=== PATIENT | female | born 1940 | race Caucasian/White ===

== ENCOUNTER 2021-06-14 11:00 | Emergency (ER) | payer MEDICARE, SELFPAY ==
[2021-06-14 11:21] VITALS: BP 153/57; PULSE 74; RESP 18; TEMP 36.8; O2SAT 98
[2021-06-14 11:30] LABS: Bilirubin Negative (Negative); Blood Small (Negative); Clarity Cloudy (Clear); Glucose Negative (Negative); Ketones Negative (Negative); Leukocyte Esterase Moderate (Negative); Nitrite Positive (Negative); Urobilinogen 0.2 EU/dL (Up TO 0.2); pH 5.5 (5-8)
[2021-06-14 11:41] LABS: Bacteria Many HPF (Negative); C & S Indicated? Yes; Casts Negative LPF (Negative); Crystals Negative HPF (Negative); Epithelial Cells Few HPF (Negative); Mucus Negative (Negative); WBC >50 HPF (0-5)
[2021-06-14 12:55] LABS: RBC Negative HPF (0-2)
[2021-06-14 14:33] LABS: Abs Immature Grans 0.02 10^3/uL (0.0-0.06); Absolute Basophil Count 0.03 10^3/uL (0.0-0.2); Absolute Eosinophil Count 0.02 10^3/uL (0.0-0.7); Absolute Lymphocyte Count 0.95 10^3/uL (1.2-3.4); Absolute Monocyte Count 0.54 10^3/uL (0.1-0.8); Absolute Neutrophil Count 6.97 10^3/uL (1.2-6.7); Basophils % 0.4; Eosinophils % 0.2; HCT 30.5 % (36.0-46.0); HGB 9.9 g/dL (11.2-15.7); Immature Grans % 0.2; Lymphocytes % 11.1; MCHC 32.5 % (32.0-36.0); MCV 92.4 fL (80-95); MPV 9.8 fL (8.0-11.0); Monocytes % 6.3; Neutrophils % 81.8; Nucleated RBC 0 %; Platelet Count 301 10^3/uL (130-400); RDW 12.2 % (11.7-14.6); RDW-SD 41.4 fL; WBC 8.53 10^3/uL (4.4-10.8)
[2021-06-14 14:57] LABS: ALT 21 U/L (14-59); AST 15 U/L (15-37); Albumin 3.8 g/dL (3.4-5.0); Alkaline Phosphatase 54 U/L (46-116); Anion Gap 14.1 mmol/L (3-11); BUN 21 mg/dL (7-18); Bilirubin, Total 0.6 mg/dL (0.2-1.0); CO2 21.9 mmol/L (21.0-32.0); CREATININE 1.9 mg/dL (0.55-1.02); Calcium 9.3 mg/dL (8.5-10.1); Chloride 106 mmol/L (98-107); Estimated GFR 25.57 (mL/min/1.73m2); Glucose 143 mg/dL (74-106); Potassium 3.5 mmol/L (3.5-5.1); Sodium 142 mmol/L (136-145)
[2021-06-14 15:45] VITALS: BP 148/61; PULSE 75; RESP 16; O2SAT 97
--- NOTE | 2021-06-14 16:16 | ED.GENADUL_ITS ---
Discharge Plan Disposition Patient Disposition: HOME Condition: Stable Discharge Details Clinical Impression: Acute pyelonephritis Primary Care Provider: Dang Tobias ED Provider: Harry Marshall Home Meds and New Rx's Prescriptions: New ciprofloxacin HCl 500 mg tablet 500 mg PO BID Qty: 13 RF: 0 Continued atorvastatin 40 mg tablet 40 mg PO DAILY RF: 0 carvedilol 12.5 mg tablet 12.5 mg PO BID RF: 0 cetirizine [Zyrtec] 10 mg Tablet 10 mg PO DAILY RF: 0 prednisone 20 mg tablet 20 mg PO DAILY RF: 0 glucosamine sulfate [Glucosamine] 500 mg Tablet 1,000 mg PO DAILY RF: 0 triamcinolone acetonide 0.1 % cream 1 applic TOPICAL BID RF: 0 amlodipine 10 mg Tablet 10 mg PO DAILY RF: 0 esomeprazole magnesium 40 mg Capsule,Delayed Release(Dr/Ec) 40 mg PO DAILY RF: 0 levothyroxine 125 mcg tablet 125 mcg PO DAILY RF: 0 multivitamin Capsule 1 cap PO DAILY RF: 0 Eliquis 5 mg tablet 5 mg PO BID RF: 0 Tresiba FlexTouch U-100 100 unit/mL (3 mL) insulin pen 2 unit SUBCUT DAILY RF: 0 Discharge Instructions Instructions: Ciprofloxacin (By mouth), Urinary Tract Infection in Women (ED) Additional Instructions: Please take full course of antibiotic as prescribed. Please follow-up with your primary care physician tomorrow. Return to the ER immediately for any worsening or new concerning symptoms. Referrals: Dang Tobias [Primary Care Provider] - Discharge Data Discharge Date/Time-TO BE ENTERED AT DEPARTURE: 06/14/21 18:12 Medical Decision Making 1723 -- 80yo f here with flank pain. Hemodynamically stable. Abdominal exam benign. Exam and history consistent with pyelonephritis. Labs reviewed: Urinalysis consistent with UTI. No leukocytosis. Patient does have anemia. Bedside POC ultrasound reveals no hydronephrosis. Plan to treat with ceftriaxone 1g IV. Will discharge on cipro 500mg BID. I advised close followup with PCP. Discharge instructions were reviewed with the patient. HPI General Mode of arrival: ambulatory . Date/Time Provider Initiated Documentation: 06/14/21 14:07 . Limitations to Documentation: no limitations . Information obtained by: patient . HPI Narrative: 80yo f presents with chief complaint of left flank pain. Patient notes for the past 3 days she has had persistent left flank pain with some associated nausea and vomiting. Pain is been moderate. Described as an ache. No modifiers. No associated dysuria or hematuria but has had increased urinary frequency. Related Data Home Medications Medication Instructions Recorded Confirmed Eliquis 5 mg PO BID 06/14/21 06/14/21 Tresiba FlexTouch U-100 2 unit SUBCUT DAILY 06/14/21 06/14/21 amlodipine 10 mg PO DAILY 06/14/21 06/14/21 atorvastatin 40 mg PO DAILY 06/14/21 06/14/21 carvedilol 12.5 mg PO BID 06/14/21 06/14/21 cetirizine [Zyrtec] 10 mg PO DAILY 06/14/21 06/14/21 ciprofloxacin HCl 500 mg PO BID #13 tab 06/14/21 esomeprazole magnesium 40 mg PO DAILY 06/14/21 06/14/21 glucosamine sulfate [Glucosamine] 1,000 mg PO DAILY 06/14/21 06/14/21 levothyroxine 125 mcg PO DAILY 06/14/21 06/14/21 multivitamin 1 cap PO DAILY 06/14/21 06/14/21 prednisone 20 mg PO DAILY 06/14/21 06/14/21 triamcinolone acetonide 1 applic TOPICAL BID 06/14/21 06/14/21 Previous Rx's Medication Instructions Recorded ciprofloxacin HCl 500 mg PO BID #13 tab 06/14/21 Allergies Allergy/AdvReac Type Severity Reaction Status Date / Time codeine Allergy Nausea Unverified 06/14/21 17:20 erythromycin base Allergy Hives Unverified 06/14/21 17:20 naproxen Allergy Unverified 06/14/21 17:11 omeprazole [From Prilosec] Allergy Unverified 06/14/21 17:11 Penicillins Allergy Unverified 06/14/21 17:11 Sulfa (Sulfonamide Allergy Unverified 06/14/21 17:11 Antibiotics) methotrexate AdvReac Unverified 06/14/21 17:20 naltrexone AdvReac Skin Rash Unverified 06/14/21 17:20 NSAIDS (Non-Steroidal AdvReac Unverified 06/14/21 17:20 Anti-Inflamma General Stated Complaint: FlankPain PAULINE: 3 Review of Systems All systems reviewed & are unremarkable except as noted in HPI and below Constitutional Constitutional: Denies fever(s) Gastrointestinal Gastrointestinal: Reports nausea Genitourinary Genitourinary: Reports as per HPI, Denies hematuria and Denies dysuria PFSH Social History Smoking/Tobacco Use Status: Never Smoking risk assessment performed?: Yes Alcohol Intake: never Drug use: Never Substance use type: does not use Do you feel safe at home: Yes Do you feel safe in your relationship?: Yes Exam Const General: cooperative and no acute distress HENMT Mouth: moist mucous membranes Eyes Conjunctivae: normal conjunctivae Sclera: normal sclerae Resp Auscultation: clear to auscultation bilaterally, no rales, no rhonchi and no wheezes Cardio Rate: regular rate and not tachycardic Rhythm: regular rhythm GI Palpation: soft, not firm, no guarding, no masses, not rigid and nontender Back/Spine/Pelvis Back: CVA tenderness (lt) Skin General skin exam: no rashes or lesions noted Neuro General: patient alert, patient awake, patient oriented x3 and tone normal Extrem General: no edema Psych Appearance: grossly normal Mental Status: mental status grossly normal Speech and Movement: speech and movement normal Course Vital Signs Vital signs: Vital Signs Temperature 36.8 C 06/14/21 11:21 Pulse 74 06/14/21 11:21 Respiratory Rate 18 06/14/21 11:21 Blood Pressure 153/57 H 06/14/21 11:21 Pulse Oximetry 98 06/14/21 11:21 Temperature 36.8 C 06/14/21 11:21 Temperature Source Skin 06/14/21 11:21 Pulse 75 06/14/21 15:45 Respiratory Rate 16 06/14/21 15:45 Respiratory Effort Non-Labored 06/14/21 11:24 Blood Pressure 148/61 H 06/14/21 15:45 Blood Pressure Position Sitting 06/14/21 11:21 Pulse Oximetry 97 06/14/21 15:45 Oxygen Delivery Method Room Air 06/14/21 15:45 Oxygen Flow Rate 0 06/14/21 15:45 Pain Level 6 06/14/21 11:26 Lab/Test Results Lab/Test Results: 06/14/21 11:12 Urine - Reflex from Ua Urine Culture - Pending Laboratory Tests Range/Units 06/14/21 06/14/21 06/14/21 11:12 14:20 14:20 WBC (4.4-10.8) 10^3/uL 8.53 RBC (3.93-5.22) 10^6/uL 3.30 L Hgb (11.2-15.7) g/dL 9.9 L Hct (36.0-46.0) % 30.5 L MCV (80-95) fL 92.4 MCH (27.0-33.0) pg 30.0 MCHC (32.0-36.0) % 32.5 RDW (11.7-14.6) % 12.2 Plt Count (130-400) 10^3/uL 301 MPV (8.0-11.0) fL 9.8 Immature Gran % 0.2 Neutrophils % 81.8 Lymphocytes % 11.1 Monocytes % 6.3 Eosinophils % 0.2 Basophils % 0.4 Nucleated RBC % % 0 Absolute Neutrophils (1.2-6.7) 10^3/uL 6.97 H Absolute Lymphocytes (1.2-3.4) 10^3/uL 0.95 L Absolute Monocytes (0.1-0.8) 10^3/uL 0.54 Absolute Eosinophils (0.0-0.7) 10^3/uL 0.02 Absolute Basophils (0.0-0.2) 10^3/uL 0.03 Sodium (136-145) mmol/L 142 Potassium (3.5-5.1) mmol/L 3.5 Chloride (98-107) mmol/L 106 Carbon Dioxide (21.0-32.0) mmol/L 21.9 Anion Gap (3-11) mmol/L 14.1 H BUN (7-18) mg/dL 21 H Creatinine (0.55-1.02) mg/dL 1.9 H Estimated GFR/1.73 m2 (mL/min/1.73m2) 25.57 Glucose (74-106) mg/dL 143 H Calcium (8.5-10.1) mg/dL 9.3 Total Bilirubin (0.2-1.0) mg/dL 0.6 AST (15-37) U/L 15 ALT (14-59) U/L 21 Alkaline Phosphatase (46-116) U/L 54 Total Protein (6.4-8.2) g/dL 8.0 Albumin (3.4-5.0) g/dL 3.8 Urine Color (Yellow) Yellow Urine Clarity (Clear) Cloudy Urine pH (5-8) 5.5 Ur Specific [place] (1.005-1.025) 1.020 Urine Protein (Negative) mg/dL 100 H Urine Ketones (Negative) mg/dL Negative Urine Blood (Negative) Small H Urine Nitrite (Negative) Positive H Urine Bilirubin (Negative) Negative Urine Urobilinogen (Up TO 0.2) EU/dL 0.2 Ur Leukocyte Esterase (Negative) Moderate H Urine RBC (0-2) HPF Negative Urine WBC (0-5) HPF >50 H Ur Epithelial Cells (Negative) HPF Few Urine Crystals (Negative) HPF Negative Urine Bacteria (Negative) HPF Many Urine Casts (Negative) LPF Negative Urine Mucus (Negative) Negative Ur Culture Indicated? Yes Urine Glucose (Negative) mg/dL Negative
[2021-06-14] MEDS: cefTRIAXone 1 GM/50 ML BAG IVPB (17:33)
[2021-06-14 18:01] VITALS: BP 158/70; PULSE 76; RESP 18; TEMP 36.5; O2SAT 99
[2021-06-14] MEDS: Ciprofloxacin 500 MG TAB PO (18:12)
== END 2021-06-14 18:12 | disposition home or self-care (01) ==
PROVIDERS: Emergency Provider Student in an Organized Health Care Education/Training Program; PCP Nurse Practitioner Family
DX: N10 Acute pyelonephritis (principal)
CPT/HCPCS: 80053; 87077; 96365; 99284; 81003; 81015; 85025; 87086; 87186; J0696

== ENCOUNTER 2022-02-26 16:15 | Emergency (ER) | payer MEDICARE, MEDICAID, SELFPAY ==
[2022-02-26] VITALS (10 sets, daily range): BP systolic 167–183; BP diastolic 56–64; PULSE 59–63; RESP 11–23; O2SAT 98–99
--- NOTE | 2022-02-26 16:45 | RT.EKG_ITS ---
APPROVED REPORT Exam: Resting ECG Reason for Exam: low potassium Patient Location: E HR:60 bpm ECG Measurements Heart Rate 60 AXIS HI 188 P 0 QRSd 148 QRS 15 QT 493 T 157 QTc 494 Conclusion Ventricular-paced rhythm
[2022-02-26 17:04] LABS: Abs Immature Grans 0.04 10^3/uL (0.0-0.06); Absolute Basophil Count 0.05 10^3/uL (0.0-0.2); Absolute Eosinophil Count 0.05 10^3/uL (0.0-0.7); Absolute Lymphocyte Count 1.56 10^3/uL (1.2-3.4); Absolute Monocyte Count 0.81 10^3/uL (0.1-0.8); Absolute Neutrophil Count 6.76 10^3/uL (1.2-6.7); Basophils % 0.5; Eosinophils % 0.5; HCT 28.1 % (36.0-46.0); HGB 8.8 g/dL (11.2-15.7); Immature Grans % 0.4; Lymphocytes % 16.8; MCH 25.2 pg (27.0-33.0); MCHC 31.3 % (32.0-36.0); MCV 81 fL (80-95); MPV 9.5 fL (8.0-11.0); Monocytes % 8.7; Neutrophils % 73.1; Platelet Count 289 10^3/uL (130-400); RBC 3.49 10^6/uL (3.93-5.22); RDW-SD 46.5 fL; WBC 9.27 10^3/uL (4.4-10.8)
[2022-02-26 17:16] LABS: ALT 22 U/L (14-59); AST 16 U/L (15-37); Albumin 3.5 g/dL (3.4-5.0); Alkaline Phosphatase 77 U/L (46-116); Anion Gap 14.3 mmol/L (3-11); BUN 30 mg/dL (7-18); Bilirubin, Total 0.5 mg/dL (0.2-1.0); CO2 19.7 mmol/L (21.0-32.0); CREATININE 1.9 mg/dL (0.55-1.02); Calcium 8.6 mg/dL (8.5-10.1); Chloride 108 mmol/L (98-107); Glucose 118 mg/dL (74-106); Magnesium 1.4 mg/dL (1.8-2.4); Sodium 142 mmol/L (136-145)
[2022-02-26 17:17] LABS: Potassium 2.8 mmol/L (3.5-5.1)
[2022-02-26] MEDS: Magnesium Oxide 400 MG TAB PO (17:37)
[2022-02-26] MEDS: POTASSIUM CHLORIDE 10 MEQ/100 ML BAG 100 MEQ IVPB (17:38)
[2022-02-26] MEDS: Potassium Chloride 20 MEQ TABCR 40 MEQ PO ×2 (17:38→19:19)
[2022-02-26 18:26] LABS: Diff Comment RBC Morph Reviewed; Hypochromasia 1+; Microcytosis 1+; Poikilocytes 1+
--- NOTE | 2022-02-26 19:02 | ED.GENADUL_ITS ---
Discharge Plan Disposition Patient Disposition: HOME Condition: Improving Discharge Details Clinical Impression: Hypokalemia, Hypomagnesemia Primary Care Provider: Dang Tobias ED Provider: Mike Ramos Home Meds and New Rx's Prescriptions: No Action atorvastatin 40 mg tablet 40 mg PO DAILY Label Comments: TAKE ONE TABLET BY MOUTH EVERY EVENING carvedilol 12.5 mg tablet 12.5 mg PO BID Label Comments: TAKE ONE TABLET BY MOUTH TWICE A DAY WITH FOOD FOR 90 DAYS cetirizine [Zyrtec] 10 mg Tablet 10 mg PO DAILY prednisone 20 mg tablet 20 mg PO DAILY Label Comments: TAKE ONE TABLET BY MOUTH EVERY DAY FOR 3 DAYS glucosamine sulfate [Glucosamine] 500 mg Tablet 1,000 mg PO DAILY triamcinolone acetonide 0.1 % cream 1 applic TOPICAL BID Label Comments: APPLY A THIN LAYER TO AFFECTED AREA TOPICALLY TWO TIMES A DAY amlodipine 10 mg Tablet 10 mg PO DAILY esomeprazole magnesium 40 mg Capsule,Delayed Release(Dr/Ec) 40 mg PO DAILY levothyroxine 125 mcg tablet 125 mcg PO DAILY Label Comments: TAKE ONE TABLET BY MOUTH EVERY DAY FOR 90 DAYS multivitamin Capsule 1 cap PO DAILY Eliquis 5 mg tablet 5 mg PO BID Label Comments: TAKE 1 TABLET BY MOUTH TWICE DAILY Tresiba FlexTouch U-100 100 unit/mL (3 mL) insulin pen 2 unit SUBCUT DAILY Label Comments: INJECT 2 UNITS SUBCUTANEOUSLY ONCE DAILY REPLACE PEN AFTER OPEN FOR 56 DAYS ciprofloxacin HCl 500 mg tablet 500 mg PO BID Qty: 13 0RF Discharge Instructions Instructions: Hypokalemia (ED), Hypomagnesemia (ED) Additional Instructions: Please continue to take your normally prescribed medications as directed by your primary care provider. If you develop any new or significant worsening of sym ptoms including chest pain, muscle spasms, or have any concerns return immediately to the emergency department. Please take the remainder of the potassium pills provided tomorrow. It is recommended that you follow-up with your primary care provider for arrangement of reassessment and recheck of your labs. If this cannot be arranged you should return to the emergency department by the end of the week for a recheck. Referrals: Dang Tobias [Primary Care Provider] - (Please follow-up by the end of the week for reassessment and recheck of your labs.) Discharge Data Discharge Date/Time-TO BE ENTERED AT DEPARTURE: 02/26/22 19:20 Medical Decision Making Patient was sent here by [facility] hypokalemia from labs that were checked yesterday. Patient is asymptomatic, denies any chest pain, irregular heartbeats, muscle spasms or other symptoms. She does state this is happened in the past and has had been on potassium supplementation but supplementation causes diarrhea and GI upset for her. Physical exam is unremarkable, so we will plan on checking labs. Review of labs show anemia but not much off patient's baseline, potassium is 2.8 and magnesium is 1.4. Patient does have significant decreased renal function which seems to be at or near baseline. Patient ordered 40 mEq p.o. potassium, 10 mEq of IV potassium and 400 of mag oxide. Patient reassessed continues to have no further symptoms and actually states some improvement of overall feeling. Will discharge patient with additional po tassium to take tomorrow morning with close monitoring for any symptoms and return precautions. Lab Data Lab results reviewed: Yes I reviewed the patient's lab results. HPI General Mode of arrival: ambulatory . Date/Time Provider Initiated Documentation: 02/26/22 16:16 . Limitations to Documentation: no limitations . Information obtained by: patient, family and old records reviewed . History of Present Illness 81 year old F presents to the emergency department with the chief complaint of Low potassium, Quality is described as other (Denies pain discomfort or other symptoms), Patient started experiencing this unknown No exacerbating factors reported . Patient notes no other symptoms.. Patient did receive the following treatments prior to arrival, none Related Data Home Medications Medication Instructions Recorded Confirmed amlodipine 10 mg tablet 10 mg PO DAILY 06/14/21 02/26/22 apixaban 5 mg tablet (Eliquis) 5 mg PO BID 06/14/21 02/26/22 atorvastatin 40 mg tablet 40 mg PO DAILY 06/14/21 02/26/22 carvedilol 12.5 mg tablet 12.5 mg PO BID 06/14/21 02/26/22 cetirizine 10 mg tablet (Zyrtec) 10 mg PO DAILY 06/14/21 02/26/22 ciprofloxacin HCl 500 mg tablet 500 mg PO BID #13 tabs 06/14/21 02/26/22 esomeprazole magnesium 40 mg 40 mg PO DAILY 06/14/21 02/26/22 capsule,delayed release glucosamine sulfate 500 mg tablet 1,000 mg PO DAILY 06/14/21 02/26/22 (Glucosamine) insulin degludec 100 unit/mL (3 2 unit subcut DAILY 06/14/21 02/26/22 mL) subcutaneous pen (Tresiba FlexTouch U-100 insulin) levothyroxine 125 mcg tablet 125 mcg PO DAILY 06/14/21 02/26/22 multivitamin 1 cap PO DAILY 06/14/21 02/26/22 prednisone 20 mg tablet 20 mg PO DAILY 06/14/21 02/26/22 triamcinolone acetonide 0.1 % 1 applic topical BID 06/14/21 02/26/22 topical cream Previous Rx's Medication Instructions Recorded ciprofloxacin HCl 500 mg tablet 500 mg PO BID #13 tabs 06/14/21 Allergies Allergy/AdvReac Type Severity Reaction Status Date / Time codeine Allergy Nausea Unverified 06/14/21 17:20 erythromycin base Allergy Hives Unverified 06/14/21 17:20 naproxen Allergy Unverified 06/14/21 17:11 omeprazole [From Prilosec] Allergy Unverified 06/14/21 17:11 Penicillins Allergy Unverified 06/14/21 17:11 Sulfa (Sulfonamide Allergy Unverified 06/14/21 17:11 Antibiotics) methotrexate AdvReac Unverified 06/14/21 17:20 naltrexone AdvReac Skin Rash Unverified 06/14/21 17:20 NSAIDS (Non-Steroidal AdvReac Unverified 06/14/21 17:20 Anti-Inflamma General Stated Complaint: GenMedical PAULINE: 3 Review of Systems Narrative: 8 systems reviewed and are unremarkable except for as noted in HPI and below Cardiovascular Cardiovascular: Denies chest pain and Denies claudication Musculoskeletal Musculoskeletal: Denies muscle cramps Neurologic Neurologic: Denies paresthesias PFSH All Active Problems Acute pyelonephritis (Acute) Hypokalemia (Acute) Hypomagnesemia (Acute) Social History Smoking/Tobacco Use Status: Never Smoking risk assessment performed?: Yes Alcohol Intake: never Drug use: Never Substance use type: does not use Do you feel safe at home: Yes Do you feel safe in your relationship?: Yes Exam Const General: cooperative, no acute distress and not ill appearing Orientation: alert, awake and oriented x3 Resp Effort & Inspection: normal respiratory effort, able to speak in complete sentences and no respiratory distress Cardio Rate: regular rate Rhythm: regular rhythm Heart Sounds: S1 normal and S2 normal Skin General skin exam: no rashes or lesions noted Neuro General: patient alert, patient awake, patient oriented x3, moves all extremities and no focal motor deficits Sensory Exam: no sensory deficits noted Course Vital Signs Vital signs: Vital Signs Pulse 63 02/26/22 16:39 Respiratory Rate 18 02/26/22 16:39 Blood Pressure 183/56 H 02/26/22 16:39 Pulse Oximetry 98 02/26/22 16:39 Temperature Source Temporal Artery Scan 02/26/22 16:39 Pulse 59 L 02/26/22 17:16 Pulse 60 02/26/22 17:20 Respiratory Rate 19 02/26/22 17:20 Respiratory Effort 02/26/22 16:58 Respiratory Depth Normal 02/26/22 16:58 Respiratory Pattern Normal 02/26/22 16:58 Blood Pressure 171/62 H 02/26/22 17:16 Blood Pressure Mean 91 02/26/22 17:16 Blood Pressure Position Sitting 02/26/22 16:39 Pulse Oximetry 98 02/26/22 16:50 Oxygen Delivery Method Room Air 02/26/22 16:39 Oxygen Flow Rate 0 02/26/22 16:39 Lab/Test Results Lab/Test Results: Laboratory Tests Range/Units 02/26/22 02/26/22 16:55 16:55 WBC (4.4-10.8) 10^3/uL 9.27 RBC (3.93-5.22) 10^6/uL 3.49 L Hgb (11.2-15.7) g/dL 8.8 L Hct (36.0-46.0) % 28.1 L MCV (80-95) fL 81 MCH (27.0-33.0) pg 25.2 L MCHC (32.0-36.0) % 31.3 L RDW (11.7-14.6) % 16.0 H Plt Count (130-400) 10^3/uL 289 MPV (8.0-11.0) fL 9.5 Immature Gran % 0.4 Neutrophils % 73.1 Lymphocytes % 16.8 Monocytes % 8.7 Eosinophils % 0.5 Basophils % 0.5 Nucleated RBC % (0.0-0.3) % 0.0 Absolute Neutrophils (1.2-6.7) 10^3/uL 6.76 H Absolute Lymphocytes (1.2-3.4) 10^3/uL 1.56 Absolute Monocytes (0.1-0.8) 10^3/uL 0.81 H Absolute Eosinophils (0.0-0.7) 10^3/uL 0.05 Absolute Basophils (0.0-0.2) 10^3/uL 0.05 RBC Morphology See Below Hypochromasia 1+ Poikilocytosis 1+ Microcytosis 1+ Sodium (136-145) mmol/L 142 Potassium (3.5-5.1) mmol/L 2.8 L* Chloride (98-107) mmol/L 108 H Carbon Dioxide (21.0-32.0) mmol/L 19.7 L Anion Gap (3-11) mmol/L 14.3 H BUN (7-18) mg/dL 30 H Creatinine (0.55-1.02) mg/dL 1.9 H Estimated GFR/1.73 m2 (mL/min/1.73m2) 25.50 Glucose (74-106) mg/dL 118 H Calcium (8.5-10.1) mg/dL 8.6 Magnesium (1.8-2.4) mg/dL 1.4 L Total Bilirubin (0.2-1.0) mg/dL 0.5 AST (15-37) U/L 16 ALT (14-59) U/L 22 Alkaline Phosphatase (46-116) U/L 77 Total Protein (6.4-8.2) g/dL 8.0 Albumin (3.4-5.0) g/dL 3.5
== END 2022-02-26 19:20 | disposition home or self-care (01) ==
PROVIDERS: Emergency Provider Nurse Practitioner Family; PCP Nurse Practitioner Family
DX: E87.6 Hypokalemia (principal); E83.42 Hypomagnesemia
CPT/HCPCS: 80053; 93005; 96365; 96366; 99284; 83735; 85025; 93010; J3480

== ENCOUNTER 2022-09-06 07:04 | Day surgery (SDC) | payer MEDICARE, MEDICAID, SELFPAY ==
[2022-09-06 07:29] VITALS: BP 140/54; PULSE 62; RESP 15; TEMP 36.6; O2SAT 98
[2022-09-06] MEDS: Tropicam./Phenyleph. (1/2.5%) 5 ML BTL OS ×3 (07:38→07:55)
--- NOTE | 2022-09-06 07:56 | ANES.PREOP_ITS ---
General Info Date of Service Date Performed: 09/06/22 Height: 5 ft 1 in Weight: 69.1 kg Body Mass Index (BMI): 28.8 Surgical Procedure: Operation Date: 09/06/22 08:40 Proposed Procedure Side Surgeon p Cataract Extraction with IOL Implant Left Henry Lanza MD Meds Allergies and Home Medications Allergies Allergy/AdvReac Type Severity Reaction Status Date / Time codeine Allergy Nausea Unverified 09/06/22 07:24 erythromycin base Allergy Hives Unverified 09/06/22 07:24 naproxen Allergy Unverified 09/06/22 07:24 omeprazole [From Prilosec] Allergy Unverified 09/06/22 07:24 Penicillins Allergy Unverified 09/06/22 07:24 Sulfa (Sulfonamide Allergy Other (See Unverified 09/06/22 07:24 Antibiotics) Comment) methotrexate AdvReac Unverified 09/06/22 07:24 naltrexone AdvReac Skin Rash Unverified 09/06/22 07:24 NSAIDS (Non-Steroidal AdvReac Unverified 09/06/22 07:24 Anti-Inflamma Home Medication Medication Instructions Recorded amlodipine 10 mg tablet 10 mg PO DAILY 06/14/21 apixaban 5 mg tablet (Eliquis) 5 mg PO BID 06/14/21 atorvastatin 40 mg tablet 40 mg PO DAILY 06/14/21 carvedilol 12.5 mg tablet 18.75 mg PO BID 06/14/21 cetirizine 10 mg tablet (Zyrtec) 10 mg PO DAILY 06/14/21 glucosamine sulfate 500 mg tablet 1,000 mg PO DAILY 06/14/21 (Glucosamine) insulin degludec 100 unit/mL (3 10 unit subcut DAILY 06/14/21 mL) subcutaneous pen (Tresiba FlexTouch U-100 insulin) levothyroxine 125 mcg tablet 125 mcg PO DAILY 06/14/21 triamcinolone acetonide 0.1 % 1 applic topical BID 06/14/21 topical cream acetaminophen 325 mg tablet 2 tab PO BID 09/04/22 esomeprazole magnesium 20 mg 1 cap PO DAILY 09/04/22 capsule,delayed release glucosamine sulfate dipotassium Cl 1 cap PO DAILY 09/04/22 500 mg-chondroitin 400 mg capsule (Glucosamine-Chondroitin DS) magnesium oxide 400 mg (241.3 mg 1 tab PO DAILY 09/04/22 magnesium) tablet [id number]-cjg-rmotl acid 0.4 1 tab PO DAILY 09/04/22 mg-lycopene 300 mcg-lutein 250 mcg tablet (Adults 50 Plus) paroxetine HCl 20 mg tablet 1 tab PO DAILY 09/04/22 potassium chloride 20 mEq 1 tab PO DAILY 09/04/22 tablet,extended release(part/cryst) tramadol 50 mg tablet 1 tab PO Q4H PRN 09/04/22 Current Visit Medications: Current Medications Generic Name Dose Route Start Last Admin Trade Name Freq PRN Reason Stop Dose Admin Acetaminophen 1,000 mg 09/06/22 06:00 Acetaminophen 500 Mg Tab PO Q4H PRN PRN Miscellaneous Medication 0 ml 09/06/22 06:00 Prednisolone 1%, Moxifloxacin 0.5%, Nepafenac 0.1% 5ml Btl OS DIRECTED OMEGA Miscellaneous Medication 0 ml 09/06/22 06:00 09/06/22 07:55 Tropicam./Phenyleph. (1/2.5%) 5 Ml Btl OS 1 drp DIRECTED OMEGA Administration Tetracaine HCl 0 ml 09/06/22 06:00 Tetracaine 0.5% 4 Ml Btl OS DIRECTED OMEGA PFSH Active Problems Active Problems: Problem Status Onset Code Acute pyelonephritis N10 Medical History Medical History Acquired trigger finger Atrial fibrillation Benign neoplasm of adrenal gland Cardiac pacemaker (11/22/21) Cataract Chronic cystitis Chronic pain Diabetes mellitus Diabetic retinopathy associated with controlled type 2 diabetes mellitus Heart failure History of anemia Hyperlipidemia, mixed Hypertensive disorder Inflammatory arthritis Lower urinary tract symptoms (LUTS) Lumbar radiculopathy Neck pain Obesity Postoperative hypothyroidism Renal failure syndrome Rheumatoid arthritis 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 Surgical History Surgical History H/O adenoidectomy H/O breast biopsy H/O right cataract extraction H/O tubal ligation History of cholecystectomy Hx of appendectomy Hx of tonsillectomy Tobacco Smoking/Tobacco Use Status: Never Alcohol Alcohol Intake: never Substance Use Substance use: Never Substance use type: does not use Vital Signs and Lab Results Vital Signs Most Recent Vital Signs in EMR: Most Recent Vital Signs Temp Pulse Resp BP Pulse Ox 36.6 C 62 15 140/54 L 98 09/06/22 07:29 09/06/22 07:29 09/06/22 07:29 09/06/22 07:29 09/06/22 07:29 Point of Care Results Point of Care Results: Finger Stick Blood Glucose 134 09/06/22 07:28 Lab Results Blood Type / Crossmatch: No Data to Display Complete Blood Count: No Data to Display Complete Metabolic Panel: No Data to Display Liver Function Panel: No Data to Display Coagulation Panel: No Data to Display Cardiac Panel: No Data to Display Arterial Blood Gas: No Data to Display Venous Blood Gas: No Data to Display Pancreas Panel: No Data to Display Thyroid Panel: 2 No Data to Display Infectious Disease: No Data to Display Blood Cultures: No Data to Display Toxicology Panel: No Data to Display Imaging and Studies Imaging and Studies Study information below may be from another EMR and interpreted by another provider. Please see original notes in EMR for more complete details. EKG Summary: DATE/TIME OF SERVICE: 02/26/22 1649 : 2PERFORMING LOCATION: ER APPROVED REPORT Exam: Resting ECG Reason for Exam: low potassium Patient Location: E HR:60 bpm ECG Measurements Heart Rate 60 AXIS SC 188 P 0 QRSd 148 QRS 15 QT 493 T157 QTc 494 Conclusion Ventricular-paced rhythm Anesthesia Assessment and Plan Anesthesia History Personal History: No History of Anesthesia Complications Family History: No Family History of Anesthesia Complications Exercise Tolerance Exercise Tolerance: Metabolic Equivalents>4 Pertinent Negatives Pertinent Negatives: No Symptoms of GERD Cardiac & Pulmonary Exam Cardiac Exam: Normal S1/S2 Heart Sounds Pulmonary Exam: Clear Bilateral Breath Sounds Implantable Cardiac Device Does patient have a Pacemaker or an ICD?: No Airway Exam Known Difficult Airway: No Mallampati Class: 1 Mouth Opening: Normal (> 3cm) Thyromental Distance: Greater than 3 cm Neck Range of Motion: Full ROM Neck Circumference: Normal Teeth Condition: Removable Dentures/Plates Upper ASA Classification ASA Score: ASA 3 Emergency Case?: No NPO Status NPO Status: NPO Clears >2 hours, Solids >8 hours Anesthesia Plan Resuscitation Status: Full Code Anesthesia Technique: MAC Anesthesia Airway Planned: Natural Airway Monitors Used: Standard Monitors
[2022-09-06 07:57] VITALS: BMI 28.8
[2022-09-06] MEDS: Tetracaine 0.5% 4 ML BTL OS (08:23)
[2022-09-06] MEDS: Balanced Salt Soln.-PLUS 500 ML BAG (08:23)
[2022-09-06] MEDS: Duovisc Viscoelastic System EACH 1 EACH (08:23)
[2022-09-06] MEDS: Lidocaine 2% Jelly 6 ML SYR (08:27)
[2022-09-06] MEDS: Povidone-Iodine Ophth 30 ML BTL (08:28)
--- NOTE | 2022-09-06 08:44 | W.PM.DSUDISC ---
Date of service: 09/06/22 Time of Service: 08:44 Discharge Plan Disposition Patient Disposition: Home Discharge Details Attending Provider: Henry Lanza Primary Care Provider: Dang Tobias Home Meds and New Rx's Prescriptions: No Action acetaminophen 325 mg tablet 2 tab PO BID tramadol 50 mg tablet 1 tab PO Q4H PRN potassium chloride 20 mEq tablet,ER particles/crystals 1 tab PO DAILY Label Comments: 09/04/22 on HOLD magnesium oxide 400 mg (241.3 mg magnesium) tablet 1 tab PO DAILY Label Comments: 09/04/22 on HOLD paroxetine HCl 20 mg tablet 1 tab PO DAILY esomeprazole magnesium 20 mg capsule,delayed release(DR/EC) 1 cap PO DAILY Adults 50 Plus 0.4 mg-300 mcg- 250 mcg tablet 1 tab PO DAILY Glucosamine-Chondroitin DS 500-400 mg capsule 1 cap PO DAILY atorvastatin 40 mg tablet 40 mg PO DAILY Label Comments: TAKE ONE TABLET BY MOUTH EVERY EVENING carvedilol 12.5 mg tablet 18.75 mg PO BID Label Comments: TAKE ONE TABLET BY MOUTH TWICE A DAY WITH FOOD FOR 90 DAYS cetirizine [Zyrtec] 10 mg Tablet 10 mg PO DAILY glucosamine sulfate [Glucosamine] 500 mg Tablet 1,000 mg PO DAILY triamcinolone acetonide 0.1 % cream 1 applic TOPICAL BID Label Comments: APPLY A THIN LAYER TO AFFECTED AREA TOPICALLY TWO TIMES A DAY amlodipine 10 mg Tablet 10 mg PO DAILY levothyroxine 125 mcg tablet 125 mcg PO DAILY Label Comments: TAKE ONE TABLET BY MOUTH EVERY DAY FOR 90 DAYS Eliquis 5 mg tablet 5 mg PO BID Label Comments: TAKE 1 TABLET BY MOUTH TWICE DAILY insulin degludec [Tresiba FlexTouch U-100] 100 unit/mL (3 mL) insulin pen 10 unit SUBCUT DAILY Label Comments: INJECT 2 UNITS SUBCUTANEOUSLY ONCE DAILY REPLACE PEN AFTER OPEN FOR 56 DAYS Discharge Instructions Stand Alone Forms: Post-op Topical Cataract, Teresa Ferguson (DSU) Discharge Orders Discharge Orders: Discharge Order (Routine); Ordered 09/06/22 Ordered By: Henry Lanza DS: Diagnosis Discharge Diagnosis (1) Cortical cataract of left eye: Status: Resolved (2) Nuclear sclerotic cataract of left eye: Status: Resolved (3) Posterior subcapsular age-related cataract of left eye: Status: Resolved
--- NOTE | 2022-09-06 08:45 | W.PM.OP ---
Date of service: 09/06/22 Time of Service: 08:46 Operative Note Operative Note DATE OF PROCEDURE: 09/06/22 PRE-OP DIAGNOSIS: Nuclear/cortical/posterior subcapsular cataract, left eye POST-OP DIAGNOSIS: same PROCEDURE: Cataract extraction using phacoemulsification with intraocular lens implant, left eye SURGEON: Henry Lanza ANESTHESIA TYPE: Local By Surgeon and MAC Refer to Anesthesia Record PATHOLOGY: none sent COMPLICATIONS: None Patient was transported to: same day Patient's condition: stable Implants: [employer] / [employer] Tecnis [id number] Indications: Progressive decreased vision due to cataract, left eye Procedure Description: CATARACT SURGERY OPERATIVE REPORT PREOPERATIVE DIAGNOSIS: 1. Nuclear/cortical/posterior subcapsular cataract, left eye POSTOPERATIVE DIAGNOSIS: Same OPERATION: 1. Cataract extraction using phacoemulsification with posterior chamber intraocular lens implant, left eye. IOL: IOL Operations And Maintenance Technican/Model: [employer] William / SONAL Tecnis [id number] IOL Power: + 24.5 diopters IOL Serial Number: [id number] Optic Diameter: 6.0 mm Haptic/Overall Diameter: 13.0 mm PHACO INFO: Casey Poshlyurion Vision System with OZil and Active Fluidics Cumulative Dispersed Energy (CDE): 11.42 seconds SURGEON: Henry Lanza MD, HERNESTO ANESTHESIA: Monitored A [facility] (MAC), with local sub-tenon's anesthetic infiltration COMPLICATIONS: None SPECIMENS: None INDICATIONS FOR PROCEDURE: The patient is an 82-year-old lady with history of diminished visual acuity in both eyes secondary to development of bilateral cataract. She has already undergone cataract surgery in the right eye and is doing well postoperatively. She now presents for surgery in the left eye. PROCEDURE: The correct surgical eye was identified and marked as the left eye and the pupil was dilated in the preoperative area using mydriatics and cycloplegics. The dilated pupil size was 6.0 mm. The patient elected to proceed without oral sedation. The patient was brought to the operating room where cardiopulmonary monitoring was instituted and surgical time-out was performed, confirming the correct operative eye and IOL power. Topical anesthesia was administered and ophthalmic povidone-iodine 5% was instilled into the conjunctival fornices. Lidocaine gel was applied to the cornea and the vesna-ocular area was prepped with Betadine 10% solution and draped in the usual sterile fashion for intraocular surgery, including an aperture drape. A Tegaderm transparent film dressing was cut in half and used to cover the lashes and lid margins. Care was taken to sequester the lashes and lid margins under the Tegaderm dressing. A lid speculum was placed between the lids of the operative eye and the Casey Lux[employer] Revalia operating microscope was maneuvered into position. Ander scissors were then used to make a conjunctival buttonhole approximately 6mm posterior to the limbus in the inferonasal quadrant. Blunt dissection was carried out to expose bare sclera, and a blunt-tipped sub-tenon?s anesthesia cannula was introduced and passed posteriorly along the globe where non-preserved plain lidocaine was injected into posterior sub-Tenon?s space. A sideport knife was used to make a paracentesis port superiorly/superiortemporally. Intraocular phenylephrine/lidocaine was injected int the anterior chamber.. The anterior chamber was filled with viscoelastic. A keratome knife was used to construct a 2-plane near-clear corneal tunnel extending 2.0mm into clear cornea temporally. A flap was raised on the anterior capsule and capsulorhexis forceps were used to complete a continuous curvilinear capsulorhexis of 5.0 mm. The capsule was noted to be quite thin. The anterior chamber was moderately shallow. Balanced salt solution was then used to perform cortical cleaving hydrodissection and nuclear hydrodelineation until the lens could be freely rotated within the capsular bag. The lens nucleus was then disassembled and removed within the capsular bag and iris plane using phacoemulsification. Residual cortical material was removed using the 45-degree angled silicone I/A tip with 0.3mm port. The posterior capsule was carefully polished to remove as much residual lens epithelial cells as safely possible. The capsular bag was then inflated and the anterior chamber deepened with viscoelastic. The lens implant described above was inserted into the capsular bag using the SONAL [place] Injector. A Kuglen hook was used to dial the IOL into position. Residual viscoelastic was then removed first from posterior to the IOL, then from the anterior chamber using the I/A handpiece. The lens implant was noted to center nicely within the capsular bag. The incisions were stromally hydrated, and the anterior chamber was reformed using BSS. Then 0.5cc of moxifloxacin 1.0mg/ml were injected into the capsular bag and anterior chamber. The incisions were checked with a Weck spear and found to be secure. Several drops of ophthalmic povidone-iodine 5% were then applied to the eye followed by two drops of Imprimis combination prednisolone/moxifloxacin/nepafenac solution. The drapes were removed and a clear plastic protective eye shield was placed over the eye. The patient was then returned to Same Day Surgery in stable condition.
[2022-09-06 08:49] VITALS: BP 137/59; PULSE 60; RESP 16; TEMP 36.3; O2SAT 99
--- NOTE | 2022-09-06 08:59 | W.ANESPOSTOP ---
Postoperative Evaluation Date, Time and Location Date Performed: 09/06/22 Time Performed: 08:56 Patient Location: Day Surgery Unit Vital Signs Most Recent Imported Vital Signs: Most Recent Vital Signs Temp Pulse Resp BP Pulse Ox 36.3 C L 60 16 137/59 L 99 09/06/22 08:49 09/06/22 08:49 09/06/22 08:49 09/06/22 08:49 09/06/22 08:49 Pain Score Most Recent Pain Score: Most Recent Pain Score Pain Level 0 09/06/22 08:49 Assessment Mental Status: Awake (Alert & Oriented to Patient Baseline) Airway and Respiratory Function: Patent airway with normal (patient baseline) respiratory exam Cardiovascular Function: Hemodynamically Stable Hydration Status: Adequately Hydrated Nausea & Vomiting: No Nausea or Vomiting Pain: Pt. Denies Any Pain Peripheral Nerve Block: Patient did not receive a nerve block
== END 2022-09-06 09:05 | disposition home or self-care (01) ==
LOC: SUR 07:05
PROVIDERS: PCP Nurse Practitioner Family; Visit Provider Ophthalmology
PROC: (CPT 66984; principal; 2022-09-06 08:30)
DX: H25.042 Posterior subcapsular polar age-related cataract, left eye (principal); I48.91 Unspecified atrial fibrillation; E11.319 Type 2 diabetes mellitus with unspecified diabetic retinopathy without macular edema; Z79.01 Long term (current) use of anticoagulants; Z79.4 Long term (current) use of insulin
CPT/HCPCS: 66984; V2632

== ENCOUNTER 2022-10-26 11:30 | Emergency (ER) | payer MEDICARE, MEDICAID, SELFPAY ==
[2022-10-26] VITALS (18 sets, daily range): BP systolic 145–156; BP diastolic 56–67; PULSE 59–60; RESP 13–24; TEMP 36.4–36.5; O2SAT 96–99
--- NOTE | 2022-10-26 11:45 | DI.CT_ITS ---
Exam(s) CT LUMBAR SPINE RECONS CT ABDOMEN PELVIS WO EXAM: CT ABDOMEN PELVIS WO and CT lumbar spine recons CLINICAL HISTORY: right sided abdominal pain and flank pain. TECHNIQUE: Imaging Protocol: Axial computed tomography images with coronal and sagittal reformatted images were created and reviewed. COMPARISON: MR MR LS SPINE WO CONTRAST from 12/01/2020 FINDINGS: ABDOMEN: Lung Bases: Coronary artery calcifications are present. There is mild cardiomegaly. There are multi ple tiny less than 3 mm noncalcified pulmonary nodules present. Calcified granuloma are also present . Liver: Normal density. No measurable mass. There is a coarse calcifications seen in the liver. Gallbladder and biliary tract: Status post cholecystectomy. No biliary ductal dilatation. Pancreas: Normal density, no abnormal calcifications or inflammatory process. Spleen: Normal. Kidneys: Normal size, contour and axis.No radiodense stones or obstructive uropathy. No masses seen. Adrenal glands: There is a 2.8 x 2.3 cm solid mass which appears to arise from the left adrenal gland . Alternatively, a renal mass cannot be excluded. Lymph nodes: Within normal limits. Abdominal Aorta: Abdominal portion non-dilated. Atherosclerosis is present. PELVIS: Bladder:There is diffuse thickening of the wall of the urinary bladder. There is a 1.3 cm nodule in the right aspect of the base of the urinary bladder. It projects into the lumen. Bowel: No obstruction or bowel wall thickening. No evidence of appendicitis. Peritoneal cavity: No ascites, collection or mesenteric inflammatory response. No free air. Reproductive organs: Unremarkable as visualized. Bones: Within normal limits. Soft Tissues: Within normal limits. Lumbar spine recons: Grade 1 anterolisthesis of L4 on L5 is noted. Mild degenerative changes are see n in the spine. No acute fractures or subluxations. IMPRESSION: 1. Innumerable pulmonary nodules in the lung bases. While this may be infectious or inflammatory met astatic disease must be excluded. 2. Left upper quadrant nodule which appears to arise from the adrenal gland. It is not definitely an adenoma by CT criteria. Further evaluation is warranted. An MRI may be obtained using the adrenal protocol. This may alternatively represent a renal mass. 3. Irregular bladder wall thickening with a 1.3 cm nodule in the right aspect of the base of the urin varun bladder. The findings are suspicious for neoplasm. RADIATION DOSE DELIVERED: 730.64 mGy.cm Total DLP DATA REPOSITORY: All CT scans at this facility are submitted to the National Radiology Data Registry (NRDR) Dose Index Registry (DIR) with the [employer] (A[employer]). RADIATION OPTIMIZATION: All CT scans at this facility use at least one of these dose optimization te chniques: automated exposure control; mA and/or kV adjustment per patient size (includes targeted exa ms where dose is matched to clinical indication); or iterative reconstruction.
--- NOTE | 2022-10-26 11:56 | ED.GENADUL_ITS ---
Discharge Plan Disposition Patient Disposition: Home Condition: Stable Discharge Details Clinical Impression: Hematuria, Flank pain Primary Care Provider: Brandy Daugherty ED Provider: James Abbasi Home Meds and New Rx's Prescriptions: New ciprofloxacin HCl 500 mg tablet 500 mg PO BID Qty: 14 0RF Continued acetaminophen 325 mg tablet 2 tab PO BID tramadol 50 mg tablet 1 tab PO Q4H PRN potassium chloride 20 mEq tablet,ER particles/crystals 1 tab PO DAILY Label Comments: 09/04/22 on HOLD paroxetine HCl 20 mg tablet 1 tab PO DAILY Adults 50 Plus 0.4 mg-300 mcg- 250 mcg tablet 1 tab PO DAILY Glucosamine-Chondroitin DS 500-400 mg capsule 1 cap PO DAILY paroxetine HCl 20 mg tablet PO atorvastatin 40 mg tablet 40 mg PO DAILY Label Comments: TAKE ONE TABLET BY MOUTH EVERY EVENING carvedilol 12.5 mg tablet 18.75 mg PO BID Label Comments: TAKE ONE TABLET BY MOUTH TWICE A DAY WITH FOOD FOR 90 DAYS glucosamine sulfate [Glucosamine] 500 mg Tablet 1,000 mg PO DAILY triamcinolone acetonide 0.1 % cream 1 applic TOPICAL BID Label Comments: APPLY A THIN LAYER TO AFFECTED AREA TOPICALLY TWO TIMES A DAY amlodipine 10 mg Tablet 10 mg PO DAILY levothyroxine 125 mcg tablet 125 mcg PO DAILY Label Comments: TAKE ONE TABLET BY MOUTH EVERY DAY FOR 90 DAYS Eliquis 5 mg tablet 5 mg PO BID Label Comments: TAKE 1 TABLET BY MOUTH TWICE DAILY insulin degludec [Tresiba FlexTouch U-100] 100 unit/mL (3 mL) insulin pen 10 unit SUBCUT DAILY Label Comments: INJECT 2 UNITS SUBCUTANEOUSLY ONCE DAILY REPLACE PEN AFTER OPEN FOR 56 DAYS Discharge Instructions Instructions: Hematuria (ED) Additional Instructions: you should be contacted with an appointment with urology if you feel more ill, have severe worsening pain or fevers return to the emergency department Medical Decision Making 82 yo female with hx of afibv on eliquis, who comes in with cc of bloody urine f or 2 days and intermittent lower back/right flank pain. Denies any fevers, chills, chest pain, dyspnea. She has had some burning with urination. She arrives stable speaking clearly in no distress. She has tenderness in the right lower back and right oblique, no abdominal tenderness or distention. Given her symptoms will proceed with cbc, cmp, ua and ct to evaluate for possible kidney stone and also evaluate for uti. ua with some lueks, has hematuria. CT shows pulmonary nodules and also irregular bladder concerning for neoplasm. She is stable, pain resolved with iv tylenol. no abdominal tenderness. Discussed results with pt, advised concern for neoplasm and will refer to urology for likely cystoscopy. Will also start her on cipro to cover for possible uti. Return precautions given Differential Diagnosis Differential Diagnosis: uti, kidney stone Medical Records Medical records reviewed: Yes I reviewed the patient's medical records. Imaging Data Radiologic Study: Attestation: I personally reviewed and interpreted this imaging study as follows: Imaging: CT Scan Radiologist's impression: IMPRESSION: 1. Innumerable subcentimeter pulmonary nodules at both lung bases bilaterally. May be infectious or inflammatory process, although metastatic disease must be excluded. 2. Left adrenal nodule measures 3 x 2.5 cm, not definitively adrenal adenoma by CT criteria. 3. Bladder wall thickening demonstrating irregularity, particularly along the right base. Intraluminal nodule at the right base measures 1.4 by 1.1 cm. Highly suspect for neoplasm, additional workup necessary. Lab Data Lab results reviewed: Yes I reviewed the patient's lab results. HPI General Mode of arrival: ambulatory . Date/Time Provider Initiated Documentation: 10/26/22 11:31 . Limitations to Documentation: no limitations . Information obtained by: patient . History of Present Illness 82 year old F presents to the emergency department with the chief complaint of bloody urine, described as moderate, Patient started experiencing this day(s) (2) and it has been constant. No relieving factors improve symptom(s), No exacerbating factors reported . Patient notes denies fever/chills. Patient did receive the following treatments prior to arrival, none Related Data Home Medications Medication Instructions Recorded Confirmed amlodipine 10 mg tablet 10 mg PO DAILY 06/14/21 10/26/22 apixaban 5 mg tablet (Eliquis) 5 mg PO BID 06/14/21 10/26/22 atorvastatin 40 mg tablet 40 mg PO DAILY 06/14/21 10/26/22 carvedilol 12.5 mg tablet 18.75 mg PO BID 06/14/21 10/26/22 glucosamine sulfate 500 mg tablet 1,000 mg PO DAILY 06/14/21 09/06/22 (Glucosamine) insulin degludec 100 unit/mL (3 10 unit subcut DAILY 06/14/21 10/26/22 mL) subcutaneous pen (Tresiba FlexTouch U-100 insulin) levothyroxine 125 mcg tablet 125 mcg PO DAILY 06/14/21 10/26/22 triamcinolone acetonide 0.1 % 1 applic topical BID 06/14/21 09/06/22 topical cream acetaminophen 325 mg tablet 2 tab PO BID 09/04/22 10/26/22 glucosamine sulfate dipotassium Cl 1 cap PO DAILY 09/04/22 10/26/22 500 mg-chondroitin 400 mg capsule (Glucosamine-Chondroitin DS) [id number] acid 0.4 1 tab PO DAILY 09/04/22 10/26/22 mg-lycopene 300 mcg-lutein 250 mcg tablet (Adults 50 Plus) paroxetine HCl 20 mg tablet 1 tab PO DAILY 09/04/22 09/06/22 potassium chloride 20 mEq 1 tab PO DAILY 09/04/22 09/06/22 tablet,extended release(part/cryst) tramadol 50 mg tablet 1 tab PO Q4H PRN 09/04/22 09/06/22 ciprofloxacin HCl 500 mg tablet 500 mg PO BID #14 tabs 10/26/22 paroxetine HCl 20 mg tablet mg PO 10/26/22 10/26/22 Previous Rx's Medication Instructions Recorded ciprofloxacin HCl 500 mg tablet 500 mg PO BID #14 tabs 10/26/22 Allergies Allergy/AdvReac Type Severity Reaction Status Date / Time codeine Allergy Nausea Unverified 09/06/22 07:24 erythromycin base Allergy Hives Unverified 09/06/22 07:24 naproxen Allergy Unverified 09/06/22 07:24 omeprazole [From Prilosec] Allergy Unverified 09/06/22 07:24 Penicillins Allergy Unverified 09/06/22 07:24 Sulfa (Sulfonamide Allergy Other (See Unverified 09/06/22 07:24 Antibiotics) Comment) methotrexate AdvReac Unverified 09/06/22 07:24 naltrexone AdvReac Skin Rash Unverified 09/06/22 07:24 NSAIDS (Non-Steroidal AdvReac Unverified 09/06/22 07:24 Anti-Inflamma General Stated Complaint: Urinary PAULINE: 3 Review of Systems All systems reviewed & are unremarkable except as noted in HPI and below Constitutional Constitutional: Denies chills, Denies fever(s) and Denies weakness Cardiovascular Cardiovascular: Denies chest pain and Denies dyspnea Respiratory Respiratory: Denies cough and Denies dyspnea Gastrointestinal Gastrointestinal: Denies nausea and Denies vomiting Musculoskeletal Musculoskeletal: Denies joint swelling Integumentary/Breasts Skin/Breast: Denies rash Neurologic Neurologic: Denies weakness PFSH All Active Problems (Updated 10/26/22 @ 14:15 by James Abbasi MD) Hematuria (Acute) Flank pain (Acute) Acute pyelonephritis (Acute) Medical History (Updated 10/26/22 @ 14:15 by James Abbasi MD) Acquired trigger finger Atrial fibrillation Benign neoplasm of adrenal gland Cardiac pacemaker (11/22/21) Cataract Chronic cystitis Chronic pain Diabetes mellitus Diabetic retinopathy associated with controlled type 2 diabetes mellitus Heart failure History of anemia Hyperlipidemia, mixed Hypertensive disorder Inflammatory arthritis Lower urinary tract symptoms (LUTS) Lumbar radiculopathy Neck pain Obesity Postoperative hypothyroidism Renal failure syndrome Rheumatoid arthritis 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 Surgical History (Updated 09/06/22 @ 08:45 by Henry Lanza MD) H/O adenoidectomy H/O breast biopsy H/O right cataract extraction H/O tubal ligation History of cholecystectomy Hx of appendectomy Hx of tonsillectomy Social History Smoking/Tobacco Use Status: Never Smoking risk assessment performed?: Yes Alcohol Intake: never Drug use: Never Substance use type: does not use Do you feel safe at home: Yes Additional Social history: lives alone Exam Const General: no acute distress Orientation: alert HENMT Head: normal to inspection Ears: external ears normal General nose exam: external nose normal Mouth: moist mucous membranes Eyes General: appearance normal, both eyes and all related structures Neck Neck: normal visual inspection Resp Effort & Inspection: normal respiratory effort and able to speak in complete sentences Cardio Rate: regular rate GI Palpation: soft and nontender Back/Spine/Pelvis Back: no CVA tenderness Skin General skin exam: no rashes or lesions noted Neuro General: patient alert and patient oriented x3 Extrem General: normal to inspection Psych Mental Status: mental status grossly normal Course Vital Signs Vital signs: Vital Signs Temperature 36.5 C 10/26/22 11:34 Pulse 60 10/26/22 11:34 Respiratory Rate 16 10/26/22 11:34 Blood Pressure 156/67 H 10/26/22 11:34 Temperature 36.5 C 10/26/22 11:34 Temperature Source Oral 10/26/22 11:34 Pulse 60 10/26/22 11:34 Respiratory Rate 16 10/26/22 11:34 Respiratory Effort 10/26/22 11:47 Blood Pressure 156/67 H 10/26/22 11:34 Blood Pressure Position Sitting 10/26/22 11:34 Oxygen Delivery Method Room Air 10/26/22 11:34 Oxygen Flow Rate 0 10/26/22 11:34 Pain Level 5 10/26/22 11:47 Comment 10/26/22 11:34
[2022-10-26 12:18] LABS: Abs Immature Grans 0.02 10^3/uL (0.0-0.06); Absolute Basophil Count 0.05 10^3/uL (0.0-0.2); Absolute Eosinophil Count 0.07 10^3/uL (0.0-0.7); Absolute Lymphocyte Count 1.28 10^3/uL (1.2-3.4); Absolute Monocyte Count 0.83 10^3/uL (0.1-0.8); Absolute Neutrophil Count 8.11 10^3/uL (1.2-6.7); Basophils % 0.5; Eosinophils % 0.7; HCT 36.6 % (36.0-46.0); HGB 11.9 g/dL (11.2-15.7); Immature Grans % 0.2; Lymphocytes % 12.4; MCHC 32.5 % (32.0-36.0); MCV 95 fL (80-95); MPV 9.4 fL (8.0-11.0); Neutrophils % 78.2; Platelet Count 262 10^3/uL (130-400); RBC 3.84 10^6/uL (3.93-5.22); RDW 12.8 % (11.7-14.6); RDW-SD 44.4 fL; WBC 10.36 10^3/uL (4.4-10.8)
[2022-10-26] MEDS: ACETAMINOPHEN 1,000 MG/100 ML BTL 400 MG IVPB (12:21)
[2022-10-26 12:23] LABS: Bilirubin Negative (Negative); Blood Large (Negative); Clarity Cloudy (Clear); Glucose Negative (Negative); Ketones Negative (Negative); Leukocyte Esterase Trace (Negative); Nitrite Negative (Negative); Specific Gravity 1.025 (1.005-1.025); Urobilinogen 0.2 EU/dL (Up TO 0.2); pH 6.5 (5-8)
[2022-10-26 12:32] LABS: PTT Activated 27.4 sec (21.0-27.5); Prothrombin Time 10.3 sec (9.3-11.0)
[2022-10-26 12:32] LABS: RBC >50 HPF (0-2)
[2022-10-26 12:33] LABS: C & S Indicated? Yes
[2022-10-26 12:33] LABS: ALT 32 U/L (14-59); AST 20 U/L (15-37); Albumin 3.9 g/dL (3.4-5.0); Alkaline Phosphatase 85 U/L (46-116); Anion Gap 13.2 mmol/L (3-11); BUN 38 mg/dL (7-18); Bilirubin, Total 0.7 mg/dL (0.2-1.0); CO2 20.8 mmol/L (21.0-32.0); CREATININE 2.6 mg/dL (0.55-1.02); Calcium 8.9 mg/dL (8.5-10.1); Chloride 109 mmol/L (98-107); Estimated GFR 18.09 (mL/min/1.73m2); Glucose 127 mg/dL (74-106); Lipase 47 U/L (16-77); Magnesium 1.5 mg/dL (1.8-2.4); Potassium 3.2 mmol/L (3.5-5.1); Sodium 143 mmol/L (136-145); Total Protein 8.1 g/dL (6.4-8.2)
--- NOTE | 2022-10-26 13:52 | DI.VRAD_ITS ---
PROCEDURE INFORMATION: Exam: CT Abdomen And Pelvis Without Contrast Exam date and time: 10/26/2022 1:07 PM Age: 82 years old Clinical indication: Other: Right sided abdominal pain and flank pain TECHNIQUE: Imaging protocol: Computed tomography of the abdomen and pelvis without contrast. 3D rendering (Not supervised by radiologist): MIP and/or 3D reconstructed images were created by the technologist. COMPARISON: MR LS SPINE WO CONTRAST 12/01/2020 9:22 AM FINDINGS: Lungs: Innumerable subcentimeter pulmonary nodules at both lung bases bilaterally. May be infectious or inflammatory process, although metastatic disease must be excluded. Liver: Coarse calcification in the right hepatic lobe measures 6 mm. Gallbladder and bile ducts: Previous cholecystectomy. Pancreas: Normal. No ductal dilation. Spleen: Normal. No splenomegaly. Adrenal glands: Left adrenal nodule measures 3 x 2.5 cm, not definitively adrenal adenoma by CT criteria. Kidneys and ureters: No obstructive uropathy or renal calculus. 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 Stomach and bowel: Unremarkable. No obstruction. No mucosal thickening. Appendix: No evidence of appendicitis. Intraperitoneal space: Unremarkable. No free air. No significant fluid collection. Vasculature: Unremarkable. No abdominal aortic aneurysm. Lymph nodes: Unremarkable. No enlarged lymph nodes. Urinary bladder: Bladder wall thickening demonstrating irregularity, particularly along the right base. Intraluminal nodule at the right base measures 1.4 by 1.1 cm. Highly suspect for neoplasm, additional workup necessary. Reproductive: Unremarkable as visualized. Bones/joints: Lumbar spine to be discussed on CT lumbar spine same day. Soft tissues: Unremarkable. IMPRESSION: 1. Innumerable subcentimeter pulmonary nodules at both lung bases bilaterally. May be infectious or inflammatory process, although metastatic disease must be excluded. 2. Left adrenal nodule measures 3 x 2.5 cm, not definitively adrenal adenoma by CT criteria. 3. Bladder wall thickening demonstrating irregularity, particularly along the right base. Intraluminal nodule at the right base measures 1.4 by 1.1 cm. Highly suspect for neoplasm, additional workup necessary. Dictated and Authenticated by: Mya Thomas MD. Ordering:EUGENE Ramirez MD
--- NOTE | 2022-10-26 14:12 | DI.VRAD_ITS ---
PROCEDURE INFORMATION: Exam: CT Lumbar Spine Without Contrast Exam date and time: 10/26/2022 1:07 PM Age: 82 years old Clinical indication: Low back pain TECHNIQUE: Imaging protocol: Computed tomography of the lumbar spine without contrast. COMPARISON: MR LS SPINE WO CONTRAST 12/01/2020 9:22 AM FINDINGS: Bones/joints: Grade 1 anterolisthesis at L4-L5, stable since previous MR examination. Stable severe canal stenosis at this level. No acute fracture. Soft tissues: Unremarkable. IMPRESSION: Grade 1 anterolisthesis at L4-L5, stable since previous MR examination. Stable severe canal stenosis at this level. Dictated and Authenticated by: Mya Thomas MD. Ordering:EUGENE Ramirez MD
--- NOTE | 2022-10-26 14:17 | NUR.NOTE ---
Nursing Note: Referral faxed to [facility] Urology for ? bladder neoplasm; ROBERTO
[2022-10-26] MEDS: Ciprofloxacin 500 MG TAB PO (14:24)
--- NOTE | 2022-10-28 09:49 | NUR.NOTE ---
Nursing Note: Accessed chart to look up whether or not on antibiotic.
== END 2022-10-26 14:31 | disposition home or self-care (01) ==
PROVIDERS: Emergency Provider Emergency Medicine; PCP Nurse Practitioner Family
DX: R31.9 Hematuria, unspecified (principal); R10.9 Unspecified abdominal pain; I48.91 Unspecified atrial fibrillation; R91.8 Other nonspecific abnormal finding of lung field; E11.319 Type 2 diabetes mellitus with unspecified diabetic retinopathy without macular edema; I11.0 Hypertensive heart disease with heart failure; I50.9 Heart failure, unspecified; Z79.01 Long term (current) use of anticoagulants; Z79.4 Long term (current) use of insulin
CPT/HCPCS: 80053; 83690; 87077; 96374; 99284; 74176; 81003; 81015; 83735; 85025; 85610; 85730; 87086; 87186; J0131

== ENCOUNTER → 2022-11-04 12:57 | Outpatient (BNVA) | payer MEDICARE, MEDICAID, SELFPAY | PROVIDERS: PCP Nurse Practitioner Family; Referring Provider Nurse Practitioner Family; Visit Provider Nurse Practitioner Gerontology | DX: R31.9 Hematuria, unspecified (principal); N32.89 Other specified disorders of bladder | CPT/HCPCS: 81003; 99215 ==

== ENCOUNTER 2022-11-19 06:04 | Day surgery (SDC) | payer MEDICARE, MEDICAID, SELFPAY ==
[2022-11-19 06:29] VITALS: BP 134/65; PULSE 60; RESP 18; TEMP 36.3; O2SAT 99
[2022-11-19] MEDS: Lactated Ringers 1,000 ML 80 ML IV (06:45)
[2022-11-19] MEDS: CIPROFLOXACIN 400 MG/200 ML BAG 200 MG IVPB (06:50)
--- NOTE | 2022-11-19 06:50 | W.PM.HP.N ---
Date of service: 11/19/22 Time of Service: 06:50 Assessment and Plan Assessment and plan (1) Bladder mass: Status: Acute Assessment and plan: For cystoscopy with possible TURBT. Her followup will depend on the pathology History of Present Illness History of Present Illness Chief Complaint: Bladder mass Narrative: Iliana is an 82-year-old female referred to urology by the emergency room for abnormal imaging.? Patient was seen in the emergency room for gross hematuria as well as dysuria.? She states that she was treated with antibiotic for urinary tract infection.? The gross hematuria has resolved and symptoms of UTI have greatly diminished. Her CT scan showed a mass within the bladder. She presents for cystoscopy and possible TURBT. Review of Systems Narrative: No fevers or chills No vision change or dysphasia Hx diabetes. Hx hypothyroidism No shortness of breath, cough or hemoptysis Atrial Fibrillation - has pacemaker. No chest pain GERD. No hepatitis, ulcers, jaundice No seizures, strokes or peripheral neuropathy No bleeding disorders or anemia Rheumatoid arthritis. Fibromyalgia. No gout PFSH All Active Problems (Updated 11/19/22 @ 06:57 by Bryn Ceron MD) Bladder mass (Acute) Acute pyelonephritis (Acute) Hematuria (Acute) Flank pain (Acute) Medical History (Updated 11/19/22 @ 06:57 by Bryn Ceron MD) Acquired trigger finger Atrial fibrillation Benign neoplasm of adrenal gland Cardiac pacemaker (11/22/21) Cataract Chronic cystitis Chronic pain Diabetes mellitus Diabetic retinopathy associated with controlled type 2 diabetes mellitus Heart failure History of anemia Hx of myocardial infarction pt. 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 Surgical History H/O adenoidectomy H/O breast biopsy H/O right cataract extraction H/O tubal ligation History of cholecystectomy Hx of appendectomy Hx of tonsillectomy Social History Smoking/Tobacco Use Status: Never Smoking risk assessment performed?: Yes Alcohol Intake: former Drug use: Never Substance use type: does not use Do you feel safe at home: Yes Additional Social history: lives alone Meds Allergies and Home Medications Allergies Allergy/AdvReac Type Severity Reaction Status Date / Time Penicillins Allergy Severe Skin Rash Unverified 11/19/22 06:24 naproxen Allergy Intermediate Skin Rash Unverified 11/19/22 06:24 omeprazole [From Prilosec] Allergy Intermediate Nausea Unverified 11/19/22 06:24 codeine Allergy Nausea Unverified 11/19/22 06:24 erythromycin base Allergy Hives Unverified 11/19/22 06:24 Sulfa (Sulfonamide Allergy Other (See Unverified 11/19/22 06:24 Antibiotics) Comment) NSAIDS (Non-Steroidal AdvReac Intermediate Other (See Unverified 11/19/22 06:24 Anti-Inflamma Comment) gabapentin AdvReac Other (See Verified 11/19/22 06:25 Comment) methotrexate AdvReac Unverified 11/19/22 06:24 naltrexone AdvReac Skin Rash Unverified 11/19/22 06:24 Home Medications Medication Instructions Recorded Confirmed Type amlodipine 10 mg tablet 10 mg PO DAILY 06/14/21 11/19/22 History apixaban 5 mg tablet (Eliquis) 5 mg PO BID 06/14/21 11/19/22 History atorvastatin 40 mg tablet 40 mg PO DAILY 06/14/21 11/19/22 History carvedilol 12.5 mg tablet 18.75 mg PO BID 06/14/21 11/19/22 History glucosamine sulfate 500 mg tablet 1,000 mg PO DAILY 06/14/21 11/19/22 History (Glucosamine) insulin degludec 100 unit/mL (3 10 unit subcut DAILY 06/14/21 11/19/22 History mL) subcutaneous pen (Tresiba FlexTouch U-100 insulin) levothyroxine 125 mcg tablet 125 mcg PO DAILY 06/14/21 11/19/22 History triamcinolone acetonide 0.1 % 1 applic topical BID 06/14/21 11/19/22 History topical cream acetaminophen 325 mg tablet 2 tab PO BID 09/04/22 11/19/22 History glucosamine sulfate dipotassium Cl 1 cap PO DAILY 09/04/22 11/19/22 History 500 mg-chondroitin 400 mg capsule (Glucosamine-Chondroitin DS) [id number]-abt-pisga acid 0.4 1 tab PO DAILY 09/04/22 11/19/22 History mg-lycopene 300 mcg-lutein 250 mcg tablet (Adults 50 Plus) paroxetine HCl 20 mg tablet 1 tab PO DAILY 09/04/22 11/19/22 History potassium chloride 20 mEq 1 tab PO DAILY 09/04/22 11/19/22 History tablet,extended release(part/cryst) tramadol 50 mg tablet 1 tab PO Q4H PRN 09/04/22 11/19/22 History paroxetine HCl 20 mg tablet 20 mg PO DAILY 10/26/22 11/19/22 History esomeprazole magnesium 20 mg 20 mg PO DAILY 11/04/22 11/19/22 History capsule,delayed release Exam Const General: cooperative Neck Neck: supple Resp Effort & Inspection: normal respiratory effort Auscultation: clear to auscultation bilaterally Cardio Rate: regular rate Rhythm: regular rhythm GI Palpation: soft and no masses Neuro General: patient alert, patient awake and patient oriented x3 Results Last Vital Signs Temp 36.3 C L 11/19/22 06:29 Pulse 60 11/19/22 06:29 Resp 18 11/19/22 06:29 BP 134/65 11/19/22 06:29 Pulse Ox 99 11/19/22 06:29 Time Spent Time spent with Patient: <40 minutes Time was spent: other
--- NOTE | 2022-11-19 06:54 | ANES.PREOP_ITS ---
General Info Date of Service Date Performed: 11/19/22 Height: 5 ft 1 in Weight: 68 kg Body Mass Index (BMI): 28.3 Surgical Procedure: Operation Date: 11/19/22 07:40 Proposed Procedure Side Surgeon p Cystoscopy/B/L Retrograde/Transurethral Resection Bladder Tumor Bryn Ceron MD Meds Allergies and Home Medications Allergies Allergy/AdvReac Type Severity Reaction Status Date / Time Penicillins Allergy Severe Skin Rash Unverified 11/19/22 06:24 naproxen Allergy Intermediate Skin Rash Unverified 11/19/22 06:24 omeprazole [From Prilosec] Allergy Intermediate Nausea Unverified 11/19/22 06:24 codeine Allergy Nausea Unverified 11/19/22 06:24 erythromycin base Allergy Hives Unverified 11/19/22 06:24 Sulfa (Sulfonamide Allergy Other (See Unverified 11/19/22 06:24 Antibiotics) Comment) NSAIDS (Non-Steroidal AdvReac Intermediate Other (See Unverified 11/19/22 06:24 Anti-Inflamma Comment) gabapentin AdvReac Other (See Verified 11/19/22 06:25 Comment) methotrexate AdvReac Unverified 11/19/22 06:24 naltrexone AdvReac Skin Rash Unverified 11/19/22 06:24 Home Medication Medication Instructions Recorded amlodipine 10 mg tablet 10 mg PO DAILY 06/14/21 apixaban 5 mg tablet (Eliquis) 5 mg PO BID 06/14/21 atorvastatin 40 mg tablet 40 mg PO DAILY 06/14/21 carvedilol 12.5 mg tablet 18.75 mg PO BID 06/14/21 glucosamine sulfate 500 mg tablet 1,000 mg PO DAILY 06/14/21 (Glucosamine) insulin degludec 100 unit/mL (3 10 unit subcut DAILY 06/14/21 mL) subcutaneous pen (Tresiba FlexTouch U-100 insulin) levothyroxine 125 mcg tablet 125 mcg PO DAILY 06/14/21 triamcinolone acetonide 0.1 % 1 applic topical BID 06/14/21 topical cream acetaminophen 325 mg tablet 2 tab PO BID 09/04/22 glucosamine sulfate dipotassium Cl 1 cap PO DAILY 09/04/22 500 mg-chondroitin 400 mg capsule (Glucosamine-Chondroitin DS) qfdjjrlw-wyo-xpfeq acid 0.4 1 tab PO DAILY 09/04/22 mg-lycopene 300 mcg-lutein 250 mcg tablet (Adults 50 Plus) paroxetine HCl 20 mg tablet 1 tab PO DAILY 09/04/22 potassium chloride 20 mEq 1 tab PO DAILY 09/04/22 tablet,extended release(part/cryst) tramadol 50 mg tablet 1 tab PO Q4H PRN 09/04/22 paroxetine HCl 20 mg tablet 20 mg PO DAILY 10/26/22 esomeprazole magnesium 20 mg 20 mg PO DAILY 11/04/22 capsule,delayed release Current Visit Medications: Current Medications Generic Name Dose Route Start Last Admin Trade Name Freq PRN Reason Stop Dose Admin Ringer's Solution 1,000 mls @ 80 mls/hr 11/19/22 06:00 IV 12/18/22 23:59 INFUSION OMEGA Ciprofloxacin 400 mg in 200 mls @ 200 mls/hr 11/19/22 06:00 Cipro I.V. IVPB 11/19/22 23:59 PREOP OMEGA IV Miscellaneous Supplies 1 each 11/19/22 06:00 Iv Access IV 12/18/22 23:59 DIRECTED OMEGA Sodium Chloride 0 ml 11/19/22 06:00 Normal Saline Flush 10 Ml Syr IV 12/18/22 23:59 PRN PRN Sodium Chloride 0 ml 11/19/22 06:00 Normal Saline 10 Ml Vial IJ 12/18/22 23:59 DIRECTED PRN Sterile Water 0 ml 11/19/22 06:00 Water,Injection,Sterile 10 Ml Vial IJ 12/18/22 23:59 DIRECTED PRN PFSH Active Problems Active Problems: Problem Status Onset Code Acute pyelonephritis N10 Cortical cataract of left eye H26.9 Nuclear sclerotic cataract of left eye H25.12 Posterior subcapsular age-related cataract of left eye H25.042 Hematuria R31.9 Flank pain R10.9 Medical History Medical History (Updated 11/19/22 @ 06:57 by Bryn Ceron MD) Acquired trigger finger Atrial fibrillation Benign neoplasm of adrenal gland Cardiac pacemaker (11/22/21) Cataract Chronic cystitis Chronic pain Diabetes mellitus Diabetic retinopathy associated with controlled type 2 diabetes mellitus Heart failure History of anemia Hx of myocardial infarction pt. 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 Surgical History Surgical History H/O adenoidectomy H/O breast biopsy H/O right cataract extraction H/O tubal ligation History of cholecystectomy Hx of appendectomy Hx of tonsillectomy Tobacco Smoking/Tobacco Use Status: Never Alcohol Alcohol Intake: former Substance Use Substance use: Never Substance use type: does not use Vital Signs and Lab Results Vital Signs Most Recent Vital Signs in EMR: Most Recent Vital Signs Temp Pulse Resp BP Pulse Ox 36.3 C L 60 18 134/65 99 11/19/22 06:29 11/19/22 06:29 11/19/22 06:29 11/19/22 06:29 11/19/22 06:29 Lab Results Blood Type / Crossmatch: No Data to Display Complete Blood Count: White Blood Count 10.36 10^3/uL (4.4-10.8) 10/26/22 12:10 Red Blood Count 3.84 10^6/uL (3.93-5.22) L 10/26/22 12:10 Hemoglobin 11.9 g/dL (11.2-15.7) 10/26/22 12:10 Hematocrit 36.6 % (36.0-46.0) 10/26/22 12:10 Platelet Count 262 10^3/uL (130-400) 10/26/22 12:10 Complete Metabolic Panel: Sodium 143 mmol/L (136-145) 10/26/22 12:10 Potassium 3.2 mmol/L (3.5-5.1) L 10/26/22 12:10 Chloride 109 mmol/L (98-107) H 10/26/22 12:10 Carbon Dioxide 20.8 mmol/L (21.0-32.0) L 10/26/22 12:10 BUN 38 mg/dL (7-18) H 10/26/22 12:10 Creatinine 2.6 mg/dL (0.55-1.02) H 10/26/22 12:10 Est GFR (CKD-EPI 2020) 18.09 (mL/min/1.73m2) 10/26/22 12:10 Magnesium 1.5 mg/dL (1.8-2.4) L 10/26/22 12:10 Calcium 8.9 mg/dL (8.5-10.1) 10/26/22 12:10 Albumin 3.9 g/dL (3.4-5.0) 10/26/22 12:10 Glucose 127 mg/dL (74-106) H 10/26/22 12:10 Liver Function Panel: Alanine Aminotransferase (ALT/SGPT) 32 U/L (14-59) 10/26/22 12: 10 Aspartate Amino Transf (AST/SGOT) 20 U/L (15-37) 10/26/22 12:10 Coagulation Panel: INR International Normalized Ratio 1.0 (0.9-1.1) 10/26/22 12:1 0 Prothrombin Time 10.3 sec (9.3-11.0) 10/26/22 12:10 Activated Partial Thromboplast Time 27.4 sec (21.0-27.5) 12:10 Cardiac Panel: No Data to Display Arterial Blood Gas: No Data to Display Venous Blood Gas: No Data to Display Pancreas Panel: Lipase 47 U/L (16-77) 10/26/22 12:10 Thyroid Panel: No Data to Display Infectious Disease: No Data to Display Blood Cultures: No Data to Display Toxicology Panel: No Data to Display Imaging and Studies Imaging and Studies Study information below may be from another EMR and interpreted by another provider. Please see original notes in EMR for more complete details. EKG Summary: DATE/TIME OF SERVICE: 02/26/22 1649 : 2PERFORMING LOCATION: ER APPROVED REPORT Exam: Resting ECG Reason for Exam: low potassium Patient Location: E HR:60 bpm ECG Measurements Heart Rate 60 AXIS ND 188 P 0 QRSd 148 QRS 15 QT 493 T157 QTc 494 Conclusion Ventricular-paced rhythm Anesthesia Assessment and Plan Anesthesia History Personal History: No History of Anesthesia Complications Family History: No Family History of Anesthesia Complications Exercise Tolerance Exercise Tolerance: Metabolic Equivalents>4 Pertinent Negatives Pertinent Negatives: No Symptoms of GERD, No Major Cardiovascular Symptoms or Complaints, No Major Pulmonary Symptoms or Complaints and No History of CVA/TIA Cardiac & Pulmonary Exam Cardiac Exam: Normal S1/S2 Heart Sounds Pulmonary Exam: Clear Bilateral Breath Sounds Implantable Cardiac Device Does patient have a Pacemaker or an ICD?: Yes 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[employer] 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 AV [id number] Reason for Placement:: Permanent a-fib Date of Last Device Interrogation:: 06/28/22 Airway Exam Known Difficult Airway: No Mallampati Class: 1 Mouth Opening: Normal (> 3cm) Thyromental Distance: Greater than 3 cm Neck Range of Motion: Full ROM Neck Circumference: Normal Teeth Condition: Removable Dentures/Plates Upper ASA Classification ASA Score: ASA 3 Emergency Case?: No NPO Status NPO Status: NPO Clears >2 hours, Solids >8 hours Anesthesia Plan Resuscitation Status: Full Code Anesthesia Technique: General Anesthesia Airway Planned: Natural Airway Monitors Used: Standard Monitors Preoperative Comments:: Denies significant change since last visit exempting recent UTI and subsequent ER and Urology visit.
[2022-11-19 06:55] VITALS: BMI 28.3
[2022-11-19] MEDS: Omnipaque 300 MG/ML 50 ML BTL (07:56)
[2022-11-19] MEDS: Lidocaine 2% Jelly 6 ML SYR (07:56)
--- NOTE | 2022-11-19 07:57 | DI.RAD_ITS ---
Exam(s) XR RETROGRADE IN OR EXAM: XR RETROGRADE IN OR CLINICAL HISTORY: retrograde in or. TECHNIQUE: 2D digital imaging was performed. COMPARISON: No exams were available for comparison FINDINGS: Fluoroscopy provided during retrograde urologic procedure. See procedure report for details. Total fluoroscopy time 20.8 seconds IMPRESSION: Radiation exposure index/cumulative radiation dose: derek Rivera= 4.35mGy DATA REPOSITORY: RADIATION DOSE DELIVERED:
--- NOTE | 2022-11-19 07:59 | BLADDER_PTH ---
PATIENT: Iliana Kidd LOC: [facility] U#:[id number] AGE/SX: 82/F ROOM: RE11/19/[address]: Bryn Ceron MD : [id number] BED: DIS: 11/19/2022 SPEC #: [id number] RECD: 11/19/22 13:04 STATUS: ELLYN RE #: [id number] MERRILL: 11/19/22 07:[address]: Bryn Ceron DEPT: Surgical Specimen RECD BY: Caitlin Gomes ENTERED: 11/19/22 13:05 SP TYPE: Bladder OTHR DR: Brandy Daugherty Tissues: 1 - BLADDER BIOPSY Procedures: GROSS AND MICRO LEVEL 5 Comments: [id number]
--- NOTE | 2022-11-19 08:06 | W.PM.DSUDISC ---
Date of service: 11/19/22 Time of Service: 08:06 Discharge Plan Disposition Condition: Stable Discharge Details Reason For Visit: bladder mass Attending Provider: Bryn Ceron Primary Care Provider: Brandy Daugherty Home Meds and New Rx's Prescriptions: No Action esomeprazole magnesium 20 mg capsule,delayed release(DR/EC) 20 mg PO DAILY acetaminophen 325 mg tablet 2 tab PO BID tramadol 50 mg tablet 1 tab PO Q4H PRN potassium chloride 20 mEq tablet,ER particles/crystals 1 tab PO DAILY Patient Comments: 09/04/22 on HOLD paroxetine HCl 20 mg tablet 1 tab PO DAILY Patient Comments: pt. reports she only takes 20 mg Adults 50 Plus 0.4 mg-300 mcg- 250 mcg tablet 1 tab PO DAILY Patient Comments: pt. reports she is taking a different supplement, all red,pt. unsure Glucosamine-Chondroitin DS 500-400 mg capsule 1 cap PO DAILY paroxetine HCl 20 mg tablet 20 mg PO DAILY atorvastatin 40 mg tablet 40 mg PO DAILY Patient Comments: TAKE ONE TABLET BY MOUTH EVERY EVENING carvedilol 12.5 mg tablet 18.75 mg PO BID Patient Comments: TAKE ONE TABLET BY MOUTH TWICE A DAY WITH FOOD FOR 90 DAYS glucosamine sulfate [Glucosamine] 500 mg Tablet 1,000 mg PO DAILY triamcinolone acetonide 0.1 % cream 1 applic TOPICAL BID Patient Comments: APPLY A THIN LAYER TO AFFECTED AREA TOPICALLY TWO TIMES A DAY amlodipine 10 mg Tablet 10 mg PO DAILY levothyroxine 125 mcg tablet 125 mcg PO DAILY Patient Comments: TAKE ONE TABLET BY MOUTH EVERY DAY FOR 90 DAYS Eliquis 5 mg tablet 5 mg PO BID Patient Comments: TAKE 1 TABLET BY MOUTH TWICE DAILY insulin degludec [Tresiba FlexTouch U-100] 100 unit/mL (3 mL) insulin pen 10 unit SUBCUT DAILY Patient Comments: INJECT 2 UNITS SUBCUTANEOUSLY ONCE DAILY REPLACE PEN AFTER OPEN FOR 56 DAYS Discharge Instructions Additional Instructions: restart Eliquis 11/21/2022 followup 1 to 2 weeks for pathology result - can be by phone if easier for patient Activity:: no lifting over 10 pounds for 1 week Shower/Bathe:: 24 hours Diet:: As Tolerated DS: Diagnosis Discharge Diagnosis (1) Bladder mass: Status: Acute
--- NOTE | 2022-11-19 08:10 | ROE_ITS ---
Date of service: 11/19/22 Time of Service: 08:10 Operative Note Operative Note DATE OF PROCEDURE: 11/19/22 PRE-OP DIAGNOSIS: Bladder mass PROCEDURE: cystoscopy, bilateral retrograde pyelogram, TUR Bladder tumor (@ 2 to 5 cm) SURGEON: Bryn Ceron ANESTHESIA TYPE: General:No Airway Refer to Anesthesia Record ESTIMATED BLOOD LOSS: 10 PATHOLOGY: other (bladder tumor) COMPLICATIONS: None Patient was transported to: same day Patient's condition: stable Implants: none Indications: This is an 82-year-old woman who had a recent emergency room visit during which she had gross hematuria and dysuria. She was treated with an antibiotic. A noncontrast CT scan was obtained. There appeared to be a mass within her bladder. When she completed the antibiotic, her gross hematuria resolved. She presents for cystoscopy, bilateral retrograde pyelogram and possible transurethral resection of any visible bladder tumor Findings: papillary lesion right lateral bladder wall Procedure Description: The patient was brought to the operating room on 11/19/2022. She was given preoperative antibiotics. After successful induction of general anesthesia without intubation, she was placed in the dorsal lithotomy position. Her genitalia was prepped and draped. 2% Xylocaine jelly was then instilled into the urethra. A 22 [place] rigid cystoscope was passed through the urethra into the bladder. The bladder was inspected with a 30 degree lens. Both ureteral orifices appeared normal. No blood was seen coming from either orifice. 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 No additional papillary lesions were seen throughout the bladder. Each ureteral orifice was cannulated with a 5 [place] access catheter. Retrograde pyelograms were obtained by injecting Omnipaque through the access catheter under fluoroscopic guidance. Both ureters and collecting systems appeared normal. There was a slight bifurcation of the right collecting system and proximal ureter before the 2 ureteral segments joined a common single ureter for the remainder of its course distally. Both sides drained promptly on 5- minute drainage films. We then removed the cystoscope and passed a 24 [place] resectoscope sheath. Using bipolar cautery and an Davey loop, transurethral resection of the visible tumor was performed. All resected tissue was evacuated and sent to pathology for permanent section. The base of the tumor and resection site was cauterized using the coagulation current. Hemostasis appeared to be excellent. The bladder was drained. The scope was removed. She tolerated this procedure well with no complications.
[2022-11-19 08:15] VITALS: BP 98/88; PULSE 60; RESP 15; TEMP 36.2; O2SAT 94
[2022-11-19] MEDS: Phenazopyridine 200 MG TAB PO (08:30)
[2022-11-19 08:45] VITALS: BP 138/56; PULSE 60; RESP 17; TEMP 36.1; O2SAT 96
--- NOTE | 2022-11-19 10:08 | W.ANESPOSTOP ---
Postoperative Evaluation Date, Time and Location Date Performed: 11/19/22 Time Performed: 10:09 Patient Location: Day Surgery Unit Vital Signs Most Recent Imported Vital Signs: Most Recent Vital Signs Temp Pulse Resp BP Pulse Ox 36.1 C L 60 17 138/56 L 96 11/19/22 08:45 11/19/22 08:45 11/19/22 08:45 11/19/22 08:45 11/19/22 08:45 Pain Score Most Recent Pain Score: Most Recent Pain Score Pain Level 0 11/19/22 06:29 Assessment Mental Status: Arousable with meaningful communication Airway and Respiratory Function: Patent airway with normal (patient baseline) respiratory exam Cardiovascular Function: Hemodynamically Stable Hydration Status: Adequately Hydrated Nausea & Vomiting: No Nausea or Vomiting Pain: Pt. Denies Any Pain Peripheral Nerve Block: Patient did not receive a nerve block Postoperative Comments:: Patient seen earlier today and doing very well. Denied questions and appropriate for discharge from anesthesia services.
== END 2022-11-19 09:16 | disposition home or self-care (01) ==
PROVIDERS: PCP Nurse Practitioner Family; Visit Provider Urology
PROC: 0TBB8ZZ Excision of Bladder, Via Natural or Artificial Opening Endoscopic (ICD-10-PCS; CPT 52235; principal; 2022-11-19 07:30)
DX: N32.89 Other specified disorders of bladder (principal)
CPT/HCPCS: 52235; 88305; 74420; 88307; J0744; J2405; Q9967

== ENCOUNTER 2022-11-30 13:03 | Emergency (ER) | payer MEDICARE, MEDICAID, SELFPAY ==
[2022-11-30] VITALS (29 sets, daily range): BP systolic 142–156; BP diastolic 57–99; PULSE 58–68; RESP 10–21; TEMP 37; O2SAT 96–100
--- NOTE | 2022-11-30 13:00 | RT.EKG_ITS ---
APPROVED REPORT Exam: Resting ECG Reason for Exam: weakness/passing out Patient Location: E HR:61 bpm ECG Measurements Heart Rate 61 AXIS MO [id number] P [id number] QRSd 140 QRS -14 QT 488 T 89 QTc 492 Conclusion Afib/flutter and ventricular-paced rhythm...V-paced rhythm, A-rate>240 paced rhythm, wide complex consistent with paced, appropriate t wave discordance
--- NOTE | 2022-11-30 13:15 | DI.RAD_ITS ---
Exam(s) XR CHEST 2V PA LATERAL EXAM: XR CHEST 2V PA LATERAL CLINICAL HISTORY: presyncope TECHNIQUE: 2D digital imaging was performed. COMPARISON: No exams were available for comparison FINDINGS: HEART: Enlarged. Monitoring device. Aorta: Not dilated. Calcification. PULMONARY VASCULATURE: Normal. LUNGS: Focal area of consolidation. Mildly increased interstitial changes. PLEURAL SPACE: No pleural effusion or pneumothorax. BONE:Unremarkable for age. IMPRESSION: No acute abnormality. DATA REPOSITORY: RADIATION DOSE DELIVERED:
--- NOTE | 2022-11-30 13:15 | DI.CT_ITS ---
Exam(s) CT HEAD WO EXAM: CT HEAD WO CLINICAL HISTORY: presyncope. TECHNIQUE: Imaging Protocol: Axial computed tomography images with coronal and sagittal reformatted images were created and reviewed COMPARISON: No exams were available for comparison FINDINGS: Ventricles and Extra axial spaces: Normal in size and morphology for the patient's age. Hemorrhage: None. Cerebral parenchyma: Atrophy. White matter changes consistent with small vessel disease. Midline shift: None. Brainstem/Cerebellum: Normal. Calvarium: Normal. Visualized Paranasal sinuses/Mastoids: Clear. Partially empty sella noted. IMPRESSION: No acute abnormality. RADIATION DOSE DELIVERED: 722.31mGy.cm Total DLP 722.31mGy.cm Total DLP DATA REPOSITORY: All CT scans at this facility are submitted to the National Radiology Data Registry (NRDR) Dose Index Registry (DIR) with the [employer] ([employer]). RADIATION OPTIMIZATION: All CT scans at this facility use at least one of these dose optimization te chniques: automated exposure control; mA and/or kV adjustment per patient size (includes targeted exa ms where dose is matched to clinical indication); or iterative reconstruction.
--- NOTE | 2022-11-30 13:27 | ED.GENADUL_ITS ---
Discharge Plan Disposition Patient Disposition: Home Condition: Improving Discharge Details Chief Complaint: Dizzy/Sync Clinical Impression: Hypomagnesemia, Hypokalemia, Adrenal mass Primary Care Provider: Brandy Daugherty ED Provider: Henry Cai Home Meds and New Rx's Prescriptions: No Action esomeprazole magnesium 20 mg capsule,delayed release(DR/EC) 20 mg PO DAILY acetaminophen 325 mg tablet 2 tab PO BID tramadol 50 mg tablet 1 tab PO Q4H PRN potassium chloride 20 mEq tablet,ER particles/crystals 1 tab PO DAILY Patient Comments: 09/04/22 on HOLD paroxetine HCl 20 mg tablet 1 tab PO DAILY Patient Comments: pt. reports she only takes 20 mg Adults 50 Plus 0.4 mg-300 mcg- 250 mcg tablet 1 tab PO DAILY Patient Comments: pt. reports she is taking a different supplement, all red,pt. unsure Glucosamine-Chondroitin DS 500-400 mg capsule 1 cap PO DAILY paroxetine HCl 20 mg tablet 20 mg PO DAILY atorvastatin 40 mg tablet 40 mg PO DAILY Patient Comments: TAKE ONE TABLET BY MOUTH EVERY EVENING carvedilol 12.5 mg tablet 18.75 mg PO BID Patient Comments: TAKE ONE TABLET BY MOUTH TWICE A DAY WITH FOOD FOR 90 DAYS glucosamine sulfate [Glucosamine] 500 mg Tablet 1,000 mg PO DAILY triamcinolone acetonide 0.1 % cream 1 applic TOPICAL BID Patient Comments: APPLY A THIN LAYER TO AFFECTED AREA TOPICALLY TWO TIMES A DAY amlodipine 10 mg Tablet 10 mg PO DAILY levothyroxine 125 mcg tablet 125 mcg PO DAILY Patient Comments: TAKE ONE TABLET BY MOUTH EVERY DAY FOR 90 DAYS Eliquis 5 mg tablet 5 mg PO BID Patient Comments: TAKE 1 TABLET BY MOUTH TWICE DAILY insulin degludec [Tresiba FlexTouch U-100] 100 unit/mL (3 mL) insulin pen 10 unit SUBCUT DAILY Patient Comments: INJECT 2 UNITS SUBCUTANEOUSLY ONCE DAILY REPLACE PEN AFTER OPEN FOR 56 DAYS Discharge Instructions Instructions: Hypokalemia (ED), Hypomagnesemia (ED) Additional Instructions: Please follow-up with primary care physician and urologist. Please return to the emergency department for any worsening symptoms. Medical Decision Making 82-year-old female history of diabetes hypertension hyperlipidemia coronary disease, pacemaker, A-fib on Eliquis, presents with presyncopal sensation when going from a seated to a standing position. Symptomatic over the past several days. No discrete falls or trauma. Of note recent bladder procedure, no abdominal pain no nausea no vomiting no headache. Patient is alert and oriented moving all extremities. Hemodynamically stable afebrile. Consider orthostasis in the setting of dehydration versus electrolyte abnormality however given recent procedure must consider intra-abdominal process such as hematoma was also consider infection such as UTI. Will obtain labs imaging including CT head CT abdomen pelvis, chest x-ray, EKG, light fluids close reassessment of symptoms. 16: 24 patient resting comfortably feeling much better after fluids electrolyte repletion. Patient had evidence of hyponatremia and hypomagnesemia. Given hemodynamic stability and improved symptoms safe for discharge home with follow- up. Patient be given referral to primary care. Home care instructions and return precautions given HPI General Date/Time Provider Initiated Documentation: 11/30/22 13:13 . HPI Narrative: 82-year-old female history of atrial fibrillation on Eliquis, pacemaker, diabetes, prior [place] hyperlipidemia hypertension, recent bladder procedure, presents with presyncopal episodes over the last several days precipitated by standing up. No chest pain or shortness of breath no headache. Denies abdominal pain or urinary symptoms. Related Data Home Medications Medication Instructions Recorded Confirmed amlodipine 10 mg tablet 10 mg PO DAILY 06/14/21 11/19/22 apixaban 5 mg tablet (Eliquis) 5 mg PO BID 06/14/21 11/19/22 atorvastatin 40 mg tablet 40 mg PO DAILY 06/14/21 11/19/22 carvedilol 12.5 mg tablet 18.75 mg PO BID 06/14/21 11/19/22 glucosamine sulfate 500 mg tablet 1,000 mg PO DAILY 06/14/21 11/19/22 (Glucosamine) insulin degludec 100 unit/mL (3 10 unit subcut DAILY 06/14/21 11/19/22 mL) subcutaneous pen (Tresiba FlexTouch U-100 insulin) levothyroxine 125 mcg tablet 125 mcg PO DAILY 06/14/21 11/19/22 triamcinolone acetonide 0.1 % 1 applic topical BID 06/14/21 11/19/22 topical cream acetaminophen 325 mg tablet 2 tab PO BID 09/04/22 11/19/22 glucosamine sulfate dipotassium Cl 1 cap PO DAILY 09/04/22 11/19/22 500 mg-chondroitin 400 mg capsule (Glucosamine-Chondroitin DS) sleylvgn-ntk-wpriu acid 0.4 1 tab PO DAILY 09/04/22 11/19/22 mg-lycopene 300 mcg-lutein 250 mcg tablet (Adults 50 Plus) paroxetine HCl 20 mg tablet 1 tab PO DAILY 09/04/22 11/19/22 potassium chloride 20 mEq 1 tab PO DAILY 09/04/22 11/19/22 tablet,extended release(part/cryst) tramadol 50 mg tablet 1 tab PO Q4H PRN 09/04/22 11/19/22 paroxetine HCl 20 mg tablet 20 mg PO DAILY 10/26/22 11/19/22 esomeprazole magnesium 20 mg 20 mg PO DAILY 11/04/22 11/19/22 capsule,delayed release Allergies Allergy/AdvReac Type Severity Reaction Status Date / Time Penicillins Allergy Severe Skin Rash Unverified 11/19/22 06:24 naproxen Allergy Intermediate Skin Rash Unverified 11/19/22 06:24 omeprazole [From Prilosec] Allergy Intermediate Nausea Unverified 11/19/22 06:24 codeine Allergy Nausea Unverified 11/19/22 06:24 erythromycin base Allergy Hives Unverified 11/19/22 06:24 Sulfa (Sulfonamide Allergy Other (See Unverified 11/19/22 06:24 Antibiotics) Comment) NSAIDS (Non-Steroidal AdvReac Intermediate Other (See Unverified 11/19/22 06:24 Anti-Inflamma Comment) gabapentin AdvReac Other (See Verified 11/19/22 06:25 Comment) methotrexate AdvReac Unverified 11/19/22 06:24 naltrexone AdvReac Skin Rash Unverified 11/19/22 06:24 General Stated Complaint: Dizzy/Sync PAULINE: 3 Review of Systems Narrative: Review of Systems Constitutional: negative Eyes: negative ENT: negative Cardiovascular: Near syncope Respiratory: negative Gastrointestinal: negative : negative Musculoskeletal: negative Skin: negative Neurologic: negative Psych: negative PFSH All Active Problems (Updated 11/30/22 @ 16:26 by Herny Cai MD) Hypomagnesemia (Acute) Hypokalemia (Acute) Adrenal mass (Acute) Acute pyelonephritis (Acute) Medical History (Updated 11/30/22 @ 16:26 by Henry Cai MD) Acquired trigger finger Atrial fibrillation Benign neoplasm of adrenal gland Bladder mass Cardiac pacemaker (11/22/21) Cataract Chronic cystitis Chronic pain Diabetes mellitus Diabetic retinopathy associated with controlled type 2 diabetes mellitus Heart failure History of anemia Hx of myocardial infarction pt. 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 Surgical History H/O adenoidectomy H/O breast biopsy H/O right cataract extraction H/O tubal ligation History of cholecystectomy Hx of appendectomy Hx of tonsillectomy Social History Smoking/Tobacco Use Status: Never Smoking risk assessment performed?: Yes Alcohol Intake: former Drug use: Never Substance use type: does not use Do you feel safe at home: Yes Additional Social history: lives alone Exam Narrative Exam Narrative: Physical Examination General: alert, awake, cooperative, resting comfortably, no acute distress HEENT: normocephalic, atraumatic; PERRL, EOM intact, conjunctiva normal; no nasal discharge; moist mucous membranes, oral and pharyngeal mucosa normal, tolerating secretions Neck: supple, trachea midline; full ROM Chest: normal to inspection Respiratory: normal respiratory effort, speaking in full sentences, clear to auscultation, no wheezing, rales or rhonchi Cardiac: regular rate, regular rhythm, S1S2 intact, no murmurs rubs or gallops GI: abdomen soft, non-tender, non-distended; no palpable mass or hepatosplenomegaly Skin: no lesions, rashes or trauma appreciated Neuro: AAOx3, normal speech, moving all extremities Extremities: No peripheral edema Psych: Appropriate mood and affect Course Vital Signs Vital signs: Vital Signs Temperature 37.0 C 11/30/22 13:10 Pulse 61 11/30/22 13:10 Respiratory Rate 20 11/30/22 13:10 Blood Pressure 146/83 H 11/30/22 13:10 Pulse Oximetry 99 11/30/22 13:10 Temperature 37.0 C 11/30/22 13:10 Temperature Source Oral 11/30/22 13:10 Pulse 61 11/30/22 13:10 Respiratory Rate 20 11/30/22 13:10 Blood Pressure 146/83 H 11/30/22 13:10 Blood Pressure Position Supine 11/30/22 13:10 Pulse Oximetry 99 11/30/22 13:10 Oxygen Delivery Method OxyMask 11/30/22 13:10 Oxygen Flow Rate 0 11/30/22 13:10
[2022-11-30 13:31] LABS: Abs Immature Grans 0.02 10^3/uL (0.0-0.06); Absolute Basophil Count 0.06 10^3/uL (0.0-0.2); Absolute Eosinophil Count 0.06 10^3/uL (0.0-0.7); Absolute Lymphocyte Count 0.95 10^3/uL (1.2-3.4); Absolute Monocyte Count 0.56 10^3/uL (0.1-0.8); Absolute Neutrophil Count 6.81 10^3/uL (1.2-6.7); Basophils % 0.7; Eosinophils % 0.7; HCT 35.6 % (36.0-46.0); HGB 11.8 g/dL (11.2-15.7); Immature Grans % 0.2; Lymphocytes % 11.2; MCH 30.6 pg (27.0-33.0); MCHC 33.1 % (32.0-36.0); MCV 92 fL (80-95); MPV 9.7 fL (8.0-11.0); Monocytes % 6.6; Neutrophils % 80.6; Platelet Count 262 10^3/uL (130-400); RBC 3.86 10^6/uL (3.93-5.22); RDW 12.9 % (11.7-14.6); RDW-SD 43.8 fL; WBC 8.46 10^3/uL (4.4-10.8)
[2022-11-30 13:43] LABS: Bilirubin Negative (Negative); Blood Large (Negative); Clarity Sl Cloudy (Clear); Glucose Negative (Negative); Ketones Negative (Negative); Leukocyte Esterase Small (Negative); Nitrite Negative (Negative); Urobilinogen 0.2 mg/dL (Up to 0.2); pH 6.5 (5-8)
[2022-11-30 13:53] LABS: INR 1.1 (0.9-1.1); PTT Activated 28.6 sec (21.5-31.9); Prothrombin Time 11.1 sec (9.3-11.0)
[2022-11-30 13:55] LABS: ALT 21 U/L (14-59); AST 13 U/L (15-37); Albumin 3.6 g/dL (3.4-5.0); Alkaline Phosphatase 72 U/L (46-116); Anion Gap 15.1 mmol/L (3-11); BUN 33 mg/dL (7-18); Bilirubin, Total 0.5 mg/dL (0.2-1.0); CO2 19.9 mmol/L (21.0-32.0); CREATININE 2.5 mg/dL (0.55-1.02); Calcium 8.4 mg/dL (8.5-10.1); Chloride 109 mmol/L (98-107); Estimated GFR 18.97 (mL/min/1.73m2); Glucose 181 mg/dL (74-106); Magnesium 1.4 mg/dL (1.8-2.4); Sodium 144 mmol/L (136-145); TSH (W/Ref FT4) 0.07 uIU/mL (0.36-3.74); Total Protein 7.8 g/dL (6.4-8.2); Troponin I < 50 ng/L (<or=60)
[2022-11-30 13:56] LABS: *AMPHETAMINES SCREEN URINE Negative (Negative); *BARBITURATES SCREEN URINE Negative (Negative); *BENZODIAZEPINES SCREEN URINE Negative (Negative); Cannabinoids THC Negative (Negative); Cocaine Screen,Urine Negative (Negative); METHADONE URINE SCREEN Negative (Negative); OPIATES URINE SCREEN Negative (Negative)
[2022-11-30 13:59] LABS: Tricyclic Antidepressants Negative (Negative)
[2022-11-30 14:00] LABS: Bacteria Few HPF (Negative); C & S Indicated? Yes; Casts Negative LPF (Negative); Crystals Negative HPF (Negative); Epithelial Cells Rare HPF (Negative); Mucus Trace (Negative); RBC 20-50 HPF (0-2)
[2022-11-30] MEDS: Normal Saline 500 ML 1000 ML IV (14:00)
--- NOTE | 2022-11-30 14:00 | DI.CT_ITS ---
Exam(s) CT ABDOMEN PELVIS WO EXAM: CT ABDOMEN PELVIS WO CLINICAL HISTORY: recent bladder procedure, presyncope. TECHNIQUE: Imaging Protocol: Axial computed tomography images with coronal and sagittal reformatted images were created and reviewed. Oral: no COMPARISON: CT CT ABDOMEN PELVIS WO from 10/26/[address] LUMBAR SPINE RECONS from 10/26/2022 FINDINGS: ABDOMEN: Lung Bases: Heart is markedly enlarged. Mitral valve calcifications. Multiple bilateral tiny pulmon varun nodules. Atelectasis and scarring. Liver: Normal density. No measurable mass. Gallbladder and biliary tract: Cholecystectomy no radiodense calculus or dilation. Pancreas: Normal density, no abnormal calcifications or inflammatory process. Spleen: Normal. Kidneys: Normal size, contour and axis. No radiodense stones or obstructive uropathy. 2.8 centimeter circumscribed homogeneous mass measuring 20 Hounsfield units. Not definitely an adenoma. Consider further workup. Adrenal glands: No masses seen. Lymph nodes: Within normal limits. Abdominal Aorta: Abdominal portion non-dilated. Severe atherosclerotic changes. PELVIS: Bladder: Not well distended. Wall thickening. Previously noted small area of nodularity posterior r ight-sided the bladder not visible on the current exam. Bowel: No obstruction or bowel wall thickening. Appendix not identified. No findings to suggest appe ndicitis. Peritoneal cavity: No ascites, collection or mesenteric inflammatory response. Reproductive organs: Within normal limits. Bones: Within normal limits. IMPRESSION: Thick-walled bladder. Previously noted right-sided bladder mass no longer seen, presumably resected. No evidence of perforation. Again noted is a 3 centimeter adrenal mass. Consider further workup with contrast enhanced CT versus MRI. RADIATION DOSE DELIVERED: 733.1mGy.cm Total DLP DATA REPOSITORY: All CT scans at this facility are submitted to the National Radiology Data Registry (NRDR) Dose Index Registry (DIR) with the [employer] ([employer]). RADIATION OPTIMIZATION: All CT scans at this facility use at least one of these dose optimization te chniques: automated exposure control; mA and/or kV adjustment per patient size (includes targeted exa ms where dose is matched to clinical indication); or iterative reconstruction.
[2022-11-30 14:01] LABS: Potassium 2.7 mmol/L (3.5-5.1)
[2022-11-30] MEDS: Potassium Chloride 20 MEQ TABCR PO (14:13)
[2022-11-30 14:18] LABS: FREE T4 1.09 ng/dL (0.76-1.46)
[2022-11-30 14:20] LABS: Iron 62 ug/dL (50-170); Total Iron Binding Capacity 244 ug/dL (250-450); Transferrin Sat 25 % (15-50)
[2022-11-30] MEDS: MAGNESIUM SULFATE 1 GM/100 ML BAG IVPB (14:39)
[2022-11-30] MEDS: POTASSIUM CHLORIDE 10 MEQ/100 ML BAG 100 MEQ IVPB (14:40)
[2022-11-30 14:52] LABS: COVID-19 PCR Negative (Negative); Influenza A PCR Negative (Negative); Influenza B PCR Negative (Negative); RSV PCR Negative (Negative)
--- NOTE | 2022-11-30 15:01 | DI.VRAD_ITS ---
PROCEDURE INFORMATION: Exam: CT Abdomen And Pelvis Without Contrast Exam date and time: 11/30/2022 2:22 PM Age: 82 years old Clinical indication: Other: Presyncope, cystoscopy on 11/19/22 w/ bladder tumor resection; Prior surgery; Surgery date: <1 month TECHNIQUE: Imaging protocol: Computed tomography of the abdomen and pelvis without contrast. Radiation optimization: All CT scans at this facility use at least one of these dose optimization techniques: automated exposure control; mA and/or kV adjustment per patient size (includes targeted exams where dose is matched to clinical indication); or iterative reconstruction. COMPARISON: CT ABDOMEN PELVIS WO 12/22/2022 13:07 FINDINGS: Limitations: Lack of IV contrast. Tubes, catheters and devices: Metallic device over the anterior heart. Lungs: Bibasilar reticular markings consistent with scar or atelectasis. Again noted innumerable bilateral small noncalcified pulmonary nodules. Heart: Cardiomegaly. Coronary arteries: Coronary artery disease. Diaphragm: Hiatal hernia. Liver: 0.8 cm calcification in the inferior right hepatic lobe. Gallbladder and bile ducts: Cholecystectomy. Pancreas: Normal. No ductal dilation. Spleen: Normal. No splenomegaly. Adrenal glands: Stable 3.0 cm left adrenal nodule compared with prior study. Kidneys and ureters: Right renal calcifications may represent vascular calcifications. No hydronephrosis or hydroureter. Stomach and bowel: Normal caliber small bowel. Air distended colon. Appendix: The appendix is not identified. Intraperitoneal space: Unremarkable. No free air. No significant fluid collection. Vasculature: Atherosclerotic disease. Lymph nodes: Unremarkable. No enlarged lymph nodes. Urinary bladder: Thickened irregular bladder wall similar to prior study. The previous right posterior bladder nodule is no longer present. Reproductive: Unremarkable as visualized. Bones/joints: Multilevel degenerative changes of the spine. Soft tissues: Unremarkable. IMPRESSION: 1. Thickened irregular bladder wall similar to prior study. Interval resection of right posterior bladder wall nodule. 2. 3 cm adrenal mass with Hounsfield units measuring 20. This lesion is incompletely evaluated on this CT. Additional dedicated imaging or biopsy is necessary to differentiate add adrenal metastasis or atypical adrenal mass. 3. Multiple additional findings as discussed above. Dictated and Authenticated by: Tia Quigley MD. Ordering:PKENJI Figueroa MD
--- NOTE | 2022-11-30 15:03 | DI.VRAD_ITS ---
PROCEDURE INFORMATION: Exam: XR Chest Exam date and time: 11/30/2022 2:27 PM Age: 82 years old Clinical indication: Other: Presyncope TECHNIQUE: Imaging protocol: Radiologic exam of the chest. Views: 2 views. COMPARISON: CT ABDOMEN PELVIS WO 07/25/2023 14:22 FINDINGS: Lungs: Unremarkable. No consolidation. Pleural spaces: Unremarkable. No pleural effusion. No pneumothorax. Heart/Mediastinum: Cardiomegaly. Vasculature: Atherosclerotic disease. The innumerable nodules noted on the chest CT are not appreciated on the x-ray. Bones/joints: Multilevel degenerative changes of the thoracic spine. Anterior wedging of midthoracic vertebra. IMPRESSION: No acute cardiopulmonary findings. Dictated and Authenticated by: Tia Quigley MD. Ordering:MAIK Figueroa MD
--- NOTE | 2022-11-30 15:03 | DI.VRAD_ITS ---
PROCEDURE INFORMATION: Exam: CT Head Without Contrast Exam date and time: 11/30/2022 2:14 PM Age: 82 years old Clinical indication: Other: Presyncope, cystoscopy on 11/19/22 w/ bladder tumor resection; Prior surgery; Surgery date: <1 month TECHNIQUE: Imaging protocol: Computed tomography of the head without contrast. 1028image(s) are provided. Radiation optimization: All CT scans at this facility use at least one of these dose optimization techniques: automated exposure control; mA and/or kV adjustment per patient size (includes targeted exams where dose is matched to clinical indication); or iterative reconstruction. Other technique: Axial images are available with sagittal and coronal reconstruction views. Automated dose exposure control is utilized. The DLP is 772. COMPARISON: No relevant prior studies available. FINDINGS: Brain: There are chronic bilateral extensive periventricular white matter changes present. Bilateral distribution is most suggestive of chronicity. There are moderate cerebral atrophic changes overall.There are central lacunar changes demonstrated.No mass effect or layering hemorrhage is appreciated. Auguste, white matter differentiation appears maintained. Scattered dural chronic calcifications are appreciated. Cerebral ventricles: There are some chronic calcifications including at the lateral ventricles as well as punctate third. Pituitary gland and sella: Partially empty sella variant is demonstrated. Paranasal sinuses: The paranasal sinuses appear well-aerated. Mastoid air cells: The mastoid air cells appear well-aerated. Orbital cavities: The orbital contents are symmetric and unremarkable. Bones/joints: Osseous alignment is maintained.No displaced fracture or dislocation is appreciated.There is spotty decreased bone mineralization overall. Soft tissues: Unremarkable. Vasculature: Atherosclerotic vascular changes are demonstrated. IMPRESSION: No mass effect, layering hemhorrage or hydocephalus is demostrated. No acute intracranial changes are appreciated. There are symmetric and extensive periventricular chronic appearing white matter changes present bilateral nature of which is suggestive of chronicity. If however there are localized neurologic findings then consider MRI. Dictated and Authenticated by: James Malone MD. Ordering:MAIK Figueroa MD
[2022-11-30 15:13] LABS: Source Nasopharynx
[2022-11-30 16:29] LABS: Troponin I < 50 ng/L (<or=60)
--- NOTE | 2022-11-30 17:25 | NUR.NOTE ---
Referral made per Dr. Mcgee with PCP next week for electrolyte abnormalities. Put the referral in care manger's box for follow up assistance.Nursing Note:
== END 2022-11-30 16:46 | disposition home or self-care (01) ==
PROVIDERS: Emergency Provider Emergency Medicine; PCP Nurse Practitioner Family
DX: E87.6 Hypokalemia (principal); E83.42 Hypomagnesemia; E27.8 Other specified disorders of adrenal gland; I11.0 Hypertensive heart disease with heart failure; E11.319 Type 2 diabetes mellitus with unspecified diabetic retinopathy without macular edema; I50.9 Heart failure, unspecified; Z20.822 Contact with and (suspected) exposure to COVID-19; R55 Syncope and collapse; C67.9 Malignant neoplasm of bladder, unspecified; R53.1 Weakness
CPT/HCPCS: 80053; 80307; 87637; 93005; 96361; 96365; 96368; 99284; 70450; 71046; 74176; 81003; 81015; 83540; 83550; 83735; 84439; 84443; 84484; 85025; 85610; 85730; 87086; 93010; J3475; J3480

== ENCOUNTER → 2022-12-02 15:05 | Outpatient (BNVA) | payer MEDICARE, MEDICAID, SELFPAY | PROVIDERS: PCP Nurse Practitioner Family; Referring Provider Nurse Practitioner Family; Visit Provider Urology | DX: C67.9 Malignant neoplasm of bladder, unspecified (principal) | CPT/HCPCS: 99213 ==

== ENCOUNTER → 2023-03-10 13:58 | Outpatient (BNVA) | payer MEDICARE, MEDICAID, SELFPAY | PROVIDERS: PCP Nurse Practitioner Family; Referring Provider Nurse Practitioner Family; Visit Provider Urology | DX: Z08 Encounter for follow-up examination after completed treatment for malignant neoplasm (principal); Z85.51 Personal history of malignant neoplasm of bladder | CPT/HCPCS: 52000; 81003 ==

== ENCOUNTER 2023-03-20 03:19 | Outpatient (CLI) | payer MEDICARE, MEDICAID, SELFPAY ==
--- NOTE | 2023-03-20 13:15 | DI.US_ITS ---
Exam(s) US RENAL EXAM: US RENAL CLINICAL HISTORY: CKD STAGE IV, N18.4, GFR 15-29 ML/MIN, HYPERKALEMIA. TECHNIQUE: Auguste scale, color and spectral Doppler were used. COMPARISON: CT CT ABDOMEN PELVIS WO from 11/30/2022 FINDINGS: Renal size in cm: Right: 9.8 left: 10.2 Echogenicity: Normal Hydronephrosis: No Cyst or mass: No Nephrolithiasis: No Bladder:Normal. No stone or mass seen. No visible trabeculation or wall thickening. Prevoid vol:99 Postvoid vol: 0 IMPRESSION: Renal ultrasound is within normal limits. DATA REPOSITORY:
== END 2023-03-20 03:39 ==
LOC: DI 03:19
PROVIDERS: PCP Nurse Practitioner Family; Visit Provider Nurse Practitioner
DX: N18.4 Chronic kidney disease, stage 4 (severe) (principal)
CPT/HCPCS: 76770

== ENCOUNTER 2023-04-22 01:42 | Outpatient (CLI) | payer MEDICARE, MEDICAID, SELFPAY ==
--- NOTE | 2023-04-22 | DI.RAD_ITS ---
Exam(s) XR KNEE RT 4V AP,LAT,CARMINE,PAT EXAM: XR KNEE RT 4V AP,LAT,CARMINE,PAT CLINICAL HISTORY: KNEE PAIN, M25.569. TECHNIQUE: 2D digital imaging was performed. Three views. COMPARISON: No exams were available for comparison FINDINGS: BONES: No acute fracture is present. No bony destructive lesion is seen. JOINTS: There is [id number]-wv-[id number] narrowing of the lateral femoral tibial joint space. Remaining quin nt spaces are maintained chondrocalcinosis is present. No joint effusion is seen. SOFT TISSUE: Vascular calcifications. IMPRESSION: Degenerative changes of the lateral femoral tibial joint. Chondrocalcinosis. DATA REPOSITORY: RADIATION DOSE DELIVERED:
== END 2023-04-22 02:02 ==
LOC: DI 01:45
PROVIDERS: PCP Nurse Practitioner Family; Visit Provider Nurse Practitioner Family
DX: M17.11 Unilateral primary osteoarthritis, right knee (principal); M11.261 Other chondrocalcinosis, right knee
CPT/HCPCS: 73564

== ENCOUNTER 2023-08-06 02:00 | Outpatient (RCR) | payer MEDICARE, MEDICAID, SELFPAY ==
[2023-07-23] MEDS: IRON SUCROSE COMPLEX 300 MG in Normal Saline 250 ML 176.667 MG IVPB (13:10)
[2023-07-23] MEDS: Normal Saline Flush 10 ML SYR IVP (13:13)
[2023-07-30] MEDS: Normal Saline Flush 10 ML SYR IVP (13:03)
[2023-07-30] MEDS: IRON SUCROSE COMPLEX 300 MG in Normal Saline 250 ML 176.667 MG IVPB (13:03)
[2023-08-06] MEDS: IRON SUCROSE COMPLEX 300 MG in Normal Saline 250 ML 176.667 MG IVPB (13:14)
[2023-08-06] MEDS: Normal Saline Flush 10 ML SYR IVP (13:14)
== END 2023-08-21 23:59 | disposition home or self-care (01) ==
LOC: INF 02:00
PROVIDERS: PCP Nurse Practitioner Family; Visit Provider Family Medicine
DX: N18.4 Chronic kidney disease, stage 4 (severe) (principal); D63.1 Anemia in chronic kidney disease; D50.9 Iron deficiency anemia, unspecified
CPT/HCPCS: 96365; 96366; J1756

== ENCOUNTER 2023-08-27 07:59 | Outpatient (CLI) | payer MEDICARE, MEDICAID, SELFPAY ==
[2023-08-27 08:24] VITALS: BP 185/67; PULSE 60; RESP 20; TEMP 36.4; O2SAT 98
--- NOTE | 2023-08-27 09:02 | DI.RAD_ITS ---
Exam(s) XR PAIN CLINIC SACRIOILIAC 2V EXAM: XR PAIN CLINIC SACRIOILIAC 2V CLINICAL HISTORY: Dx: Sacroiliac Joint Dysfunction. TECHNIQUE: Fluoroscopy was provided for the referring physician for guidance with performing pain cl inic injection procedure. COMPARISON: No exams were available for comparison FINDINGS: Please see procedure note for details. Fluoro time: 16.8 seconds RADIATION DOSE DELIVERED: Ka,r=2.52 mGy
[2023-08-27 09:04] VITALS: BP 178/58; PULSE 60; RESP 20; O2SAT 98
[2023-08-27] MEDS: methylPREDNISolone ACETATE 80 MG/ML VIAL IJ (09:06)
[2023-08-27] MEDS: Omnipaque 240 MG/ML 50 ML BTL IJ (09:06)
--- NOTE | 2023-08-27 09:47 | PDOC.PAIN_ITS ---
Date of service: 08/27/23 Time of Service: 09:15 Pain Managment Procedure Note Procedure Note Procedure Note: PROCEDURE NOTE RIGHT INTRA-ARTICULAR SACROILIAC JOINT INJECTION Date of Service: August 27, 2023 Patient: Iliana Kidd Provider: Cy Barker DO, MPH COMMENTS: I previously evaluated the patient in the office and their symptoms in relation to the sacroiliac joint pain have remained the same. Pre-operative diagnosis: Sacroiliac joint dysfunction Post-operative diagnosis: Same Pre-procedure pain: VAS= 7/10 Iliana Kidd has been referred to [facility] for a Right intra-articular Sacroiliac joint injection. Iliana was interviewed and the medical record reviewed. There were no medical, pharmacologic, radiographic or other structural contraindications to attempting a fluoroscopically-guided, contrast-enhanced, intra-articular Sacroiliac joint injection. The risks, benefits, and potential side effects of this procedure wer e reviewed with the patient. Questions and concerns were addressed. After it was clear that Iliana was fully informed about the procedure, the printed consent form was signed by the patient and myself. Iliana was placed in the prone position on the fluoroscopy table and an automated blood pressure cuff, 3 lead EKG, and pulse oximeter were applied. The skin entry point for approaching the Right sacroiliac joint was identified under the most advantageous fluoroscopic view and marked. Following thorough Chlorhexadine preparation of the skin and draping with sterile surgical drapes, 2 mls of 1% l idocaine was infiltrated into the skin at the entry point and the surrounding subcutaneous tissues. Next, a 3.5 22G spinal needle was placed under fluoroscopic guidance into the Right sacroiliac joint. Intra-articular placement was confirmed by a clear arthrogram resulting from the injection of 0.25ml of Omnipaque-240. Next, 1 ml of Depo- Medrol 80 mg/ml was injected intra- articularly with an initial reproduction of a significant component of the usual pain. This was followed with 1 ml of 1% Lidocaine. The needle was then removed without difficulty. (49 ml of Omnipaque-240 was wasted). Aguedas vital signs were stable throughout the procedure and were as recorded in nursing records. Follow up plans and appointments were discussed with Iliana. Post procedure instructions were given as documented in nursing records. Having met discharge criteria, Il[facility] was [facility] from the [facility]. COMMENTS: Post-procedure pain: VAS= 0/10. If the patient receives at least 50% improvement in pain and/or function for at least 3 months, this procedure can be repeated if needed. I personally performed this entire procedure. CY BARKER DO, MPH ABPMR-subspecialty board certification in Pain Medicine [facility]
== END 2023-08-27 08:00 | disposition home or self-care (01) ==
LOC: PC 07:59
PROVIDERS: PCP Nurse Practitioner Family; Visit Provider Preventive Medicine Occupational Medicine
DX: M54.50 Low back pain, unspecified (principal); M46.1 Sacroiliitis, not elsewhere classified
CPT/HCPCS: 00123; 27096; 72200; J1040; Q9967

== ENCOUNTER → 2023-10-14 12:58 | Outpatient (BNVA) | payer MEDICARE, MEDICAID, SELFPAY | PROVIDERS: PCP Nurse Practitioner Family; Visit Provider Urology | DX: C67.9 Malignant neoplasm of bladder, unspecified (principal); R31.9 Hematuria, unspecified | CPT/HCPCS: 52000; 81003 ==

== ENCOUNTER 2023-10-14 15:03 | Outpatient (REF) | payer MEDICARE, MEDICAID, SELFPAY | END 2023-10-14 15:04 | disposition home or self-care (01) | LOC: LBN 15:03 | PROVIDERS: PCP Nurse Practitioner Family; Visit Provider Urology | DX: R31.9 Hematuria, unspecified (principal); C67.9 Malignant neoplasm of bladder, unspecified | CPT/HCPCS: 87077; 87086; 87186 ==

== ENCOUNTER 2024-01-22 12:00 | Outpatient (CLI) | payer MEDICARE, MEDICAID, SELFPAY ==
[2024-01-22 12:07] LABS: Anion Gap 17.8 mmol/L (3-11); BUN 50 mg/dL (7-18); CO2 16.2 mmol/L (21.0-32.0); Calcium 7.8 mg/dL (8.5-10.1); Chloride 112 mmol/L (98-107); Estimated GFR 10.72 (mL/min/1.73m2); Glucose 178 mg/dL (74-106); Magnesium 1.5 mg/dL (1.8-2.4); Potassium 3.4 mmol/L (3.5-5.1); Sodium 146 mmol/L (136-145)
== END 2024-01-22 12:01 | disposition home or self-care (01) ==
LOC: LBO 12:01
PROVIDERS: PCP Nurse Practitioner Family
DX: N18.4 Chronic kidney disease, stage 4 (severe) (principal)
CPT/HCPCS: 36415; 80048; 83735

== ENCOUNTER 2024-02-19 03:50 | Outpatient (RCR) | payer MEDICARE, MEDICAID, SELFPAY ==
[2024-01-21] MEDS: POTASSIUM CHLORIDE 10 MEQ/100 ML BAG 100 MEQ IVINF ×4 (10:20→13:25)
[2024-01-21] MEDS: Normal Saline Flush 10 ML SYR IVP (10:22)
[2024-01-21] MEDS: MAGNESIUM SULFATE 1 GM/100 ML BAG IVINF (10:22)
[2024-01-23] MEDS: POTASSIUM CHLORIDE 10 MEQ/100 ML BAG 100 MEQ IVINF ×4 (10:09→13:22)
[2024-01-23] MEDS: Normal Saline 500 ML 75 ML IV (10:09)
[2024-01-23] MEDS: Normal Saline Flush 10 ML SYR IVP (10:09)
[2024-02-19] MEDS: POTASSIUM CHLORIDE 10 MEQ/100 ML BAG 100 MEQ IVINF ×4 (09:14→12:25)
[2024-02-19] MEDS: MAGNESIUM SULFATE 1 GM/100 ML BAG IVINF (09:15)
[2024-02-19] MEDS: Normal Saline Flush 10 ML SYR IVP (10:16)
== END 2024-02-20 23:59 | disposition home or self-care (01) ==
LOC: INF 03:50
PROVIDERS: PCP Nurse Practitioner Family; Visit Provider Nurse Practitioner Acute Care
DX: N18.4 Chronic kidney disease, stage 4 (severe) (principal); D63.1 Anemia in chronic kidney disease; C67.9 Malignant neoplasm of bladder, unspecified
CPT/HCPCS: 96365; 96366; J3475; J3480

== ENCOUNTER 2024-02-25 15:55 | Emergency (ER) | payer MEDICARE, MEDICAID, SELFPAY ==
[2024-02-25 15:59] VITALS: BP 164/48; PULSE 69; RESP 18; TEMP 37.1; O2SAT 97
--- NOTE | 2024-02-25 16:13 | ED.GENADUL_ITS ---
Discharge Plan Disposition Patient Disposition: Home Condition: Good Discharge Details Clinical Impression: Chronic abdominal pain, Adrenal mass, Bladder wall thickening, Hypokalemia, Hypomagnesemia Primary Care Provider: Brandy Daugherty ED Provider: Shelby Cruz Home Meds and New Rx's Prescriptions: Continued [id number] C-Mn [Glucosamine Chondroitin MaxStr] 500-400 mg capsule 2 cap PO DAILY esomeprazole magnesium [Nexium] 20 mg capsule,delayed release(DR/EC) 20 mg PO DAILY sodium bicarbonate 325 mg tablet See Rx Instructions PO DAILY Rx Instructions: 2 tablets PO AM 1 tablet PO Noon & HS acetaminophen 325 mg tablet 2 tab PO BID tramadol 50 mg tablet 1 tab PO Q4H PRN paroxetine HCl 20 mg tablet 20 mg PO DAILY atorvastatin 40 mg tablet 40 mg PO DAILY Patient Comments: TAKE ONE TABLET BY MOUTH EVERY EVENING carvedilol 12.5 mg tablet 18.75 mg PO BID Patient Comments: TAKE ONE TABLET BY MOUTH TWICE A DAY WITH FOOD FOR 90 DAYS levothyroxine 125 mcg tablet 125 mcg PO DAILY Patient Comments: TAKE ONE TABLET BY MOUTH EVERY DAY FOR 90 DAYS Eliquis 5 mg tablet 5 mg PO BID Patient Comments: TAKE 1 TABLET BY MOUTH TWICE DAILY insulin degludec [Tresiba FlexTouch U-100] 100 unit/mL (3 mL) insulin pen 10 unit SUBCUT DAILY Patient Comments: INJECT 2 UNITS SUBCUTANEOUSLY ONCE DAILY REPLACE PEN AFTER OPEN FOR 56 DAYS magnesium chloride 64 mg tablet extended release 64 mg PO DAILY lisinopril 40 mg tablet 40 mg PO DAILY PreserVision AREDS 4,296 mcg-226 mg-90 mg capsule 1 cap PO BID Patient Comments: 1 capsule by mouth twice a day Discharge Instructions Instructions: Hypokalemia (ED), Chronic Pain (ED), Hypomagnesemia (ED) Additional Instructions: As we discussed, there is no acute abnormality in your labs or imaging. You did have a low potassium for which you are given a supplement today. The mass in your adrenal gland appears unchanged. You do have thickening of your bladder wall which also remains unchanged. No acute evidence cause of your acute on chronic abdominal pain. Please continue follow-up with primary care for your low magnesium and low potassium. Please follow-up with your primary care provider within the next week for reevaluation. As we discussed, they may want to recheck your potassium in the next 2 days. If you develop any new or worsening symptoms please seek care urgently once again. May continue with Tylenol as previously recommended to help with your discomfort. Referrals: Brandy Daugherty [Primary Care Provider] - [facility] General Date/Time Provider Initiated Documentation: 02/25/24 15:57 . Limitations to Documentation: no limitations . Information obtained by: patient, family, RN notes reviewed and old records reviewed . History of Present Illness 83 year old F presents to the emergency department with the chief complaint of left side pain, described as moderate and similar to prior episodes, with intensity rated at 9. Quality is described as aching (dull ache), and is localized to the abdomen. Patient reports no radiation. Patient started experiencing this year(s) and it has been intermittent. No relieving factors improve symptom(s), No exacerbating factors reported . Patient notes no other symptoms.. Patient did receive the following treatments prior to arrival, other (Tylenol can help with pain, last took at 0900) Related Data Home Medications Medication Instructions Recorded Confirmed apixaban 5 mg tablet (Eliquis) 5 mg PO BID 06/14/21 02/25/24 atorvastatin 40 mg tablet 40 mg PO DAILY 06/14/21 02/25/24 carvedilol 12.5 mg tablet 18.75 mg PO BID 06/14/21 02/25/24 insulin degludec 100 unit/mL (3 10 unit subcut DAILY 06/14/21 02/25/24 mL) subcutaneous pen (Tresiba FlexTouch U-100 insulin) levothyroxine 125 mcg tablet 125 mcg PO DAILY 06/14/21 02/25/24 acetaminophen 325 mg tablet 2 tab PO BID 09/04/22 02/25/24 tramadol 50 mg tablet 1 tab PO Q4H PRN 09/04/22 02/25/24 paroxetine HCl 20 mg tablet 20 mg PO DAILY 10/26/22 02/25/24 esomeprazole magnesium 20 mg 20 mg PO DAILY 07/10/23 02/25/24 capsule,delayed release (Nexium) [id number] C-Mn 500 2 cap PO DAILY 07/10/23 02/25/24 mg-400 mg capsule (Glucosamine Chondroitin Maximum Strength) sodium bicarbonate 325 mg tablet See Rx Instructions PO DAILY 07/10/23 02/25/24 lisinopril 40 mg tablet 40 mg PO DAILY 02/25/24 02/25/24 magnesium chloride 64 mg 64 mg PO DAILY 02/25/24 02/25/24 tablet,extended release vitamins A,C,O-yirt-wzghfb 4,296 1 cap PO BID 02/25/24 02/25/24 mcg-226 mg-90 mg capsule (PreserVision AREDS) Allergies Allergy/AdvReac Type Severity Reaction Status Date / Time Penicillins Allergy Severe Skin Rash Unverified 02/25/24 16:05 Macrolide Antibiotics Allergy Intermediate Hives Verified 02/25/24 16:05 naproxen Allergy Intermediate Skin Rash Unverified 02/25/24 16:05 niacin Allergy Intermediate Hives Verified 02/25/24 16:05 omeprazole [From Prilosec] Allergy Intermediate Nausea Unverified 02/25/24 16:05 codeine Allergy Nausea Unverified 02/25/24 16:05 erythromycin base Allergy Hives Unverified 02/25/24 16:05 Sulfa (Sulfonamide Allergy urtiaria Unverified 02/25/24 16:05 Antibiotics) amitriptyline AdvReac Intermediate Other (See Verified 02/25/24 16:05 Comment) NSAIDS (Non-Steroidal AdvReac Intermediate Other (See Unverified 02/25/24 16:05 Anti-Inflamma Comment) celecoxib AdvReac Nausea Verified 02/25/24 16:05 gabapentin AdvReac Other (See Verified 02/25/24 16:05 Comment) methotrexate AdvReac Nausea Unverified 02/25/24 16:05 naltrexone AdvReac Skin Rash Unverified 02/25/24 16:05 General Stated Complaint: Abd Prob PAULINE: 3 Review of Systems Constitutional Constitutional: Reports as per HPI, Denies chills, Denies fatigue, Denies fever( s) and Denies headache(s) ENT Ears, Nose, Mouth, and Throat: Denies headache(s) Cardiovascular Cardiovascular: Reports as per HPI, Denies chest pain and Denies dyspnea Respiratory Respiratory: Reports as per HPI, Denies cough and Denies dyspnea Gastrointestinal Gastrointestinal: Reports as per HPI Musculoskeletal Musculoskeletal: Reports as per HPI and Denies back pain Integumentary/Breasts Skin/Breast: Reports as per HPI and Denies rash Neurologic Neurologic: Reports as per HPI and Denies headache(s) Endocrine Endocrine: Denies fatigue Exam Const General: cooperative, healthy appearing, comfortable, no acute distress and well developed Nutritional Appearance: average body habitus and well nourished Orientation: alert and awake HENMT Head: normal to inspection Mouth: moist mucous membranes Resp Effort & Inspection: normal respiratory effort, able to speak in complete sentences and no respiratory distress Auscultation: clear to auscultation bilaterally, no rales, no rhonchi and no wheezes Cardio Rate: regular rate Rhythm: regular rhythm Heart Sounds: S1 normal and S2 normal GI Inspection: normal to inspection and scar (several well-healed surgical scars) Palpation: soft, no hepatosplenomegaly, no aortic enlargement, not firm, no guarding, no masses, not rigid and tender in the epigastrum and in the LUQ; Glover's sign negative, psoas sign negative and with no rebound tenderness Percussion: normal to percussion Auscultation: normal bowel sounds Back/Spine/Pelvis Back: no CVA tenderness Skin General skin exam: no rashes or lesions noted Trauma: no lacerations or abrasions Neuro General: patient alert and patient awake Cognition: normal cognition Speech: speech normal Gait: normal gait Psych Appearance: grossly normal and well kempt Mental Status: mental status grossly normal Speech and Movement: speech and movement normal Course Vital Signs Vital signs: Vital Signs Temperature 37.1 C 02/25/24 15:59 Pulse 69 02/25/24 15:59 Respiratory Rate 18 02/25/24 15:59 Blood Pressure 164/48 H 02/25/24 15:59 Pulse Oximetry 97 02/25/24 15:59 Temperature 37.1 C 02/25/24 15:59 Temperature Source Skin 02/25/24 15:59 Pulse 69 02/25/24 15:59 Respiratory Rate 18 02/25/24 15:59 Blood Pressure 164/48 H 02/25/24 15:59 Blood Pressure Position Sitting 02/25/24 15:59 Pulse Oximetry 97 02/25/24 15:59 Oxygen Delivery Method Room Air 02/25/24 15:59 Oxygen Flow Rate 0 02/25/24 15:59 Pain Level 9 02/25/24 15:59 Medical Decision Making Patient is a pleasant 83-year-old female, brought in by her daughter, past medi nestor history significant for 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 She reports this has been going on for the past several years. States that typically is very intermittent but for the past 2 days the pains been more consistent. She describes it as a dull ache. States that normally it happens a few times per month and last few hours and then will dissipate. She has not noted anything that seems to make it worse such as certain positions, p.o. intake or exertion. However, states that for the past 2 days the pain has been more consistent, nothing making it better or worse. States that the quality of the pain is otherwise the same as is the location. She indicates the left mid abdomen is area of pain. She denies any chest pain, shortness of breath. No change in bowel or bladder habits. Has lost around 50 pounds over the past 2 years but states that this has been purposeful. Denies any recent trauma. On exam, patient appears nontoxic. She hemodynamically stable and resting in no acute distress. Lungs are clear, normal cardiac exam. She has no CVA tenderness with percussion. Exam of the abdomen is significant for large incisions that appear to be well-healed. Of note, her tenderness in the epigastric and left upper quadrant do follow along near the incision site from her previous rib excisions. No palpable masses. No aortic enlargement. No guarding or peritoneal findings. She is 2+ distal pulses in the lower extremit ies. Given the patient's robust surgical history and chronicity of her pain, pain associated with adhesions is most likely. However, given the patient's age and chronic comorbidities considered more significant etiologies. She does have a history of an adrenal mass which is unclear if she had repeat imaging for. Will obtain a Noncon CT given the patient's kidney function. Also check baseline blood work. She has not discussed this chronic pain with her primary care provider. Patient potassium is low at 2.9. ECG was obtained, ventricularly paced rhythm which is previously known. Patient does have history of chronic hypokalemia for which she follows up with her primary care on a routine basis. For mild hypokalemia was noted. Patient is taking supplements and again, this is closely followed by primary care. Patient is anemic, has an elevated creatinine both of which appear to be chronic. Patient reports that she is being followed by nephrology and likely will be starting on dialysis this winter. Will refer to palliative care. Imaging was reviewed by radiologist, no acute abnormality. They report that the adrenal mass remains unchanged. Thickened bladder wall also remains unchanged. No acute abnormalities were appreciated. I discussed these findings with the patient and her family. We discussed the potential of this being associated with her numerous abdominal surgeries. I offered physical therapy as well as pain management. She is followed by pain specialist. States that she will think about this and call them if she would like to move forward with that. Declines physical therapy referral at this time. Reports that she has upcoming appointment with primary care next week. I advised that they may want to reassess her potassium sooner than that. Return precautions were discussed. All her questions and concerns were addressed and she is in agreement this plan. 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 Acquired trigger finger Renal failure syndrome Rheumatoid arthritis Lumbar radiculopathy Postoperative hypothyroidism Obesity Neck pain Lower urinary tract symptoms (LUTS) Inflammatory arthritis Hyperlipidemia, mixed Hypertensive disorder Heart failure Diabetes mellitus Diabetic retinopathy associated with controlled type 2 diabetes mellitus Chronic cystitis Chronic pain Cataract Atrial fibrillation History of anemia Surgical History H/O breast biopsy Hx of tonsillectomy H/O tubal ligation H/O adenoidectomy History of cholecystectomy Hx of appendectomy H/O right cataract extraction Family History Father Cancer Heart disease Mother Graves disease Rheumatoid arthritis Social History Smoking/Tobacco Use Status: Former Tobacco Use Quit Date: 09/22/95 Smoking risk assessment performed?: Yes Alcohol Intake: former Drug use: Never Substance use type: does not use Do you feel safe at home: Yes Additional Social history: lives alone
[2024-02-25 16:14] VITALS: BP 169/55; PULSE 60; RESP 18; TEMP 37.1; O2SAT 98
--- NOTE | 2024-02-25 16:30 | DI.CT_ITS ---
Exam(s) CT ABDOMEN PELVIS WO EXAM: CT ABDOMEN PELVIS WO CLINICAL HISTORY: left and epigastric pain. TECHNIQUE: Imaging Protocol: Axial computed tomography images with coronal and sagittal reformatted images were created and reviewed CONTRAST MATERIAL: Intravenous: none Oral: None COMPARISON: CT CT ABDOMEN PELVIS WO from 11/30/2022 FINDINGS: VISUALIZED LUNG BASES: No nodules nor pleural effusions evident. ABDOMEN: There is no ascites. LIVER: Calcified granuloma in the right hepatic lobe is again noted. No other obvious intrahepatic f indings realizing the limitations of a noninfused study. GALLBLADDER/BILIARY: The gallbladder is again noted to be surgically absent. CBD diameter is upper n ormal. PANCREAS: No evidence of pancreatic mass nor dilatation of the pancreatic duct. SPLEEN: Spleen is not enlarged. No obvious intrasplenic lesions. ADRENALS: Uniformly hypo dense nodule in the left adrenal gland is again noted, measuring 2.8 by 2.9 by 2.2 cm, exhibiting minimal if any significant change. KIDNEYS:Left kidney unremarkable. Vascular calcification medial aspect of the right kidney is again noted. No new right kidney findings no solid renal masses. No calculi nor hydronephrosis. . ABDOMINAL AORTA: Heavily calcified but not enlarged. Common iliac arteries are also calcified but no t enlarged. LYMPH NODES: There is no retroperitoneal nor paraaortic adenopathy. ABDOMINAL WALL: No evidence of significant anterior abdominal wall nor inguinal hernia. GI: There is no evidence of bowel obstruction, free air, nor abscess. PELVIS: LYMPH NODES: There is no intrapelvic nor inguinal adenopathy. GI: Appendix is not seen is a separate structure but there no secondary signs of acute appendicitis.. no evidence of significant sigmoid diverticular disease. URINARY BLADDER: There is diffuse thickening of the urinary bladder wall. Most probably related to c ystitis and similar to the previous study. Uterus and adnexal regions appear age-appropriate. REPRODUCTIVE: Uterus and adnexal regions appear age-appropriate. There is no free fluid. OSSEOUS: There is mild degenerative anterolisthesis of L4 upon L5 again noted. Minimal loss of heigh t of T11 is unchanged. There are no significant osseous lesions IMPRESSION: 1. There is evidence of previous cholecystectomy. There is no significant dilatation of the biliary tree evident. 2. Unchanged left adrenal mass measuring 2.8 x 2.2 cm. Right adrenal gland remains unremarkable. 3. There is diffuse thickening of the urinary bladder wall. Most probably related to cystitis. Jacquelin ot completely exclude bladder neoplasm. Discussed by phone with ER provider RADIATION DOSE DELIVERED: 714.45mGy.cm Total DLP DATA REPOSITORY: All CT scans at this facility are submitted to the National Radiology Data Registry (NRDR) Dose Index Registry (DIR) with the [employer] ([employer]). RADIATION OPTIMIZATION: All CT scans at this facility use at least one of these dose optimization te chniques: automated exposure control; mA and/or kV adjustment per patient size (includes targeted exa ms where dose is matched to clinical indication); or iterative reconstruction.
[2024-02-25 17:07] LABS: Abs Immature Grans 0.03 10^3/uL (0.0-0.06); Absolute Basophil Count 0.04 10^3/uL (0.0-0.2); Absolute Eosinophil Count 0.06 10^3/uL (0.0-0.7); Absolute Lymphocyte Count 1.27 10^3/uL (1.2-3.4); Absolute Monocyte Count 0.49 10^3/uL (0.1-0.8); Absolute Neutrophil Count 4.95 10^3/uL (1.2-6.7); Basophils % 0.6 %; Eosinophils % 0.9 %; HCT 31.1 % (36.0-46.0); HGB 9.8 g/dL (11.2-15.7); Immature Grans % 0.4 %; Lymphocytes % 18.6 %; MCH 30.4 pg (27.0-33.0); MCHC 31.5 % (32.0-36.0); MCV 97 fL (80-95); Monocytes % 7.2 %; Neutrophils % 72.3 %; Platelet Count 181 10^3/uL (130-400); RBC 3.22 10^6/uL (3.93-5.22); RDW 13.8 % (11.7-14.6); RDW-SD 49.5 fL; WBC 6.84 10^3/uL (4.4-10.8)
[2024-02-25 17:09] LABS: Bilirubin Negative (Negative); Blood Small (Negative); Clarity Clear (Clear); Glucose Negative (Negative); Ketones Negative (Negative); Leukocyte Esterase Moderate (Negative); Nitrite Negative (Negative); Specific Gravity 1.015 (1.005-1.025); Urobilinogen 0.2 mg/dL (Up to 0.2)
[2024-02-25 17:17] LABS: C & S Indicated? Yes; WBC >50 HPF (0-5)
[2024-02-25 17:21] LABS: ALT 23 U/L (14-59); AST 12 U/L (15-37); Albumin 3.7 g/dL (3.4-5.0); Alkaline Phosphatase 59 U/L (46-116); Anion Gap 18.5 mmol/L (3-11); BUN 55 mg/dL (7-18); Bilirubin, Total 0.5 mg/dL (0.2-1.0); CO2 16.5 mmol/L (21.0-32.0); Calcium 7.8 mg/dL (8.5-10.1); Chloride 110 mmol/L (98-107); Estimated GFR 9.83 (mL/min/1.73m2); Glucose 113 mg/dL (74-106); Lipase 47 U/L (16-77); Magnesium 1.5 mg/dL (1.8-2.4); Sodium 145 mmol/L (136-145); Total Protein 7.4 g/dL (6.4-8.2)
[2024-02-25 17:22] LABS: CREATININE 4.3 mg/dL (0.55-1.02)
[2024-02-25 17:23] LABS: Potassium 2.8 mmol/L (3.5-5.1)
--- NOTE | 2024-02-25 17:30 | RT.EKG_ITS ---
APPROVED REPORT Exam: Resting ECG Reason for Exam: hypokalemia Patient Location: E HR:60 bpm ECG Measurements Heart Rate 60 AXIS MS 204 P 0 QRSd 155 QRS -5 QT 517 T 84 QTc 517 Conclusion Ventricular-paced rhythm I have reviewed and interpreted ECG and agree with software generated interpretation.
[2024-02-25] MEDS: Acetaminophen 500 MG TAB 1000 MG PO (18:15)
[2024-02-25] MEDS: Potassium Chloride 20 MEQ TABCR 40 MEQ PO (18:16)
[2024-02-25 18:20] VITALS: BP 173/49; PULSE 60; RESP 16; O2SAT 98
--- NOTE | 2024-02-25 18:39 | NUR.NOTE ---
Referral given to Care Management to assist Pt with setting up Pallative Care for End Stage Renal Disease, Chronic Pain and Legally Blind As soon as possible.
== END 2024-02-25 18:47 | disposition home or self-care (01) ==
PROVIDERS: Emergency Provider Physician Assistant; PCP Nurse Practitioner Family
DX: E87.6 Hypokalemia (principal); E83.42 Hypomagnesemia; R10.13 Epigastric pain; D35.02 Benign neoplasm of left adrenal gland; I13.0 Hypertensive heart and chronic kidney disease with heart failure and stage 1 through stage 4 chronic kidney disease, or unspecified chronic kidney disease; E11.22 Type 2 diabetes mellitus with diabetic chronic kidney disease; N18.4 Chronic kidney disease, stage 4 (severe); I25.2 Old myocardial infarction; I48.91 Unspecified atrial fibrillation; I10 Essential (primary) hypertension; E78.5 Hyperlipidemia, unspecified; E11.319 Type 2 diabetes mellitus with unspecified diabetic retinopathy without macular edema; E89.0 Postprocedural hypothyroidism; Z79.01 Long term (current) use of anticoagulants; Z79.4 Long term (current) use of insulin; Z79.899 Other long term (current) drug therapy; Z87.891 Personal history of nicotine dependence
CPT/HCPCS: 36415; 80053; 83690; 93005; 99285; 74176; 81003; 81015; 83735; 85025; 87086; 93010; 99284

== ENCOUNTER 2024-03-18 09:00 | Outpatient (RCR) | payer MEDICARE, MEDICAID, SELFPAY ==
[2024-03-04] MEDS: POTASSIUM CHLORIDE 20 MEQ/100 ML BAG 50 MEQ IVINF ×2 (09:57→11:44)
[2024-03-04] MEDS: Normal Saline 1,000 ML 125 ML IV (09:57)
[2024-03-04] MEDS: Normal Saline Flush 10 ML SYR IVP (10:40)
[2024-03-04 12:32] LABS: Anion Gap 16.7 mmol/L (3-11); BUN 55 mg/dL (7-18); CO2 18.3 mmol/L (21.0-32.0); Calcium 7.5 mg/dL (8.5-10.1); Chloride 111 mmol/L (98-107); Estimated GFR 10.11 (mL/min/1.73m2); Glucose 142 mg/dL (74-106); Potassium 3.3 mmol/L (3.5-5.1); Sodium 146 mmol/L (136-145)
[2024-03-04 12:34] LABS: CREATININE 4.2 mg/dL (0.55-1.02)
[2024-03-18] MEDS: POTASSIUM CHLORIDE 20 MEQ/100 ML BAG 50 MEQ IVINF ×2 (09:34→11:25)
[2024-03-18] MEDS: Normal Saline Flush 10 ML SYR IVP (09:34)
== END 2024-03-21 23:59 | disposition home or self-care (01) ==
LOC: INF 09:00
PROVIDERS: PCP Nurse Practitioner Family; Visit Provider Nurse Practitioner Acute Care
DX: N18.4 Chronic kidney disease, stage 4 (severe) (principal); D63.1 Anemia in chronic kidney disease
CPT/HCPCS: 36415; 80048; 96365; 96366; J3480

== ENCOUNTER 2024-04-08 02:03 | Outpatient (RCR) | payer MEDICARE, MEDICAID, SELFPAY ==
[2024-04-08 09:50] LABS: Anion Gap 14.9 mmol/L (3-11); BUN 71 mg/dL (7-18); CO2 18.1 mmol/L (21.0-32.0); Chloride 109 mmol/L (98-107); Estimated GFR 10.41 (mL/min/1.73m2); Glucose 107 mg/dL (74-106); Sodium 142 mmol/L (136-145)
[2024-04-08 10:09] LABS: CREATININE 4.1 mg/dL (0.55-1.02)
[2024-04-08] MEDS: Normal Saline Flush 10 ML SYR IVP (10:38)
[2024-04-08] MEDS: POTASSIUM CHLORIDE 20 MEQ/100 ML BAG 50 MEQ IVINF ×2 (10:38→12:32)
== END 2024-04-21 23:59 | disposition home or self-care (01) ==
LOC: INF 02:03
PROVIDERS: PCP Nurse Practitioner Family; Visit Provider Nurse Practitioner Acute Care
DX: N18.4 Chronic kidney disease, stage 4 (severe) (principal)
CPT/HCPCS: 36415; 80048; 96365; 96366; J3480

== ENCOUNTER 2024-05-20 03:04 | Outpatient (RCR) | payer MEDICARE, MEDICAID, SELFPAY ==
[2024-04-22 11:08] LABS: Anion Gap 14.5 mmol/L (3-11); BUN 55 mg/dL (7-18); CO2 19.5 mmol/L (21.0-32.0); Chloride 112 mmol/L (98-107); Estimated GFR 11.77 (mL/min/1.73m2); Glucose 104 mg/dL (74-106); Sodium 146 mmol/L (136-145)
[2024-04-22 11:23] LABS: CREATININE 3.7 mg/dL (0.55-1.02)
[2024-04-22] MEDS: POTASSIUM CHLORIDE 20 MEQ/100 ML BAG 50 MEQ IVINF ×2 (11:33→13:37)
[2024-04-22] MEDS: Normal Saline Flush 10 ML SYR IVP (11:55)
[2024-04-22] MEDS: Normal Saline 1,000 ML 100 ML IV (11:56)
[2024-05-06 09:39] LABS: Anion Gap 15.6 mmol/L (3-11); BUN 54 mg/dL (7-18); CO2 18.4 mmol/L (21.0-32.0); Calcium 8.8 mg/dL (8.5-10.1); Chloride 109 mmol/L (98-107); Glucose 184 mg/dL (74-106); Potassium 3.4 mmol/L (3.5-5.1); Sodium 143 mmol/L (136-145)
[2024-05-06] MEDS: Normal Saline Flush 10 ML SYR IVP (09:52)
[2024-05-06] MEDS: POTASSIUM CHLORIDE 20 MEQ/100 ML BAG 50 MEQ IVINF ×2 (09:52→11:55)
[2024-05-06] MEDS: Normal Saline 1,000 ML 125 ML IV (10:00)
[2024-05-06 10:05] LABS: CREATININE 3.8 mg/dL (0.55-1.02)
[2024-05-20 07:54] LABS: Anion Gap 14.4 mmol/L (3-11); BUN 64 mg/dL (7-18); CO2 18.6 mmol/L (21.0-32.0); Calcium 8.8 mg/dL (8.5-10.1); Chloride 108 mmol/L (98-107); Glucose 124 mg/dL (74-106); Potassium 3.5 mmol/L (3.5-5.1); Sodium 141 mmol/L (136-145)
[2024-05-20] MEDS: Normal Saline Flush 10 ML SYR IVP (08:06)
[2024-05-20 08:12] LABS: CREATININE 3.8 mg/dL (0.55-1.02)
== END 2024-05-22 23:59 | disposition home or self-care (01) ==
LOC: INF 03:04
PROVIDERS: Registered Nurse Nephrology; PCP Nurse Practitioner Family; Visit Provider Nurse Practitioner Acute Care
DX: N18.4 Chronic kidney disease, stage 4 (severe) (principal); C67.9 Malignant neoplasm of bladder, unspecified
CPT/HCPCS: 36415; 80048; 96365; 96366; J3480

== ENCOUNTER 2024-06-03 03:24 | Outpatient (RCR) | payer MEDICARE, MEDICAID, SELFPAY ==
[2024-06-03] MEDS: Normal Saline Flush 10 ML SYR IVP (09:51)
[2024-06-03] MEDS: POTASSIUM CHLORIDE 20 MEQ/100 ML BAG 50 MEQ IVINF ×2 (09:51→11:32)
[2024-06-03 09:58] LABS: BUN 64 mg/dL (7-18); Calcium 8.9 mg/dL (8.5-10.1); Glucose 140 mg/dL (74-106)
[2024-06-03 09:59] LABS: Anion Gap 14.9 mmol/L (3-11); CO2 18.1 mmol/L (21.0-32.0); CREATININE 3.9 mg/dL (0.55-1.02); Chloride 108 mmol/L (98-107); Estimated GFR 11.05 (mL/min/1.73m2); Potassium 3.2 mmol/L (3.5-5.1); Sodium 141 mmol/L (136-145)
== END 2024-06-21 23:59 | disposition home or self-care (01) ==
LOC: INF 03:24
PROVIDERS: Registered Nurse Nephrology; PCP Nurse Practitioner Family; Visit Provider Nurse Practitioner Acute Care
DX: N18.4 Chronic kidney disease, stage 4 (severe) (principal)
CPT/HCPCS: 36415; 80048; 96365; 96366; J3480

== ENCOUNTER 2024-06-17 02:37 | Outpatient (RCR) | payer MEDICARE, MEDICAID, SELFPAY ==
[2024-06-17 09:44] LABS: Anion Gap 13.5 mmol/L (3-11); BUN 55 mg/dL (7-18); CO2 16.5 mmol/L (21.0-32.0); CREATININE 3.5 mg/dL (0.55-1.02); Calcium 7.4 mg/dL (8.5-10.1); Chloride 109 mmol/L (98-107); Estimated GFR 12.59 (mL/min/1.73m2); Glucose 129 mg/dL (74-106); Sodium 139 mmol/L (136-145)
[2024-06-17 09:58] LABS: Potassium 2.9 mmol/L (3.5-5.1)
[2024-06-17] MEDS: Normal Saline Flush 10 ML SYR IVP (10:07)
[2024-06-17] MEDS: POTASSIUM CHLORIDE 20 MEQ/100 ML BAG 50 MEQ IVINF ×2 (10:08→11:55)
== END 2024-06-21 23:59 | disposition home or self-care (01) ==
LOC: INF 02:37
PROVIDERS: Registered Nurse Nephrology; PCP Nurse Practitioner Family; Visit Provider Nurse Practitioner Acute Care
DX: N18.4 Chronic kidney disease, stage 4 (severe) (principal)
CPT/HCPCS: 80048; 96365; 96366; J3480

== ENCOUNTER 2024-07-15 02:16 | Outpatient (RCR) | payer MEDICARE, MEDICAID, SELFPAY ==
[2024-07-01] MEDS: Normal Saline Flush 10 ML SYR IVP (10:17)
[2024-07-01 10:29] LABS: Anion Gap 19.2 mmol/L (3-11); BUN 63 mg/dL (7-18); CO2 16.8 mmol/L (21.0-32.0); CREATININE 3.5 mg/dL (0.55-1.02); Calcium 8.8 mg/dL (8.5-10.1); Chloride 113 mmol/L (98-107); Estimated GFR 12.59 (mL/min/1.73m2); Glucose 122 mg/dL (74-106); Potassium 3.8 mmol/L (3.5-5.1); Sodium 149 mmol/L (136-145)
[2024-07-15 09:56] LABS: Anion Gap 18.9 mmol/L (3-11); BUN 76 mg/dL (7-18); CO2 15.1 mmol/L (21.0-32.0); Calcium 8.7 mg/dL (8.5-10.1); Chloride 112 mmol/L (98-107); Estimated GFR 10.72 (mL/min/1.73m2); Glucose 115 mg/dL (74-106); Potassium 3.1 mmol/L (3.5-5.1); Sodium 146 mmol/L (136-145)
[2024-07-15] MEDS: POTASSIUM CHLORIDE 20 MEQ/100 ML BAG 50 MEQ IVPB ×2 (10:16→12:11)
[2024-07-15] MEDS: Normal Saline 1,000 ML 100 ML IV (10:17)
[2024-07-15] MEDS: Normal Saline Flush 10 ML SYR IVP (10:17)
== END 2024-07-22 23:59 | disposition home or self-care (01) ==
LOC: INF 02:16
PROVIDERS: Registered Nurse Nephrology; PCP Nurse Practitioner Family; Visit Provider Nurse Practitioner Acute Care
DX: N18.4 Chronic kidney disease, stage 4 (severe) (principal)
CPT/HCPCS: 36415; 80048; 96365; 96366; J3480

== ENCOUNTER 2024-08-12 02:48 | Outpatient (RCR) | payer MEDICARE, MEDICAID, SELFPAY ==
[2024-07-29 09:54] LABS: Anion Gap 17.9 mmol/L (3-11); BUN 72 mg/dL (7-18); CO2 15.1 mmol/L (21.0-32.0); Calcium 8.4 mg/dL (8.5-10.1); Chloride 112 mmol/L (98-107); Estimated GFR 10.41 (mL/min/1.73m2); Glucose 126 mg/dL (74-106); Potassium 3.5 mmol/L (3.5-5.1); Sodium 145 mmol/L (136-145)
[2024-07-29 10:07] LABS: CREATININE 4.1 mg/dL (0.55-1.02)
[2024-07-29] MEDS: Normal Saline Flush 10 ML SYR IVP (10:38)
[2024-08-12 09:49] LABS: Anion Gap 15.7 mmol/L (3-11); BUN 60 mg/dL (7-18); CO2 16.3 mmol/L (21.0-32.0); Calcium 8.3 mg/dL (8.5-10.1); Chloride 112 mmol/L (98-107); Estimated GFR 12.17 (mL/min/1.73m2); Glucose 110 mg/dL (74-106); Potassium 3.1 mmol/L (3.5-5.1); Sodium 144 mmol/L (136-145)
[2024-08-12 10:04] LABS: CREATININE 3.6 mg/dL (0.55-1.02)
[2024-08-12] MEDS: POTASSIUM CHLORIDE 20 MEQ/100 ML BAG 50 MEQ IVPB ×2 (10:44→12:35)
[2024-08-12] MEDS: Normal Saline Flush 10 ML SYR IVP (10:45)
== END 2024-08-21 23:59 | disposition home or self-care (01) ==
LOC: INF 02:48
PROVIDERS: Registered Nurse Nephrology; PCP Nurse Practitioner Family; Visit Provider Nurse Practitioner Acute Care
DX: N18.4 Chronic kidney disease, stage 4 (severe) (principal)
CPT/HCPCS: 36415; 80048; 96365; 96366; J3480

== ENCOUNTER 2024-09-09 01:59 | Outpatient (RCR) | payer MEDICARE, MEDICAID, SELFPAY ==
[2024-08-26 10:12] LABS: Anion Gap 18.8 mmol/L (3-11); BUN 53 mg/dL (7-18); CO2 15.2 mmol/L (21.0-32.0); Calcium 8.2 mg/dL (8.5-10.1); Chloride 110 mmol/L (98-107); Estimated GFR 11.05 (mL/min/1.73m2); Glucose 180 mg/dL (74-106); Potassium 3.5 mmol/L (3.5-5.1); Sodium 144 mmol/L (136-145)
[2024-08-26 10:23] LABS: CREATININE 3.9 mg/dL (0.55-1.02)
[2024-08-26] MEDS: Normal Saline Flush 10 ML SYR IVP (10:38)
[2024-09-09 09:45] LABS: Anion Gap 16.2 mmol/L (3-11); BUN 53 mg/dL (7-18); CO2 17.8 mmol/L (21.0-32.0); Calcium 8.1 mg/dL (8.5-10.1); Chloride 112 mmol/L (98-107); Estimated GFR 10.99 (mL/min/1.73m2); Glucose 114 mg/dL (74-106); PHOSPHORUS 4.8 mg/dL (2.6-4.7); Potassium 3.2 mmol/L (3.5-5.1); Sodium 146 mmol/L (136-145)
[2024-09-09 09:57] LABS: CREATININE 3.9 mg/dL (0.55-1.02)
[2024-09-09] MEDS: POTASSIUM CHLORIDE 20 MEQ/100 ML BAG 50 MEQ IVPB ×2 (10:18→12:11)
[2024-09-09] MEDS: Normal Saline Flush 10 ML SYR IVP (10:19)
[2024-09-09] MEDS: Normal Saline 1,000 ML 100 ML IV (10:19)
== END 2024-09-21 23:59 | disposition home or self-care (01) ==
LOC: INF 01:59
PROVIDERS: Registered Nurse Nephrology; PCP Nurse Practitioner Family; Visit Provider Nurse Practitioner Acute Care
DX: N18.4 Chronic kidney disease, stage 4 (severe) (principal)
CPT/HCPCS: 36415; 80048; 96365; 96366; 84100; J3480

== ENCOUNTER 2024-09-22 18:40 | Emergency (ER) | payer MEDICARE, MEDICAID, SELFPAY ==
[2024-09-22] VITALS (42 sets, daily range): BP systolic 166–189; BP diastolic 46–70; PULSE 59–74; RESP 11–21; TEMP 36.5; O2SAT 95–100
--- NOTE | 2024-09-22 18:45 | RT.EKG_ITS ---
APPROVED REPORT Exam: Resting ECG Reason for Exam: Pacemaker/edema/hx Patient Location: E HR:63 bpm ECG Measurements Heart Rate 63 AXIS SD 224 P 0 QRSd 140 QRS 268 QT 493 T 130 QTc 507 Conclusion Ventricular-paced rhythm artifact in multiple leads
--- NOTE | 2024-09-22 19:00 | RT.EKG_ITS ---
APPROVED REPORT Exam: Resting ECG Reason for Exam: Lower extremity edema Patient Location: E HR:60 bpm ECG Measurements Heart Rate 60 AXIS WV 271 P 0 QRSd 130 QRS -69 QT 490 T 146 QTc 491 Conclusion Ventricular-paced rhythm I have reviewed and interpreted ECG and agree with software generated interpretation.
--- NOTE | 2024-09-22 19:00 | DI.RAD_ITS ---
Exam(s) XR PORTABLE CHEST AP EXAM: XR PORTABLE CHEST AP CLINICAL HISTORY: SOB. TECHNIQUE: 2D digital imaging was performed. COMPARISON: CR,XR XR CHEST 2V PA LATERAL from 11/30/[address] ABDOMEN PELVIS WO from 02/25/2024 FINDINGS: Single AP portable view. There is cardiomegaly. There is a transition STIR-type device which appears to be in the heart. Mild pulmonary venous hypertension pattern. No airspace pulmonary edema evident. Also no confluent infiltrates nor pleural effusions. No fractures. IMPRESSION: Cardiomegaly with cardiac device. Mild pulmonary venous hypertension pattern. No airspace pulmonary edema and no pleural effusions. DATA REPOSITORY: RADIATION DOSE DELIVERED:
--- NOTE | 2024-09-22 19:02 | W.ED.GENAD ---
Discharge Plan Disposition Patient Disposition: Home Condition: Stable Discharge Details Clinical Impression: Acute UTI, Lower extremity edema, Chronic hypokalemia, Troponin level elevated Primary Care Provider: Brandy Daugherty ED Provider: Ines Jewell Home Meds and New Rx's Prescriptions: New ciprofloxacin HCl [Cipro] 500 mg tablet 500 mg PO BID 10 Days Qty: 20 0RF Rx Instructions: Take one tablet by mouth twice daily x 10 days Continued slfhygngzmd-wabordgqm-ynr C-Mn [Glucosamine Chondroitin MaxStr] 500-400 mg capsule 2 cap PO DAILY sodium bicarbonate 325 mg tablet See Rx Instructions PO DAILY Rx Instructions: 2 tablets PO AM 1 tablet PO Noon & HS acetaminophen 325 mg tablet 2 tab PO BID paroxetine HCl 20 mg tablet 20 mg PO DAILY atorvastatin 40 mg tablet 40 mg PO DAILY Patient Comments: TAKE ONE TABLET BY MOUTH EVERY EVENING carvedilol 12.5 mg tablet 18.75 mg PO BID Patient Comments: TAKE ONE TABLET BY MOUTH TWICE A DAY WITH FOOD FOR 90 DAYS levothyroxine 125 mcg tablet 125 mcg PO DAILY Patient Comments: TAKE ONE TABLET BY MOUTH EVERY DAY FOR 90 DAYS Eliquis 5 mg tablet 5 mg PO BID Patient Comments: TAKE 1 TABLET BY MOUTH TWICE DAILY insulin degludec [Tresiba FlexTouch U-100] 100 unit/mL (3 mL) insulin pen 10 unit SUBCUT DAILY Patient Comments: INJECT 2 UNITS SUBCUTANEOUSLY ONCE DAILY REPLACE PEN AFTER OPEN FOR 56 DAYS magnesium chloride 64 mg tablet extended release 64 mg PO DAILY lisinopril 40 mg tablet 40 mg PO DAILY PreserVision AREDS 4,296 mcg-226 mg-90 mg capsule 1 cap PO BID Patient Comments: 1 capsule by mouth twice a day calcitriol 0.25 mcg capsule 0.25 mcg PO DAILY liothyronine 5 mcg tablet 5 mcg PO DAILY sevelamer carbonate [Renvela] 800 mg tablet 800 mg PO ONCE Rx Instructions: must administer with a meal/food (DME) OneTouch Verio test strips Strip MISCELLANEOUS Patient Comments: USE TO TEST BLOOD SUGAR ONE TO TWO TIMES EVERY DAY NEEDED (DME) lancets [OneTouch Delica Plus Lancet] 33 gauge misc MISCELLANEOUS Patient Comments: USE TO CHECK BLOOD SUGAR ONE TO TWO TIMES DAILY Discharge Instructions Instructions: Hypokalemia, Urinary Tract Infection, Adult ED Additional Instructions: Please call the infusion center tomorrow as discussed. Please take the antibiotic yogurt or a probiotic as directed. Please follow-up with your PCP within the next 3 to 5 days. Return to the ER for any worsening shortness of breath, chest pain or feeling sicker at any time. You for allowing us to care for you today. Referrals: Brandy Daugherty [Primary Care Provider] - 3 days HPI General Mode of arrival: wheelchair. Date/Time Provider Initiated Documentation: 09/22/24 18:44. Limitations to Documentation: no limitations. Information obtained by: patient, family, RN notes reviewed and old records reviewed. HPI Narrative: 84-year-old female with a past medical history of hypertension hyperlipidemia diabetes mellitus, A-fib, anemia renal failure, bladder mass, adrenal mass, CAD stage IV kidney disease GERD obstructive sleep apnea presents to the ER with decreased urination over the last 2 days and increased lower extremity edema. She does endorse some mild shortness of breath and some nausea. She reports that she has been only able to have dribbling urine. Denies any fever or chills. No vomiting and she reports chronic diarrhea. She is alert and oriented x 4. She did take her normal medications this morning. Related Data Home Medications ?Medication ?Instructions ?Recorded ?Confirmed apixaban 5 mg tablet (Eliquis) 5 mg PO BID 06/14/21 09/22/24 atorvastatin 40 mg tablet 40 mg PO DAILY 06/14/21 09/22/24 carvedilol 12.5 mg tablet 18.75 mg PO BID 06/14/21 09/22/24 insulin degludec 100 unit/mL (3 10 unit subcut DAILY 06/14/21 09/22/24 mL) subcutaneous pen (Tresiba FlexTouch U-100 insulin) levothyroxine 125 mcg tablet 125 mcg PO DAILY 06/14/21 09/22/24 acetaminophen 325 mg tablet 2 tab PO BID 09/04/22 09/22/24 paroxetine HCl 20 mg tablet 20 mg PO DAILY 10/26/22 09/22/24 zjomczykzot-gbtukxcsz-gbd C-Mn 500 2 cap PO DAILY 07/10/23 09/22/24 mg-400 mg capsule (Glucosamine Chondroitin Maximum Strength) sodium bicarbonate 325 mg tablet See Rx Instructions PO DAILY 07/10/23 09/22/24 lisinopril 40 mg tablet 40 mg PO DAILY 02/25/24 09/22/24 magnesium chloride 64 mg 64 mg PO DAILY 02/25/24 09/22/24 tablet,extended release vitamins A,C,G-ryfr-cxrrtf 4,296 1 cap PO BID 02/25/24 09/22/24 mcg-226 mg-90 mg capsule (PreserVision AREDS) blood sugar diagnostic (OneTouch 09/22/24 09/22/24 Verio test strips) calcitriol 0.25 mcg capsule 0.25 mcg PO DAILY 09/22/24 09/22/24 ciprofloxacin HCl 500 mg tablet 500 mg PO BID UTI 10 days #20 tabs 09/22/24 (Cipro) lancets 33 gauge (OneTouch Delica 09/22/24 09/22/24 Plus Lancet) liothyronine 5 mcg tablet 5 mcg PO DAILY 09/22/24 09/22/24 sevelamer carbonate 800 mg tablet 800 mg PO ONCE 09/22/24 09/22/24 (Renvela) Previous Rx's ?Medication ?Instructions ?Recorded ciprofloxacin HCl 500 mg tablet 500 mg PO BID UTI 10 days #20 tabs 09/22/24 (Cipro) Allergies Allergy/AdvReac Type Severity Reaction Status Date / Time Penicillins Allergy Severe Skin Rash Verified 09/22/24 18:55 Macrolide Antibiotics Allergy Intermediate Hives Verified 09/22/24 18:55 naproxen Allergy Intermediate Skin Rash Verified 09/22/24 18:55 niacin Allergy Intermediate Hives Verified 09/22/24 18:55 omeprazole (From Prilosec) Allergy Intermediate Nausea Verified 09/22/24 18:55 codeine Allergy Nausea Verified 09/22/24 18:55 erythromycin base Allergy Hives Verified 09/22/24 18:55 Sulfa (Sulfonamide Allergy urtiaria Verified 09/22/24 18:55 Antibiotics) amitriptyline AdvReac Intermediate Other (See Verified 09/22/24 18:55 Comment) NSAIDS (Non-Steroidal AdvReac Intermediate Other (See Verified 09/22/24 18:55 Anti-Inflamma Comment) celecoxib AdvReac Nausea Verified 09/22/24 18:55 gabapentin AdvReac Other (See Verified 09/22/24 18:55 Comment) methotrexate AdvReac Nausea Verified 09/22/24 18:55 naltrexone AdvReac Skin Rash Verified 09/22/24 18:55 General Stated Complaint: Urinary PAULINE: 3 Course Vital Signs Vital signs: Vital Signs Temperature 36.5 C 09/22/24 18:44 Pulse 63 09/22/24 18:44 Respiratory Rate 16 09/22/24 18:44 Blood Pressure 171/46 H 09/22/24 18:44 Pulse Oximetry 99 09/22/24 18:44 Temperature 36.5 C 09/22/24 18:44 Temperature Source Tympanic 09/22/24 18:44 Pulse 63 09/22/24 18:44 Respiratory Rate 16 09/22/24 18:44 Blood Pressure 171/46 H 09/22/24 18:44 Blood Pressure Position Sitting 09/22/24 18:44 Pulse Oximetry 99 09/22/24 18:44 Oxygen Delivery Method Room Air 09/22/24 18:44 Oxygen Flow Rate 0 09/22/24 18:44 Pain Level 0 09/22/24 18:44 Medical Decision Making 84-year-old female with a past medical history of hypertension hyperlipidemia diabetes mellitus, A-fib, anemia renal failure, bladder mass, adrenal mass, CAD stage IV kidney disease GERD obstructive sleep apnea presents to the ER with decreased urination over the last 2 days and increased lower extremity edema. She does endorse some mild shortness of breath and some nausea. She reports that she has been only able to have dribbling urine. Denies any fever or chills. No vomiting and she reports chronic diarrhea. She is alert and oriented x 4. She did take her normal medications this morning. Workup ordered including EKG serial troponins, CBC CMP proBNP, urinalysis chest x-ray. Differential diagnosis includes no limited to worsening renal failure, UTI, CHF, electrolyte abnormality. 1945: Critical results obtained creatinine 3.6 which is somewhat at patient's baseline, potassium is critically low at 2.6 troponin is elevated at 110, proBNP is over 10,000, magnesium added on to labs which is slightly low at 1.6. Patient also has evidence of urinary tract infection moderate blood positive nitrites large leukocytes greater than 50 WBCs. Culture of urine also ordered. Will wait for serial troponin and possibly consult with cardiology however this could be a troponin leak from the renal failure. Second troponin is down trending at 108, Patient has no chest pain, will consult with [facility] team regarding patient as this is where she receives her renal care. She recently had a dialysis fistula placed 2 months ago. Transfer center called. 200ml urine output since Furosemide 20mg 2131: Spoke with Alena with nephrology team at [facility] regarding patient case in details he does not recommend transfer or dialysis at this time he does state that hypokalemia and the renal disease can cause bumps in troponin. He does agree to the Lasix IV which has already been given. I will consult with hospitalist regarding patient UTI and the bump troponin as she has an infusion here tomorrow. Spoke with Dr. Gee regarding patient case in details repeat BMP resulted which shows potassium improved at 3.4 and her creatinine has improved to 3.5, I did discuss this with the family who was comfortable taking her home at this time. Patient will be discharged they will call the infusion center tomorrow to see if that she still needs the infusion. I did discuss strict return instructions to return for any chest pain worsening shortness of breath or feeling sicker at all they verbalized understanding. This text was generated using [employer] dictation system, please disregard any oddities of phrase or misspellings. Medical Records Medical records reviewed: Yes I reviewed the patient's medical records. Imaging Data Radiologic Study: Radiologist's impression: OMPARISON: CR,XR XR CHEST 2V PA LATERAL from 11/30/[address] ABDOMEN PELVIS WO from 02/25/2024 FINDINGS: Single AP portable view. There is cardiomegaly. There is a transition STIR-type device which appears to be in the heart. Mild pulmonary venous hypertension pattern. No airspace pulmonary edema evident. Also no confluent infiltrates nor pleural effusions. No fractures. IMPRESSION: Cardiomegaly with cardiac device. Mild pulmonary venous hypertension pattern. No airspace pulmonary edema and no pleural effusions. Lab Data Lab results reviewed: Yes I reviewed the patient's lab results. Labs: 09/22/24 19:37 Urine - Clean Catch Urine Culture - Pending Laboratory Tests Range/Units 09/22/24 09/22/24 09/22/24 19:15 19:37 20:15 WBC (4.4-10.8) 10^3/uL 5.93 RBC (3.93-5.22) 10^6/uL 2.68 L Hgb (11.2-15.7) g/dL 8.4 L Hct (36.0-46.0) % 27.8 L MCV (80-95) fL 104 H MCH (27.0-33.0) pg 31.3 MCHC (32.0-36.0) % 30.2 L RDW (11.7-14.6) % 16.5 H Plt Count (130-400) 10^3/uL 174 MPV (8.0-11.0) fL 9.9 Immature Gran % % 0.3 Neutrophils % % 69.6 Lymphocytes % % 18.5 Monocytes % % 8.4 Eosinophils % % 2.2 Basophils % % 1.0 Nucleated RBC % (0.0-0.3) % 0.0 Absolute Neutrophils (1.2-6.7) 10^3/uL 4.12 Absolute Lymphocytes (1.2-3.4) 10^3/uL 1.10 L Absolute Monocytes (0.1-0.8) 10^3/uL 0.50 Absolute Eosinophils (0.0-0.7) 10^3/uL 0.13 Absolute Basophils (0.0-0.2) 10^3/uL 0.06 PT (9.1-11.1) sec 12.8 H INR (0.9-1.1) 1.3 H APTT (23.6-32.8) sec 32.0 Sodium (136-145) mmol/L 145 Potassium (3.5-5.1) mmol/L 2.6 L* Chloride (98-107) mmol/L 111 H Carbon Dioxide (21.0-32.0) mmol/L 18.7 L Anion Gap (3-11) mmol/L 15.3 H BUN (7-18) mg/dL 42 H Creatinine (0.55-1.02) mg/dL 3.6 H* Est GFR (CKD-EPI 2020) (mL/min/1.73m2) 12.09 Glucose (74-106) mg/dL 90 Calcium (8.5-10.1) mg/dL 8.1 L Magnesium (1.8-2.4) mg/dL 1.6 L Total Bilirubin (0.2-1.0) mg/dL 0.68 AST (15-37) U/L 10 L ALT (14-59) U/L 23 Alkaline Phosphatase (46-116) U/L 61 Troponin I (<or=51) ng/L 110 H* 108 H* NT-Pro-B Natriuret Pep (<300) pg/mL 45541 H Total Protein (6.4-8.2) g/dL 7.0 Albumin (3.4-5.0) g/dL 3.5 Urine Color (Yellow) Yellow Urine Clarity (Clear) Cloudy Urine pH (5-8) 6.0 Ur Specific [place] (1.005-1.025) 1.020 Urine Protein (Neg-Trace) mg/dL 100 H Urine Ketones (Negative) mg/dL Negative Urine Blood (Negative) Moderate H Urine Nitrite (Negative) Positive H Urine Bilirubin (Negative) Negative Urine Urobilinogen (Up to 0.2) mg/dL 0.2 Ur Leukocyte Esterase (Negative) Large H Urine RBC (0-2) HPF Urine WBC (0-5) HPF >50 H Ur Epithelial Cells (Negative) HPF Urine Crystals (Negative) HPF Negative Urine Bacteria (Negative) HPF Urine Mucus (Negative) Negative Ur Culture Indicated? No Urine Glucose (Negative) mg/dL Negative Add-On Test Request DONE Quality:[facility] Health Related Social Needs: No Data to Display PFSH All Active Problems (Updated 09/22/24 @ 22:20 by Ines Jewell NP) Troponin level elevated (Acute) Chronic hypokalemia (Acute) Lower extremity edema (Acute) Acute UTI (Acute) Sacroiliac joint dysfunction of right side (Acute) Bladder cancer (Acute) Acute pyelonephritis (Acute) Medical History Rib cage dysfunction Stucco keratosis Obstructive sleep apnea Depression Graves disease GERD (gastroesophageal reflux disease) Fibromyalgia Kidney disease, chronic, stage IV (severe, 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 Acquired trigger finger Renal failure syndrome Rheumatoid arthritis Lumbar radiculopathy Postoperative hypothyroidism Obesity Neck pain Lower urinary tract symptoms (LUTS) Inflammatory arthritis Hyperlipidemia, mixed Hypertensive disorder Heart failure Diabetes mellitus Diabetic retinopathy associated with controlled type 2 diabetes mellitus Chronic cystitis Chronic pain Cataract Atrial fibrillation History of anemia Surgical History H/O breast biopsy Hx of tonsillectomy H/O tubal ligation H/O adenoidectomy History of cholecystectomy Hx of appendectomy H/O right cataract extraction Family History Father Cancer Heart disease Mother Graves disease Rheumatoid arthritis Social History Smoking/Tobacco Use Status: Former Tobacco Use Quit Date: 09/22/95 Smoking risk assessment performed?: Yes Alcohol Intake: former Drug use: Never Substance use type: does not use Do you feel safe at home: Yes Additional Social history: lives alone
[2024-09-22 19:22] LABS: Abs Immature Grans 0.02 10^3/uL (0.0-0.06); Absolute Basophil Count 0.06 10^3/uL (0.0-0.2); Absolute Eosinophil Count 0.13 10^3/uL (0.0-0.7); Absolute Neutrophil Count 4.12 10^3/uL (1.2-6.7); Eosinophils % 2.2 %; HCT 27.8 % (36.0-46.0); HGB 8.4 g/dL (11.2-15.7); Immature Grans % 0.3 %; Lymphocytes % 18.5 %; MCH 31.3 pg (27.0-33.0); MCHC 30.2 % (32.0-36.0); MCV 104 fL (80-95); MPV 9.9 fL (8.0-11.0); Monocytes % 8.4 %; Neutrophils % 69.6 %; Platelet Count 174 10^3/uL (130-400); RBC 2.68 10^6/uL (3.93-5.22); RDW 16.5 % (11.7-14.6); RDW-SD 63.3 fL; WBC 5.93 10^3/uL (4.4-10.8)
[2024-09-22 19:36] LABS: INR 1.3 (0.9-1.1); Prothrombin Time 12.8 sec (9.1-11.1)
[2024-09-22 19:42] LABS: Bilirubin Negative (Negative); Blood Moderate (Negative); Clarity Cloudy (Clear); Glucose Negative (Negative); Ketones Negative (Negative); Leukocyte Esterase Large (Negative); Nitrite Positive (Negative); Urobilinogen 0.2 mg/dL (Up to 0.2)
[2024-09-22 19:44] LABS: ALT 23 U/L (14-59); AST 10 U/L (15-37); Albumin 3.5 g/dL (3.4-5.0); Alkaline Phosphatase 61 U/L (46-116); Anion Gap 15.3 mmol/L (3-11); BUN 42 mg/dL (7-18); Bilirubin, Total 0.68 mg/dL (0.2-1.0); CO2 18.7 mmol/L (21.0-32.0); Calcium 8.1 mg/dL (8.5-10.1); Chloride 111 mmol/L (98-107); Estimated GFR 12.09 (mL/min/1.73m2); Glucose 90 mg/dL (74-106); NT-proBNP 10727 pg/mL (<300); Sodium 145 mmol/L (136-145)
[2024-09-22 19:46] LABS: CREATININE 3.6 mg/dL (0.55-1.02); Potassium 2.6 mmol/L (3.5-5.1); Troponin I 110 ng/L (<or=51)
[2024-09-22 19:50] LABS: C & S Indicated? No; Crystals Negative HPF (Negative); Mucus Negative (Negative); WBC >50 HPF (0-5)
[2024-09-22 19:52] LABS: Lab Add On Test DONE
[2024-09-22 19:59] LABS: Magnesium 1.6 mg/dL (1.8-2.4)
[2024-09-22] MEDS: Furosemide 20 MG/2 ML VIAL IVP (20:21)
[2024-09-22] MEDS: Potassium Chloride Liquid 20 MEQ PKT 40 MEQ PO (20:21)
[2024-09-22] MEDS: POTASSIUM CHLORIDE 10 MEQ/100 ML BAG 100 MEQ IV_INF (20:22)
[2024-09-22] MEDS: Ciprofloxacin 500 MG TAB PO (20:22)
[2024-09-22] MEDS: MAGNESIUM SULFATE 1 GM/100 ML BAG IV_INF ×2 (20:22→22:07)
[2024-09-22] MEDS: Normal Saline Flush 10 ML SYR IVP (20:22)
[2024-09-22 20:47] LABS: Troponin I 108 ng/L (<or=51)
[2024-09-22 22:09] LABS: Anion Gap 13.3 mmol/L (3-11); BUN 44 mg/dL (7-18); CO2 18.7 mmol/L (21.0-32.0); CREATININE 3.5 mg/dL (0.55-1.02); Calcium 8.3 mg/dL (8.5-10.1); Chloride 112 mmol/L (98-107); Estimated GFR 12.51 (mL/min/1.73m2); Glucose 86 mg/dL (74-106); Potassium 3.4 mmol/L (3.5-5.1); Sodium 144 mmol/L (136-145)
[2024-09-22 22:22] LABS: Troponin I 110 ng/L (<or=51)
== END 2024-09-22 23:05 | disposition home or self-care (01) ==
PROVIDERS: Emergency Provider Registered Nurse Emergency; PCP Nurse Practitioner Family
DX: N39.0 Urinary tract infection, site not specified (principal); R60.9 Edema, unspecified; E87.6 Hypokalemia; R79.89 Other specified abnormal findings of blood chemistry; E11.22 Type 2 diabetes mellitus with diabetic chronic kidney disease; I12.9 Hypertensive chronic kidney disease with stage 1 through stage 4 chronic kidney disease, or unspecified chronic kidney disease; N18.4 Chronic kidney disease, stage 4 (severe); E11.319 Type 2 diabetes mellitus with unspecified diabetic retinopathy without macular edema; E89.0 Postprocedural hypothyroidism; I48.91 Unspecified atrial fibrillation; I25.10 Atherosclerotic heart disease of native coronary artery without angina pectoris; I25.2 Old myocardial infarction; Z95.0 Presence of cardiac pacemaker; Z79.01 Long term (current) use of anticoagulants; Z79.4 Long term (current) use of insulin; Z87.891 Personal history of nicotine dependence
CPT/HCPCS: 36415; 80048; 80053; 87077; 93005; 96365; 96366; 96368; 96375; 99285; 71045; 81003; 81015; 83735; 83880; 84484; 85025; 85610; 85730; 87086; 87186; 93010; J1941; J3475; J3480

== ENCOUNTER 2024-10-04 14:06 | Emergency (ER) | payer MEDICARE, MEDICAID, SELFPAY ==
[2024-10-04 14:13] VITALS: BP 154/62; PULSE 88; RESP 14; TEMP 36.3; O2SAT 96
--- NOTE | 2024-10-04 14:30 | DI.CT_ITS ---
Exam(s) CT HEAD WO EXAM: CT HEAD WO CLINICAL HISTORY: History of fall head strike apixaban. TECHNIQUE: Imaging Protocol: Axial computed tomography images with coronal and sagittal reformatted images were created and reviewed COMPARISON: CT CT HEAD WO from 11/30/2022 FINDINGS: Ventricles and Extra axial spaces: Normal in size and morphology for the patient's age. Hemorrhage: None. Cerebral parenchyma: There are areas of decreased attenuation in the white matter consistent with chr onic microvascular ischemic disease. No evidence of an acute territorial infarct or mass effect is i dentified. Midline shift: None. Brainstem/Cerebellum: Normal. Calvarium: There is a mottled appearance of the calvarium raising the question of metastatic disease. Whole-body bone scan is recommended for further evaluation. Visualized Paranasal sinuses/Mastoids: Clear. Soft Tissues: Unremarkable. IMPRESSION: 1. No acute intracranial process. 2. The calvarium has a somewhat mottled appearance. If clinically appropriate, further evaluation wi th a whole body bone scan is recommended. Unexpected findings RADIATION DOSE DELIVERED: 850.33mGy.cm Total DLP DATA REPOSITORY: All CT scans at this facility are submitted to the National Radiology Data Registry (NRDR) Dose Index Registry (DIR) with the [employer] (ACR). RADIATION OPTIMIZATION: All CT scans at this facility use at least one of these dose optimization te chniques: automated exposure control; mA and/or kV adjustment per patient size (includes targeted exa ms where dose is matched to clinical indication); or iterative reconstruction.
[2024-10-04 14:35] VITALS: PULSE 74; RESP 15; O2SAT 93
--- NOTE | 2024-10-04 14:39 | W.ED.GENAD ---
Discharge Plan Disposition Patient Disposition: Home Discharge Details Clinical Impression: Laceration of right ear, Laceration of scalp, Hx of falling Primary Care Provider: Brandy Daugherty ED Provider: Krystian Camara [place] Meds and New Rx's Prescriptions: Continued gtzjdppveju-sdyaqqigv-prp C-Mn [Glucosamine Chondroitin MaxStr] 500-400 mg capsule 2 cap PO DAILY sodium bicarbonate 325 mg tablet See Rx Instructions PO DAILY Rx Instructions: 2 tablets PO AM 1 tablet PO Noon & HS acetaminophen 325 mg tablet 2 tab PO BID paroxetine HCl 20 mg tablet 20 mg PO DAILY atorvastatin 40 mg tablet 40 mg PO DAILY Patient Comments: TAKE ONE TABLET BY MOUTH EVERY EVENING carvedilol 12.5 mg tablet 18.75 mg PO BID Patient Comments: TAKE ONE TABLET BY MOUTH TWICE A DAY WITH FOOD FOR 90 DAYS levothyroxine 125 mcg tablet 125 mcg PO DAILY Patient Comments: TAKE ONE TABLET BY MOUTH EVERY DAY FOR 90 DAYS Eliquis 5 mg tablet 5 mg PO BID Patient Comments: TAKE 1 TABLET BY MOUTH TWICE DAILY insulin degludec [Tresiba FlexTouch U-100] 100 unit/mL (3 mL) insulin pen 10 unit SUBCUT DAILY Patient Comments: INJECT 2 UNITS SUBCUTANEOUSLY ONCE DAILY REPLACE PEN AFTER OPEN FOR 56 DAYS magnesium chloride 64 mg tablet extended release 64 mg PO DAILY lisinopril 40 mg tablet 40 mg PO DAILY PreserVision AREDS 4,296 mcg-226 mg-90 mg capsule 1 cap PO BID Patient Comments: 1 capsule by mouth twice a day calcitriol 0.25 mcg capsule 0.25 mcg PO DAILY liothyronine 5 mcg tablet 5 mcg PO DAILY sevelamer carbonate [Renvela] 800 mg tablet 800 mg PO ONCE Rx Instructions: must administer with a meal/food (DME) OneTouch Verio test strips Strip MISCELLANEOUS Patient Comments: USE TO TEST BLOOD SUGAR ONE TO TWO TIMES EVERY DAY NEEDED (DME) lancets [OneTouch Delica Plus Lancet] 33 gauge misc MISCELLANEOUS Patient Comments: USE TO CHECK BLOOD SUGAR ONE TO TWO TIMES DAILY ciprofloxacin HCl 500 mg tablet 500 mg PO BID Discharge Instructions Additional Instructions: You are seen in the emergency department for your laceration which was closed with stitches. Please call the ear nose and throat team for reassessment later this week. Your x-ray showed no sign of any broken bones. You were seen in the emergency department for your ear laceration which was closed with sutures that will need to be removed in 7 to 10 days. As we discussed, please keep your wound clean, dry and covered. Please do not soak in a tub, swim or engage in any activities which could introduce dirt into your wound. You may return to the emergency department, go to urgent care or go to your primary care provider in 7 to 10 days to have your stitches removed. As we discussed if you develop any foul-smelling drainage fevers streaking signs of infection or have any other concerns please return to the emergency department. For your pain please take medications as follows: 1. Take acetaminophen (Tylenol), 1,000 mg (two 500 mg tabs) every 6 hours Discharge Data Discharge Date/Time-TO BE ENTERED AT DEPARTURE: 10/04/24 16:34 HPI General Date/Time Provider Initiated Documentation: 10/04/24 14:18. HPI Narrative: MDM Primary survey intact. Reassuring shock index. On secondary survey patient has laceration to her right ear and pain in her right shoulder pain. Given follow-up apixaban will obtain CT head. Will also obtain chest x-ray and right shoulder film. No preceding chest pain to suggest increased risk for ACS. No shortness of breath to suggest PE. Equal breath sounds so my suspicion is low for pneumothorax however will obtain chest x-ray. No midline cervical spinal tenderness to suggest increased risk. Cervical spinal fracture. Per Nexus criteria, cervical CT not obtained. The patient had no c-spine midline tenderness, no evidence of intoxication, was AAOx3, had no focal neurological deficits, and no painful distracting injuries. October 05 Charting due to patient care. Patient's ear laceration was closed sutures. Please see procedure note. Her scalp laceration was closed with prudencio. She will require close ENT follow-up in the next 2 to 3 days for her ear laceration which did not involve the cartilage and which was dressed with a head wrap after applying petroleum soaked gauze to the wound and packing of the helix. I explained that this compression dressing using both gauze and Coban around the circumference of the head would prevent hematoma formation which could lead to cauliflower ear. I did not prescribe antibiotics as the wound was cleaned extensively. Patient will require recheck to assess for signs of infection hematoma formation. CT head negative for any intracranial hemorrhage. Right shoulder film negative for any fractures or dislocation. I also explained to the patient and her daughter the abnormality noted by radiology on her CT scan which noted that her calvarium had a somewhat mottled appearance. Based on her age advised PCP follow-up to complete bone scan. Patient will benefit from PCP follow-up in 1 week. HPI This is an 84-year-old female on apixaban arrived emerged part via private vehicle following a fall. Patient reportedly caught her slipper on a rug. She fell and struck her head on the right side. She noted bleeding in her ear. This occurred at approximately 12:20 PM. She reports that she lost consciousness. She has right upper extremity fistula but is not on dialysis. She denies any preceding nausea vomiting chest pain shortness of breath. Exam General: Well-appearing in no acute distress speaking in complete sentences. Head: Normocephalic. On the right parietal scalp just posterior to the right ear there is a small approximately 2 cm laceration that does not violate the galea. Eye:[Pupils equal, round reactive to light.] Extraocular eye movements intact. No conjunctival injection. No scleral icterus. Ear, nose, mouth, throat: Upper portion of the right antihelix and helix with laceration that is approximately 3 cm and extends posteriorly just inferior to Justus's tubercle. Normal voice, handling secretions normally. No hemotympanum bilaterally. No septal hematoma. Neck: Trachea midline. Cardiovascular: Well-perfused distal extremities. Regular rate and rhythm. Respiratory: Nonlabored respiration. Clear lungs bilaterally. Gastrointestinal: Nondistended abdomen. Musculoskeletal: No edema. Moving all 4 extremities spontaneously. Patient has right proximal humerus tenderness. Limited range of motion in right arm secondarily to pain. No obvious dislocation. Right hand warm well-perfused 2+ right radial pulse. Cap refill less than 2 seconds right fingertips. Sensation motor function intact in right hand across the radial, median, and ulnar nerve distributions. Skin: Normal for age and race, grossly normal temperature and turgor. No acute rash. Neurologic: Alert and appropriate, no apparent acute deficits. GCS 15. Related Data Home Medications ?Medication ?Instructions ?Recorded ?Confirmed apixaban 5 mg tablet (Eliquis) 5 mg PO BID 06/14/21 10/04/24 atorvastatin 40 mg tablet 40 mg PO DAILY 06/14/21 10/04/24 carvedilol 12.5 mg tablet 18.75 mg PO BID 06/14/21 10/04/24 insulin degludec 100 unit/mL (3 10 unit subcut DAILY 06/14/21 10/04/24 mL) subcutaneous pen (Tresiba FlexTouch U-100 insulin) levothyroxine 125 mcg tablet 125 mcg PO DAILY 06/14/21 10/04/24 acetaminophen 325 mg tablet 2 tab PO BID 09/04/22 10/04/24 paroxetine HCl 20 mg tablet 20 mg PO DAILY 10/26/22 10/04/24 [id number]-[id number] C-Mn 500 2 cap PO DAILY 07/10/23 10/04/24 mg-400 mg capsule (Glucosamine Chondroitin Maximum Strength) sodium bicarbonate 325 mg tablet See Rx Instructions PO DAILY 07/10/23 10/04/24 lisinopril 40 mg tablet 40 mg PO DAILY 02/25/24 10/04/24 magnesium chloride 64 mg 64 mg PO DAILY 02/25/24 10/04/24 tablet,extended release vitamins A,C,G-wxty-zdqush 4,296 1 cap PO BID 02/25/24 10/04/24 mcg-226 mg-90 mg capsule (PreserVision AREDS) blood sugar diagnostic ([facility] 09/22/24 10/04/24 Verio test strips) calcitriol 0.25 mcg capsule 0.25 mcg PO DAILY 09/22/24 10/04/24 lancets 33 gauge ([facility] Delica 09/22/24 10/04/24 Plus Lancet) liothyronine 5 mcg tablet 5 mcg PO DAILY 09/22/24 10/04/24 sevelamer carbonate 800 mg tablet 800 mg PO ONCE 09/22/24 10/04/24 (Renvela) ciprofloxacin HCl 500 mg tablet 500 mg PO BID 10/04/24 10/04/24 Allergies Allergy/AdvReac Type Severity Reaction Status Date / Time Penicillins Allergy Severe Skin Rash Verified 10/04/24 14:18 Macrolide Antibiotics Allergy Intermediate Hives Verified 10/04/24 14:18 naproxen Allergy Intermediate Skin Rash Verified 10/04/24 14:18 niacin Allergy Intermediate Hives Verified 10/04/24 14:18 omeprazole (From Prilosec) Allergy Intermediate Nausea Verified 10/04/24 14:18 codeine Allergy Nausea Verified 10/04/24 14:18 erythromycin base Allergy Hives Verified 10/04/24 14:18 Sulfa (Sulfonamide Allergy urtiaria Verified 10/04/24 14:18 Antibiotics) amitriptyline AdvReac Intermediate Other (See Verified 10/04/24 14:18 Comment) NSAIDS (Non-Steroidal AdvReac Intermediate Other (See Verified 10/04/24 14:18 Anti-Inflamma Comment) celecoxib AdvReac Nausea Verified 10/04/24 14:18 gabapentin AdvReac Other (See Verified 10/04/24 14:18 Comment) methotrexate AdvReac Nausea Verified 10/04/24 14:18 naltrexone AdvReac Skin Rash Verified 10/04/24 14:18 General Stated Complaint: Trauma PAULINE: 2 Course Vital Signs Vital signs: Vital Signs Temperature 36.3 C L 10/04/24 14:13 Pulse 88 10/04/24 14:13 Respiratory Rate 14 10/04/24 14:13 Blood Pressure 154/62 H 10/04/24 14:13 Pulse Oximetry 96 10/04/24 14:13 Temperature 36.3 C L 10/04/24 14:13 Temperature Source Oral 10/04/24 14:13 Pulse 88 10/04/24 14:13 Respiratory Rate 14 10/04/24 14:13 Blood Pressure 154/62 H 10/04/24 14:13 Blood Pressure Position Sitting 10/04/24 14:13 Pulse Oximetry 96 10/04/24 14:13 Oxygen Delivery Method Room Air 10/04/24 14:13 Oxygen Flow Rate 0 10/04/24 14:13 Pain Level 8 10/04/24 14:13 Procedure Laceration Laceration 1: Date of Procedure: 10/04/24 Time of procedure: 16:04 Patient Consented: Verbally Site: other (Right ear) Side (If applicable): right Description: linear Depth: simple, single layer Local anesthetic: Lidocaine 1% Pre-repair:: wound explored and irrigated extensively Skin layer closed with: other (5 Prolene sutures) Size (cm): 6-0 Number of sutures:: 5 Technique: simple, interrupted Subcutaneous layer closed with: vicryl (Cartilage) Suture size: 5-0 Number of sutures:: 2 Technique:: simple, interrupted Procedure Description/Note: Patient had petroleum soaked gauze applied to wound and packed in helix. Her head was subsequently wrapped as a compression dressing around the circumference of her head. Laceration 2: Date of Procedure: 10/04/24 Time of procedure: 16:09 Provider that performed the procedure: Krystian Wheat Time Out Performed: Yes Patient Consented: Verbally Site: scalp Side (If applicable): right Description: linear Depth: simple, single layer Local anesthetic: Lidocaine 1% Amount of anesthesia used (mL): 1 Pre-repair:: wound explored Skin layer closed with: prudencio (2) Medical Decision Making Quality:SDOH Health Related Social Needs: No Data to Display PFSH All Active Problems (Updated 10/04/24 @ 16:14 by Krystian Camara MD) Hx of falling (Acute) Laceration of scalp (Acute) Laceration of right ear (Acute) Troponin level elevated (Acute) Chronic hypokalemia (Acute) Lower extremity edema (Acute) Acute UTI (Acute) Sacroiliac joint dysfunction of right side (Acute) Bladder cancer (Acute) Acute pyelonephritis (Acute) Medical History Rib cage dysfunction Stucco keratosis Obstructive sleep apnea Depression Graves disease GERD (gastroesophageal reflux disease) Fibromyalgia Kidney disease, chronic, stage IV (severe, 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 Acquired trigger finger Renal failure syndrome Rheumatoid arthritis Lumbar radiculopathy Postoperative hypothyroidism Obesity Neck pain Lower urinary tract symptoms (LUTS) Inflammatory arthritis Hyperlipidemia, mixed Hypertensive disorder Heart failure Diabetes mellitus Diabetic retinopathy associated with controlled type 2 diabetes mellitus Chronic cystitis Chronic pain Cataract Atrial fibrillation History of anemia Surgical History H/O breast biopsy Hx of tonsillectomy H/O tubal ligation H/O adenoidectomy History of cholecystectomy Hx of appendectomy H/O right cataract extraction Family History Father Cancer Heart disease Mother Graves disease Rheumatoid arthritis Social History Smoking/Tobacco Use Status: Former Tobacco Use Quit Date: 09/22/95 Smoking risk assessment performed?: Yes Alcohol Intake: former Drug use: Never Substance use type: does not use Housing: other Do you feel safe at home: Yes Do you feel safe in your relationship?: Yes Additional Social history: lives alone
[2024-10-04 14:40] VITALS: PULSE 61; RESP 15
[2024-10-04 14:50] VITALS: BP 150/81; PULSE 62; RESP 31; O2SAT 98
[2024-10-04] MEDS: Diph,Pertuss(Acell),Tet Vac/Pf 0.5 ML SYR IM (14:53)
[2024-10-04] MEDS: Lidocaine 2% Jelly 6 ML SYR (14:53)
[2024-10-04] MEDS: Acetaminophen 500 MG TAB 1000 MG PO (14:53)
[2024-10-04 15:00] VITALS: PULSE 60; RESP 16; O2SAT 99
--- NOTE | 2024-10-04 15:27 | DI.RAD_ITS ---
Exam(s) XR SHOULDER RT COMPLETE 2+V EXAM: XR SHOULDER RT COMPLETE 2+V CLINICAL HISTORY: Right shoulder pain history of fall. TECHNIQUE: 2D digital imaging was performed of the right shoulder. Five images were obtained. AP, Grashey, Y-view and axillary views were obtained. COMPARISON: No exams were available for comparison FINDINGS: BONES: No acute fracture is present. No bony destructive lesion is seen. The patient appears to have an os acromiale which is a normal variant. JOINTS: No dislocation present. There are mild degenerative changes seen at the glenohumeral and acro mioclavicular joints. SOFT TISSUE: Normal. IMPRESSION: No acute fracture or dislocation. DATA REPOSITORY: RADIATION DOSE DELIVERED:
--- NOTE | 2024-10-04 15:30 | DI.RAD_ITS ---
Exam(s) XR CHEST 2V PA LATERAL EXAM: XR CHEST 2V PA LATERAL CLINICAL HISTORY: History of fall TECHNIQUE: 2D digital imaging was performed of the chest. Two images were obtained. PA and lateral views were obtained. COMPARISON: CR XR PORTABLE CHEST AP from 09/22/2024 FINDINGS: MEDIASTINUM: Normal. HEART: The heart is at the upper limits of normal to mildly enlarged. There is a cardiac device in p lace. PULMONARY VASCULATURE: Normal. LUNGS: Clear. PLEURAL SPACE: No pleural effusion or pneumothorax. BONE:Within normal limits for the patient's age. OTHER FINDINGS:Surgical clips are seen in the right upper quadrant of the abdomen. IMPRESSION: No acute pulmonary findings. DATA REPOSITORY: RADIATION DOSE DELIVERED:
[2024-10-04] MEDS: Lidocaine 2% Multi-Dose 20 ML VIAL IJ (15:57)
[2024-10-04 16:33] VITALS: BP 142/70; PULSE 66; RESP 16; O2SAT 98
== END 2024-10-04 16:34 | disposition home or self-care (01) ==
PROVIDERS: Emergency Provider Emergency Medicine; PCP Nurse Practitioner Family
DX: S01.311A Laceration without foreign body of right ear, initial encounter (principal); S01.01XA Laceration without foreign body of scalp, initial encounter; E11.22 Type 2 diabetes mellitus with diabetic chronic kidney disease; I12.9 Hypertensive chronic kidney disease with stage 1 through stage 4 chronic kidney disease, or unspecified chronic kidney disease; N18.4 Chronic kidney disease, stage 4 (severe); E78.5 Hyperlipidemia, unspecified; E11.3299 Type 2 diabetes mellitus with mild nonproliferative diabetic retinopathy without macular edema, unspecified eye; I48.91 Unspecified atrial fibrillation; I25.2 Old myocardial infarction; Z95.0 Presence of cardiac pacemaker; Z79.01 Long term (current) use of anticoagulants; Z79.84 Long term (current) use of oral hypoglycemic drugs; Z23 Encounter for immunization; W01.0XXA Fall on same level from slipping, tripping and stumbling without subsequent striking against object, initial encounter; Y93.01 Activity, walking, marching and hiking; Y92.018 Other place in single-family (private) house as the place of occurrence of the external cause
CPT/HCPCS: 12001; 12014; 90471; 90715; 99284; 70450; 71046; 73030; J2003

== ENCOUNTER 2024-10-21 03:23 | Outpatient (RCR) | payer MEDICARE, MEDICAID, SELFPAY ==
[2024-10-07] MEDS: Normal Saline Flush 10 ML SYR IVP (09:07)
[2024-10-07 09:44] LABS: Anion Gap 15.7 mmol/L (3-11); BUN 49 mg/dL (7-18); CO2 17.3 mmol/L (21.0-32.0); CREATININE 3.4 mg/dL (0.55-1.02); Calcium 8.6 mg/dL (8.5-10.1); Chloride 111 mmol/L (98-107); Estimated GFR 12.95 (mL/min/1.73m2); Glucose 122 mg/dL (74-106); Potassium 3.9 mmol/L (3.5-5.1); Sodium 144 mmol/L (136-145)
[2024-10-21] MEDS: Normal Saline Flush 10 ML SYR IVP (09:49)
[2024-10-21 10:11] LABS: Anion Gap 12.5 mmol/L (3-11); BUN 38 mg/dL (7-18); CO2 19.5 mmol/L (21.0-32.0); CREATININE 3.4 mg/dL (0.55-1.02); Calcium 7.7 mg/dL (8.5-10.1); Chloride 112 mmol/L (98-107); Estimated GFR 12.95 (mL/min/1.73m2); Glucose 87 mg/dL (74-106); Potassium 4.2 mmol/L (3.5-5.1); Sodium 144 mmol/L (136-145)
== END 2024-10-22 23:59 | disposition home or self-care (01) ==
LOC: INF 03:23
PROVIDERS: Registered Nurse Nephrology; PCP Nurse Practitioner Family; Visit Provider Nurse Practitioner Acute Care
DX: N18.4 Chronic kidney disease, stage 4 (severe) (principal)
CPT/HCPCS: 36415; 80048

== ENCOUNTER 2024-11-18 02:35 | Outpatient (RCR) | payer MEDICARE, MEDICAID, SELFPAY ==
[2024-11-04] MEDS: Normal Saline Flush 10 ML SYR IVP (09:08)
[2024-11-04 09:26] LABS: Anion Gap 11.7 mmol/L (3-11); BUN 40 mg/dL (7-18); CO2 20.3 mmol/L (21.0-32.0); CREATININE 2.9 mg/dL (0.55-1.02); Calcium 8.1 mg/dL (8.5-10.1); Chloride 114 mmol/L (98-107); Estimated GFR 15.68 (mL/min/1.73m2); Glucose 97 mg/dL (74-106); Potassium 4.6 mmol/L (3.5-5.1); Sodium 146 mmol/L (136-145)
[2024-11-18] MEDS: Normal Saline Flush 10 ML SYR IVP (08:50)
[2024-11-18] MEDS: IRON SUCROSE COMPLEX 300 MG in Normal Saline 250 ML 176.667 MG IVPB (08:50)
[2024-11-18 09:29] LABS: Anion Gap 14.7 mmol/L (3-11); BUN 44 mg/dL (7-18); CO2 20.3 mmol/L (21.0-32.0); CREATININE 3.1 mg/dL (0.55-1.02); Calcium 8.5 mg/dL (8.5-10.1); Chloride 109 mmol/L (98-107); Estimated GFR 14.47 (mL/min/1.73m2); Glucose 117 mg/dL (74-106); Potassium 5.1 mmol/L (3.5-5.1); Sodium 144 mmol/L (136-145)
== END 2024-11-19 23:59 | disposition home or self-care (01) ==
LOC: INF 02:35
PROVIDERS: Registered Nurse Nephrology; PCP Nurse Practitioner Family; Visit Provider Nurse Practitioner Acute Care
DX: N18.4 Chronic kidney disease, stage 4 (severe) (principal); D63.1 Anemia in chronic kidney disease; D50.9 Iron deficiency anemia, unspecified
CPT/HCPCS: 36415; 80048; 96365; 96366; J1756

== ENCOUNTER 2024-11-22 16:59 | Emergency (ER) | payer MEDICARE, MEDICAID, SELFPAY ==
[2024-11-22 17:27] VITALS: BP 170/65; PULSE 64; RESP 15; TEMP 37.1; O2SAT 97
--- NOTE | 2024-11-22 18:00 | RT.EKG_ITS ---
APPROVED REPORT Exam: Resting ECG Reason for Exam: kidney dysfunction Patient Location: E HR:63 bpm ECG Measurements Heart Rate 63 AXIS VA [id number] P [id number] QRSd 120 QRS 195 QT 478 T 62 QTc 489 Conclusion Afib/flut and V-paced complexes...other complexes, A-rate>240 Nonspecific intraventricular conduction delay...QRSd >115mS, not LBBB/RBBB Anterior infarct, old...Q >40mS, abnormal ST-T, V2-V5
--- NOTE | 2024-11-22 19:06 | W.ED.GENAD ---
Discharge Plan Disposition Patient Disposition: Home Discharge Details Clinical Impression: Pneumonia, Peripheral edema Primary Care Provider: Brandy Daugherty ED Provider: Nini Zavaleta Home Meds and New Rx's Prescriptions: New doxycycline hyclate 100 mg tablet 100 mg PO BID Qty: 9 0RF cefpodoxime 200 mg tablet 200 mg PO ONCE Qty: 4 0RF Rx Instructions: must administer with a meal/food furosemide 40 mg tablet 40 mg PO DAILY Qty: 7 0RF Discontinued ciprofloxacin HCl 500 mg tablet 500 mg PO BID No Action [id number] C-Mn [Glucosamine Chondroitin MaxStr] 500-400 mg capsule 2 cap PO DAILY sodium bicarbonate 325 mg tablet See Rx Instructions PO DAILY Rx Instructions: 2 tablets PO AM 1 tablet PO Noon & HS acetaminophen 325 mg tablet 2 tab PO BID paroxetine HCl 20 mg tablet 20 mg PO DAILY atorvastatin 40 mg tablet 40 mg PO DAILY Patient Comments: TAKE ONE TABLET BY MOUTH EVERY EVENING carvedilol 12.5 mg tablet 18.75 mg PO BID Patient Comments: TAKE ONE TABLET BY MOUTH TWICE A DAY WITH FOOD FOR 90 DAYS levothyroxine 125 mcg tablet 125 mcg PO DAILY Patient Comments: TAKE ONE TABLET BY MOUTH EVERY DAY FOR 90 DAYS Eliquis 5 mg tablet 5 mg PO BID Patient Comments: TAKE 1 TABLET BY MOUTH TWICE DAILY insulin degludec [Tresiba FlexTouch U-100] 100 unit/mL (3 mL) insulin pen 10 unit SUBCUT DAILY Patient Comments: INJECT 2 UNITS SUBCUTANEOUSLY ONCE DAILY REPLACE PEN AFTER OPEN FOR 56 DAYS magnesium chloride 64 mg tablet extended release 64 mg PO DAILY lisinopril 40 mg tablet 40 mg PO DAILY PreserVision AREDS 4,296 mcg-226 mg-90 mg capsule 1 cap PO BID Patient Comments: 1 capsule by mouth twice a day calcitriol 0.25 mcg capsule 0.25 mcg PO DAILY liothyronine 5 mcg tablet 5 mcg PO DAILY sevelamer carbonate [Renvela] 800 mg tablet 800 mg PO ONCE Rx Instructions: must administer with a meal/food (DME) OneTouch Verio test strips Strip MISCELLANEOUS Patient Comments: USE TO TEST BLOOD SUGAR ONE TO TWO TIMES EVERY DAY NEEDED (DME) lancets [OneTouch Delica Plus Lancet] 33 gauge misc MISCELLANEOUS Patient Comments: USE TO CHECK BLOOD SUGAR ONE TO TWO TIMES DAILY Discharge Instructions Additional Instructions: Please call nephrology first thing in the morning to schedule a follow-up appointment and to check in with the nephrology nurses. Please also call your primary care provider to schedule follow-up appointment. You are being treated for a community-acquired pneumonia. Please take the full course of antibiotics as prescribed. You will take the doxycycline twice a day and the cefpodoxime once daily. This will be for a total of 5 days. I encourage you to take these with probiotics to prevent antibiotic associated diarrhea/stomach distress. We are putting you back on Lasix to help with your pedal edema. Please take as prescribed. Return to emergency care if develop new chest pains, difficulty breathing, feeling like you are to pass out, abdominal pain, uncontrollable vomiting, or if you are very worried and need to be rechecked again immediately. Discharge Data Discharge Date/Time-TO BE ENTERED AT DEPARTURE: 11/22/24 23:03 HPI General Date/Time Provider Initiated Documentation: 11/22/24 17:04. HPI Narrative: Iliana is a 84 year old female who presents to the emergency department today for evaluation of bilateral pedal edema has been worsening over the last 2 days. 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 She reports that she has had intermittant epigastric discomfort with n/v over the last week. Also reports occasional chest pains that resolve with rest; last episode was 1 week ago. She feels like over the last 6 weeks she has had increasing unsteadiness on her feet and dizziness when she sits up, this resolves spontaneously and she is able to get up. Denies recent fever/chills, cough, shortness of breath, change in bowel function (has diarrhea per baseline), dysuria. She does make scant urine output, none this afternoon. Past medical history is significant for CKD stage 5, macular degeneration, T2DM on insulin. Physical exam remarkable for bilateral pedal edema. Sensation grossly intact to lower extremities, distal pulses intact. No color change to extremities.. Easy work of breathing, lung sounds clear bilaterally. Normal heart sounds. Abdomen is soft, nondistended, tender to palpation in the epigastrium. No rigidity or guarding. D/dx includes but is not limited to: Pneumonia, UTI, acute intra-abdominal process such as peptic ulcer, gastritis, pancreatitis, neoplasm, renal dysfunction, thyroid dysfunction, venous insufficiency. I independently interpreted the following tests: CBC reassuring, anemia unchanged from baseline. CMP unremarkable, kidney function unchanged from baseline. Mild hypomagnesemia unchanged from baseline. Troponins flat, 53 and 56. Patient does have a history of elevated troponins attributed to poor renal clearance. TSH elevated, T4 pending. UA notable for greater than 300 protein and trace lysed blood, no signs of UTI. Overall workup today remarkable for patchy alveolar opacity in the posterior right lung base, concern for pneumonia considering recent symptoms. Abdominal CT otherwise reassuring with no other emergent findings, patient does have history of chronic diarrhea. Consulted with Dr. Salinas, pulp machine operator at [facility]. He recommends restarting Lasix at 40 mg daily and treating with renal dosing for antibiotics for community-acquired pneumonia. Encourages patient to call office tomorrow to schedule follow-up and speak to the nurses. Will treat with third-generation cephalosporin, as patient has tolerated these previously, in addition to doxycycline. Reviewed discharge instructions with patient and her daughter, including symptomatic management, antibiotic use, diuretic use, and red flags indicating need for return to emergency care. She voices agreement with plan of care. Related Data Home Medications ?Medication ?Instructions ?Recorded ?Confirmed apixaban 5 mg tablet (Eliquis) 5 mg PO BID 06/14/21 11/22/24 atorvastatin 40 mg tablet 40 mg PO DAILY 06/14/21 11/22/24 carvedilol 12.5 mg tablet 18.75 mg PO BID 06/14/21 11/22/24 insulin degludec 100 unit/mL (3 10 unit subcut DAILY 06/14/21 11/22/24 mL) subcutaneous pen (Tresiba FlexTouch U-100 insulin) levothyroxine 125 mcg tablet 125 mcg PO DAILY 06/14/21 11/22/24 acetaminophen 325 mg tablet 2 tab PO BID 09/04/22 11/22/24 paroxetine HCl 20 mg tablet 20 mg PO DAILY 10/26/22 11/22/24 [id number] C-Mn 500 2 cap PO DAILY 07/10/23 11/22/24 mg-400 mg capsule (Glucosamine Chondroitin Maximum Strength) sodium bicarbonate 325 mg tablet See Rx Instructions PO DAILY 07/10/23 11/22/24 lisinopril 40 mg tablet 40 mg PO DAILY 02/25/24 11/22/24 magnesium chloride 64 mg 64 mg PO DAILY 02/25/24 11/22/24 tablet,extended release vitamins A,C,G-brba-uzrrfh 4,296 1 cap PO BID 02/25/24 11/22/24 mcg-226 mg-90 mg capsule (PreserVision AREDS) blood sugar diagnostic (OneTouch 09/22/24 11/22/24 Verio test strips) calcitriol 0.25 mcg capsule 0.25 mcg PO DAILY 09/22/24 11/22/24 lancets 33 gauge ([facility] 09/22/24 11/22/24 Plus Lancet) liothyronine 5 mcg tablet 5 mcg PO DAILY 09/22/24 11/22/24 sevelamer carbonate 800 mg tablet 800 mg PO ONCE 09/22/24 11/22/24 (Renvela) cefpodoxime 200 mg tablet 200 mg PO ONCE #4 tabs 11/22/24 doxycycline hyclate 100 mg tablet 100 mg PO BID #9 tabs 11/22/24 furosemide 40 mg tablet 40 mg PO DAILY #7 tabs 11/22/24 Previous Rx's ?Medication ?Instructions ?Recorded cefpodoxime 200 mg tablet 200 mg PO ONCE #4 tabs 11/22/24 doxycycline hyclate 100 mg tablet 100 mg PO BID #9 tabs 11/22/24 furosemide 40 mg tablet 40 mg PO DAILY #7 tabs 11/22/24 Allergies Allergy/AdvReac Type Severity Reaction Status Date / Time Penicillins Allergy Severe Skin Rash Verified 11/22/24 17:31 Macrolide Antibiotics Allergy Intermediate Hives Verified 11/22/24 17:31 naproxen Allergy Intermediate Skin Rash Verified 11/22/24 17:31 niacin Allergy Intermediate Hives Verified 11/22/24 17:31 omeprazole (From Prilosec) Allergy Intermediate Nausea Verified 11/22/24 17:31 codeine Allergy Nausea Verified 11/22/24 17:31 erythromycin base Allergy Hives Verified 11/22/24 17:31 Sulfa (Sulfonamide Allergy urtiaria Verified 11/22/24 17:31 Antibiotics) amitriptyline AdvReac Intermediate Other (See Verified 11/22/24 17:31 Comment) NSAIDS (Non-Steroidal AdvReac Intermediate Other (See Verified 11/22/24 17:31 Anti-Inflamma Comment) celecoxib AdvReac Nausea Verified 11/22/24 17:31 gabapentin AdvReac Other (See Verified 11/22/24 17:31 Comment) methotrexate AdvReac Nausea Verified 11/22/24 17:31 naltrexone AdvReac Skin Rash Verified 11/22/24 17:31 General Stated Complaint: GenMedical PAULINE: 4 Review of Systems Narrative: See HPI Exam Const General: cooperative, healthy appearing, comfortable, no acute distress, well developed and well groomed Nutritional Appearance: average body habitus Orientation: alert and oriented x3 Resp Effort & Inspection: normal respiratory effort and able to speak in complete sentences Auscultation: clear to auscultation bilaterally Cardio Rate: regular rate Rhythm: regular rhythm Pulses: dorsalis pedis present GI Inspection: normal to inspection and non-distended Palpation: soft, not firm, no guarding, not rigid and tender in the epigastrum Skin General skin exam: no rashes or lesions noted Extrem General: edema Laterality: bilateral (Bilateral pedal edema extending slightly above knees) Course Vital Signs Vital signs: Vital Signs Temperature 37.1 C 11/22/24 17:27 Pulse 64 11/22/24 17:27 Respiratory Rate 15 11/22/24 17:27 Blood Pressure 170/65 H 11/22/24 17:27 Pulse Oximetry 97 11/22/24 17:27 Temperature 37.1 C 11/22/24 17:27 Pulse 64 11/22/24 17:27 Respiratory Rate 15 11/22/24 17:27 Blood Pressure 170/65 H 11/22/24 17:27 Blood Pressure Position Sitting 11/22/24 17:27 Pulse Oximetry 97 11/22/24 17:27 Oxygen Delivery Method Room Air 11/22/24 17:27 Oxygen Flow Rate 0 11/22/24 17:27 Medical Decision Making Imaging Data Radiologic Study: Radiologist's impression: PROCEDURE INFORMATION: Exam: CT Abdomen And Pelvis Without Contrast Exam date and time: 11/22/2024 8:48 PM Age: 84 years old Clinical indication: Nausea and vomiting; Abdominal pain; Epigastric pain with n/v, ckd- no contrast TECHNIQUE: Imaging protocol: Computed tomography of the abdomen and pelvis without contrast. Radiation optimization: All CT scans at this facility use at least one of these dose optimization techniques: automated exposure control; mA and/or kV adjustment per patient size (includes targeted exams where dose is matched to clinical indication); or iterative reconstruction. COMPARISON: CT ABDOMEN PELVIS WO 02/25/2024 5:25 PM FINDINGS: Lungs: Small right basilar pleural effusion. Patchy alveolar opacity in the posterior right lung base is most likely compressive atelectasis, less likely patchy basilar infiltrate. Mild lingular atelectasis noted. Innumerable small pulmonary nodules are present in the lung bases, mostly peripherally distributed and measuring between 2 mm and 4 mm in size. These are stable in appearance from available prior imaging back to 11/30/2022, favoring benign nodules. Heart: Mild-moderate cardiomegaly. Probable leadless pacemaker marginally visualized at the right ventricular apex. Diaphragm: Small hiatal hernia. Liver: Granulomatous calcification in the right lobe. Normal contour. No mass lesions. No intrahepatic biliary ductal dilatation. Gallbladder and biliary ducts: Prior cholecystectomy with expected mild postoperative dilatation of the common bile duct. This is unchanged. Pancreas: Moderate pancreatic atrophy without acute abnormality. No pancreatic ductal dilatation. Spleen: Normal. No splenomegaly. Adrenal glands: 3.3 x 2.6 cm left adrenal mass unchanged from prior imaging back to 11/30/2022, consistent with benign lesion such as adenoma. Right adrenal gland is normal. Kidneys and ureters: Moderate bilateral symmetrical perinephric stranding, probably related to generalized anasarca and perirenal edema. No hydronephrosis or hydroureter. No urinary tract stones are identified. Bilateral renal vascular calcifications. Stomach and bowel: Stomach is largely contracted. Excessive fluid content in the mid to distal small bowel and throughout the mid and proximal colon suggesting diarrheal state, possibly mild generalized enterocolitis. No evidence of bowel obstruction or perforation. Appendix: The appendix is not identified. No secondary signs of appendicitis. Intraperitoneal space: Small to moderate volume simple ascites in the perihepatic, perisplenic, and intrapelvic distributions. No intraperitoneal free air. Vasculature: No acute vascular abnormalities. Severe calcific atherosclerosis. 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 Suspect severe ostial stenosis of the left main renal artery as well, unchanged. Noncontrast technique limits vascular assessment. Lymph nodes: No adenopathy. Urinary bladder: Mild urinary bladder wall thickening with mild adjacent stranding. Correlate with UA for evidence of cystitis. Reproductive: Unremarkable as visualized. Bones/joints: No acute osseous abnormalities. Mild thoracolumbar spondylosis. Grade 1 anterolisthesis L4-L5 with moderate canal stenosis. Soft tissues: Moderate soft tissue stranding/edema in the peripheral subcutaneous tissues suggesting volume overload or anasarca. IMPRESSION: 1. Excessive fluid content in the small and large bowel suggesting developing diarrheal state, possibly mild generalized enterocolitis. No evidence of bowel obstruction or perforation. 2. Moderate generalized anasarca. 3. Small right pleural effusion. 4. Patchy alveolar opacities in the dependent right lung base, atelectasis versus infiltrate. 5. Mild urinary bladder wall thickening with mild adjacent stranding. Correlate with UA for evidence of cystitis. 6. Small to moderate volume ascites. 7. Severe calcific atherosclerosis with chronic severe ostial stenosis of the celiac artery and suspected severe chronic stenosis of the left main renal artery. Noncontrast technique limits vascular assessment. 8. Additional nonemergent findings detailed above Radiologic Study #2: Radiologist's impression: PROCEDURE INFORMATION: Exam: XR Chest Exam date and time: 11/22/2024 9:00 PM Age: 84 years old Clinical indication: Pain; Other: Edema, occasional cp TECHNIQUE: Imaging protocol: Radiologic exam of the chest. Views: 2 views. COMPARISON: CR XR CHEST 2V PA LATERAL 10/04/2024 3:20 PM FINDINGS: Tubes, catheters and devices: Leadless pacemaker projects in the right ventricular apex. Lungs: Question mild central vascular congestion. Patchy right basilar alveolar density, atelectasis versus pneumonia. Right apical granulomatous calcification again noted. Pleural spaces: Small right pleural effusion. No pneumothorax. Heart/Mediastinum: Mild-moderate cardiomegaly. No tracheal/mediastinal shift. Vasculature: The aorta demonstrates mild ectasia/tortuosity and moderate calcific atherosclerosis. Bones/joints: No acute osseous abnormalities are identified. Osteopenia. IMPRESSION: 1. Small right pleural effusion with mild adjacent right basilar airspace disease, compressive atelectasis versus pneumonia. 2. Mild-moderate cardiomegaly and mild central vascular congestion. Quality:SDOH Health Related Social Needs: No Data to Display PFSH All Active Problems (Updated 11/22/24 @ 22:43 by Nini Cuevas) Peripheral edema (Acute) Pneumonia (Acute) Sacroiliac joint dysfunction of right side (Acute) Bladder cancer (Acute) Acute pyelonephritis (Acute) Medical History Rib cage dysfunction Stucco keratosis Obstructive sleep apnea Depression Graves disease GERD (gastroesophageal reflux disease) Fibromyalgia Kidney disease, chronic, stage IV (severe, 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 Acquired trigger finger Renal failure syndrome Rheumatoid arthritis Lumbar radiculopathy Postoperative hypothyroidism Obesity Neck pain Lower urinary tract symptoms (LUTS) Inflammatory arthritis Hyperlipidemia, mixed Hypertensive disorder Heart failure Diabetes mellitus Diabetic retinopathy associated with controlled type 2 diabetes mellitus Chronic cystitis Chronic pain Cataract Atrial fibrillation History of anemia Surgical History H/O breast biopsy Hx of tonsillectomy H/O tubal ligation H/O adenoidectomy History of cholecystectomy Hx of appendectomy H/O right cataract extraction Family History Father Cancer Heart disease Mother Graves disease Rheumatoid arthritis Social History Smoking/Tobacco Use Status: Former Tobacco Use Quit Date: 09/22/95 Smoking risk assessment performed?: Yes Alcohol Intake: former Drug use: Never Substance use type: does not use Housing: other Do you feel safe at home: Yes Do you feel safe in your relationship?: Yes Additional Social history: lives alone
[2024-11-22 19:29] VITALS: RESP 20
[2024-11-22 19:40] LABS: Abs Immature Grans 0.01 10^3/uL (0.0-0.06); Absolute Basophil Count 0.04 10^3/uL (0.0-0.2); Absolute Eosinophil Count 0.03 10^3/uL (0.0-0.7); Absolute Monocyte Count 0.44 10^3/uL (0.1-0.8); Absolute Neutrophil Count 3.54 10^3/uL (1.2-6.7); Basophils % 0.8 %; Eosinophils % 0.6 %; HCT 31.9 % (36.0-46.0); HGB 9.4 g/dL (11.2-15.7); Immature Grans % 0.2 %; Lymphocytes % 18.1 %; MCH 30.4 pg (27.0-33.0); MCHC 29.5 % (32.0-36.0); MCV 103 fL (80-95); MPV 9.8 fL (8.0-11.0); Monocytes % 8.9 %; Neutrophils % 71.4 %; Platelet Count 163 10^3/uL (130-400); RBC 3.09 10^6/uL (3.93-5.22); RDW 14.6 % (11.7-14.6); RDW-SD 54.6 fL; WBC 4.96 10^3/uL (4.4-10.8)
[2024-11-22 19:51] LABS: Bilirubin Negative (Negative); Blood Trace-lysed (Negative); Clarity Clear (Clear); Glucose Negative (Negative); Ketones Negative (Negative); Leukocyte Esterase Negative (Negative); Nitrite Negative (Negative); Specific Gravity 1.025 (1.005-1.025); Urobilinogen 0.2 mg/dL (Up to 0.2); pH 5.5 (5-8)
[2024-11-22 20:01] LABS: Bacteria Rare HPF (Negative); C & S Indicated? No/Sq. Contamination; Casts Negative LPF (Negative); Crystals Negative HPF (Negative); Epithelial Cells Moderate HPF (Negative); Mucus Trace (Negative); RBC 0-2 HPF (0-2); WBC 0-2 HPF (0-5)
[2024-11-22 20:03] LABS: ALT 23 U/L (14-59); AST 10 U/L (15-37); Albumin 3.5 g/dL (3.4-5.0); Alkaline Phosphatase 64 U/L (46-116); Anion Gap 14.6 mmol/L (3-11); BUN 47 mg/dL (7-18); Bilirubin, Total 0.69 mg/dL (0.2-1.0); CO2 18.4 mmol/L (21.0-32.0); CREATININE 3.2 mg/dL (0.55-1.02); Calcium 8.9 mg/dL (8.5-10.1); Chloride 110 mmol/L (98-107); Estimated GFR 13.93 (mL/min/1.73m2); Glucose 101 mg/dL (74-106); Magnesium 1.7 mg/dL (1.8-2.4); Potassium 4.5 mmol/L (3.5-5.1); Sodium 143 mmol/L (136-145); Total Protein 6.8 g/dL (6.4-8.2)
[2024-11-22 20:05] LABS: Lipase 35 U/L (<78)
[2024-11-22 20:08] LABS: Troponin I 53 ng/L (<or=51)
[2024-11-22 20:10] LABS: TSH (W/Ref FT4) 7.57 uIU/mL (0.36-3.74)
[2024-11-22 20:49] LABS: Troponin I 56 ng/L (<or=51)
--- NOTE | 2024-11-22 21:06 | DI.RAD_ITS ---
Exam(s) XR CHEST 2V PA LATERAL EXAM: XR CHEST 2V PA LATERAL CLINICAL HISTORY: edema, occasional CP. TECHNIQUE: 2D digital imaging was performed. COMPARISON: CR XR CHEST 2V PA LATERAL from 10/04/2024 FINDINGS: 2 views: There is a cardiac detected device again noted. Heart size is unchanged, upper normal. Left lung is clear. However, there is now a small-moderate size pleural effusion on the right side. Mild increased markings noted in the right lung base. IMPRESSION: Mild moderate right side pleural effusion now evident. There is slightly increased markings in the right lower lobe which are possibly atelectatic related t o the unilateral right pleural effusion or possibly the actual cause of the right pleural effusion. Clinically indicated follow-up CT scan can be performed. DATA REPOSITORY: RADIATION DOSE DELIVERED:
--- NOTE | 2024-11-22 21:07 | DI.CT_ITS ---
Exam(s) CT ABDOMEN PELVIS WO EXAM: CT ABDOMEN PELVIS WO CLINICAL HISTORY: epigastric pain with n/v, CKD- no contrast. TECHNIQUE: Imaging Protocol: Axial computed tomography images with coronal and sagittal reformatted images were created and reviewed CONTRAST MATERIAL: Intravenous: none Oral: None COMPARISON: CT CT ABDOMEN PELVIS WO from 11/30/[address] ABDOMEN PELVIS WO from 02/25/2024 FINDINGS: VISUALIZED LUNG BASES: There is cardiomegaly and calcification the mitral valve annulus. There is no pericardial effusion. There is, however, a small-moderate size right pleural effusion which was not previously present on CT scan of February 2024.. There is also now symmetrical anasarca which was not p reviously present. ABDOMEN: There is a mild amount of ascites evident in the abdomen and pelvis which was not previously present LIVER: There are no obvious significant focal hepatic lesions evident of this noninfused study. Scarlett tary calcified granuloma in the right hepatic lobe is noted GALLBLADDER/BILIARY: The gallbladder surgically absent. CBD is not significantly dilated. PANCREAS: No evidence of pancreatic mass nor dilatation of the pancreatic duct. SPLEEN: Spleen is not enlarged. No obvious intrasplenic lesions. ADRENALS: There is a nodule in the left adrenal gland measuring 3 by 2.5 by 3.2 cm. Exhibits minimal change from previous CT scans. Opposite-right adrenal gland remains unremarkable. KIDNEYS:There is increased bilateral perinephric streaking. No obstructive renal calculi nor hydrone phrosis.. Left kidney is smaller than the right. This may be related to large amount of plaque at t he origin of the left renal artery such as renal artery stenosis.. ABDOMINAL AORTA: The abdominal aorta is heavily calcified but not enlarged. Iliac arteries are also calcified but not enlarged. Cannot assess luminal patency C without IV contrast. There is also heav y calcified plaque at the origin of both renal arteries. LYMPH NODES: There is no retroperitoneal nor paraaortic adenopathy. ABDOMINAL WALL: No evidence of significant anterior abdominal wall nor inguinal hernia. GI: There is prominent fluid content in large and small bowel loops suggesting generalized enterocoli tis. There is no evidence of bowel obstruction nor free air to suggest perforation. There multiple and digested pills in the cecum noted. PELVIS: LYMPH NODES: There is no intrapelvic nor inguinal adenopathy. GI: No evidence of appendicitis.No evidence of sigmoid diverticulitis. URINARY BLADDER: No calculi nor obvious masses evident mild wall thickening. REPRODUCTIVE: Age-appropriate OSSEOUS: No fractures nor osseous lesions. There is grade 1 anterolisthesis of L4 upon L5 related to facet arthropathy. IMPRESSION: 1. Compared to prior CT scan of November 2022 there is now anasarca as well as a right pleural effusion and there is also mild-moderate ascites. Cardiomegaly again noted. Calcified mitral valve annulus. There is probably an element of heart failure here. 2. Heavily calcified abdominal aorta is again noted. Cannot assess patency of the lumen without IV c ontrast. There is also heavily calcified plaque it both renal arteries, probably element of renal ar david stenosis. This is more prominent on the left side. Left kidney is smaller than the right. 3. Fluid-filled small and large bowel loops consistent with enterocolitis. There is no evidence of b owel obstruction nor perforation. No abscess. RADIATION DOSE DELIVERED: 401.97mGy.cm Total DLP DATA REPOSITORY: All CT scans at this facility are submitted to the National Radiology Data Registry (NRDR) Dose Index Registry (DIR) with the [employer] (A[employer]). RADIATION OPTIMIZATION: All CT scans at this facility use at least one of these dose optimization te chniques: automated exposure control; mA and/or kV adjustment per patient size (includes targeted exa ms where dose is matched to clinical indication); or iterative reconstruction.
--- NOTE | 2024-11-22 22:22 | DI.VRAD_ITS ---
PROCEDURE INFORMATION: Exam: CT Abdomen And Pelvis Without Contrast Exam date and time: 11/22/2024 8:48 PM Age: 84 years old Clinical indication: Nausea and vomiting; Abdominal pain; Epigastric pain with n/v, ckd- no contrast TECHNIQUE: Imaging protocol: Computed tomography of the abdomen and pelvis without contrast. Radiation optimization: All CT scans at this facility use at least one of these dose optimization techniques: automated exposure control; mA and/or kV adjustment per patient size (includes targeted exams where dose is matched to clinical indication); or iterative reconstruction. COMPARISON: CT ABDOMEN PELVIS WO 02/25/2024 5:25 PM FINDINGS: Lungs: Small right basilar pleural effusion. Patchy alveolar opacity in the posterior right lung base is most likely compressive atelectasis, less likely patchy basilar infiltrate. Mild lingular atelectasis noted. Innumerable small pulmonary nodules are present in the lung bases, mostly peripherally distributed and measuring between 2 mm and 4 mm in size. These are stable in appearance from available prior imaging back to 11/30/2022, favoring benign nodules. Heart: Mild-moderate cardiomegaly. Probable leadless pacemaker marginally visualized at the right ventricular apex. Diaphragm: Small hiatal hernia. Liver: Granulomatous calcification in the right lobe. Normal contour. No mass lesions. No intrahepatic biliary ductal dilatation. Gallbladder and biliary ducts: Prior cholecystectomy with expected mild postoperative dilatation of the common bile duct. This is unchanged. Pancreas: Moderate pancreatic atrophy without acute abnormality. No pancreatic ductal dilatation. Spleen: Normal. No splenomegaly. Adrenal glands: 3.3 x 2.6 cm left adrenal mass unchanged from prior imaging back to 11/30/2022, consistent with benign lesion such as adenoma. Right adrenal gland is normal. Kidneys and ureters: Moderate bilateral symmetrical perinephric stranding, probably related to generalized anasarca and perirenal edema. No hydronephrosis or hydroureter. No urinary tract stones are identified. Bilateral renal vascular calcifications. Stomach and bowel: Stomach is largely contracted. Excessive fluid content in the mid to distal small bowel and throughout the mid and proximal colon suggesting diarrheal state, possibly mild generalized enterocolitis. No evidence of bowel obstruction or perforation. Appendix: The appendix is not identified. No secondary signs of appendicitis. Intraperitoneal space: Small to moderate volume simple ascites in the perihepatic, perisplenic, and intrapelvic distributions. No intraperitoneal free air. Vasculature: No acute vascular abnormalities. Severe calcific atherosclerosis. 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 Suspect severe ostial stenosis of the left main renal artery as well, unchanged. Noncontrast technique limits vascular assessment. Lymph nodes: No adenopathy. Urinary bladder: Mild urinary bladder wall thickening with mild adjacent stranding. Correlate with UA for evidence of cystitis. Reproductive: Unremarkable as visualized. Bones/joints: No acute osseous abnormalities. Mild thoracolumbar spondylosis. Grade 1 anterolisthesis L4-L5 with moderate canal stenosis. Soft tissues: Moderate soft tissue stranding/edema in the peripheral subcutaneous tissues suggesting volume overload or anasarca. IMPRESSION: 1. Excessive fluid content in the small and large bowel suggesting developing diarrheal state, possibly mild generalized enterocolitis. No evidence of bowel obstruction or perforation. 2. Moderate generalized anasarca. 3. Small right pleural effusion. 4. Patchy alveolar opacities in the dependent right lung base, atelectasis versus infiltrate. 5. Mild urinary bladder wall thickening with mild adjacent stranding. Correlate with UA for evidence of cystitis. 6. Small to moderate volume ascites. 7. Severe calcific atherosclerosis with chronic severe ostial stenosis of the celiac artery and suspected severe chronic stenosis of the left main renal artery. Noncontrast technique limits vascular assessment. 8. Additional nonemergent findings detailed above. Dictated and Authenticated by: Krystian Forde MD. Orderin Yvonne Terrazas MD
--- NOTE | 2024-11-22 22:26 | DI.VRAD_ITS ---
PROCEDURE INFORMATION: Exam: XR Chest Exam date and time: 11/22/2024 9:00 PM Age: 84 years old Clinical indication: Pain; Other: Edema, occasional cp TECHNIQUE: Imaging protocol: Radiologic exam of the chest. Views: 2 views. COMPARISON: CR XR CHEST 2V PA LATERAL 10/04/2024 3:20 PM FINDINGS: Tubes, catheters and devices: Leadless pacemaker projects in the right ventricular apex. Lungs: Question mild central vascular congestion. Patchy right basilar alveolar density, atelectasis versus pneumonia. Right apical granulomatous calcification again noted. Pleural spaces: Small right pleural effusion. No pneumothorax. Heart/Mediastinum: Mild-moderate cardiomegaly. No tracheal/mediastinal shift. Vasculature: The aorta demonstrates mild ectasia/tortuosity and moderate calcific atherosclerosis. Bones/joints: No acute osseous abnormalities are identified. Osteopenia. IMPRESSION: 1. Small right pleural effusion with mild adjacent right basilar airspace disease, compressive atelectasis versus pneumonia. 2. Mild-moderate cardiomegaly and mild central vascular congestion. Dictated and Authenticated by: Krystian Forde MD. Orderin Yvonne Terrazas MD
[2024-11-22] MEDS: Doxycycline Hyclate 100 MG CAP PO (22:46)
[2024-11-22] MEDS: Furosemide 40 MG TAB PO (22:46)
[2024-11-22] MEDS: Cefpodoxime 200 MG TAB PO (22:46)
[2024-11-22 22:53] VITALS: BP 169/73; PULSE 63; RESP 22; TEMP 36.3; O2SAT 97
[2024-11-23 17:50] LABS: T4, Free 0.8 ng/dL (0.8-2.2)
== END 2024-11-22 23:03 | disposition home or self-care (01) ==
PROVIDERS: Emergency Provider Nurse Practitioner Family; PCP Nurse Practitioner Family
DX: R60.0 Localized edema (principal); J18.9 Pneumonia, unspecified organism; I10 Essential (primary) hypertension; N18.5 Chronic kidney disease, stage 5; E11.69 Type 2 diabetes mellitus with other specified complication
CPT/HCPCS: 80053; 83690; 93005; 99284; 71046; 74176; 81003; 81015; 83735; 84439; 84443; 84484; 85025; 93010

== ENCOUNTER 2024-12-16 02:20 | Outpatient (RCR) | payer MEDICARE, MEDICAID, SELFPAY ==
[2024-12-02] MEDS: Normal Saline Flush 5 ML SYR IVP (09:15)
[2024-12-02 09:26] LABS: Anion Gap 13.2 mmol/L (3-11); BUN 67 mg/dL (7-18); CO2 18.8 mmol/L (21.0-32.0); Calcium 8.4 mg/dL (8.5-10.1); Chloride 111 mmol/L (98-107); Estimated GFR 15.05 (mL/min/1.73m2); Glucose 102 mg/dL (74-106); Potassium 5.4 mmol/L (3.5-5.1); Sodium 143 mmol/L (136-145)
[2024-12-02] MEDS: IRON SUCROSE COMPLEX 300 MG in Normal Saline 250 ML 176.667 MG IVPB (09:32)
[2024-12-16] MEDS: IRON SUCROSE COMPLEX 300 MG in Normal Saline 250 ML 176.667 MG IVPB (08:42)
[2024-12-16] MEDS: Normal Saline Flush 5 ML SYR IVP (08:42)
[2024-12-16 08:44] LABS: BUN 45 mg/dL (7-18); CREATININE 2.9 mg/dL (0.55-1.02); Calcium 8.9 mg/dL (8.5-10.1); Chloride 113 mmol/L (98-107); Estimated GFR 15.68 (mL/min/1.73m2); Glucose 120 mg/dL (74-106); Potassium 4.4 mmol/L (3.5-5.1); Sodium 143 mmol/L (136-145)
== END 2024-12-20 23:59 | disposition home or self-care (01) ==
LOC: INF 02:20
PROVIDERS: Registered Nurse Nephrology; PCP Nurse Practitioner Family; Visit Provider Nurse Practitioner Acute Care
DX: N18.4 Chronic kidney disease, stage 4 (severe) (principal); D63.1 Anemia in chronic kidney disease; D50.9 Iron deficiency anemia, unspecified
CPT/HCPCS: 36415; 80048; 96365; 96366; J1756

== ENCOUNTER 2025-01-13 01:55 | Outpatient (RCR) | payer MEDICARE, MEDICAID, SELFPAY ==
[2024-12-30] MEDS: Normal Saline Flush 5 ML SYR IVP (09:11)
[2024-12-30 09:42] LABS: Anion Gap 13.6 mmol/L (3-11); BUN 41 mg/dL (7-18); CO2 19.4 mmol/L (21.0-32.0); CREATININE 3.3 mg/dL (0.55-1.02); Calcium 8.5 mg/dL (8.5-10.1); Chloride 109 mmol/L (98-107); Estimated GFR 13.42 (mL/min/1.73m2); Glucose 83 mg/dL (74-106); Potassium 3.8 mmol/L (3.5-5.1); Sodium 142 mmol/L (136-145)
[2025-01-13 09:59] LABS: Anion Gap 14.1 mmol/L (3-11); BUN 52 mg/dL (7-18); CO2 17.9 mmol/L (21.0-32.0); CREATININE 3.4 mg/dL (0.55-1.02); Calcium 8.8 mg/dL (8.5-10.1); Chloride 111 mmol/L (98-107); Estimated GFR 12.95 (mL/min/1.73m2); Glucose 105 mg/dL (74-106); Potassium 3.6 mmol/L (3.5-5.1); Sodium 143 mmol/L (136-145)
== END 2025-01-19 23:59 | disposition home or self-care (01) ==
LOC: INF 01:55
PROVIDERS: Registered Nurse Nephrology; PCP Nurse Practitioner Family; Visit Provider Nurse Practitioner Acute Care
DX: N18.4 Chronic kidney disease, stage 4 (severe) (principal)
CPT/HCPCS: 36415; 80048

== ENCOUNTER 2025-01-25 01:28 | Outpatient (RCR) | payer MEDICARE, MEDICAID, SELFPAY ==
[2025-01-25 09:45] LABS: BUN 46 mg/dL (7-18); CREATININE 3.2 mg/dL (0.55-1.02); Chloride 111 mmol/L (98-107); Estimated GFR 13.93 (mL/min/1.73m2); Glucose 137 mg/dL (74-106); Potassium 4.2 mmol/L (3.5-5.1); Sodium 140 mmol/L (136-145)
[2025-01-25] MEDS: Normal Saline Flush 5 ML SYR IVP (10:55)
== END 2025-02-19 23:59 | disposition home or self-care (01) ==
LOC: INF 01:28
PROVIDERS: Registered Nurse Nephrology; PCP Nurse Practitioner Family; Visit Provider Nurse Practitioner Acute Care
DX: N18.4 Chronic kidney disease, stage 4 (severe) (principal)
CPT/HCPCS: 36415; 80048

== ENCOUNTER 2025-02-06 14:57 | Emergency (ER) | payer MEDICARE, MEDICAID, SELFPAY ==
--- NOTE | 2025-02-06 15:00 | DI.RAD_ITS ---
Exam(s) XR FEMUR RT EXAM: XR FEMUR RT CLINICAL HISTORY: pain s/p fall. TECHNIQUE: 2D digital imaging was performed. AP and lateral views. COMPARISON: CT CT PELVIC WO from 02/06/2025 FINDINGS: BONES: No acute fracture is present. No bony destructive lesion is seen. JOINTS: Visualized portion of knee and hip joints show mild degenerative changes. Chondrocalcinosis. SOFT TISSUE: Vascular calcifications. IMPRESSION: No fracture is identified DATA REPOSITORY: RADIATION DOSE DELIVERED:
--- NOTE | 2025-02-06 15:00 | DI.CT_ITS ---
Exam(s) CT PELVIC WO EXAM: CT PELVIC WO CLINICAL HISTORY: right hip/pelvis pain s/p fall 4 days ago. TECHNIQUE: Imaging Protocol: Axial computed tomography images with coronal and sagittal reformatted images were created and reviewed. CONTRAST MATERIAL: Oral: no COMPARISON: CT CT ABDOMEN PELVIS WO from 11/22/[address] LUMBAR SPINE WO from 02/06/2025 CR,XR XR FEMUR RT from 02/06/2025 FINDINGS: Bladder: Symmetric distention, no gross wall thickening. Bowel: No obstruction or bowel wall thickening. Peritoneal cavity: No ascites, collection or mesenteric inflammatory response. Reproductive: Unremarkable. Bones:The bones are osteopenic. No visible fracture. Soft tissues: Suboptimal evaluation due to lack of contrast and sharp bone kernal. Diffuse body wall edema. Ascites again noted. Vascular calcifications. IMPRESSION: No fracture is identified. There is continued clinical concern, MRI could be obtained. Ascites agai n noted. RADIATION DOSE DELIVERED: 738.93mGy.cmTotal DLP DATA REPOSITORY: All CT scans at this facility are submitted to the National Radiology Data Registry (NRDR) Dose Index Registry (DIR) with the [employer] ([employer]). RADIATION OPTIMIZATION: All CT scans at this facility use at least one of these dose optimization te chniques: automated exposure control; mA and/or kV adjustment per patient size (includes targeted exa ms where dose is matched to clinical indication); or iterative reconstruction.
--- NOTE | 2025-02-06 15:00 | DI.CT_ITS ---
Exam(s) CT LUMBAR SPINE WO EXAM: CT LUMBAR SPINE WO CLINICAL HISTORY: fall 4 days ago, pain. TECHNIQUE: Imaging Protocol: Axial computed tomography images with coronal and sagittal reformatted images were created and reviewed COMPARISON: CT CT ABDOMEN PELVIS WO from 02/25/[address] ABDOMEN PELVIS WO from 11/22/2024 FINDINGS: Bones: The last intervertebral disc space is designated the L5/S1 level for the numbering purpose of this examination. Stable mild T11 compression fracture. The remaining vertebral body heights are well maintained. Alignment is satisfactory. No fracture is seen. Disc bulging at L 3 4 and L4-5. Facet degenerative changes at L4-5 cause mild spondylolisthesis. No spondylolysis. Soft Tissues: The paraspinal soft tissues are unremarkable. Dependent changes at the lung bases. Sm all hiatal hernia. Severe atherosclerotic changes in the aorta and branch vessels. Left kidney is s omewhat atrophic. Fluid noted around spleen. Stable left adrenal nodule. IMPRESSION: Stable mild T11 compression fracture. No acute fractures. RADIATION DOSE DELIVERED: 738.93mGy.cm Total DLP DATA REPOSITORY: All CT scans at this facility are submitted to the National Radiology Data Registry (NRDR) Dose Index Registry (DIR) with the [employer] (ACR). RADIATION OPTIMIZATION: All CT scans at this facility use at least one of these dose optimization te chniques: automated exposure control; mA and/or kV adjustment per patient size (includes targeted exa ms where dose is matched to clinical indication); or iterative reconstruction.
[2025-02-06 15:01] VITALS: BP 149/62; PULSE 62; RESP 20; TEMP 36.4; O2SAT 99
--- NOTE | 2025-02-06 15:14 | ED.GENADUL_ITS ---
Discharge Plan Disposition Patient Disposition: Home Condition: Stable Discharge Details Clinical Impression: Contusion of hip, right, Back contusion Primary Care Provider: Brandy Daugherty ED Provider: James Abbasi [place] Meds and New Rx's Prescriptions: Continued uavlxbkpauv-myekaqthv-ihc C-Mn [Glucosamine Chondroitin MaxStr] 500-400 mg capsule 2 cap PO DAILY sodium bicarbonate 325 mg tablet See Rx Instructions PO DAILY Rx Instructions: 2 tablets PO AM 1 tablet PO Noon & HS acetaminophen 325 mg tablet 2 tab PO BID paroxetine HCl 20 mg tablet 20 mg PO DAILY atorvastatin 40 mg tablet 40 mg PO DAILY Patient Comments: TAKE ONE TABLET BY MOUTH EVERY EVENING carvedilol 12.5 mg tablet 18.75 mg PO BID Patient Comments: TAKE ONE TABLET BY MOUTH TWICE A DAY WITH FOOD FOR 90 DAYS levothyroxine 125 mcg tablet 125 mcg PO DAILY Patient Comments: TAKE ONE TABLET BY MOUTH EVERY DAY FOR 90 DAYS Eliquis 5 mg tablet 5 mg PO BID Patient Comments: TAKE 1 TABLET BY MOUTH TWICE DAILY insulin degludec [Tresiba FlexTouch U-100] 100 unit/mL (3 mL) insulin pen 10 unit SUBCUT DAILY Patient Comments: INJECT 2 UNITS SUBCUTANEOUSLY ONCE DAILY REPLACE PEN AFTER OPEN FOR 56 DAYS magnesium chloride 64 mg tablet extended release 64 mg PO DAILY lisinopril 40 mg tablet 40 mg PO DAILY PreserVision AREDS 4,296 mcg-226 mg-90 mg capsule 1 cap PO BID Patient Comments: 1 capsule by mouth twice a day calcitriol 0.25 mcg capsule 0.25 mcg PO DAILY liothyronine 5 mcg tablet 5 mcg PO DAILY sevelamer carbonate [Renvela] 800 mg tablet 800 mg PO ONCE Rx Instructions: must administer with a meal/food (DME) OneTouch Verio test strips Strip MISCELLANEOUS Patient Comments: USE TO TEST BLOOD SUGAR ONE TO TWO TIMES EVERY DAY NEEDED (DME) lancets [OneTouch Delica Plus Lancet] 33 gauge misc MISCELLANEOUS Patient Comments: USE TO CHECK BLOOD SUGAR ONE TO TWO TIMES DAILY doxycycline hyclate 100 mg tablet 100 mg PO BID Qty: 9 0RF cefpodoxime 200 mg tablet 200 mg PO ONCE Qty: 4 0RF Rx Instructions: must administer with a meal/food furosemide 40 mg tablet 40 mg PO DAILY Qty: 7 0RF furosemide 20 mg tablet 20 mg PO DAILY Discharge Instructions Additional Instructions: Your imaging did not show any broken bones. The lidocaine patches are lngp-noo-clvltue and you can continue to use these if needed. Your CT did show a lesion in the adrenal gland which your primary care provider should know about as you may need to have an outpatient MRI to further evaluate for this. If you feel more ill or have severe worsening pain return to the emergency department for reevaluation. HPI General Date/Time Provider Initiated Documentation: 02/06/25 14:59 . Limitations to Documentation: no limitations . Information obtained by: patient . History of Present Illness 84 year old F presents to the emergency department with the chief complaint of right hip/low back pain s/p fall 4 days ago, described as moderate, Quality is described as aching, Patient reports radiation to back. Patient started experiencing this day(s) (4) and it has been constant. other things that improve symptom(s), (tylenol) No exacerbating factors reported . Patient notes denies chest pain, fever/chills and shortness of breath. Related Data Home Medications ?Medication ?Instructions ?Recorded ?Confirmed apixaban 5 mg tablet (Eliquis) 5 mg PO BID 06/14/21 02/06/25 atorvastatin 40 mg tablet 40 mg PO DAILY 06/14/21 02/06/25 carvedilol 12.5 mg tablet 18.75 mg PO BID 06/14/21 02/06/25 insulin degludec 100 unit/mL (3 10 unit subcut DAILY 06/14/21 02/06/25 mL) subcutaneous pen (Tresiba FlexTouch U-100 insulin) levothyroxine 125 mcg tablet 125 mcg PO DAILY 06/14/21 02/06/25 acetaminophen 325 mg tablet 2 tab PO BID 09/04/22 02/06/25 paroxetine HCl 20 mg tablet 20 mg PO DAILY 10/26/22 02/06/25 cyshiaewgcd-amizxquhx-vhz C-Mn 500 2 cap PO DAILY 07/10/23 02/06/25 mg-400 mg capsule (Glucosamine Chondroitin Maximum Strength) sodium bicarbonate 325 mg tablet See Rx Instructions PO DAILY 07/10/23 02/06/25 lisinopril 40 mg tablet 40 mg PO DAILY 02/25/24 02/06/25 magnesium chloride 64 mg 64 mg PO DAILY 02/25/24 02/06/25 tablet,extended release vitamins A,C,E-gfxw-mhtoar 4,296 1 cap PO BID 02/25/24 02/06/25 mcg-226 mg-90 mg capsule (PreserVision AREDS) blood sugar diagnostic ([facility] 09/22/24 02/06/25 Verio test strips) calcitriol 0.25 mcg capsule 0.25 mcg PO DAILY 09/22/24 02/06/25 lancets 33 gauge (OneTouch Delica 09/22/24 02/06/25 Plus Lancet) liothyronine 5 mcg tablet 5 mcg PO DAILY 09/22/24 02/06/25 sevelamer carbonate 800 mg tablet 800 mg PO ONCE 09/22/24 02/06/25 (Renvela) cefpodoxime 200 mg tablet 200 mg PO ONCE #4 tabs 11/22/24 02/06/25 doxycycline hyclate 100 mg tablet 100 mg PO BID #9 tabs 11/22/24 02/06/25 furosemide 40 mg tablet 40 mg PO DAILY #7 tabs 11/22/24 02/06/25 furosemide 20 mg tablet 20 mg PO DAILY 02/06/25 02/06/25 Previous Rx's ?Medication ?Instructions ?Recorded cefpodoxime 200 mg tablet 200 mg PO ONCE #4 tabs 11/22/24 doxycycline hyclate 100 mg tablet 100 mg PO BID #9 tabs 11/22/24 furosemide 40 mg tablet 40 mg PO DAILY #7 tabs 11/22/24 Allergies Allergy/AdvReac Type Severity Reaction Status Date / Time Penicillins Allergy Severe Skin Rash Verified 02/06/25 15:06 Macrolide Antibiotics Allergy Intermediate Hives Verified 02/06/25 15:06 naproxen Allergy Intermediate Skin Rash Verified 02/06/25 15:06 niacin Allergy Intermediate Hives Verified 02/06/25 15:06 omeprazole (From Prilosec) Allergy Intermediate Nausea Verified 02/06/25 15:06 codeine Allergy Nausea Verified 02/06/25 15:06 erythromycin base Allergy Hives Verified 02/06/25 15:06 Sulfa (Sulfonamide Allergy urtiaria Verified 02/06/25 15:06 Antibiotics) amitriptyline AdvReac Intermediate Other (See Verified 02/06/25 15:06 Comment) NSAIDS (Non-Steroidal AdvReac Intermediate Other (See Verified 02/06/25 15:06 Anti-Inflamma Comment) celecoxib AdvReac Nausea Verified 02/06/25 15:06 gabapentin AdvReac Other (See Verified 02/06/25 15:06 Comment) methotrexate AdvReac Nausea Verified 02/06/25 15:06 naltrexone AdvReac Skin Rash Verified 02/06/25 15:06 General Stated Complaint: Fall/Non TraumaCriteria PAULINE: 3 Review of Systems All systems reviewed & are unremarkable except as noted in HPI and below Constitutional Constitutional: Denies chills, Denies fever(s) and Denies weakness Cardiovascular Cardiovascular: Denies chest pain and Denies dyspnea Respiratory Respiratory: Denies cough and Denies dyspnea Gastrointestinal Gastrointestinal: Denies abdominal pain, Denies nausea and Denies vomiting Musculoskeletal Musculoskeletal: Reports back pain Neurologic Neurologic: Denies weakness Psychiatric Psychiatric: Denies depression Exam Const General: no acute distress Orientation: alert HENMT Head: normal to inspection Ears: external ears normal General nose exam: external nose normal Mouth: moist mucous membranes Eyes General: appearance normal, both eyes and all related structures Neck Neck: normal visual inspection and nontender Resp Effort & Inspection: normal respiratory effort and able to speak in complete sentences Cardio Rate: regular rate Back/Spine/Pelvis Back: no CVA tenderness Thoracic/Lumbar Spine: No thoracic spinal tenderness and lumbar spinal tenderness Skin General skin exam: no rashes or lesions noted Neuro General: patient alert and patient oriented x3 Extrem General: normal to inspection Psych Mental Status: mental status grossly normal Course Vital Signs Vital signs: Vital Signs Temperature 36.4 C 02/06/25 15:01 Pulse 62 02/06/25 15:01 Respiratory Rate 20 02/06/25 15:01 Blood Pressure 149/62 H 02/06/25 15:01 Pulse Oximetry 99 02/06/25 15:01 Temperature 36.4 C 02/06/25 15:01 Pulse 62 02/06/25 15:01 Respiratory Rate 20 02/06/25 15:01 Blood Pressure 149/62 H 02/06/25 15:01 Blood Pressure Position Sitting 02/06/25 15:01 Pulse Oximetry 99 02/06/25 15:01 Oxygen Delivery Method Room Air 02/06/25 15:01 Oxygen Flow Rate 0 02/06/25 15:01 Medical Decision Making 84-year-old female with history of chronic kidney disease stage V is seeing nephrology comes in after she fell after losing balance 4 days ago landing on her right hip. She has been able to ambulate but has had pain in her lower back and right hip area so came here for evaluation. She says that she has no fevers, difficulty breathing, headaches, chest pain or difficulty breathing. No abdominal pain. She has no signs of trauma to the head and denies any headaches, no C or T-spine tenderness. Has some tenderness over L4 and L5 without palpable or visible deformities. Has pain over the right lateral hip. Also has some right mid femur pain without palpable visible deformity. She has mild pitting edema to the mid tibias bilaterally which she says is chronic and unchanged. She has no calf tenderness. Intact distal sensation and cap refill is normal. I suspect contusion of her back and hip but will check a CT lumbar spine and pelvis to evaluate for fracture along with a right femur x-ray given her kidney disease I will also check basic labs including a CBC and CMP. Patient with continued renal dysfunction. She is seeing nephrology for this and do not feel other intervention or workup is indicated. CT showed no clear fracture, she does have known anasarca and has had ascites in the past and radiology from [facility] noted a fluid pocket in the right lower quadrant. I reassessed the patient and is now ambulating without difficulty and without pain so I feel like this fluid pocket is likely chronic and not related to her pain. 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 Acquired trigger finger Renal failure syndrome Rheumatoid arthritis Lumbar radiculopathy Postoperative hypothyroidism Obesity Neck pain Lower urinary tract symptoms (LUTS) Inflammatory arthritis Hyperlipidemia, mixed Hypertensive disorder Heart failure Diabetes mellitus Diabetic retinopathy associated with controlled type 2 diabetes mellitus Chronic cystitis Chronic pain Cataract Atrial fibrillation History of anemia Surgical History H/O breast biopsy Hx of tonsillectomy H/O tubal ligation H/O adenoidectomy History of cholecystectomy Hx of appendectomy H/O right cataract extraction Family History Father Cancer Heart disease Mother Graves disease Rheumatoid arthritis Social History Smoking/Tobacco Use Status: Former Tobacco Use Quit Date: 09/22/95 Smoking risk assessment performed?: Yes Alcohol Intake: former Drug use: Never Substance use type: does not use Housing: other Do you feel safe at home: Yes Do you feel safe in your relationship?: Yes Additional Social history: lives alone
[2025-02-06 15:36] LABS: Abs Immature Grans 0.03 10^3/uL (0.0-0.06); Absolute Basophil Count 0.03 10^3/uL (0.0-0.2); Absolute Eosinophil Count 0.04 10^3/uL (0.0-0.7); Absolute Lymphocyte Count 0.67 10^3/uL (1.2-3.4); Absolute Monocyte Count 0.43 10^3/uL (0.1-0.8); Absolute Neutrophil Count 4.61 10^3/uL (1.2-6.7); Basophils % 0.5 %; Eosinophils % 0.7 %; HCT 32.8 % (36.0-46.0); HGB 10.3 g/dL (11.2-15.7); Immature Grans % 0.5 %; Lymphocytes % 11.5 %; MCH 31.4 pg (27.0-33.0); MCHC 31.4 % (32.0-36.0); MCV 100 fL (80-95); MPV 9.8 fL (8.0-11.0); Monocytes % 7.4 %; Neutrophils % 79.4 %; Platelet Count 149 10^3/uL (130-400); RBC 3.28 10^6/uL (3.93-5.22); RDW 16.1 % (11.7-14.6); RDW-SD 59.4 fL; WBC 5.81 10^3/uL (4.4-10.8)
[2025-02-06 15:56] LABS: ALT 18 U/L (14-59); AST 10 U/L (15-37); Albumin 3.5 g/dL (3.4-5.0); Alkaline Phosphatase 59 U/L (46-116); Anion Gap 13.4 mmol/L (3-11); BUN 50 mg/dL (7-18); Bilirubin, Total 0.7 mg/dL (0.2-1.0); CO2 17.6 mmol/L (21.0-32.0); Calcium 8.3 mg/dL (8.5-10.1); Chloride 111 mmol/L (98-107); Estimated GFR 11.33 (mL/min/1.73m2); Glucose 136 mg/dL (74-106); Magnesium 1.8 mg/dL (1.8-2.4); Potassium 3.5 mmol/L (3.5-5.1); Sodium 142 mmol/L (136-145); Total Protein 6.9 g/dL (6.4-8.2)
[2025-02-06 15:58] LABS: CREATININE 3.8 mg/dL (0.55-1.02)
[2025-02-06] MEDS: Lidocaine 5% Patch 1 PATCH TP (16:41)
[2025-02-06] MEDS: Acetaminophen 325 MG TAB 650 MG PO (16:42)
--- NOTE | 2025-02-06 17:27 | DI.VRAD_ITS ---
Addendum created by Bernice Britton MD on 02/06/2025 6:19:00 PM EDT: THIS REPORT CONTAINS FINDINGS THAT MAY BE CRITICAL TO PATIENT CARE. The findings were verbally communicated via telephone conference with James Abbasi at 6:18 PM EDT on 02/06/2025. The findings were acknowledged and understood. Addendum created by Bernice Britton MD on 02/06/2025 5:32:10 PM EDT: Upon further review, the patient did have ascites in the abdomen and pelvis on CT scan of the abdomen and pelvis dated 11/22/2024. However, the amount appears increased in size on the current examination, particularly on the right-hand side. Given the patient's right-sided pain, a dedicated CT scan of the abdomen and pelvis with contrast remains suggested. Initial report created on 02/06/2025 5:26:36 PM EDT: PROCEDURE INFORMATION: Exam: CT Pelvis Without Contrast, Skeleton Exam date and time: 02/06/2025 3:54 PM Age: 84 years old Clinical indication: Other: Right hip/pelvis pain S/P fall 4 days ago TECHNIQUE: Imaging protocol: Computed tomography of the pelvis without contrast. Exam focused on the skeleton. Radiation optimization: All CT scans at this facility use at least one of these dose optimization techniques: automated exposure control; mA and/or kV adjustment per patient size (includes targeted exams where dose is matched to clinical indication); or iterative reconstruction. COMPARISON: CT ABDOMEN PELVIS WO 11/22/2024 8:48 PM FINDINGS: Intestine: There is no evidence of bowel obstruction. Vasculature: There are vascular calcifications. Reproductive: The uterus is present. Urinary bladder: The urinary bladder is within normal limits. Bones/joints: Multifocal skeletal degenerative changes are seen. No displaced fracture or dislocation is identified. There are small cortically-based lucencies in the left greater trochanter on series 4, images 179 and 183 that should be correlated with any concern for subtle nondisplaced fracture. The bones are diffusely osteopenic. Nondisplaced fractures can be occult in osteopenic patients. If symptoms remain concerning, an MRI would be beneficial. There is unchanged anterolisthesis of L4 on L5. Soft tissues: There is diffuse stranding in the soft tissues which can be seen with chronic edema or anasarca. However, findings should be correlated with any concern for infection or trauma. Other: Series 5, image 44; series 7, image 38 demonstrates a pocket of fluid in the anterior right lower quadrant of the abdomen that appears to measure water density. This may be a fluid collection of some sort, as it is anteriorly positioned within the pelvis. Given the patient's recent fall, a posttraumatic fluid collection is not entirely excluded. A dedicated CT scan of the abdomen and pelvis with contrast is recommended for further evaluation. This could be a source of the patient's right-sided hip pain. IMPRESSION: 1. Skeletal degenerative changes with no definite displaced fracture or dislocation identified. There are small cortically based lucencies in the left greater trochanter on series 4, images 179 and 183 that should be correlated with any concern for subtle nondisplaced fracture. 2. Series 5, image 44; series 7, image 38 demonstrates a pocket of fluid in the right lower quadrant of the abdomen that appears to measure water density. This may be a fluid collection of some sort, as it is anteriorly positioned within the pelvis. Given the patient's recent fall, a posttraumatic fluid collection is not entirely excluded. A dedicated CT scan of the abdomen and pelvis with contrast is recommended for further evaluation. This could be a source of the patient's right-sided hip pain. 3. There is diffuse stranding in the soft tissues which can be seen with chronic edema or anasarca. However, findings should be correlated with any concern for infection or trauma. 4. Other findings/details as above. It should be noted that the bones are diffusely osteopenic. Nondisplaced fractures can be occult in osteopenic patients. If symptoms remain concerning (if there is continued pain or difficulty weight-bearing), an MRI is recommended. Dictated and Authenticated by: Bernice Britton MD. Orderin Ayleen Ramirez MD
--- NOTE | 2025-02-06 17:55 | DI.VRAD_ITS ---
Addendum created by Bernice Britton MD on 02/06/2025 6:18:51 PM EDT: THIS REPORT CONTAINS FINDINGS THAT MAY BE CRITICAL TO PATIENT CARE. The findings were verbally communicated via telephone conference with James Abbasi at 6:18 PM EDT on 02/06/2025. The findings were acknowledged and understood. Initial report created on 02/06/2025 5:55:23 PM EDT: PROCEDURE INFORMATION: Exam: CT Lumbar Spine Without Contrast Exam date and time: 02/06/2025 3:54 PM Age: 84 years old Clinical indication: Other: Fall 4 days ago, pain TECHNIQUE: Imaging protocol: Computed tomography of the lumbar spine without contrast. Radiation optimization: All CT scans at this facility use at least one of these dose optimization techniques: automated exposure control; mA and/or kV adjustment per patient size (includes targeted exams where dose is matched to clinical indication); or iterative reconstruction. COMPARISON: CT LUMBAR SPINE RECONS 10/26/2022 1:[address] scan of the abdomen and pelvis dated 11/22/2024. FINDINGS: Bones/joints: Multifocal skeletal degenerative changes are seen. There is unchanged anterolisthesis of L4 on L5. Mild wedging of the T11 vertebral body is unchanged. No definite new fractures are identified. However, the bones are diffusely osteopenic. Nondisplaced fractures can be occult in osteopenic patients. If symptoms remain concerning, an MRI would be beneficial. The disc spaces are preserved. The discs, themselves, are not well assessed. L1-L2: No significant disc bulge or herniation. L2-L3: No significant disc bulge or herniation. L3-L4: Disc bulge. L4-L5: Disc bulge. L5-S1: Disc bulge. Lungs: There are mild opacities at the lung bases bilaterally which could represent atelectasis or scarring but should be correlated with any concern for infection. These are incompletely imaged. Gallbladder and biliary ducts: Cholecystectomy clips are seen. Adrenal glands: Again seen is a lesion in the left adrenal gland measuring 28 Hounsfield units, not fulfilling the criteria for an adenoma. Adrenal mass protocol MRI is suggested for further evaluation if this has not already been performed. Kidneys and ureters: There are bilateral nonobstructive renal calcifications, several of which may be vascular. Reproductive: The uterus is present. Vasculature: There are vascular calcifications. Soft tissues: Unremarkable. Other findings: A small hiatal hernia is seen. Perisplenic and pelvic simple fluid is seen. IMPRESSION: 1. No definite new fractures are identified. However, the bones are diffusely osteopenic. Nondisplaced fractures can be occult in osteopenic patients. If symptoms remain concerning, an MRI would be beneficial. 2. Disc bulges at multiple levels. This can also be further evaluated with MRI. 3. Again noted is a lesion in the left adrenal gland, not fulfilling the criteria for an adenoma. Adrenal mass protocol MRI is suggested for further evaluation if this has not already been performed. 4. Perisplenic and pelvic simple fluid is seen. On today's pelvic CT scan, the fluid appears increased in the right lower quadrant when compared to CT scan of the abdomen and pelvis dated 11/22/2024. It could be a source of the patient's right-sided pain. A CT scan of the abdomen and pelvis with contrast was suggested for further evaluation. Other findings/details as above. Dictated and Authenticated by: Bernice Britton MD. Orderin Ayleen Ramirez MD
--- NOTE | 2025-02-06 18:03 | DI.VRAD_ITS ---
Addendum created by Bernice Britton MD on 02/06/2025 6:18:40 PM EDT: THIS REPORT CONTAINS FINDINGS THAT MAY BE CRITICAL TO PATIENT CARE. The findings were verbally communicated via telephone conference with James Abbasi at 6:18 PM EDT on 02/06/2025. The findings were acknowledged and understood. Initial report created on 02/06/2025 6:02:39 PM EDT: PROCEDURE INFORMATION: Exam: XR Right Femur Exam date and time: 02/06/2025 4:07 PM Age: 84 years old Clinical indication: Other: Right hip pain fall x 4 days ago TECHNIQUE: Imaging protocol: Radiologic exam of the right femur. Views: 2 views. COMPARISON: CT PELVIC WO 02/06/2025 3:54 PM FINDINGS: Bones/joints: There is calcification in the meniscal structures at the level of the knee joint which can be seen with pyrophosphate arthropathy. There are skeletal degenerative changes. No dislocation is identified. Series 3 demonstrates a horizontal linear lucency in the femoral neck. A CT scan of the pelvis performed earlier in the day demonstrated no definite fracture in this region. However, if the patient has had a subsequent trauma following the CT scan or if the symptoms remain concerning, MRI recommended for further evaluation of this area. Soft tissues: Unremarkable. Vasculature: Vascular calcifications are seen. IMPRESSION: 1. Series 3 demonstrates a horizontal linear lucency in the femoral neck. A CT scan of the pelvis performed earlier in the day demonstrated no definite fracture in this region. However, if the patient has had a subsequent trauma following the CT scan or if the symptoms remain concerning, MRI recommended for further evaluation of this area. Other findings/details as above. Dictated and Authenticated by: Bernice Britton MD. Orderin Ayleen Ramirez MD
[2025-02-06 19:23] VITALS: BP 132/88; PULSE 90; RESP 16; TEMP 36.8; O2SAT 95
== END 2025-02-06 19:27 | disposition home or self-care (01) ==
PROVIDERS: Emergency Provider Emergency Medicine; PCP Nurse Practitioner Family
DX: S70.01XA Contusion of right hip, initial encounter (principal); S30.0XXA Contusion of lower back and pelvis, initial encounter; E11.22 Type 2 diabetes mellitus with diabetic chronic kidney disease; I12.9 Hypertensive chronic kidney disease with stage 1 through stage 4 chronic kidney disease, or unspecified chronic kidney disease; N18.4 Chronic kidney disease, stage 4 (severe); I48.91 Unspecified atrial fibrillation; I25.2 Old myocardial infarction; E78.5 Hyperlipidemia, unspecified; Z95.0 Presence of cardiac pacemaker; Z87.891 Personal history of nicotine dependence; W18.39XA Other fall on same level, initial encounter; Y93.01 Activity, walking, marching and hiking; Y92.018 Other place in single-family (private) house as the place of occurrence of the external cause; Z79.4 Long term (current) use of insulin; Z79.01 Long term (current) use of anticoagulants
CPT/HCPCS: 73552; 80053; 99284; 72131; 72192; 83735; 85025

== ENCOUNTER 2025-02-17 03:13 | Outpatient (CLI) | payer MEDICARE, MEDICAID, SELFPAY ==
[2025-02-17 10:10] LABS: Anion Gap 16.6 mmol/L (3-11); BUN 71 mg/dL (7-18); CO2 16.4 mmol/L (21.0-32.0); CREATININE 3.5 mg/dL (0.55-1.02); Calcium 8.2 mg/dL (8.5-10.1); Chloride 107 mmol/L (98-107); Estimated GFR 12.51 (mL/min/1.73m2); Glucose 152 mg/dL (74-106); PHOSPHORUS 5.6 mg/dL (2.6-4.7); Potassium 3.5 mmol/L (3.5-5.1); Sodium 140 mmol/L (136-145)
== END 2025-02-17 03:14 | disposition home or self-care (01) ==
LOC: LBO 03:13
PROVIDERS: PCP Nurse Practitioner Family; Visit Provider Registered Nurse Nephrology
DX: N18.4 Chronic kidney disease, stage 4 (severe) (principal)
CPT/HCPCS: 36415; 80048; 84100

== ENCOUNTER 2025-03-13 17:08 | Inpatient (IN) | payer MEDICARE, MEDICAID, SELFPAY ==
[2025-03-13] VITALS (39 sets, daily range): BP systolic 180–225; BP diastolic 50–67; PULSE 59–63; RESP 12–23; TEMP 36.5–36.6; O2SAT 96–100
--- NOTE | 2025-03-13 17:15 | RT.EKG_ITS ---
APPROVED REPORT Exam: Resting ECG Reason for Exam: not feeling well Patient Location: E HR:61 bpm ECG Measurements Heart Rate 61 AXIS ND [id number] P [id number] QRSd 125 QRS 217 QT 500 T 112 QTc 503 Conclusion Afib/flutter and ventricular-paced rhythm...V-paced rhythm, A-rate>240 Atrial fibrillation, ventricular paced rhythm. No change from prior 11/22/24. WD
--- NOTE | 2025-03-13 17:50 | W.ED.GENAD ---
Discharge Plan Disposition Patient Disposition: Admit to [facility] Discharge Details Clinical Impression: Elevated troponin level not due to acute coronary syndrome, Noncompliance w/medication treatment due to intermit use of medication, Acute confusion Primary Care Provider: Jason Snow ED Provider: Lilian Griggs Home Meds and New Rx's Prescriptions: No Action mkegzrizalm-ftpbyzrtc-cse C-Mn [Glucosamine Chondroitin MaxStr] 500-400 mg capsule 2 cap PO DAILY sodium bicarbonate 325 mg tablet See Rx Instructions PO DAILY Rx Instructions: 2 tablets PO AM 1 tablet PO Noon & HS acetaminophen 325 mg tablet 2 tab PO BID paroxetine HCl 20 mg tablet 20 mg PO DAILY atorvastatin 40 mg tablet 40 mg PO DAILY Patient Comments: TAKE ONE TABLET BY MOUTH EVERY EVENING carvedilol 12.5 mg tablet 18.75 mg PO BID Patient Comments: TAKE ONE TABLET BY MOUTH TWICE A DAY WITH FOOD FOR 90 DAYS levothyroxine 125 mcg tablet 125 mcg PO DAILY Patient Comments: TAKE ONE TABLET BY MOUTH EVERY DAY FOR 90 DAYS Eliquis 5 mg tablet 5 mg PO BID Patient Comments: TAKE 1 TABLET BY MOUTH TWICE DAILY insulin degludec [Tresiba FlexTouch U-100] 100 unit/mL (3 mL) insulin pen 10 unit SUBCUT DAILY Patient Comments: INJECT 2 UNITS SUBCUTANEOUSLY ONCE DAILY REPLACE PEN AFTER OPEN FOR 56 DAYS magnesium chloride 64 mg tablet extended release 64 mg PO DAILY lisinopril 40 mg tablet 40 mg PO DAILY PreserVision AREDS 4,296 mcg-226 mg-90 mg capsule 1 cap PO BID Patient Comments: 1 capsule by mouth twice a day calcitriol 0.25 mcg capsule 0.25 mcg PO DAILY liothyronine 5 mcg tablet 5 mcg PO DAILY sevelamer carbonate [Renvela] 800 mg tablet 800 mg PO ONCE Rx Instructions: must administer with a meal/food (DME) Claim MapsTouch Verio test strips Strip MISCELLANEOUS Patient Comments: USE TO TEST BLOOD SUGAR ONE TO TWO TIMES EVERY DAY NEEDED (DME) lancets [OneTouch Delica Plus Lancet] 33 gauge misc MISCELLANEOUS Patient Comments: USE TO CHECK BLOOD SUGAR ONE TO TWO TIMES DAILY doxycycline hyclate 100 mg tablet 100 mg PO BID Qty: 9 0RF cefpodoxime 200 mg tablet 200 mg PO ONCE Qty: 4 0RF Rx Instructions: must administer with a meal/food furosemide 40 mg tablet 40 mg PO DAILY Qty: 7 0RF furosemide 20 mg tablet 20 mg PO DAILY HPI General Date/Time Provider Initiated Documentation: 03/13/25 17:17. HPI Narrative: 84-year-old female with history of stage IV kidney disease, hypertension, atrial fibrillation, diabetes, hyperlipidemia, anemia presents for evaluation of not feeling well. Patient states that she has not been feeling well for several days she states that she has had some nausea and vomiting. She has had cough with some posttussive emesis however she is vomiting without coughing also. She seems to have increased cough recently. Although she does have a chronic cough. She does have history of lower extremity edema however it is improved today according to daughter. Patient has some vague diffuse abdominal pain. She has history of cholecystectomy, appendectomy, and nephrectomy. She denies any known recent falls or injuries. Patient's daughter did see her yesterday. At that time she had full blister packs of medications. Today when they arrived two of the rows of medications were missing. Medication in each row included: Atorvastatin 40 mg, glucosamine/chondroitin 500 mg - 400 mg, Eliquis 5 mg x 2, [place] Jin 2.5 mg x 3, paroxetine 30 mg, lisinopril 40 mg, Calcitrol 0.25 mg, furosemide 20 mg, sodium bicarb 600 mg x 4, Slow-Mag/calcium x 2, levothyroxine 137 mcg, liothyronine 5 mg. She denies any chest pain or shortness of breath at this time. She does make urine. She denies any increased urinary frequency, dysuria, gross hematuria. She has chronic diarrhea. There is no change in her stool. Denies any bright red blood per rectum. Denies any hemoptysis or hematemesis. Family states that she is significantly confused from baseline. She was mildly confused yesterday however it is definitely worse today. Related Data Home Medications ?Medication ?Instructions ?Recorded ?Confirmed apixaban 5 mg tablet (Eliquis) 5 mg PO BID 06/14/21 03/13/25 atorvastatin 40 mg tablet 40 mg PO DAILY 06/14/21 03/13/25 carvedilol 12.5 mg tablet 18.75 mg PO BID 06/14/21 03/13/25 insulin degludec 100 unit/mL (3 10 unit subcut DAILY 06/14/21 03/13/25 mL) subcutaneous pen (Tresiba FlexTouch U-100 insulin) levothyroxine 125 mcg tablet 125 mcg PO DAILY 06/14/21 03/13/25 acetaminophen 325 mg tablet 2 tab PO BID 09/04/22 03/13/25 paroxetine HCl 20 mg tablet 20 mg PO DAILY 10/26/22 03/13/25 ewctubzybpq-dmanrbgmz-wyz C-Mn 500 2 cap PO DAILY 07/10/23 03/13/25 mg-400 mg capsule (Glucosamine Chondroitin Maximum Strength) sodium bicarbonate 325 mg tablet See Rx Instructions PO DAILY 07/10/23 03/13/25 lisinopril 40 mg tablet 40 mg PO DAILY 02/25/24 03/13/25 magnesium chloride 64 mg 64 mg PO DAILY 02/25/24 03/13/25 tablet,extended release vitamins A,C,J-qlti-ubjogv 4,296 1 cap PO BID 02/25/24 03/13/25 mcg-226 mg-90 mg capsule (PreserVision AREDS) blood sugar diagnostic ([facility] 09/22/24 03/13/25 Verio test strips) calcitriol 0.25 mcg capsule 0.25 mcg PO DAILY 09/22/24 03/13/25 lancets 33 gauge ([facility] Delica 09/22/24 03/13/25 Plus Lancet) liothyronine 5 mcg tablet 5 mcg PO DAILY 09/22/24 03/13/25 sevelamer carbonate 800 mg tablet 800 mg PO ONCE 09/22/24 03/13/25 (Renvela) cefpodoxime 200 mg tablet 200 mg PO ONCE #4 tabs 11/22/24 03/13/25 doxycycline hyclate 100 mg tablet 100 mg PO BID #9 tabs 11/22/24 03/13/25 furosemide 40 mg tablet 40 mg PO DAILY #7 tabs 11/22/24 03/13/25 furosemide 20 mg tablet 20 mg PO DAILY 02/06/25 03/13/25 Previous Rx's ?Medication ?Instructions ?Recorded cefpodoxime 200 mg tablet 200 mg PO ONCE #4 tabs 11/22/24 doxycycline hyclate 100 mg tablet 100 mg PO BID #9 tabs 11/22/24 furosemide 40 mg tablet 40 mg PO DAILY #7 tabs 11/22/24 Allergies Allergy/AdvReac Type Severity Reaction Status Date / Time Penicillins Allergy Severe Skin Rash Verified 03/13/25 17:19 Macrolide Antibiotics Allergy Intermediate Hives Verified 03/13/25 17:19 naproxen Allergy Intermediate Skin Rash Verified 03/13/25 17:19 niacin Allergy Intermediate Hives Verified 03/13/25 17:19 omeprazole (From Prilosec) Allergy Intermediate Nausea Verified 03/13/25 17:19 codeine Allergy Nausea Verified 03/13/25 17:19 erythromycin base Allergy Hives Verified 03/13/25 17:19 Sulfa (Sulfonamide Allergy urtiaria Verified 03/13/25 17:19 Antibiotics) amitriptyline AdvReac Intermediate Other (See Verified 03/13/25 17:19 Comment) NSAIDS (Non-Steroidal AdvReac Intermediate Other (See Verified 03/13/25 17:19 Anti-Inflamma Comment) celecoxib AdvReac Nausea Verified 03/13/25 17:19 gabapentin AdvReac Other (See Verified 03/13/25 17:19 Comment) methotrexate AdvReac Nausea Verified 03/13/25 17:19 naltrexone AdvReac Skin Rash Verified 03/13/25 17:19 General Stated Complaint: Dizzy/Sync PAULINE: 3 Review of Systems Narrative: Remainder review of systems otherwise unobtainable due to patient's condition. Exam Narrative Exam Narrative: General: non-toxic, no respiratory distress, comfortable HEENT: normocephalic, atraumatic, lids and lashes normal, PERRL, EOMI, anicteric sclera, no conjunctival injection, moist oral mucosa Neck: No vertebral tenderness, no meningeal signs Card: regular rate and rhythm, S1S2, no murmurs, rubs, or gallops Lungs: good air entry, clear to auscultation bilaterally. no wheezes, rales, rhonchi, or retractions Abd: soft, non-tender, non-distended, normal bowel sounds, no rebound or guarding, no peritoneal signs Musculoskeletal: No vertebral tenderness, pelvis stable, full range of motion of arms and legs, no tenderness to palpation. no clubbing, cyanosis, or edema Neurologic: GSC 15, CN 2-12 intact bilaterally, speech normal, strength normal, sensation intact distally in all four extremities, 2+ biceps tendon reflexes, normal finger to nose, normal rapid alternating movements, no pronator drift Psych: alert and oriented Skin: no petechiae, no lesions, warm and dry Course Vital Signs Vital signs: Vital Signs Temperature 36.5 C 03/13/25 17:11 Pulse 63 03/13/25 17:11 Respiratory Rate 22 03/13/25 17:11 Blood Pressure 203/67 H 03/13/25 17:11 Pulse Oximetry 96 03/13/25 17:11 Temperature 36.5 C 03/13/25 17:11 Temperature Source Oral 03/13/25 17:11 Pulse 63 03/13/25 17:11 Respiratory Rate 22 03/13/25 17:11 Blood Pressure 203/67 H 03/13/25 17:11 Blood Pressure Position Sitting 03/13/25 17:11 Pulse Oximetry 96 03/13/25 17:11 Oxygen Delivery Method Room Air 03/13/25 17:11 Oxygen Flow Rate 0 03/13/25 17:11 Medical Decision Making 84-year-old female with history of hypertension, hyperlipidemia, chronic kidney disease, diabetes, anemia, atrial fibrillation presents for evaluation of not feeling well. She has had cough, vomiting, and confusion. She does have some abdominal discomfort. There is also concern of possible medication overdose. Unfortunately it is not clear that patient has been taking her medications appropriately and it is difficult to determine if she has taken extra medications or not. Patient has no insight into which medication she has taken. Laboratory studies show elevated troponin. This has stayed flat. No EKG changes. No chest pain. This is likely secondary to her kidney disease. No signs of infection at this time. CT head unremarkable. CT chest abdomen pelvis do not show any signs of infection. Patient does remain somewhat confused. I am concerned about potentially taking all of the extra medication. I do feel that she will admission for further monitoring and evaluation. Case discussed with hospitalist who will admit to their service. PFSH All Active Problems (Updated 03/13/25 @ 21:12 by Lilian Griggs MD) Acute confusion (Acute) Noncompliance w/medication treatment due to intermit use of medication (Acute) Elevated troponin level not due to acute coronary syndrome (Acute) Sacroiliac joint dysfunction of right side (Acute) Bladder cancer (Acute) Acute pyelonephritis (Acute) Medical History Rib cage dysfunction Stucco keratosis Obstructive sleep apnea Depression Graves disease GERD (gastroesophageal reflux disease) Fibromyalgia Kidney disease, chronic, stage IV (severe, 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 Acquired trigger finger Renal failure syndrome Rheumatoid arthritis Lumbar radiculopathy Postoperative hypothyroidism Obesity Neck pain Lower urinary tract symptoms (LUTS) Inflammatory arthritis Hyperlipidemia, mixed Hypertensive disorder Heart failure Diabetes mellitus Diabetic retinopathy associated with controlled type 2 diabetes mellitus Chronic cystitis Chronic pain Cataract Atrial fibrillation History of anemia Surgical History H/O breast biopsy Hx of tonsillectomy H/O tubal ligation H/O adenoidectomy History of cholecystectomy Hx of appendectomy H/O right cataract extraction Family History Father Cancer Heart disease Mother Graves disease Rheumatoid arthritis Social History Smoking/Tobacco Use Status: Former Tobacco Use Quit Date: 09/22/95 Smoking risk assessment performed?: Yes Alcohol Intake: former Drug use: Never Substance use type: does not use Housing: other Do you feel safe at home: Yes Do you feel safe in your relationship?: Yes Additional Social history: lives alone
--- NOTE | 2025-03-13 18:00 | DI.CT_ITS ---
Exam(s) CT HEAD WO EXAM: CT HEAD WO CLINICAL HISTORY: AMS. TECHNIQUE: Imaging Protocol: Axial computed tomography images with coronal and sagittal reformatted images were created and reviewed COMPARISON: CT CT HEAD WO from 10/04/2024 FINDINGS: Ventricles and Extra axial spaces: Normal in size and morphology for the patient's age. Hemorrhage: None. Cerebral parenchyma: No evidence of acute infarct or mass. Nmpw-bj-mahpreje atrophy. Abad-ux-ydtrgqok white matter changes consistent with microvascular disease. Midline shift: None. Brainstem/Cerebellum: Normal. Calvarium: Normal. Visualized Paranasal sinuses:Clear. Mastoids: Clear. Soft Tissues: Unremarkable. ORBITS: Unremarkable. PITUITARY: Not enlarged. IMPRESSION: No acute intracranial process. RADIATION DOSE DELIVERED: 830.66mGy.cm Total DLP DATA REPOSITORY: All CT scans at this facility are submitted to the National Radiology Data Registry (NRDR) Dose Index Registry (DIR) with the [employer] ([employer]). RADIATION OPTIMIZATION: All CT scans at this facility use at least one of these dose optimization techniques: automated exposure control; mA and/or kV adjustment per patient size (includes targeted exams where dose is matched to clinical indication); or iterative reconstruction.
--- NOTE | 2025-03-13 18:06 | DI.CT_ITS ---
Exam(s) CT CHEST/ABD/PEL WO EXAM: CT CHEST/ABD/PEL WO CLINICAL HISTORY: cough, vomiting, abd pain. TECHNIQUE: Imaging Protocol: Axial computed tomography images with coronal and sagittal reformatted images were created and reviewed. Computer aided detection (CAD) was utilized. CONTRAST MATERIAL: Noncontrast Oral: / no COMPARISON: CT CT ABDOMEN PELVIS WO from 11/22/2024 CR,XR XR CHEST 2V PA LATERAL from 11/22/2024 FINDINGS: CHEST: Pulmonary parenchyma: Respiratory motion. No consolidation. No dominant measurable mass. Tracheobronchial tree: No bronchiectasis. No mucous plugging.No bronchial wall thickening. Pleura: No effusion or pneumothorax. Improvement from prior. Mediastinum: Within normal limits. Pulmonary arteries: No visible emboli. Cardiovascular: The heart is again noted to be enlarged. Cardiac device noted in right atrium. Coronary artery calcifications are present. No pericardial effusion. Thoracic aorta non-dilated. Bones: Unremarkable for age. No lytic or blastic lesions.No compression fractures. Soft tissues: Unremarkable. ABDOMEN and PELVIS: Liver: Normal density. No suspicious mass. Gallbladder and biliary tract: Cholecystectomy. No biliary dilatation. Pancreas: Normal density, no abnormal calcifications or inflammatory process. Spleen: Normal. Kidneys: Left kidney is again noted to be somewhat atrophic. No radiodense stones. No obstructive uropathy. No suspicious masses seen. Adrenal glands: Stable left adrenal nodule. Aorta: Abdominal portion non-dilated. Atherosclerotic changes. Lymph nodes: Within normal limits. Soft tissues: Unremarkable. Bladder: Unremarkable. Bowel: No obstruction or bowel wall thickening. Peritoneal cavity: Small amount of fluid in lower pelvis and at border of liver. Improvement from prior. No focal collection. No mesenteric inflammatory response. No free air. Bones: Unremarkable for age. Reproductive organs: Unremarkable for age. IMPRESSION: No acute abnormality in the chest, abdomen or pelvis. Small amount of abdominal free fluid, improved from prior. The preliminary [facility] report was reviewed. RADIATION DOSE DELIVERED: 681.27mGy.cm Total DLP DATA REPOSITORY: All CT scans at this facility are submitted to the National Radiology Data Registry (NRDR) Dose Index Registry (DIR) with the [employer] ([employer]). RADIATION OPTIMIZATION: All CT scans at this facility use at least one of these dose optimization techniques: automated exposure control; mA and/or kV adjustment per patient size (includes targeted exams where dose is matched to clinical indication); or iterative reconstruction.
[2025-03-13 18:10] LABS: Abs Immature Grans 0.02 10^3/uL (0.0-0.06); Absolute Basophil Count 0.05 10^3/uL (0.0-0.2); Absolute Eosinophil Count 0.01 10^3/uL (0.0-0.7); Absolute Lymphocyte Count 0.58 10^3/uL (1.2-3.4); Absolute Monocyte Count 0.29 10^3/uL (0.1-0.8); Absolute Neutrophil Count 4.71 10^3/uL (1.2-6.7); Basophils % 0.9 %; Eosinophils % 0.2 %; HCT 38.5 % (36.0-46.0); HGB 11.7 g/dL (11.2-15.7); Immature Grans % 0.4 %; Lymphocytes % 10.2 %; MCH 31.1 pg (27.0-33.0); MCHC 30.4 % (32.0-36.0); MCV 102 fL (80-95); MPV 10.1 fL (8.0-11.0); Monocytes % 5.1 %; Neutrophils % 83.2 %; Platelet Count 159 10^3/uL (130-400); RBC 3.76 10^6/uL (3.93-5.22); RDW 14.8 % (11.7-14.6); RDW-SD 56.9 fL; WBC 5.66 10^3/uL (4.4-10.8)
[2025-03-13 18:37] LABS: ALT 42 U/L (14-59); AST 20 U/L (15-37); Albumin 4.1 g/dL (3.4-5.0); Alkaline Phosphatase 73 U/L (46-116); Anion Gap 14.9 mmol/L (3-11); BUN 72 mg/dL (7-18); CO2 15.1 mmol/L (21.0-32.0); CREATININE 3.1 mg/dL (0.55-1.02); Calcium 8.9 mg/dL (8.5-10.1); Chloride 110 mmol/L (98-107); Estimated GFR 14.47 (mL/min/1.73m2); Glucose 145 mg/dL (74-106); Lipase 45 U/L (<78); Magnesium 1.8 mg/dL (1.8-2.4); NT-proBNP 7073 pg/mL (<300); Potassium 5.2 mmol/L (3.5-5.1); Sodium 140 mmol/L (136-145); TSH 46.35 uIU/mL (0.36-3.74); Total Protein 8.1 g/dL (6.4-8.2)
[2025-03-13 18:40] LABS: Troponin I 146 ng/L (<or=51)
[2025-03-13 18:56] LABS: BE (Venous) -9 mmol/L (-2-3); HCO3 (Venous) 18 mmol/L (23-28); Lactate 0.8 mmol/L (<or=2.0); O2 Sat (Venous) 39 %; TCO2 (Venous) 17 mmol/L (24-29); pCO2 (Venous) 39 mmHg (41-51); pH (Venous) 7.28 (7.31-7.41); pO2 (Venous) 25 mmHg
[2025-03-13 19:22] LABS: FREE T4 0.18 ng/dL (0.76-1.46)
[2025-03-13 19:25] LABS: Troponin I 145 ng/L (<or=51)
--- NOTE | 2025-03-13 19:46 | DI.[facility]_ITS ---
PROCEDURE INFORMATION: Exam: CT Head Without Contrast Exam date and time: 03/13/2025 7:06 PM Age: 84 years old Clinical indication: Other: AMS TECHNIQUE: Imaging protocol: Computed tomography of the head without contrast. COMPARISON: CT HEAD WO 10/04/2024 3:09 PM FINDINGS: Brain: No acute intracranial hemorrhage, mass-effect, midline shift, or extra-axial collection is seen. There is patchy white matter hypoattenuation, nonspecific but commonly seen as a chronic sequela of small vessel ischemic disease. The barr white matter differentiation appears preserved. There is symmetric parenchymal volume loss. Cerebral ventricles: The ventricular system and basilar cisterns appear appropriate in size and configuration. Paranasal sinuses: The visualized paranasal sinuses appear well-aerated. Mastoid air cells: The mastoid air cells appear well-aerated. Auditory system: The middle ear cavities appear clear. Orbital cavities: The globes and intraorbital structures appear grossly intact. Bones: The bony calvarium appears intact. No depressed skull fracture is seen. Soft tissues: No significant scalp lesion is seen. Vasculature: There is atherosclerotic calcification within the intracranial portion of the internal carotid and vertebral arteries bilaterally. IMPRESSION: 1. No acute intracranial abnormality seen. 2. Presumed chronic microvascular ischemic change. 3. Symmetric parenchymal volume loss. Dictated and Authenticated by: Quentin Loving MD. Orderin Indu Quintana MD
--- NOTE | 2025-03-13 20:09 | DI.[facility]_ITS ---
PROCEDURE INFORMATION: Exam: CT Chest Without Contrast; Diagnostic Exam date and time: 03/13/2025 7:10 PM Age: 84 years old Clinical indication: Prior surgery; Surgery date: 6+ months; Surgery type: Cholecystectomy, appendectomy, tubal ligation; Abd pain, vomiting, cough TECHNIQUE: Imaging protocol: Diagnostic computed tomography of the chest without contrast. 3D rendering (Not supervised by radiologist): MIP and/or 3D reconstructed images were created by the technologist. Radiation optimization: All CT scans at this facility use at least one of these dose optimization techniques: automated exposure control; mA and/or kV adjustment per patient size (includes targeted exams where dose is matched to clinical indication); or iterative reconstruction. COMPARISON: CT ABDOMEN PELVIS WO 11/22/2024 8:48 PM FINDINGS: Tubes, catheters and devices: Right ventricular electronic device noted. Lungs: Mild bibasilar atelectasis. Pleural spaces: Unremarkable. No pneumothorax. No pleural effusion. Heart: Cardiomegaly. Coronary arteries: Coronary artery calcifications/stents identified. Lymph nodes: Unremarkable. No enlarged lymph nodes. Vasculature: Moderate to severe atherosclerotic change present in the vasculature. Bones/joints: Unremarkable. No acute fracture. Soft tissues: Unremarkable. Other findings: Respiratory motion noted. IMPRESSION: No acute abnormality seen to account for symptoms. PROCEDURE INFORMATION: Exam: CT Abdomen And Pelvis Without Contrast Exam date and time: 03/13/2025 7:10 PM Age: 84 years old Clinical indication: Prior surgery; Surgery date: 6+ months; Surgery type: Cholecystectomy, appendectomy, tubal ligation; Abd pain, vomiting, cough TECHNIQUE: Imaging protocol: Computed tomography of the abdomen and pelvis without contrast. 3D rendering (Not supervised by radiologist): MIP and/or 3D reconstructed images were created by the technologist. Radiation optimization: All CT scans at this facility use at least one of these dose optimization techniques: automated exposure control; mA and/or kV adjustment per patient size (includes targeted exams where dose is matched to clinical indication); or iterative reconstruction. COMPARISON: CT PELVIC WO 02/06/2025 3:54 PM FINDINGS: Liver: Hepatic calcification again seen. Gallbladder and biliary ducts: Status post cholecystectomy. Pancreas: Normal. No ductal dilation. Spleen: Normal. No splenomegaly. Adrenal glands: Low-density left adrenal lesion 2.8 cm, not significantly changed from previous exam. Kidneys and ureters: Normal. No hydronephrosis. Stomach and bowel: Unremarkable. No obstruction. No mucosal thickening. Appendix: No evidence of appendicitis. Intraperitoneal space: Minimal free fluid present in the pelvis. Vasculature: Severe atherosclerotic change again noted in the vasculature. 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 Lymph nodes: Unremarkable. No enlarged lymph nodes. Urinary bladder: Unremarkable as visualized. Reproductive: Unremarkable as visualized. Bones/joints: Mild to moderate lumbar spondylosis. Soft tissues: Unremarkable. Other findings: Trace bilateral upper quadrant fluid markedly reduced compared to previous study. IMPRESSION: Approved degree of free fluid compared to previous study. No definite acute abnormality seen to account for symptoms. Dictated and Authenticated by: Mattie Cardenas MD. Orderin Indu Quintana MD
[2025-03-13 20:23] LABS: Bilirubin Negative (Negative); Blood Small (Negative); Clarity Clear (Clear); Glucose Negative (Negative); Ketones Negative (Negative); Leukocyte Esterase Negative (Negative); Nitrite Negative (Negative); Urobilinogen 0.2 mg/dL (Up to 0.2); pH 5.5 (5-8)
[2025-03-13 20:25] LABS: Epithelial Cells Many HPF (Negative)
[2025-03-13 20:26] LABS: Bacteria Few HPF (Negative); C & S Indicated? No; Mucus Negative (Negative)
[2025-03-13 20:58] LABS: COVID-19 PCR Negative (Negative); Influenza A PCR Negative (Negative); Influenza B PCR Negative (Negative); RSV PCR Negative (Negative)
--- NOTE | 2025-03-13 21:00 | W.PM.HP.N ---
Date of service: 03/13/25 Time of Service: 21:00 Assessment and Plan Assessment and plan (1) Noncompliance w/medication treatment due to intermit use of medication: Status: Chronic Assessment and plan: This is an 84-year-old lady with recent altered mental status according to daughter who only [place] in [place] and does not see her long-term. The local daughter does take care of the patient and monitors her medications which are blister packed. She was noticed not to have taken one of her blister packed panels and possibly doubling up on some of her other meds. She does have CKD stage V which appears overall stable if not slightly exacerbated and she may have overtaken her diuretic. Her TSH is markedly elevated possibly indicating noncompliance. She is on higher doses of carvedilol and if she is not compliant, medication possibly are being adjusted to higher doses which needs to be reevaluated. Patient will be admitted with her [place] medical [place] [facility] reinitiated and observation of her mental status and abdominal symptoms. She did have mildly elevated troponins which appear to be chronically elevated and this does not appear to be a cardiac event. She does have a pacemaker internally with paced beats by telemetry and is not complaining of chest pain or shortness of breath, in fact she may be over diuresed. Monitor labs and symptoms while hospitalized. Case management may review the patient's home meds with daughters and reconcile complex. She is a full code. (2) Elevated troponin level not due to acute coronary syndrome: Start date: 03/13/25 Status: Acute Assessment and plan: Elevated but plateauing. Follow-up lab in the morning. Cardiac monitoring while hospitalized. 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 Reinitiate medications as per reconciled list and trend labs. She may need to decrease her recently increased furosemide dosing but for now will be continued on the same 40 mg daily. (4) Diabetes mellitus: Assessment and plan: Glucometer measurements before meals and bedtime with moderate sliding scale coverage with short acting insulin. (5) Atrial fibrillation: Assessment and plan: Patient is status post ablation by history and has a pacemaker with paced beat at 60 beats /min and regular on exam. This is a internal pacemaker with no palpable subcutaneous pacemaker on chest exam. Patient's Eliquis was adjusted to 2.5 mg twice daily per pharmacy review. (6) Arteriosclerotic cardiovascular disease: Assessment and plan: Chronic with no recent symptoms to explain elevated troponins. Cardiac monitoring while hospitalized. (7) Graves disease: Assessment and plan: Patient is on levothyroxine and liothyronine with TSH elevated. (8) Obstructive sleep apnea: Assessment and plan: If patient is on home therapy this should be continued. She is obese. History of Present Illness History of Present Illness Chief Complaint: Nausea and vomiting for 2 to 3 days. Narrative: This is an 84-year-old female patient who lives at home with blister packs delivered to her home and her local daughter supervising her medicines at home. Her daughter from out of town recently was visiting and does spend the summer in [place] noticed that the patient has been not feeling well with altered mental status for a couple of weeks with increasing GI symptoms recently and complaints of some abdominal discomfort with nausea and vomiting the last several days. She also notes that she was not taking her medications as per the blister packs and has some concerns of noncompliance causing her to not feel well. The patient states that she has been taking her meds with her local daughter supervision and feels that the daughter from out of town sometimes is too controlling. The patient is a very vague historian though she is able to give details of her past history. At the time I saw the patient she was not having any abdominal symptoms but in the ED she was found to have elevated troponins which have been elevated in the past with her end-stage kidney disease. She [place] [facility] [place] She is considering dialysis. Imaging in the ED did not reveal any evidence of acute pathology in the abdomen/pelvis or on imaging of the chest and head. She was admitted for observation of her elevated troponins on cardiac monitoring with completely paced beats. She is not having chest pain or shortness of breath. Her abdominal symptoms had subsided. Her labs do indicate noncompliance close markedly elevated TSH but she has not had as much peripheral edema with poppy over taking her diuretic. She does have CKD stage V with metabolic acidosis on medical therapy. She was treated in November for respiratory infection and completed an antibiotic course with doxycycline and cefpodoxime. She does have a chronic cough which has been a increased problem recently. As stated imaging of the chest was unrevealing. She is on Eliquis as a not adjusted dose and this was adjusted downward per pharmacy upon admission. She will be admitted for trending lab on her corrected medical regimen and observation of her abdominal symptoms. She is a full code. Review of Systems Narrative: 13 point review of systems otherwise unrevealing or stable. 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 Acquired trigger finger Renal failure syndrome Rheumatoid arthritis Lumbar radiculopathy Postoperative hypothyroidism Obesity Neck pain Lower urinary tract symptoms (LUTS) Inflammatory arthritis Hyperlipidemia, mixed Hypertensive disorder Heart failure Diabetes mellitus Diabetic retinopathy associated with controlled type 2 diabetes mellitus Chronic cystitis Chronic pain Cataract Atrial fibrillation History of anemia Surgical History H/O breast biopsy Hx of tonsillectomy H/O tubal ligation H/O adenoidectomy History of cholecystectomy Hx of appendectomy H/O right cataract extraction Family History Father Cancer Heart disease Mother Graves disease Rheumatoid arthritis Social History Smoking/Tobacco Use Status: Former Tobacco Use Quit Date: 09/22/95 Smoking risk assessment performed?: Yes Alcohol Intake: former Drug use: Never Substance use type: does not use Housing: other Do you feel safe at home: Yes Do you feel safe in your relationship?: Yes Additional Social history: lives alone Meds Allergies and Home Medications Allergies Allergy/AdvReac Type Severity Reaction Status Date / Time Penicillins Allergy Severe Skin Rash Verified 03/13/25 17:19 Macrolide Antibiotics Allergy Intermediate Hives Verified 03/13/25 17:19 naproxen Allergy Intermediate Skin Rash Verified 03/13/25 17:19 niacin Allergy Intermediate Hives Verified 03/13/25 17:19 omeprazole (From Prilosec) Allergy Intermediate Nausea Verified 03/13/25 17:19 codeine Allergy Nausea Verified 03/13/25 17:19 erythromycin base Allergy Hives Verified 03/13/25 17:19 Sulfa (Sulfonamide Allergy urtiaria Verified 03/13/25 17:19 Antibiotics) amitriptyline AdvReac Intermediate Other (See Verified 03/13/25 17:19 Comment) NSAIDS (Non-Steroidal AdvReac Intermediate Other (See Verified 03/13/25 17:19 Anti-Inflamma Comment) celecoxib AdvReac Nausea Verified 03/13/25 17:19 gabapentin AdvReac Other (See Verified 03/13/25 17:19 Comment) methotrexate AdvReac Nausea Verified 03/13/25 17:19 naltrexone AdvReac Skin Rash Verified 03/13/25 17:19 Home Medications ?Medication ?Instructions ?Recorded ?Confirmed ?Type apixaban 5 mg tablet (Eliquis) 5 mg PO BID 06/14/21 03/13/25 History atorvastatin 40 mg tablet 40 mg PO DAILY 06/14/21 03/13/25 History carvedilol 12.5 mg tablet 18.75 mg PO BID 06/14/21 03/13/25 History insulin degludec 100 unit/mL (3 10 unit subcut DAILY 06/14/21 03/13/25 History mL) subcutaneous pen (Tresiba FlexTouch U-100 insulin) levothyroxine 125 mcg tablet 125 mcg PO DAILY 06/14/21 03/13/25 History acetaminophen 325 mg tablet 2 tab PO BID 09/04/22 03/13/25 History paroxetine HCl 20 mg tablet 20 mg PO DAILY 10/26/22 03/13/25 History stznfwwnemi-pcbrtmihv-mia C-Mn 500 2 cap PO DAILY 07/10/23 03/13/25 History mg-400 mg capsule (Glucosamine Chondroitin Maximum Strength) sodium bicarbonate 325 mg tablet See Rx Instructions PO DAILY 07/10/23 03/13/25 History lisinopril 40 mg tablet 40 mg PO DAILY 02/25/24 03/13/25 History magnesium chloride 64 mg 64 mg PO DAILY 02/25/24 03/13/25 History tablet,extended release vitamins A,C,G-vzcc-jezxqq 4,296 1 cap PO BID 02/25/24 03/13/25 History mcg-226 mg-90 mg capsule (PreserVision AREDS) blood sugar diagnostic ([facility] 09/22/24 03/13/25 History Verio test strips) calcitriol 0.25 mcg capsule 0.25 mcg PO DAILY 09/22/24 03/13/25 History lancets 33 gauge ([facility]ica 09/22/24 03/13/25 History Plus Lancet) liothyronine 5 mcg tablet 5 mcg PO DAILY 09/22/24 03/13/25 History sevelamer carbonate 800 mg tablet 800 mg PO ONCE 09/22/24 03/13/25 History (Renvela) cefpodoxime 200 mg tablet 200 mg PO ONCE #4 tabs 11/22/24 03/13/25 Rx doxycycline hyclate 100 mg tablet 100 mg PO BID #9 tabs 11/22/24 03/13/25 Rx furosemide 40 mg tablet 40 mg PO DAILY #7 tabs 11/22/24 03/13/25 Rx furosemide 20 mg tablet 20 mg PO DAILY 02/06/25 03/13/25 History Exam Narrative Exam Narrative: General: Patient appears appropriate for age, alert and oriented at least to person and place, in no acute distress and very talkative. She is moderately obese. HEENT: Normocephalic, eyes with pupils equal and reactive to light symmetrically, extraocular movement intact and sclera anicteric. Oropharynx with dry mucosa and denture placed. Neck: Supple without JVD. Back: Stooped posture without CVA tenderness. Lungs: Fair aeration with bronchovesicular breath sounds diffusely, no focalizing rales or rhonchi. No expiratory wheeze. Breast: Exam deferred. Chest: No palpable subcutaneous pacemaker with patient stated that she has an internal pacemaker. Heart: Regular rate and rhythm with no murmurs or gallops appreciated. Abdomen: Obese contour, soft and nontender to palpation with no palpable hepatosplenomegaly and no focalizing guarding. No rebound. Bowel sounds positive all quadrants. Genitalia/rectal: Exam deferred. Extremities: Without clubbing, cyanosis or grossly pitting edema. Patient does have nonpitting edema both lower extremities. Good capillary refill. Skin: Normal color, warm and dry. Neuro: Cranial nerves II through XII gross intact, no focalized motor deficits. No tremor. Psych: Normal affect and mood with patient having no abnormal thought processes. She is a vague historian with remote memory intact but recent memory less intact. Results Imaging Imaging Studies: Exam: CT Head Without Contrast Exam date and time: 03/13/2025 7:06 PM Age: 84 years old Clinical indication: Other: AMS TECHNIQUE: Imaging protocol: Computed tomography of the head without contrast. COMPARISON: CT HEAD WO 10/04/2024 3:09 PM FINDINGS: Brain: No acute intracranial hemorrhage, mass-effect, midline shift, or extra-axial collection is seen. There is patchy white matter hypoattenuation, nonspecific but commonly seen as a chronic sequela of small vessel ischemic disease. The barr white matter differentiation appears preserved. There is symmetric parenchymal volume loss. Cerebral ventricles: The ventricular system and basilar cisterns appear appropriate in size and configuration. Paranasal sinuses: The visualized paranasal sinuses appear well-aerated. Mastoid air cells: The mastoid air cells appear well-aerated. Auditory system: The middle ear cavities appear clear. Orbital cavities: The globes and intraorbital structures appear grossly intact. Bones: The bony calvarium appears intact. No depressed skull fracture is seen. Soft tissues: No significant scalp lesion is seen. Vasculature: There is atherosclerotic calcification within the intracranial portion of the internal carotid and vertebral arteries bilaterally. IMPRESSION: 1. No acute intracranial abnormality seen. 2. Presumed chronic microvascular ischemic change. 3. Symmetric parenchymal volume loss. Exam: CT Chest Without Contrast; Diagnostic Exam date and time: 03/13/2025 7:10 PM Age: 84 years old Clinical indication: Prior surgery; Surgery date: 6+ months; Surgery type: Cholecystectomy, appendectomy, tubal ligation; Abd pain, vomiting, cough TECHNIQUE: Imaging protocol: Diagnostic computed tomography of the chest without contrast. 3D rendering (Not supervised by radiologist): MIP and/or 3D reconstructed images were created by the technologist. Radiation optimization: All CT scans at this facility use at least one of these dose optimization techniques: automated exposure control; mA and/or kV adjustment per patient size (includes targeted exams where dose is matched to clinical indication); or iterative reconstruction. COMPARISON: CT ABDOMEN PELVIS WO 11/22/2024 8:48 PM FINDINGS: Tubes, catheters and devices: Right ventricular electronic device noted. Lungs: Mild bibasilar atelectasis. Pleural spaces: Unremarkable. No pneumothorax. No pleural effusion. Heart: Cardiomegaly. Coronary arteries: Coronary artery calcifications/stents identified. Lymph nodes: Unremarkable. No enlarged lymph nodes. Vasculature: Moderate to severe atherosclerotic change present in the vasculature. Bones/joints: Unremarkable. No acute fracture. Soft tissues: Unremarkable. Other findings: Respiratory motion noted. IMPRESSION: No acute abnormality seen to account for symptoms. PROCEDURE INFORMATION: Exam: CT Abdomen And Pelvis Without Contrast Exam date and time: 03/13/2025 7:10 PM Age: 84 years old Clinical indication: Prior surgery; Surgery date: 6+ months; Surgery type: Cholecystectomy, appendectomy, tubal ligation; Abd pain, vomiting, cough COMPARISON: CT PELVIC WO 02/06/2025 3:54 PM FINDINGS: Liver: Hepatic calcification again seen. Gallbladder and biliary ducts: Status post cholecystectomy. Pancreas: Normal. No ductal dilation. Spleen: Normal. No splenomegaly. Adrenal glands: Low-density left adrenal lesion 2.8 cm, not significantly changed from previous exam. Kidneys and ureters: Normal. No hydronephrosis. Stomach and bowel: Unremarkable. No obstruction. No mucosal thickening. Appendix: No evidence of appendicitis. Intraperitoneal space: Minimal free fluid present in the pelvis. Vasculature: Severe atherosclerotic change again noted in the vasculature. 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 Lymph nodes: Unremarkable. No enlarged lymph nodes. Urinary bladder: Unremarkable as visualized. Reproductive: Unremarkable as visualized. Bones/joints: Mild to moderate lumbar spondylosis. Soft tissues: Unremarkable. Other findings: Trace bilateral upper quadrant fluid markedly reduced compared to previous study. IMPRESSION: Approved degree of free fluid compared to previous study. No definite acute abnormality seen to account for symptoms. Labs 03/14/25 06:24 03/13/25 18:00 Labs: Laboratory Results - last 24 hr 03/13/25 03/13/25 03/13/25 18:00 18:53 20:12 WBC 5.66 RBC 3.76 L Hgb 11.7 Hct 38.5 MCV 102 H MCH 31.1 MCHC 30.4 L RDW 14.8 H Plt Count 159 MPV 10.1 Immature Gran % 0.4 Neutrophils % 83.2 Lymphocytes % 10.2 Monocytes % 5.1 Eosinophils % 0.2 Basophils % 0.9 Nucleated RBC % 0.0 Absolute Neutrophils 4.71 Absolute Lymphocytes 0.58 L Absolute Monocytes 0.29 Absolute Eosinophils 0.01 Absolute Basophils 0.05 VBG pH 7.28 L VBG pCO2 39 L VBG pO2 25 VBG HCO3 18 L VBG Total CO2 17 L VBG O2 Saturation 39 VBG Base Excess -9 L VBG Lactate 0.8 Sodium 140 Potassium 5.2 H Chloride 110 H Carbon Dioxide 15.1 L Anion Gap 14.9 H BUN 72 H Creatinine 3.1 H Est GFR (CKD-EPI 2020) 14.47 Glucose 145 H Calcium 8.9 Magnesium 1.8 Total Bilirubin 1.0 AST 20 ALT 42 Alkaline Phosphatase 73 Troponin I 146 H* 145 H* NT-Pro-B Natriuret Pep 7073 H Total Protein 8.1 Albumin 4.1 Lipase 45 TSH 46.35 H Free T4 0.18 L Urine Color Yellow Urine Clarity Clear Urine pH 5.5 Ur Specific [place] 1.020 Urine Protein >=300 H Urine Ketones Negative Urine Blood Small H Urine Nitrite Negative Urine Bilirubin Negative Urine Urobilinogen 0.2 Ur Leukocyte Esterase Negative Urine RBC 5-10 H Urine WBC 3-5 Ur Epithelial Cells Many Urine Crystals Urine Bacteria Few Urine Mucus Negative Ur Culture Indicated? No Urine Glucose Negative Last Vital Signs Temp 36.5 C 03/13/25 17:11 Pulse 60 03/13/25 20:50 Resp 18 03/13/25 20:50 BP 209/56 H 03/13/25 19:01 Pulse Ox 99 03/13/25 20:50 Time Spent Time spent with Patient: >75 minutes Time was spent: preparing to see the patient(eg.review tests), obtaining and/or reviewing separately otained hiistory, ordering medications,tests, procedures, referring, communicating with other health menagerie caretaker, indepentently interpreting results, counseling the patient and care coordination
[2025-03-13 21:03] LABS: Source Nasopharynx
[2025-03-13 21:44] LABS: Troponin I 139 ng/L (<or=51)
--- NOTE | 2025-03-13 21:50 | W.PC.ACHO ---
Registration Status: REG ER Primary Language: Preferred Language: ED Information & Data Chief Complaint Dizzy/Sync 03/13/25 18:33 Chief Complaint Dizzy/Sync 03/13/25 17:51 Triage Note patient presented state she 03/13/25 17:11 is not feeling well. Daughter state that they noticed that her bubble pack of pills are emptied. they think she might have taken more than what she should take. 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) Cardiomyopathy Benign neoplasm of adrenal gland Pacemaker Atrophic vaginitis Arteriosclerotic cardiovascular disease Anemia Bladder mass Hx of myocardial infarction Slipping rib syndrome Acquired trigger finger Renal failure syndrome Rheumatoid arthritis Lumbar radiculopathy Postoperative hypothyroidism Obesity Neck pain Lower urinary tract symptoms (LUTS) Inflammatory arthritis Hyperlipidemia, mixed Hypertensive disorder Heart failure Diabetes mellitus Diabetic retinopathy associated with controlled type 2 diabetes mellitus Chronic cystitis Chronic pain Cataract Atrial fibrillation History of anemia (Last Reviewed 03/13/25 @ 21:01 by Cy Arango) H/O breast biopsy Hx of tonsillectomy H/O tubal ligation H/O adenoidectomy History of cholecystectomy Hx of appendectomy H/O right cataract extraction Most Recent Vital Signs Temperature 36.5 C 03/13/25 17:11 Temperature Source Oral 03/13/25 17:11 Pulse 61 03/13/25 21:01 Pulse 61 03/13/25 21:01 Respiratory Rate 19 03/13/25 21:01 Blood Pressure 206/64 H 03/13/25 21:01 Blood Pressure Mean 117 03/13/25 21:01 Blood Pressure Position Sitting 03/13/25 17:11 Pulse Oximetry 99 03/13/25 21:01 Oxygen Delivery Method Room Air 03/13/25 17:11 Oxygen Flow Rate 0 03/13/25 17:11 Allergies Penicillins Allergy (Severe, Verified 03/13/25 17:19) Skin Rash Macrolide Antibiotics Allergy (Intermediate, Verified 03/13/25 17:19) Hives naproxen Allergy (Intermediate, Verified 03/13/25 17:19) Skin Rash niacin Allergy (Intermediate, Verified 03/13/25 17:19) Hives omeprazole (From Prilosec) Allergy (Intermediate, Verified 03/13/25 17:19) Nausea codeine Allergy (Verified 03/13/25 17:19) Nausea lip swelling erythromycin base Allergy (Verified 03/13/25 17:19) Hives Sulfa (Sulfonamide Antibiotics) Allergy (Verified 03/13/25 17:19) urtiaria amitriptyline Adverse Reaction (Intermediate, Verified 03/13/25 17:19) Other (See Comment) mind wasn't right NSAIDS (Non-Steroidal Anti-Inflamma Adverse Reaction (Intermediate, Verified 03/13/25 17:19) Other (See Comment) Nose bleeds,nausea celecoxib Adverse Reaction (Verified 03/13/25 17:19) Nausea gabapentin Adverse Reaction (Verified 03/13/25 17:19) Other (See Comment) pt. reports having a seizure methotrexate Adverse Reaction (Verified 03/13/25 17:19) Nausea elevated LFT's naltrexone Adverse Reaction (Verified 03/13/25 17:19) Skin Rash IV IV Catheter Type [Left Diffusics Antecubital] IV Catheter Gauge [Left 20 Antecubital] Diagnostics 03/13/25 03/13/25 03/13/25 Range/Units 21:10 20:15 20:12 WBC (4.4-10.8) 10^3/uL RBC (3.93-5.22) 10^6/uL Hgb (11.2-15.7) g/dL Hct (36.0-46.0) % MCV (80-95) fL MCH (27.0-33.0) pg MCHC (32.0-36.0) % RDW (11.7-14.6) % Plt Count (130-400) 10^3/uL MPV (8.0-11.0) fL Immature Gran % % Neutrophils % % Lymphocytes % % Monocytes % % Eosinophils % % Basophils % % Nucleated RBC % (0.0-0.3) % Absolute Neutrophils (1.2-6.7) 10^3/uL Absolute Lymphocytes (1.2-3.4) 10^3/uL Absolute Monocytes (0.1-0.8) 10^3/uL Absolute Eosinophils (0.0-0.7) 10^3/uL Absolute Basophils (0.0-0.2) 10^3/uL VBG pH (7.31-7.41) VBG pCO2 (41-51) mmHg VBG pO2 mmHg VBG HCO3 (23-28) mmol/L VBG Total CO2 (24-29) mmol/L VBG O2 Saturation % VBG Base Excess (-2-3) mmol/L VBG Lactate (<or=2.0) mmol/L Sodium (136-145) mmol/L Potassium (3.5-5.1) mmol/L Chloride (98-107) mmol/L Carbon Dioxide (21.0-32.0) mmol/L Anion Gap (3-11) mmol/L BUN (7-18) mg/dL Creatinine (0.55-1.02) mg/dL Est GFR (CKD-EPI 2020) (mL/min/1.73m2) Glucose (74-106) mg/dL Calcium (8.5-10.1) mg/dL Magnesium (1.8-2.4) mg/dL Total Bilirubin (0.2-1.0) mg/dL AST (15-37) U/L ALT (14-59) U/L Alkaline Phosphatase (46-116) U/L Troponin I 139 H* (<or=51) ng/L NT-Pro-B Natriuret Pep (<300) pg/mL Total Protein (6.4-8.2) g/dL Albumin (3.4-5.0) g/dL Lipase (<78) U/L TSH (0.36-3.74) uIU/mL Free T4 (0.76-1.46) ng/dL Urine Color Yellow (Yellow) Urine Clarity Clear (Clear) Urine pH 5.5 (5-8) Ur Specific [place] 1.020 (1.005-1.025) Urine Protein >=300 H (Neg-Trace) mg/dL Urine Ketones Negative (Negative) mg/dL Urine Blood Small H (Negative) Urine Nitrite Negative (Negative) Urine Bilirubin Negative (Negative) Urine Urobilinogen 0.2 (Up to 0.2) mg/dL Ur Leukocyte Esterase Negative (Negative) Urine RBC 5-10 H (0-2) HPF Urine WBC 3-5 (0-5) HPF Ur Epithelial Cells Many (Negative) HPF Urine Crystals (Negative) HPF Urine Bacteria Few (Negative) HPF Urine Mucus Negative (Negative) Ur Culture Indicated? No Urine Glucose Negative (Negative) mg/dL COVID-19 Source Nasopharynx SARS-CoV-2 (PCR) Negative (Negative) Influenza Type A (PCR) Negative (Negative) Influenza Type B (PCR) Negative (Negative) RSV (PCR) Negative (Negative) 03/13/25 03/13/25 Range/Units 18:53 18:00 WBC 5.66 (4.4-10.8) 10^3/uL RBC 3.76 L (3.93-5.22) 10^6/uL Hgb 11.7 (11.2-15.7) g/dL Hct 38.5 (36.0-46.0) % MCV 102 H (80-95) fL MCH 31.1 (27.0-33.0) pg MCHC 30.4 L (32.0-36.0) % RDW 14.8 H (11.7-14.6) % Plt Count 159 (130-400) 10^3/uL MPV 10.1 (8.0-11.0) fL Immature Gran % 0.4 % Neutrophils % 83.2 % Lymphocytes % 10.2 % Monocytes % 5.1 % Eosinophils % 0.2 % Basophils % 0.9 % Nucleated RBC % 0.0 (0.0-0.3) % Absolute Neutrophils 4.71 (1.2-6.7) 10^3/uL Absolute Lymphocytes 0.58 L (1.2-3.4) 10^3/uL Absolute Monocytes 0.29 (0.1-0.8) 10^3/uL Absolute Eosinophils 0.01 (0.0-0.7) 10^3/uL Absolute Basophils 0.05 (0.0-0.2) 10^3/uL VBG pH 7.28 L (7.31-7.41) VBG pCO2 39 L (41-51) mmHg VBG pO2 25 mmHg VBG HCO3 18 L (23-28) mmol/L VBG Total CO2 17 L (24-29) mmol/L VBG O2 Saturation 39 % VBG Base Excess -9 L (-2-3) mmol/L VBG Lactate 0.8 (<or=2.0) mmol/L Sodium 140 (136-145) mmol/L Potassium 5.2 H (3.5-5.1) mmol/L Chloride 110 H (98-107) mmol/L Carbon Dioxide 15.1 L (21.0-32.0) mmol/L Anion Gap 14.9 H (3-11) mmol/L BUN 72 H (7-18) mg/dL Creatinine 3.1 H (0.55-1.02) mg/dL Est GFR (CKD-EPI 2020) 14.47 (mL/min/1.73m2) Glucose 145 H (74-106) mg/dL Calcium 8.9 (8.5-10.1) mg/dL Magnesium 1.8 (1.8-2.4) mg/dL Total Bilirubin 1.0 (0.2-1.0) mg/dL AST 20 (15-37) U/L ALT 42 (14-59) U/L Alkaline Phosphatase 73 (46-116) U/L Troponin I 145 H* 146 H* (<or=51) ng/L NT-Pro-B Natriuret Pep 7073 H (<300) pg/mL Total Protein 8.1 (6.4-8.2) g/dL Albumin 4.1 (3.4-5.0) g/dL Lipase 45 (<78) U/L TSH 46.35 H (0.36-3.74) uIU/mL Free T4 0.18 L (0.76-1.46) ng/dL Urine Color (Yellow) Urine Clarity (Clear) Urine pH (5-8) Ur Specific [place] (1.005-1.025) Urine Protein (Neg-Trace) mg/dL Urine Ketones (Negative) mg/dL Urine Blood (Negative) Urine Nitrite (Negative) Urine Bilirubin (Negative) Urine Urobilinogen (Up to 0.2) mg/dL Ur Leukocyte Esterase (Negative) Urine RBC (0-2) HPF Urine WBC (0-5) HPF Ur Epithelial Cells (Negative) HPF Urine Crystals (Negative) HPF Urine Bacteria (Negative) HPF Urine Mucus (Negative) Ur Culture Indicated? Urine Glucose (Negative) mg/dL COVID-19 Source SARS-CoV-2 (PCR) (Negative) Influenza Type A (PCR) (Negative) Influenza Type B (PCR) (Negative) RSV (PCR) (Negative) [facility] Documentation Fingerstick Glucose Start: 03/13/25 17:46 Freq: Status: Active Protocol: Activity Type Activity Date Activity User E-sign Co-sign Detail Recorded Client Recorded Date Recorded By Document 03/13/25 17:38 BKG DAMIGUEL ANGELON(3) [id number] 03/13/25 17:46 BKG DAEMON(4) Intake and Output - 24 Hour Total 03/13/25 17:08 thru 03/13/25 20:13 Output Total 200 Balance -200 Weight 58.967 kg Output: Urine 200 Falls Risk Assessment Contributing Factors Impairments 03/13/25 17:47 Cognition Cognitive impairment 03/13/25 17:47 Fall Total Score 18 03/13/25 17:47 Level of Risk Standard/Low Risk 03/13/25 17:47 Problems (Last Reviewed 03/13/25 @ 21:01 by Cy Arango) Acute confusion (Acute) Noncompliance w/medication treatment due to intermit use of medication (Acute) Elevated troponin level not due to acute coronary syndrome (Acute) v v v v v v v v v Sending and/or Receiving Nurses: Please use comment section below to note any information pertinent to the patient hand-off not included above. Information / Comments: 84 Y/O female came to ED after family members noticed AMS at home after noticing bubble packed medications had less than expected count. Trops elevated. Patient uses cane with assistance. Fistula right side. Pacemaker. Hx of CKD. Report received from: Karma
[2025-03-14 02:48] VITALS: BP 182/67; PULSE 61; RESP 22; TEMP 36.7; O2SAT 98
[2025-03-14] MEDS: Ondansetron 4 MG/2 ML VIAL IVP (05:57)
[2025-03-14] MEDS: Levothyroxine 125 MCG TAB PO (05:58)
[2025-03-14 07:19] LABS: HCT 33.8 % (36.0-46.0); HGB 10.5 g/dL (11.2-15.7); MCH 30.8 pg (27.0-33.0); MCHC 31.1 % (32.0-36.0); MCV 99 fL (80-95); MPV 9.8 fL (8.0-11.0); Platelet Count 181 10^3/uL (130-400); RBC 3.41 10^6/uL (3.93-5.22); RDW 14.7 % (11.7-14.6); RDW-SD 53.6 fL; WBC 6.04 10^3/uL (4.4-10.8)
[2025-03-14 07:31] VITALS: BP 183/59; PULSE 61; RESP 18; TEMP 36.7; O2SAT 95
[2025-03-14 07:50] LABS: ALT 35 U/L (14-59); AST 16 U/L (15-37); Albumin 3.6 g/dL (3.4-5.0); Alkaline Phosphatase 64 U/L (46-116); Anion Gap 15.1 mmol/L (3-11); BUN 68 mg/dL (7-18); Bilirubin, Total 1.1 mg/dL (0.2-1.0); CO2 16.9 mmol/L (21.0-32.0); CREATININE 2.9 mg/dL (0.55-1.02); Calcium 8.9 mg/dL (8.5-10.1); Chloride 111 mmol/L (98-107); Estimated GFR 15.68 (mL/min/1.73m2); Glucose 127 mg/dL (74-106); Magnesium 1.7 mg/dL (1.8-2.4); Potassium 4.4 mmol/L (3.5-5.1); Sodium 143 mmol/L (136-145); Total Protein 7.1 g/dL (6.4-8.2)
[2025-03-14 07:53] LABS: Troponin I 158 ng/L (<or=51)
[2025-03-14] MEDS: Normal Saline Flush 10 ML SYR IVP ×2 (08:49→11:06)
--- NOTE | 2025-03-14 09:22 | PT.INIE ---
PT Notes Visit Reasons: Elevated Troponin, CKD Stage IV, CAF Physical Therapy Inpatient Initial Evaluation Date: 03/14/2025 Referring Doctor: Maddison Mcdonald NP PT Orders: PT CONSULT: Eval for assistive device. Safety Consult for D/C Precautions: Fall. Standard. Activity as tolerated. Patient Profile/Admitting Diagnosis: Iliana is an 84-year-old female with past medical history significant for Graves' disease and ANGELIA 49957 x 20 minutes for 1 unit, 68098 x 70 minutes for 1 minute (8: 42?9: 19). Who presented to the ED on 03/13/2025 due to verbalizations of not feeling well, demosntrating altered mental status. She also complained of nausea, vomiting, cough, and diffuse abdominal pain. Patient is admitted to acute level of care for management of noncompliance with medication, kidney disease, diabetes mellitus, and atrial fibrillation. 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 reports two years ago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 Acquired trigger finger Renal failure syndrome Rheumatoid arthritis Lumbar radiculopathy Postoperative hypothyroidism Obesity Neck pain Lower urinary tract symptoms (LUTS) Inflammatory arthritis Hyperlipidemia, mixed Hypertensive disorder Heart failure Diabetes mellitus Diabetic retinopathy associated with controlled type 2 diabetes mellitus Chronic cystitis Chronic pain Cataract Atrial fibrillation History of anemia Surgical History H/O breast biopsy Hx of tonsillectomy H/O tubal ligation H/O adenoidectomy History of cholecystectomy Hx of appendectomy H/O right cataract extraction Social History/Home Situation: Lives alone in a mobile home with 3 steps to enter. Children live sclosey by and have been great support--have made her meals and brought her to medical appointments. Patient no longer drives. Uses a SPC indoors. Equipment Owned/DME: SPC, FWW Subjective: Queasy upon sitting up, vomited x 1. Nurse Radhika deferrede med administration due to vomiting. [place] better after a few minutes and was agreeable to walking ashort distance as she said that she does not ususally walk too far inside her trailer home. Objective: General Observation: Swollen B UE with R>>L. IV through R UE. Mental Status: Alert and oriented as to person, place, time, and purpose. Able to pay attention, focus, and respond appropriately. Pain: Denied abdominal pain, chest pain, and headache Vital Signs: Closely monitored by nursing staff ROM: Right Upper Extremity: Shoulder Flexion WFL. Shoulder abduction WFL. Elbow flexion WFL. Wrist flexion WFL. Functional opening and closing of hand WFL. Left Upper Extremity: Shoulder Flexion WFL. Shoulder abduction WFL. Elbow flexion WFL. Wrist flexion WFL. Functional opening and closing of hand WFL. Right Lower Extremity: Hip flexion WFL. Hip abduction WFL. Knee flexion WFL. Ankle dorsiflexion WFL. Ankle plantarflexion WFL. Left Lower Extremity: Hip flexion WFL. Hip abduction WFL. Knee flexion WFL. Ankle dorsiflexion WFL. Ankle plantarflexion WFL. Strength: Right Upper Extremity: Shoulder flexors 4/5. Shoulder abductors 4/5. Elbow flexors 4/5. Elbow extensors 4/5. Business Intelligence Engineer strong. Left Upper Extremity: Shoulder flexors 4/5. Shoulder abductors 4/5. Elbow flexors 4/5. Elbow extensors 4/5. Business Intelligence Engineer strong. Right Lower Extremity: Hip flexors 4-/5. Hip abductors 4-/5. Knee flexors 4/5. Knee extensors 4-/5. Ankle dorsiflexors 4-/5. Ankle plantarflexors 4-/5. Left Lower Extremity: Hip flexors 4-/5. Hip abductors 4-/5. Knee flexors 4/5. Knee extensors 4-/5. Ankle dorsiflexors 4-/5. Ankle plantarflexors 4-/5. Bed Mobility/Transfers: Minimal cueing provided for use of B hands as needed for support, movement sequence, AD management, and posture to reduce fall risk and minimize pain report and or dyspnea. Rolling independent Sit to supine independent Sit to stand supervision with FWW Stand to sit supervision with FWW Bed to reclining chair stand by assist with FWW Reclining chair to bed stand by assist with FWW Gait: Covered a distance of 50 feet using FWW with reciprcoal step through gait pattern, aurelio decerased and directional change decreased in speed but no LOB nor SOB. Patient verbalzied feeling much more stable today than yesterday. Stairs: To be done at next session Balance: Static Sitting: Normal Dynamic Sitting: Normal Static Standing: Fair Dynamic Standing: Fair Special Tests: Mobility Limitations Standardized Measure [facility] 6 clicks Basic Mobility Inpatient Short Form: Raw Score: 22 CMS Score: 21% deficit 4-Stage Balance Test: Feet together 10 seocnds Semi tandem 10 seconds Full tandem unable to do One-legged stance deferred Informed Consent/Education: Patient was instructed in purpose of PT consult and plan of care. Agreeable to proceed with established PT POC to achieve personal goals. Assessment: Patient required the use of a front-wheeled walker for all short distance level surface ambulation for this session. She vomited x 1 after slowly sitting up at edge of be but felt better a few minutes after. She tolerated walking from R side of her bed to the the wall outside her room and back without undue fatigue and shortness of breath. Patient presents with clinical signs and symptoms consistent with current/admitting diagnoses that have resulted to mobility limitations, gait instability, generalized weakness, and overall ADL decline as demonstrated by the following impairment level findings: 1. Decreased strength to B UE/LE major muscle groups 2. Impaired standing balance 3. Impaired activity tolerance 4. Swelling in B UE with R more affected Impairments are contributing to the following functional limitations: 1. Difficulty with ambulation without assistive device 2. Increased completion time for mobility ADL performance 3. Increased risk for falls 4. Difficulty with managing steps alone safely Patient is assessed as a 47354 moderate complexity based on the following: History: 84-year-old female with past medical history as indicated above Examination: Demonstrable impairment in strength, balance, and mobility level with underlying impairments and functional limitations as exhibited above as well as deficit score of 21% utilizing the [facility] Mobility Inpatient Short Form Presentation: Evolving Decision Makin moderate complexity Goals: Goals X1 week 1. Supine-Sit independent 2. Sit-Supine independent 3. Sit-Stand independent 4. Stand-Sit independent with SPC 5. Bed-Chair independent with SPC 6. Chair-Bed independent with SPC 7. Independent gait on level surface with use of SPC for at least 100 feet without report of pain nor dyspnea 8. Independent stair negotiation while holding onto B rails for at least 3 steps without report of pain nor dyspnea 9. Independent with home exercise program 10. Good static and dynamic standing balance/tolerance Plan of Care/Treatment Plan: 1-2x/day, 7 days/week x 1 week. Plan of care has been reviewed with the SKEIN STRAIGHTENER providing the service under Physical Therapy direction. Initiate Physical Therapy intervention for pain management as needed, strengthening, bed mobility, transfers, gait, stairs, balance training, and use of assistive device. DISCHARGE RECOMMENDATIONS: [] Home with no services [] [X] Home with services. Patient will benefit from home health PT services in order to progress mobility level using least restrictive assistive ambulatory device, assess home safety, identify additional equipment needs, and establish a functional maintenance program that will increase ability of patient to remain at home. [] Home with outpatient PT [] [] SNF for continued rehabilitation [] [] [facility] [] [] SNF versus LTC based on ability to participate and progress [] TREATMENT CODE/TIME: 63711 x 20 minutes for 1 unit, 40992 x 17 minutes for 1 unit (8:42-9:19). Thank you for the opportunity to participate in the care of this patient. Jeanne Alberts PT, DPT, CLT [facility] [place], [place]
[2025-03-14 11:00] VITALS: BP 188/67; PULSE 60; RESP 18; TEMP 36.7; O2SAT 98
[2025-03-14] MEDS: Prochlorperazine 10 MG/2 ML VIAL IVP ×2 (11:05→20:57)
[2025-03-14] MEDS: Pantoprazole 40 MG VIAL IVP (11:05)
--- NOTE | 2025-03-14 11:15 | INITIAL_ITS ---
Date of service: 03/14/25 Time of Service: 11:15 Care Management Initial Assmt Initial Assessment Reason for Hospitalization: Elevated troponins, CKD Functional Status/Living Situation Patient Presentation: Iliana was lying in bed with her daughter Edith at her side when CM met with her. Iliana was very sleepy and did not engage in the conversation however Edith was able to answer questions. Iliana lives in a mobile home in [place] with her 2 cats. She has 7 children and many grandchildren and great grandchildren. All of her children live locally except one who is in [place]. 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 She receives Meals on Wheels and is connected to the [employer]. Iliana uses both a cane and a walkjer for ambulatory assistance and is independent with ADLs. edith stated that up until a week or so ago, Iliana was doing very well. She has some slight short term memory issues but, overall, has been doing very well. She has stage IV kidney disease and has a fistula, however she has not needed hemodialysis yet. She is followed closely by her drum drier operator at [facility]. Iliana has been vomiting since admission. There is concern that there may be some issues with her medication administration and/or compliance. She also has elevated trroponins not thought to be related to ACS. CM will follow. Town of Residence: [place] Resides with: Alone Natural Supports: children Employment Status: Retired Instrumental Activities of Daily Living (ADLs): Independent Medications Medication Management: Issues/Barriers with Instructions/Directions (and compliance) Physical Functioning/Mobility Assistive Device: walker and cane Advance Directives Advance Directives: Do you have an Advance Directive: N , 11:06 AD On File at [facility]: N 06/14/21, 11:06 Date Asked 03/13/25 03/13/25, 17:10 AD Date Reviewed COLST On File at [facility] COLST Date Scanned Code Status Resuscitation Status Full Code Portal Pt does not currently have a portal and education provided: Yes Insurance Coverage/Financial Issues Insurance: Medicare Medicaid Care Team Visit Care Team Role Provider Type Krystian Ricardo MD [facility] STAFF PHYSICIAN Jason Snow DO Primary Care Provider NON-[facility] STAFF PHYSICIAN Jay Lizarraga Other Providers OTHER Lilian Griggs MD Emergency Provider [facility] STAFF PHYSICIAN Cy Arango Admit Provider NON-[facility] STAFF PHYSICIAN Attending Provider Discharge Potential Discharge Needs: PCP F/U Appt Anticipated Barriers to Discharge: None Identified Patient/Family Education Needs: Review discharge instructions, discuss Ask Me Three Transportation: Private vehicle Plan: Anticipate Iliana will return home, possibly with new home health services, when medically cleared. She will follow up with her community providers and plan of care and transport with family. CM will follow and continue to assess for discharge needs. Social Determinants of Health Screening Social Determinants of health last assessed in clinic: 03/14/25 Will the Patient Participate in the Screening?: Yes Do you worry about having a steady place to live?: no Problems where you live: no known problems In the past 12 months, have you had to go without electric, gas, oil or water in your home?: no 1. Within the past 12 months, we worried whether our food would run out before we got money to buy more.: Never true 2. Within the past 12 months, the food we bought just didn't last and we didn't have money to get more.: Never true Has lack of transportation kept you from medical appointments or from doing things needed for daily living?: no Has anyone in your life made you feel unsafe or unsupported?: no How hard is it for you to pay for the very basics like food, housing, medical care, and heating? Would you say it is:: Not hard at all Do you want help finding or keeping work or a job?: I do not need or want help If for any reason you need help with day-to-day activities such as bathing, preparing meals, shopping, managing finances, etc., do you get the help you need?: I don?t need any help How often do you feel lonely or isolated from those around you?: Never Do you speak a language other than [place] Island[place] at home?: No Does the patient want assistance with any of the above?: No PFSH All Active Problems (Updated 03/14/25 @ 18:06 by Krystian Ricardo) Discharge planning issues (Acute) Vomiting (Acute) Acute confusion (Acute) Noncompliance w/medication treatment due to intermit use of medication (Chronic) Elevated troponin level not due to acute coronary syndrome (Acute) Sacroiliac joint dysfunction of right side (Acute) Bladder cancer (Acute) Acute pyelonephritis (Acute) Medical History Rib cage dysfunction Stucco keratosis Obstructive sleep apnea Depression Graves disease GERD (gastroesophageal reflux disease) Fibromyalgia Kidney disease, chronic, stage IV (severe, 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 Acquired trigger finger Renal failure syndrome Rheumatoid arthritis Lumbar radiculopathy Postoperative hypothyroidism Obesity Neck pain Lower urinary tract symptoms (LUTS) Inflammatory arthritis Hyperlipidemia, mixed Hypertensive disorder Heart failure Diabetes mellitus Diabetic retinopathy associated with controlled type 2 diabetes mellitus Chronic cystitis Chronic pain Cataract Atrial fibrillation History of anemia Surgical History H/O breast biopsy Hx of tonsillectomy H/O tubal ligation H/O adenoidectomy History of cholecystectomy Hx of appendectomy H/O right cataract extraction Family History Father Cancer Heart disease Mother Graves disease Rheumatoid arthritis Social History Smoking/Tobacco Use Status: Former Tobacco Use Quit Date: 09/22/95 Smoking risk assessment performed?: Yes Alcohol Intake: former Drug use: Never Substance use type: does not use Housing: other Do you feel safe at home: Yes Do you feel safe in your relationship?: Yes Additional Social history: lives alone
[2025-03-14] MEDS: Insulin Aspart 300 UNITS/3 ML PEN SC ×2 (13:36→22:06)
[2025-03-14 16:36] VITALS: BP 150/82; PULSE 62; RESP 18; TEMP 36.8; O2SAT 96
--- NOTE | 2025-03-14 17:45 | RT.EKG_ITS ---
APPROVED REPORT Exam: Resting ECG Reason for Exam: elevated troponin, ongoing vomiting Patient Location: I HR:61 bpm ECG Measurements Heart Rate 61 AXIS [place] [id number] P [id number] QRSd 126 QRS 228 QT 522 T 123 QTc 526 Conclusion Afib/flutter and ventricular-paced rhythm...V-paced rhythm, A-rate>240
--- NOTE | 2025-03-14 17:47 | W.PM.PROGNOT ---
Date of Service Date of service: 03/14/25 Time of Service: 17:52 Assessment and Plan Assessment and plan (1) Vomiting: Status: Acute Assessment and plan: Persistent vomiting after apparent medication errors with possible overuse of some of her medication including diuretic She appers mildly dehydrated today, will give 500ml bolus and start maintenence fluids with care given CKD Follow lytes. (2) Noncompliance w/medication treatment due to intermit use of medication: Status: Chronic Assessment and plan: As above. I don't see a clear toxic syndrome (3) Elevated troponin level not due to acute coronary syndrome: Start date: 03/13/25 Status: Acute Assessment and plan: Elevated with slight trend up. Follow given ongoing vomiting, repeat EKG. Ongoing cadiac monitoring while hospitalized. (4) Kidney disease, chronic, stage IV (severe, 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): Assessment and plan: Stable with slight worsening of lab most likely from noncompliance and possibly doubling her diuretics. GFR and acidosis similar to chronic. She hasn't gotten meds today, continue to follow lytes/fluid status closely. (5) Diabetes mellitus: Assessment and plan: Continue AC fingersticks with moderate sliding scale coverage with short acting insulin. (6) Atrial fibrillation: Assessment and plan: Patient is status post ablation by history and has a pacemaker with paced beat at 60 beats /min and regular on exam. Patient's Eliquis was adjusted to 2.5 mg twice daily per pharmacy review on admission, continue this. (7) Arteriosclerotic cardiovascular disease: Assessment and plan: Chronic with no recent chest pain. Troponins elevated but she has had this before with CKD, following. Cardiac monitoring while hospitalized. (8) Graves disease: Assessment and plan: Now hypothryoid s/p thyroidectomy. Patient is on levothyroxine and liothyronine with TSH elevated, likely indicating she is not taking her thyroid supplement as prescribed. I'm not sure why she is on T3, which is not restorationism, but this was confirme. (9) Obstructive sleep apnea: Assessment and plan: If patient is on home CPAP therapy this should be continued. (10) Discharge planning issues: Status: Acute Assessment and plan: home when able to take po Subjective Subjective Patient reports: voiding w/o difficulty, bowel movement, nausea and vomiting; denies tolerating a regular diet, diarrhea, shortness of breath or fever Interval history since last seen: Events: missed morning meds, wretching/vomiting, finally resting this afternoon. She feels nauseous. No chest pain or abdominal pain. SHe hasn't felt like tryign to eat or even drink. Some wet sounding cough per daughter. Exam Narrative Exam Narrative: General: Alert and oriented, appears uncomfortable but not toxic. HEENT: MM mildly dry, no icterus Lungs: Fair aeration with slightly course breath sounds in dependant base, but no focalizing rales or rhonchi. No expiratory wheeze. Heart: Regular rate and rhythm with no murmurs or gallops appreciated. Abdomen: +active BS, soft, mildly tender to palpation in epigastrum with no palpable hepatosplenomegaly and no focalizing guarding. No rebound. No RUQ tenderness Extremities: Without clubbing, cyanosis or grossly pitting edema. Objective Last Vital Signs Temp 36.8 C 03/14/25 16:36 Pulse 62 03/14/25 16:36 Resp 18 03/14/25 16:36 BP 150/82 H 03/14/25 16:36 Pulse Ox 96 03/14/25 16:36 Laboratory Results - last 24 hr 03/13/25 03/13/25 03/13/25 18:00 18:53 20:12 WBC 5.66 RBC 3.76 L Hgb 11.7 Hct 38.5 MCV 102 H MCH 31.1 MCHC 30.4 L RDW 14.8 H Plt Count 159 MPV 10.1 Immature Gran % 0.4 Neutrophils % 83.2 Lymphocytes % 10.2 Monocytes % 5.1 Eosinophils % 0.2 Basophils % 0.9 Nucleated RBC % 0.0 Absolute Neutrophils 4.71 Absolute Lymphocytes 0.58 L Absolute Monocytes 0.29 Absolute Eosinophils 0.01 Absolute Basophils 0.05 VBG pH 7.28 L VBG pCO2 39 L VBG pO2 25 VBG HCO3 18 L VBG Total CO2 17 L VBG O2 Saturation 39 VBG Base Excess -9 L VBG Lactate 0.8 Sodium 140 Potassium 5.2 H Chloride 110 H Carbon Dioxide 15.1 L Anion Gap 14.9 H BUN 72 H Creatinine 3.1 H Est GFR (CKD-EPI 2020) 14.47 Glucose 145 H Calcium 8.9 Magnesium 1.8 Total Bilirubin 1.0 AST 20 ALT 42 Alkaline Phosphatase 73 Troponin I 146 H* 145 H* NT-Pro-B Natriuret Pep 7073 H Total Protein 8.1 Albumin 4.1 Lipase 45 TSH 46.35 H Free T4 0.18 L Urine Color Yellow Urine Clarity Clear Urine pH 5.5 Ur Specific [place] 1.020 Urine Protein >=300 H Urine Ketones Negative Urine Blood Small H Urine Nitrite Negative Urine Bilirubin Negative Urine Urobilinogen 0.2 Ur Leukocyte Esterase Negative Urine RBC 5-10 H Urine WBC 3-5 Ur Epithelial Cells Many Urine Crystals Urine Bacteria Few Urine Mucus Negative Ur Culture Indicated? No Urine Glucose Negative COVID-19 Source SARS-CoV-2 (PCR) Influenza Type A (PCR) Influenza Type B (PCR) RSV (PCR) 03/13/25 03/13/25 03/14/25 20:15 21:10 06:24 WBC 6.04 RBC 3.41 L Hgb 10.5 L Hct 33.8 L MCV 99 H MCH 30.8 MCHC 31.1 L RDW 14.7 H Plt Count 181 MPV 9.8 Immature Gran % Neutrophils % Lymphocytes % Monocytes % Eosinophils % Basophils % Nucleated RBC % Absolute Neutrophils Absolute Lymphocytes Absolute Monocytes Absolute Eosinophils Absolute Basophils VBG pH VBG pCO2 VBG pO2 VBG HCO3 VBG Total CO2 VBG O2 Saturation VBG Base Excess VBG Lactate Sodium 143 Potassium 4.4 Chloride 111 H Carbon Dioxide 16.9 L Anion Gap 15.1 H BUN 68 H Creatinine 2.9 H Est GFR (CKD-EPI 2020) 15.68 Glucose 127 H Calcium 8.9 Magnesium 1.7 L Total Bilirubin 1.1 H AST 16 ALT 35 Alkaline Phosphatase 64 Troponin I 139 H* 158 H* NT-Pro-B Natriuret Pep Total Protein 7.1 Albumin 3.6 Lipase TSH Free T4 Urine Color Urine Clarity Urine pH Ur Specific [place] Urine Protein Urine Ketones Urine Blood Urine Nitrite Urine Bilirubin Urine Urobilinogen Ur Leukocyte Esterase Urine RBC Urine WBC Ur Epithelial Cells Urine Crystals Urine Bacteria Urine Mucus Ur Culture Indicated? Urine Glucose COVID-19 Source Nasopharynx SARS-CoV-2 (PCR) Negative Influenza Type A (PCR) Negative Influenza Type B (PCR) Negative RSV (PCR) Negative Time Spent with Patient Time Spent with Patient: 35-49 minutes Time was spent: preparing to see the patient(eg.review tests), obtaining and/or reviewing separately otained hiistory, ordering medications,tests, procedures, referring, communicating with other health foster care worker, indepentently interpreting results, counseling the patient and care coordination
[2025-03-14] MEDS: MAGNESIUM SULFATE 1 GM/100 ML BAG IV_INF (18:35)
[2025-03-14] MEDS: Lactated Ringers 500 ML IV (18:35)
[2025-03-14 18:49] LABS: Anion Gap 14.4 mmol/L (3-11); BUN 70 mg/dL (7-18); CO2 18.6 mmol/L (21.0-32.0); CREATININE 3.1 mg/dL (0.55-1.02); Calcium 9.3 mg/dL (8.5-10.1); Chloride 110 mmol/L (98-107); Estimated GFR 14.47 (mL/min/1.73m2); Glucose 167 mg/dL (74-106); Potassium 5.3 mmol/L (3.5-5.1); Sodium 143 mmol/L (136-145)
[2025-03-14 19:28] LABS: Troponin I 137 ng/L (<or=51)
[2025-03-14 20:00] VITALS: PULSE 62
[2025-03-14 20:25] VITALS: BP 154/82; PULSE 60; RESP 19; TEMP 36.6; O2SAT 95
[2025-03-14] MEDS: Carvedilol 12.5 MG TAB 18.75 MG PO (20:57)
[2025-03-14] MEDS: Acetaminophen 325 MG TAB 650 MG PO (20:58)
[2025-03-14] MEDS: Atorvastatin 40 MG TAB PO (21:00)
[2025-03-14] MEDS: Apixaban 2.5 MG TAB PO (21:00)
[2025-03-14] MEDS: Sodium Bicarbonate 650 MG TAB 325 MG PO (21:02)
[2025-03-15 03:58] VITALS: BP 148/49; PULSE 60; RESP 18; TEMP 37; O2SAT 98
[2025-03-15] MEDS: Levothyroxine 125 MCG TAB PO (05:34)
[2025-03-15] MEDS: DEXTROSE 5%-0.9% SALINE 1,000 ML 100 ML IV (05:44)
[2025-03-15 08:08] VITALS: BP 146/65; PULSE 61; RESP 18; TEMP 36.7; O2SAT 97
--- NOTE | 2025-03-15 08:26 | PTTR_ITS ---
PT Notes Visit Reasons: Elevated Troponin, CKD Stage IV, CAF Physical Therapy Inpatient Treatment Note Date: 03/14/2025 Precautions: Fall. Standard. Activity as tolerated. Subjective: Still nauseous. Vomited x 1 at start of session, Nurse Radhika made aware. Objective: General Observation: Swollen B UE with R>>L. IV through R UE. Mental Status: Alert and oriented as to person, place, time, and purpose. Able to pay attention, focus, and respond appropriately. Pain: Denied abdominal pain, chest pain, and headache Vital Signs: Closely monitored by nursing staff Bed Mobility/Transfers: Minimal cueing provided for use of B hands as needed for support, movement sequence, AD management, and posture to reduce fall risk and minimize pain report and or dyspnea. Supine to sit supervision Sit to stand contact guard assist with FWW Stand to sit contact guard assist with FWW Reclining chair to bed contact guard assist with FWW Gait: Covered a distance of 8 steps from bedside recliner to bed only as patient was not feeling well and wanted to rest in bed. Used FWW with contact guard assist by PT. Stairs: Deferred Balance: Static Sitting: Normal Dynamic Sitting: Normal Static Standing: Fair Dynamic Standing: Fair Assessment: Nausea and vomiting continues to limit patient's activity tolerance and par ticipation. Use of FWW provides increased stability and safety as of now. Only was able to tolerate very little for this session and refused doing exercises due to fatigue and nausea. Plan of Care/Treatment Plan: 1-2x/day, 7 days/week x 1 week. Plan of care has been reviewed with the TELEPHONE INSTRUMENT SUPERVISOR providing the service under Physical Therapy direction. Initiate Physical Therapy intervention for pain management as needed, strengthening, bed mobility, transfers, gait, stairs, balance training, and use of assistive device. DISCHARGE RECOMMENDATIONS: [] Home with no services [] [X] Home with services. Patient will benefit from home health PT services in order to progress mobility level using least restrictive assistive ambulatory device, assess home safety, identify additional equipment needs, and establish a functional maintenance program that will increase ability of patient to remain at home. [] Home with outpatient PT [] [] SNF for continued rehabilitation [] [] [facility] [employer]er [facility] [] [] SNF versus LTC based on ability to participate and progress [] TREATMENT CODE/TIME: 83521 x 25 minutes for 1 unit (8:42-9:19).
[2025-03-15] MEDS: Magnesium Chloride 64 MG TABCR PO (09:24)
[2025-03-15] MEDS: PARoxetine 20 MG TAB PO (09:24)
[2025-03-15] MEDS: Calcitriol 0.25 MCG CAP PO (09:24)
[2025-03-15] MEDS: Apixaban 2.5 MG TAB PO (09:24)
[2025-03-15] MEDS: Carvedilol 12.5 MG TAB 18.75 MG PO (09:24)
[2025-03-15] MEDS: Liothyronine 5 MCG TAB PO (09:24)
[2025-03-15] MEDS: Furosemide 40 MG TAB PO (09:24)
[2025-03-15] MEDS: Lisinopril 20 MG TAB 40 MG PO (09:24)
[2025-03-15] MEDS: Glucosamine/Chondroitin CAP 2 CAP PO (09:27)
[2025-03-15] MEDS: Acetaminophen 325 MG TAB 650 MG PO (09:27)
[2025-03-15] MEDS: Preservision CAPSULE 1 CAP PO (09:27)
[2025-03-15] MEDS: Insulin Aspart 300 UNITS/3 ML PEN SC ×2 (09:28→14:03)
[2025-03-15] MEDS: Sodium Bicarbonate 650 MG TAB PO (10:22)
--- NOTE | 2025-03-15 11:32 | PT.INTREAT ---
PT Notes Visit Reasons: Elevated Troponin, CKD Stage IV, CAF Physical Therapy Inpatient Treatment Note Date: 03/15/2025 Precautions: Fall. Standard. Activity as tolerated. Subjective: Nausea and vomiting resolved as of this morning. [place] much better and was ready to go home later today. Has all equipment she needs at home. Objective: General Observation: Swollen B UE with R>>L. IV through R UE. Mental Status: Alert and oriented as to person, place, time, and purpose. Able to pay attention, focus, and respond appropriately. Pain: Denied abdominal pain, chest pain, and headache Vital Signs: Closely monitored by nursing staff Bed Mobility/Transfers: Minimal cueing provided for use of B hands as needed for support, movement sequence, AD management, and posture to reduce fall risk and minimize pain report and or dyspnea. Supine to sit supervision Sit to stand stand by assist with FWW Stand to sit stand by assist with FWW Reclining chair to bed stand by assist with FWW Gait: Covered a distance of 250 feet using FWW with stand by assist of PT. Stairs: Negotiated 3 x 4-inchs teps and 2 x 4-inch steps while holding onto B rails for support with stand by assist. Balance: Static Sitting: Normal Dynamic Sitting: Normal Static Standing: Fair Dynamic Standing: Fair Assessment: Patient demonstrated much improved mobility level using the front-wheeled walker without symprom recurrence, no nausea nor vomiting. Preferred to use the walker for safety. Plan of Care/Treatment Plan: Cotninue with PT to re-establish baseline mobility level. DISCHARGE RECOMMENDATIONS: [] Home with no services [] [X] Home with services. Patient will benefit from home health PT services in order to progress mobility level using least restrictive assistive ambulatory device, assess home safety, identify additional equipment needs, and establish a functional maintenance program that will increase ability of patient to remain at home. [] Home with outpatient PT [] [] SNF for continued rehabilitation [] [] Assisted Care [] [] SNF versus LTC based on ability to participate and progress [] TREATMENT CODE/TIME: 18491 x 31 minutes for 1 unit (11:32-12:03).
[2025-03-15 12:07] VITALS: BP 130/48; PULSE 62; RESP 18; TEMP 36.5; O2SAT 99
[2025-03-15] MEDS: Sodium Bicarbonate 650 MG TAB 325 MG PO (14:02)
--- NOTE | 2025-03-15 14:14 | W.PM.DS.N ---
Date of service: 03/15/25 Time of Service: 14:14 DS: Diagnosis Discharge Diagnosis (1) Vomiting: Status: Resolved (2) Noncompliance w/medication treatment due to intermit use of medication: Status: Chronic (3) Elevated troponin level not due to acute coronary syndrome: Status: Acute (4) Kidney disease, chronic, stage IV (severe, 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): (5) Diabetes mellitus: (6) Atrial fibrillation: (7) Arteriosclerotic cardiovascular disease: (8) Graves disease: (9) Obstructive sleep apnea: (10) Discharge planning issues: Status: Deleted Discharge Plan Disposition Patient Disposition: Home Condition: Stable Discharge Details Reason For Visit: Elevated Troponin, CKD Stage IV, CAF Admit Date/Time: 03/13/25 21:14 Admit Provider: Cy Arango Attending Provider: Cy Arango [facility] [place] [facility] Course: 84 yo F with history of CKD4, type 2 DM, atrial fibrillation, CAD, and surgical hypothryoidism with h/o Graves who presented with persistent vomiting and confusion after apparent medication errors with possible overuse of some of her medication including diuretic. Her symptoms were initially difficult to control despite IV ondansatron, compazine, and lorazepam. She was given IV fluids overnight 03/14. By 03/15 her nausea had resolved and she was eating and drinking well wihout needing medication. She missed medication doses 03/14 but was back on her regular medication by 03/15 AM. fortunately her kidney function, bicarbonate, and electrolytes where stable despite the vomiting. Her potassium was as high as 5.3 but was . Her TSH was high, indicating she may not be taking her levothyroxine or liothyronine. It was unclear why she is being treated with liothyronine, which is not standard practice. She should resume her thyroid medications and recheck TSH in 4-6 weeks. Her apixaban (Eliquis) dose was corrected to 2.5mg twice daily due to her age and GFR. She did have elevated troponin, but no chest pain or EKG changes. These were relatively flat with a maximum of 158, related to stress response in setting of CKD. Atorvasatin and apixaban were continued. She was evaluated by PT and was walking with FWW, home services recommended but declined by the patient. Her daughters indicated they would set up her daily medicaitons to avoid errors in the future. Recommendations for Follow Up Recommended tests to be ordered by follow up provider: BMP in 1-2 weeks TSH w/reflex in 4-6 weeks Home Meds and New Rx's Prescriptions: New Eliquis 2.5 mg Tablet 2.5 mg PO BID Qty: 180 2RF Rx Instructions: dose reduction for age/GFR Continued [id number] C-Mn [Glucosamine Chondroitin MaxStr] 500-400 mg capsule 2 cap PO DAILY sodium bicarbonate 325 mg tablet See Rx Instructions PO DAILY Rx Instructions: 2 tablets PO AM 1 tablet PO Noon & HS acetaminophen 325 mg tablet 2 tab PO BID paroxetine HCl 30 mg tablet 30 mg PO DAILY atorvastatin 40 mg tablet 40 mg PO DAILY Patient Comments: TAKE ONE TABLET BY MOUTH EVERY EVENING carvedilol 12.5 mg tablet 18.75 mg PO BID Patient Comments: TAKE ONE TABLET BY MOUTH TWICE A DAY WITH FOOD FOR 90 DAYS levothyroxine 125 mcg tablet 125 mcg PO DAILY Patient Comments: TAKE ONE TABLET BY MOUTH EVERY DAY FOR 90 DAYS insulin degludec [Tresiba FlexTouch U-100] 100 unit/mL (3 mL) insulin pen 10 unit SUBCUT DAILY Patient Comments: INJECT 2 UNITS SUBCUTANEOUSLY ONCE DAILY REPLACE PEN AFTER OPEN FOR 56 DAYS magnesium chloride 64 mg tablet extended release 64 mg PO DAILY lisinopril 40 mg tablet 40 mg PO DAILY PreserVision AREDS 4,296 mcg-226 mg-90 mg capsule 1 cap PO BID Patient Comments: 1 capsule by mouth twice a day calcitriol 0.25 mcg capsule 0.25 mcg PO DAILY liothyronine 5 mcg tablet 5 mcg PO DAILY sevelamer carbonate [Renvela] 800 mg tablet 800 mg PO TID Rx Instructions: must administer with a meal/food (DME) Transmetricsuch Verio test strips Strip MISCELLANEOUS Patient Comments: USE TO TEST BLOOD SUGAR ONE TO TWO TIMES EVERY DAY NEEDED (DME) lancets [zealot networkTouch Delica Plus Lancet] 33 gauge misc MISCELLANEOUS Patient Comments: USE TO CHECK BLOOD SUGAR ONE TO TWO TIMES DAILY furosemide 40 mg tablet 40 mg PO DAILY Qty: 7 0RF Discontinued Eliquis 5 mg tablet 5 mg PO BID Patient Comments: TAKE 1 TABLET BY MOUTH TWICE DAILY Discharge Instructions Instructions: Nausea and vomiting in adults Additional Instructions: You were admitted with vomiting and confusion that seems to have been related to medication errors. It is important to prevent medication errors in the future, and getting help with your daughter organizing your medication every day is a good plan. Stand Alone Forms: Nursing Discharge Form Referrals: Jason Snow DO [Primary Care Provider, Medicine] - 03/28/25 1:20 pm Activity:: Activity as Tolerated Equipment/Supplies:: No Equipment Needed Diet:: Low Sodium Discharge Orders Discharge Orders: Discharge Order (Routine); Ordered 03/15/25 Ordered By: Krystian Ricardo Discharge Data Discharge Date/Time-TO BE ENTERED AT DEPARTURE: 03/15/25 16:55 DS: Summary Time Spent with Patient providing and/or coordinating discharge services: Greater than 30 minutes Status at Discharge Functional status at discharge: uses cane/walker Overall status at discharge: patient is back to baseline Mental Status: mental status grossly normal Speech and Movement: speech and movement normal Mood: congruent mood Affect: normal affect Exam Narrative Exam Narrative: General: Alert and oriented, sitting in chair, eating, NAD HEENT: MMM, no icterus Lungs: CTAB, normal effort Heart: Regular rate and rhythm with no murmurs or gallops appreciated. Abdomen: +active BS, soft, NT/ND Extremities: Without clubbing, cyanosis or grossly pitting edema. Psych Mental Status: mental status grossly normal Speech and Movement: speech and movement normal Mood: congruent mood Affect: normal affect DS: Data Vitals/I&O Vitals and I&O: Vital Signs Temperature 36.5 C 03/15/25 12:07 Temperature Source Temporal Artery Scan 03/15/25 12:07 Pulse 62 03/15/25 12:07 Pulse 60 03/13/25 21:50 Respiratory Rate 18 03/15/25 12:07 Respiratory Effort Normal 03/13/25 22:14 Respiratory Depth Normal 03/13/25 22:14 Respiratory Pattern Normal 03/13/25 22:14 Blood Pressure 130/48 L 03/15/25 12:07 Blood Pressure Mean 75 03/15/25 12:07 Blood Pressure Position Sitting 03/13/25 17:11 Pulse Oximetry 99 03/15/25 12:07 Oxygen Delivery Method Room Air 03/15/25 12:07 Oxygen Flow Rate 0 03/15/25 12:07 Pain Level 0 03/15/25 03:58 Comment rn notified 03/15/25 12:07 Intake & Output 03/14/25 03/15/25 03/15/25 23:59 11:59 23:59 Intake Total 740 / 740 Output Total 300 / 650 Balance -300 / -650 740 / 740 Weight 60.5 kg Intake: IV 500 / 500 Oral 240 / 240 Output: Urine 300 / 600 Other: Urine Color Yellow Urine Appearance Clear Urine Odor Normal Data Completed and Pending Labs on day of discharge: Labs from last 24 hours 03/15/25 03/14/25 05:35 18:30 Sodium Pending 143 Potassium Pending 5.3 H Chloride Pending 110 H Carbon Dioxide Pending 18.6 L Anion Gap Pending 14.4 H BUN Pending 70 H Creatinine Pending 3.1 H Est GFR (CKD-EPI 2020) Pending 14.47 Glucose Pending 167 H Calcium Pending 9.3 Troponin I Pending 137 H* PFSH All Active Problems (Updated 03/16/25 @ 00:04 by KAYLA SAM) Noncompliance w/medication treatment due to intermit use of medication (Chronic) Elevated troponin level not due to acute coronary syndrome (Acute) Sacroiliac joint dysfunction of right side (Acute) Bladder cancer (Acute) Acute pyelonephritis (Acute) Medical History Rib cage dysfunction Stucco keratosis Obstructive sleep apnea Depression Graves disease GERD (gastroesophageal reflux disease) Fibromyalgia Kidney disease, chronic, stage IV (severe, 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 Acquired trigger finger Renal failure syndrome Rheumatoid arthritis Lumbar radiculopathy Postoperative hypothyroidism Obesity Neck pain Lower urinary tract symptoms (LUTS) Inflammatory arthritis Hyperlipidemia, mixed Hypertensive disorder Heart failure Diabetes mellitus Diabetic retinopathy associated with controlled type 2 diabetes mellitus Chronic cystitis Chronic pain Cataract Atrial fibrillation History of anemia Surgical History H/O breast biopsy Hx of tonsillectomy H/O tubal ligation H/O adenoidectomy History of cholecystectomy Hx of appendectomy H/O right cataract extraction Family History Father Cancer Heart disease Mother Graves disease Rheumatoid arthritis Social History Smoking/Tobacco Use Status: Former Tobacco Use Quit Date: 09/22/95 Smoking risk assessment performed?: Yes Alcohol Intake: former Drug use: Never Substance use type: does not use Housing: other Do you feel safe at home: Yes Do you feel safe in your relationship?: Yes Additional Social history: lives alone Time Spent with Patient Time Spent with Patient: <45 minutes Time was spent: preparing to see the patient(eg.review tests), obtaining and/or reviewing separately otained hiistory, ordering medications,tests, procedures, referring, communicating with other health children's zoo caretaker, indepentently interpreting results, counseling the patient and care coordination
[2025-03-15 15:35] LABS: Anion Gap 12.6 mmol/L (3-11); BUN 66 mg/dL (7-18); CO2 19.4 mmol/L (21.0-32.0); CREATININE 3.4 mg/dL (0.55-1.02); Calcium 8.9 mg/dL (8.5-10.1); Chloride 109 mmol/L (98-107); Estimated GFR 12.95 (mL/min/1.73m2); Glucose 156 mg/dL (74-106); Potassium 4.6 mmol/L (3.5-5.1); Sodium 141 mmol/L (136-145)
[2025-03-15 15:45] LABS: Troponin I 120 ng/L (<or=51)
--- NOTE | 2025-03-15 15:50 | PDOC.CMDIS ---
Date of service: 03/15/25 Time of Service: 15:53 LACE Index Scoring Tool Questions: Length of Stay (in days): 2 Was the patient admitted via the E.D.?: Yes Comorbidities: Previous M.I., Diabetes w/o Complication, Any Tumor and Liver or Renal Disease E.D. Visits: 5 Answers: Total Score: 14 Risk of Readmission: High Risk Care Management Discharge Plan Reason for Hospitalization: vomiting, altered mental status Discharge Plan: Iliana is being discharged home today with no new services. She declined the offer of new HH services, and also [facility]. She feels that she has everything that she needs and that her family cares well for her. Daughter, Edith, is an RN and will step up her role of med management. Daughter, Milagros, was reminded that PCP can also order HH, and that [facility] can be self referral. Iliana will f/u with her PCP and continue per her plan of care. She will transport home in a private vehicle with Milagros. Patient/Family Education Needs: Review of discharge instructions, activity, limitations, and discuss Ask me 3.
== END 2025-03-15 16:55 | disposition home or self-care (01) | DRG 918 ==
LOC: ER 21:12 → MS 22:03
PROVIDERS: Admitting Provider Family Medicine; Emergency Provider Emergency Medicine Emergency Medical Services; PCP Specialist/Technologist Athletic Trainer; Responsible Provider Family Medicine; Visit Provider Family Medicine
DX: T50.2X1A Poisoning by carbonic-anhydrase inhibitors, benzothiadiazides and other diuretics, accidental (unintentional), initial encounter; I42.9 Cardiomyopathy, unspecified; N18.4 Chronic kidney disease, stage 4 (severe); R11.2 Nausea with vomiting, unspecified; E89.0 Postprocedural hypothyroidism; R41.82 Altered mental status, unspecified; E11.22 Type 2 diabetes mellitus with diabetic chronic kidney disease; Z95.0 Presence of cardiac pacemaker; I48.91 Unspecified atrial fibrillation; I25.10 Atherosclerotic heart disease of native coronary artery without angina pectoris; G47.33 Obstructive sleep apnea (adult) (pediatric); Z79.01 Long term (current) use of anticoagulants; C67.9 Malignant neoplasm of bladder, unspecified; F32.A Depression, unspecified; M79.7 Fibromyalgia; K21.9 Gastro-esophageal reflux disease without esophagitis; D64.9 Anemia, unspecified; I25.2 Old myocardial infarction; Z91.148 Patient's other noncompliance with medication regimen for other reason; Z79.4 Long term (current) use of insulin; I12.9 Hypertensive chronic kidney disease with stage 1 through stage 4 chronic kidney disease, or unspecified chronic kidney disease; E78.5 Hyperlipidemia, unspecified; M54.16 Radiculopathy, lumbar region; R74.8 Abnormal levels of other serum enzymes
CPT/HCPCS: 00123; 36415; 36416; 71250; 80048; 80053; 82805; 82962; 83690; 85027; 87637; 93005; 97162; 97530; 99285; 70450; 74176; 81003; 81015; 83605; 83735; 83880; 84439; 84443; 84484; 85025; 93010; 99223; 99232; 99239; J0780; J1815; J2405; J2470; J3475; J7042

== ENCOUNTER 2025-04-17 11:13 | Emergency (ER) | payer MEDICARE, MEDICAID, SELFPAY ==
[2025-04-17] VITALS (18 sets, daily range): BP systolic 155–158; BP diastolic 64–99; PULSE 59–85; RESP 16; TEMP 36.6; O2SAT 93–99
--- NOTE | 2025-04-17 11:57 | ED.GENADUL_ITS ---
Discharge Plan Disposition Patient Disposition: Home Condition: Stable Discharge Details Clinical Impression: Acute urinary retention Primary Care Provider: Jason Snow ED Provider: James Abbasi Home Meds and New Rx's Prescriptions: Continued mpehyixfqnt-gzfqftggy-rlu C-Mn [Glucosamine Chondroitin MaxStr] 500-400 mg capsule 2 cap PO DAILY sodium bicarbonate 325 mg tablet See Rx Instructions PO DAILY Rx Instructions: 2 tablets PO AM 1 tablet PO Noon & HS acetaminophen 325 mg tablet 2 tab PO BID paroxetine HCl 30 mg tablet 30 mg PO DAILY Eliquis 2.5 mg Tablet 2.5 mg PO BID Qty: 180 2RF Rx Instructions: dose reduction for age/GFR spironolactone 25 mg tablet 25 mg PO DAILY atorvastatin 40 mg tablet 40 mg PO DAILY Patient Comments: TAKE ONE TABLET BY MOUTH EVERY EVENING carvedilol 12.5 mg tablet 18.75 mg PO BID Patient Comments: TAKE ONE TABLET BY MOUTH TWICE A DAY WITH FOOD FOR 90 DAYS levothyroxine 125 mcg tablet 125 mcg PO DAILY Patient Comments: TAKE ONE TABLET BY MOUTH EVERY DAY FOR 90 DAYS insulin degludec [Tresiba FlexTouch U-100] 100 unit/mL (3 mL) insulin pen 10 unit SUBCUT DAILY Patient Comments: INJECT 2 UNITS SUBCUTANEOUSLY ONCE DAILY REPLACE PEN AFTER OPEN FOR 56 DAYS magnesium chloride 64 mg tablet extended release 64 mg PO DAILY lisinopril 40 mg tablet 40 mg PO DAILY PreserVision AREDS 4,296 mcg-226 mg-90 mg capsule 1 cap PO BID Patient Comments: 1 capsule by mouth twice a day calcitriol 0.25 mcg capsule 0.25 mcg PO DAILY liothyronine 5 mcg tablet 5 mcg PO DAILY sevelamer carbonate [Renvela] 800 mg tablet 800 mg PO TID Rx Instructions: must administer with a meal/food (DME) AsthmatrackerTouch Verio test strips Strip MISCELLANEOUS Patient Comments: USE TO TEST BLOOD SUGAR ONE TO TWO TIMES EVERY DAY NEEDED (DME) lancets [OneTouch Delica Plus Lancet] 33 gauge misc MISCELLANEOUS Patient Comments: USE TO CHECK BLOOD SUGAR ONE TO TWO TIMES DAILY furosemide 40 mg tablet 40 mg PO DAILY Qty: 7 0RF Discharge Instructions Additional Instructions: He had urinary retention so Liu was placed. Your blood work did not show any concerning changes from your baseline. 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 If you feel more ill or have new symptoms such as high fevers return to the emergency department for reevaluation. HPI General Mode of arrival: ambulatory . Date/Time Provider Initiated Documentation: 04/17/25 11:15 . Limitations to Documentation: no limitations . Information obtained by: patient . History of Present Illness 84 year old F presents to the emergency department with the chief complaint of difficulty urinating, described as moderate, Patient started experiencing this day(s) (2) and it has been constant. No relieving factors improve symptom(s), No exacerbating factors reported . Patient notes no other symptoms.. Patient did receive the following treatments prior to arrival, none Related Data Home Medications ?Medication ?Instructions ?Recorded ?Confirmed atorvastatin 40 mg tablet 40 mg PO DAILY 06/14/2103/23 carvedilol 12.5 mg tablet 18.75 mg PO BID 06/14/21 insulin degludec 100 unit/mL (3 10 unit subcut DAILY 0 06/14/21 04/17/25 mL) subcutaneous pen (Tresiba FlexTouch U-100 insulin) levothyroxine 125 mcg tablet 125 mcg PO DAILY 06/14/21 04/17/25 acetaminophen 325 mg tablet 2 tab PO BID 09/04/2203/23 khvilfxmtxh-xgedsjuha-cfo C-Mn 500 2 cap PO DAILY 06/2204/17/25 mg-400 mg capsule (Glucosamine Chondroitin Maximum Strength) sodium bicarbonate 325 mg tablet See Rx Instructions P O DAILY 07/10/23 04/17/25 lisinopril 40 mg tablet 40 mg PO DAILY 02/25/2403/23 magnesium chloride 64 mg 64 mg PO DAILY 02/25/2403/23 tablet,extended release vitamins A,C,R-vwfr-dshupf 4,296 1 cap PO BID 02/25/24 04/17/25 mcg-226 mg-90 mg capsule (PreserVision AREDS) blood sugar diagnostic (Counts include 234 beds at the [facility] 09/22/24 04/17/25 Verio test strips) calcitriol 0.25 mcg capsule 0.25 mcg PO DAILY 09/22/24 04/17/25 lancets 33 gauge (Counts include 234 beds at the [facility] Delica 09/22/24 04/17/25 Plus Lancet) liothyronine 5 mcg tablet 5 mcg PO DAILY 09/22/24 07/04/15 sevelamer carbonate 800 mg tablet 800 mg PO TID 04/17/25 (Renvela) furosemide 40 mg tablet 40 mg PO DAILY #7 tabs 11/2204/17/25 apixaban 2.5 mg tablet (Eliquis) 2.5 mg PO BID #180 ta bs 03/15/25 04/17/25 paroxetine HCl 30 mg tablet 30 mg PO DAILY 03/15/25 spironolactone 25 mg tablet 25 mg PO DAILY 04/17/25 Previous Rx's ?Medication ?Instructions ?Recorded furosemide 40 mg tablet 40 mg PO DAILY #7 tabs 11/22 apixaban 2.5 mg tablet (Eliquis) 2.5 mg PO BID #180 ta bs 03/15/25 Allergies Allergy/AdvReac Type Severity Reaction Status Date / Time Penicillins Allergy Severe Skin Rash Verified 04/17/25 11:39 Macrolide Antibiotics Allergy Intermediate Hives Verified 04/17/25 11:39 naproxen Allergy Intermediate Skin Rash Verified 04/17/25 11:39 niacin Allergy Intermediate Hives Verified 04/17/25 11:39 omeprazole (From Prilosec) Allergy Intermediate Nausea Verified 04/17/25 11:39 codeine Allergy Nausea Verified 04/17/25 11:39 erythromycin base Allergy Hives Verified 04/17/25 11:39 Sulfa (Sulfonamide Allergy urtiaria Verified 04/17/25 11:39 Antibiotics) amitriptyline AdvReac Intermediate Other (See Verified 04/17/25 11:39 Comment) NSAIDS (Non-Steroidal AdvReac Intermediate Other (See Verified 04/17/25 11:39 Anti-Inflamma Comment) celecoxib AdvReac Nausea Verified 04/17/25 11:39 gabapentin AdvReac Other (See Verified 04/17/25 11:39 Comment) methotrexate AdvReac Nausea Verified 04/17/25 11:39 naltrexone AdvReac Skin Rash Verified 04/17/25 11:39 General Stated Complaint: Urinary PAULINE: 3 Review of Systems All systems reviewed & are unremarkable except as noted in HPI and below Constitutional Constitutional: Denies chills, Denies fever(s) and Denies weakness Cardiovascular Cardiovascular: Denies chest pain and Denies dyspnea Respiratory Respiratory: Denies cough and Denies dyspnea Gastrointestinal Gastrointestinal: Denies nausea and Denies vomiting Genitourinary Genitourinary: Reports difficulty voiding Neurologic Neurologic: Denies weakness Exam Const General: no acute distress Orientation: alert HENNC Head: normal to inspection Ears: external ears normal General nose exam: external nose normal Mouth: moist mucous membranes Eyes General: appearance normal, both eyes and all related structures Neck Neck: normal visual inspection Resp Effort & Inspection: normal respiratory effort and able to speak in complete sentences Cardio Rate: regular rate Neuro General: patient alert and patient oriented x3 Extrem General: normal to inspection Psych Mental Status: mental status grossly normal Course Vital Signs Vital signs: Vital Signs Temperature 36.6 C 04/17/25 11:32 Pulse 85 04/17/25 11:32 Respiratory Rate 16 04/17/25 11:32 Blood Pressure 155/99 H 04/17/25 11:32 Pulse Oximetry 99 04/17/25 11:32 Temperature 36.6 C 04/17/25 11:32 Temperature Source Oral 04/17/25 11:32 Pulse 85 04/17/25 11:32 Respiratory Rate 16 04/17/25 11:32 Blood Pressure 155/99 H 04/17/25 11:32 Blood Pressure Position Sitting 04/17/25 11:32 Pulse Oximetry 99 04/17/25 11:32 Oxygen Delivery Method Room Air 04/17/25 11:32 Oxygen Flow Rate 0 04/17/25 11:32 Medical Decision Making 84-year-old female with a history of chronic kidney disease who states she was recently mated to [facility] where she had a Liu and also was having difficulty making urine so she was given Lasix. She says since discharge has been having trouble urinating and has been up even over a day. Denies any fevers or chills. No vomiting. She has suprapubic tenderness with fullness. She had bladder scan done while was examining and taking history and she had a very 100 cc in her bladder. I suspect neurogenic bladder, will have nursing place a Liu and check a CBC and CMP and reassess. Patient feels better after Liu was placed without complications per nursing. Labs and urine unremarkable. She is stable for discharge, I will place on the follow-up list to try to see urology for further management of the Liu and possible removal. Return precautions given Differential Diagnosis Differential Diagnosis: Neurogenic bladder, urinary retention Lab Data Lab results reviewed: Yes I reviewed the patient's lab results. PFSH All Active Problems (Updated 04/17/25 @ 14:05 by James Abbasi MD) Acute urinary retention (Acute) Noncompliance w/medication treatment due to intermit use of medication (Chronic) Elevated troponin level not due to acute coronary syndrome (Acute) Sacroiliac joint dysfunction of right side (Acute) Bladder cancer (Acute) Acute pyelonephritis (Acute) Medical History Rib cage dysfunction Stucco keratosis Obstructive sleep apnea Depression Graves disease GERD (gastroesophageal reflux disease) Fibromyalgia Kidney disease, chronic, stage IV (severe, 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 Acquired trigger finger Renal failure syndrome Rheumatoid arthritis Lumbar radiculopathy Postoperative hypothyroidism Obesity Neck pain Lower urinary tract symptoms (LUTS) Inflammatory arthritis Hyperlipidemia, mixed Hypertensive disorder Heart failure Diabetes mellitus Diabetic retinopathy associated with controlled type 2 diabetes mellitus Chronic cystitis Chronic pain Cataract Atrial fibrillation History of anemia Surgical History H/O breast biopsy Hx of tonsillectomy H/O tubal ligation H/O adenoidectomy History of cholecystectomy Hx of appendectomy H/O right cataract extraction Family History Father Cancer Heart disease Mother Graves disease Rheumatoid arthritis Social History Smoking/Tobacco Use Status: Former Tobacco Use Quit Date: 09/22/95 Smoking risk assessment performed?: Yes Alcohol Intake: former Drug use: Never Substance use type: does not use Housing: other Do you feel safe at home: Yes Do you feel safe in your relationship?: Yes Additional Social history: lives alone
[2025-04-17 12:20] LABS: Glucose Negative (Negative)
[2025-04-17 12:30] LABS: Abs Immature Grans 0.02 10^3/uL (0.0-0.06); HCT 32.3 % (36.0-46.0); HGB 9.5 g/dL (11.2-15.7); Immature Grans % 0.3 %; MCH 30.9 pg (27.0-33.0); MCHC 29.4 % (32.0-36.0); MCV 105 fL (80-95); MPV 9.6 fL (8.0-11.0); Platelet Count 186 10^3/uL (130-400); RBC 3.07 10^6/uL (3.93-5.22); RDW 14.6 % (11.7-14.6); RDW-SD 56.5 fL; WBC 6.43 10^3/uL (4.4-10.8)
[2025-04-17 12:32] LABS: WBC 0-2 HPF (0-5)
[2025-04-17 12:33] LABS: C & S Indicated? No
[2025-04-17 12:39] LABS: Macrocytosis 2+
[2025-04-17 12:53] LABS: ALT 22 U/L (14-59); AST 19 U/L (15-37); Albumin 3.5 g/dL (3.4-5.0); Alkaline Phosphatase 79 U/L (46-116); Anion Gap 11.0 mmol/L (3-11); BUN 57 mg/dL (7-18); Bilirubin, Total 1.0 mg/dL (0.2-1.0); CO2 30.0 mmol/L (21.0-32.0); Calcium 8.9 mg/dL (8.5-10.1); Chloride 102 mmol/L (98-107); Estimated GFR 13.42 (mL/min/1.73m2); Glucose 99 mg/dL (74-106); Magnesium 1.9 mg/dL (1.8-2.4); Potassium 4.0 mmol/L (3.5-5.1); Sodium 143 mmol/L (136-145); Total Protein 6.9 g/dL (6.4-8.2)
== END 2025-04-17 14:29 | disposition home or self-care (01) ==
PROVIDERS: Emergency Provider Emergency Medicine; PCP Specialist/Technologist Athletic Trainer
DX: R33.9 Retention of urine, unspecified (principal); E11.22 Type 2 diabetes mellitus with diabetic chronic kidney disease; I12.9 Hypertensive chronic kidney disease with stage 1 through stage 4 chronic kidney disease, or unspecified chronic kidney disease; N18.4 Chronic kidney disease, stage 4 (severe); E11.319 Type 2 diabetes mellitus with unspecified diabetic retinopathy without macular edema; I48.91 Unspecified atrial fibrillation; E78.5 Hyperlipidemia, unspecified; I25.2 Old myocardial infarction; Z79.01 Long term (current) use of anticoagulants; Z79.4 Long term (current) use of insulin
CPT/HCPCS: 36415; 80053; 99284; 81003; 81015; 83735; 85025

== ENCOUNTER 2025-04-25 16:11 | Emergency (ER) | payer MEDICARE, MEDICAID, SELFPAY ==
[2025-04-25 16:13] VITALS: BP 171/96; PULSE 77; RESP 16; TEMP 36.9; O2SAT 95
[2025-04-25 16:23] VITALS: BP 171/96; PULSE 77; RESP 16; TEMP 36.9; O2SAT 95
--- NOTE | 2025-04-25 19:39 | W.ED.GENAD ---
Discharge Plan Disposition Patient Disposition: Home Discharge Details Clinical Impression: Liu catheter problem, Elevated blood pressure reading Primary Care Provider: Jason Snow ED Provider: Nini Zavaleta Home Meds and New Rx's Prescriptions: No Action mhgpwhhnvpd-ctjezyyyg-qpo C-Mn [Glucosamine Chondroitin MaxStr] 500-400 mg capsule 2 cap PO DAILY sodium bicarbonate 325 mg tablet See Rx Instructions PO DAILY Rx Instructions: 2 tablets PO AM 1 tablet PO Noon & HS acetaminophen 325 mg tablet 2 tab PO BID paroxetine HCl 30 mg tablet 30 mg PO DAILY Eliquis 2.5 mg Tablet 2.5 mg PO BID Qty: 180 2RF Rx Instructions: dose reduction for age/GFR spironolactone 25 mg tablet 25 mg PO DAILY atorvastatin 40 mg tablet 40 mg PO DAILY Patient Comments: TAKE ONE TABLET BY MOUTH EVERY EVENING carvedilol 12.5 mg tablet 18.75 mg PO BID Patient Comments: TAKE ONE TABLET BY MOUTH TWICE A DAY WITH FOOD FOR 90 DAYS levothyroxine 125 mcg tablet 125 mcg PO DAILY Patient Comments: TAKE ONE TABLET BY MOUTH EVERY DAY FOR 90 DAYS insulin degludec [Tresiba FlexTouch U-100] 100 unit/mL (3 mL) insulin pen 10 unit SUBCUT DAILY Patient Comments: INJECT 2 UNITS SUBCUTANEOUSLY ONCE DAILY REPLACE PEN AFTER OPEN FOR 56 DAYS magnesium chloride 64 mg tablet extended release 64 mg PO DAILY lisinopril 40 mg tablet 40 mg PO DAILY PreserVision AREDS 4,296 mcg-226 mg-90 mg capsule 1 cap PO BID Patient Comments: 1 capsule by mouth twice a day calcitriol 0.25 mcg capsule 0.25 mcg PO DAILY liothyronine 5 mcg tablet 5 mcg PO DAILY sevelamer carbonate [Renvela] 800 mg tablet 800 mg PO TID Rx Instructions: must administer with a meal/food (DME) OneTouch Verio test strips Strip MISCELLANEOUS Patient Comments: USE TO TEST BLOOD SUGAR ONE TO TWO TIMES EVERY DAY NEEDED (DME) lancets [OneTouch Delica Plus Lancet] 33 gauge misc MISCELLANEOUS Patient Comments: USE TO CHECK BLOOD SUGAR ONE TO TWO TIMES DAILY furosemide 40 mg tablet 40 mg PO DAILY Qty: 7 0RF Discharge Instructions Additional Instructions: Please call your primary care provider first thing in the morning to schedule follow-up appointment to have your bladder rechecked. You had your Liu catheter removed today. You were able to fully empty your bladder after the catheter was removed. Please return to the emergency department immediately if you develop new urinary retention/inability to fully empty your bladder. Your blood pressure was very elevated today. I recommend that you discuss your blood pressure management with your primary care provider. Return to emergency care if you develop new chest pains, dizziness, shortness of breath, or if you feel very unwell and need to be rechecked again immediate Referrals: Jason Snow DO [Primary Care Provider, Medicine] Discharge Data Discharge Date/Time-TO BE ENTERED AT DEPARTURE: 04/25/25 20:39 HPI General Date/Time Provider Initiated Documentation: 04/25/25 16:51. HPI Narrative: Iliana is an 84year-old female presents to the emergency department today for evaluation of catheter issues. She reports that urine has been leaking around her catheter that was placed for urinary retention a couple days ago. Catheter does continue to drain into the bag provided, no abnormalities to urine noted. She reports this was placed because she was having difficulty urinating that lasted a couple of days. She denies associated fever/chills, abdominal pain, nausea/vomiting, hematuria, discolored urine, foul odor to urine. She has a follow-up appoint with Dr. Ceron next week. PMH significant for chronic kidney disease stage IV, T2DM, CAD, A-fib, and hypothyroidism. Related Data Home Medications ?Medication ?Instructions ?Recorded ?Confirmed atorvastatin 40 mg tablet 40 mg PO DAILY 06/14/21 04/25/25 carvedilol 12.5 mg tablet 18.75 mg PO BID 06/14/21 04/25/25 insulin degludec 100 unit/mL (3 10 unit subcut DAILY 06/14/21 04/25/25 mL) subcutaneous pen (Tresiba FlexTouch U-100 insulin) levothyroxine 125 mcg tablet 125 mcg PO DAILY 06/14/21 04/25/25 acetaminophen 325 mg tablet 2 tab PO BID 09/04/22 04/25/25 aqlgvvbhhkc-mvaznorrc-heh C-Mn 500 2 cap PO DAILY 07/10/23 04/25/25 mg-400 mg capsule (Glucosamine Chondroitin Maximum Strength) sodium bicarbonate 325 mg tablet See Rx Instructions PO DAILY 07/10/23 04/25/25 lisinopril 40 mg tablet 40 mg PO DAILY 02/25/24 04/25/25 magnesium chloride 64 mg 64 mg PO DAILY 02/25/24 04/25/25 tablet,extended release vitamins A,C,O-uncr-lljeom 4,296 1 cap PO BID 02/25/24 04/25/25 mcg-226 mg-90 mg capsule (PreserVision AREDS) blood sugar diagnostic ([facility] 09/22/24 04/25/25 Verio test strips) calcitriol 0.25 mcg capsule 0.25 mcg PO DAILY 09/22/24 04/25/25 lancets 33 gauge ([facility] 09/22/24 04/25/25 Plus Lancet) liothyronine 5 mcg tablet 5 mcg PO DAILY 09/22/24 04/25/25 sevelamer carbonate 800 mg tablet 800 mg PO TID 09/22/24 04/25/25 (Renvela) furosemide 40 mg tablet 40 mg PO DAILY #7 tabs 11/22/24 04/25/25 apixaban 2.5 mg tablet (Eliquis) 2.5 mg PO BID #180 tabs 03/15/25 04/25/25 paroxetine HCl 30 mg tablet 30 mg PO DAILY 03/15/25 04/25/25 spironolactone 25 mg tablet 25 mg PO DAILY 04/17/25 04/25/25 Previous Rx's ?Medication ?Instructions ?Recorded furosemide 40 mg tablet 40 mg PO DAILY #7 tabs 11/22/24 apixaban 2.5 mg tablet (Eliquis) 2.5 mg PO BID #180 tabs 03/15/25 Allergies Allergy/AdvReac Type Severity Reaction Status Date / Time Penicillins Allergy Severe Skin Rash Verified 04/25/25 16:20 Macrolide Antibiotics Allergy Intermediate Hives Verified 04/25/25 16:20 naproxen Allergy Intermediate Skin Rash Verified 04/25/25 16:20 niacin Allergy Intermediate Hives Verified 04/25/25 16:20 omeprazole (From Prilosec) Allergy Intermediate Nausea Verified 04/25/25 16:20 codeine Allergy Nausea Verified 04/25/25 16:20 erythromycin base Allergy Hives Verified 04/25/25 16:20 Sulfa (Sulfonamide Allergy urtiaria Verified 04/25/25 16:20 Antibiotics) amitriptyline AdvReac Intermediate Other (See Verified 04/25/25 16:20 Comment) NSAIDS (Non-Steroidal AdvReac Intermediate Other (See Verified 04/25/25 16:20 Anti-Inflamma Comment) celecoxib AdvReac Nausea Verified 04/25/25 16:20 gabapentin AdvReac Other (See Verified 04/25/25 16:20 Comment) methotrexate AdvReac Nausea Verified 04/25/25 16:20 naltrexone AdvReac Skin Rash Verified 04/25/25 16:20 General Stated Complaint: Urinary PAULINE: 3 Exam Narrative Exam Narrative: General Appearance: Normal. Vital signs: Hypertension noted, consistent with previous visits Respiratory: Clear breath sounds bilaterally, no wheezes, rales, rhonchi. Cardiovascular: Normal heart sounds, no murmurs. Gastrointestinal: Soft, non-tender abdomen, no distension. Skin: Warm and dry, no rash. Psychiatric: Normal. Course Vital Signs Vital signs: Vital Signs Temperature 36.9 C 04/25/25 16:13 Pulse 77 04/25/25 16:13 Respiratory Rate 16 04/25/25 16:13 Blood Pressure 171/96 H 04/25/25 16:13 Pulse Oximetry 95 04/25/25 16:13 Temperature 36.9 C 04/25/25 16:23 Temperature Source Oral 04/25/25 16:23 Pulse 77 04/25/25 16:23 Respiratory Rate 16 04/25/25 16:23 Blood Pressure 171/96 H 04/25/25 16:23 Blood Pressure Position Sitting 04/25/25 16:23 Pulse Oximetry 95 04/25/25 16:23 Oxygen Delivery Method Room Air 04/25/25 16:23 Oxygen Flow Rate 0 04/25/25 16:23 Pain Level 0 04/25/25 16:23 Medical Decision Making Initial Assessment: 84-year-old female with catheter issues, including leakage around catheter. History and presentation concerning for catheter malfunction, such as blocked or kinked catheter, improper size catheter/malposition catheter, poorly inflated balloon, bladder spasm. No red flags concerning for UTI ED Course: - Bladder scan performed to assess urine volume prior to voiding, 150 cc - Patient attempted to void bladder. - Repeat bladder scan conducted, 0 cc As patient does not have any urinary retention at this time, Liu reinsertion not indicated at this time. However, I do have concern that if she does have neurogenic bladder, this will likely recur. Stressed importance of close PCP follow-up and monitoring of postvoid residuals. Final Assessment: Bladder scan and voiding attempt confirmed no residual urine, reinsertion not indicated. Clinical Impression: - Neurogenic bladder - Chronic diarrhea Disposition: - Discharge: Home. Reviewed discharge instructions with patient, including importance of very close PCP follow-up for reassessment of postvoid residuals. Provided very strict return precautions, advised her to return to care immediately if any signs of urinary retention/difficulty urinating recur. - Follow-Up: Close PCP follow-up and appointment with Dr. Ceron next month. Patient consented to the use of [facility] PFSH All Active Problems (Updated 04/25/25 @ 20:30 by Nini Cuevas) Elevated blood pressure reading (Acute) Liu catheter problem (Acute) Acute urinary retention (Acute) Sacroiliac joint dysfunction of right side (Acute) Bladder cancer (Acute) Acute pyelonephritis (Acute) Medical History Rib cage dysfunction Stucco keratosis Obstructive sleep apnea Depression Graves disease GERD (gastroesophageal reflux disease) Fibromyalgia Kidney disease, chronic, stage IV (severe, 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 Acquired trigger finger Renal failure syndrome Rheumatoid arthritis Lumbar radiculopathy Postoperative hypothyroidism Obesity Neck pain Lower urinary tract symptoms (LUTS) Inflammatory arthritis Hyperlipidemia, mixed Hypertensive disorder Heart failure Diabetes mellitus Diabetic retinopathy associated with controlled type 2 diabetes mellitus Chronic cystitis Chronic pain Cataract Atrial fibrillation History of anemia Surgical History H/O breast biopsy Hx of tonsillectomy H/O tubal ligation H/O adenoidectomy History of cholecystectomy Hx of appendectomy H/O right cataract extraction Family History Father Cancer Heart disease Mother Graves disease Rheumatoid arthritis Social History Smoking/Tobacco Use Status: Former Tobacco Use Quit Date: 09/22/95 Smoking risk assessment performed?: Yes Alcohol Intake: former Drug use: Never Substance use type: does not use Housing: other Do you feel safe at home: Yes Do you feel safe in your relationship?: Yes Additional Social history: lives alone
[2025-04-25 19:54] VITALS: BP 197/69; PULSE 61; RESP 14; TEMP 36.5; O2SAT 97
[2025-04-25 20:39] VITALS: RESP 18
== END 2025-04-25 20:39 | disposition home or self-care (01) ==
PROVIDERS: Emergency Provider Nurse Practitioner Family; PCP Specialist/Technologist Athletic Trainer
DX: R33.8 Other retention of urine (principal); T83.038A Leakage of other urinary catheter, initial encounter; R03.0 Elevated blood-pressure reading, without diagnosis of hypertension
CPT/HCPCS: 99283 ×2; 51798

== ENCOUNTER 2025-06-15 11:27 | Outpatient (RCR) | payer MEDICARE, MEDICAID, SELFPAY ==
[2025-06-15 12:42] VITALS: BP 132/71
[2025-06-15 12:51] LABS: HCT 33.9 % (36.0-46.0); HGB 11.3 g/dL (11.2-15.7)
[2025-06-15] MEDS: Normal Saline Flush 10 ML SYR IVP (13:12)
[2025-06-15 14:21] VITALS: BP 148/77
== END 2025-06-21 23:59 | disposition home or self-care (01) ==
LOC: INF 11:27
PROVIDERS: Registered Nurse Nephrology; PCP Specialist/Technologist Athletic Trainer; Visit Provider Nurse Practitioner Family
DX: N18.5 Chronic kidney disease, stage 5 (principal); D63.1 Anemia in chronic kidney disease
CPT/HCPCS: 36415; 96365; 96372; 85014; 85018; Q0138

== ENCOUNTER → 2025-06-17 08:39 | Outpatient (BNVA) | payer MEDICARE, MEDICAID, SELFPAY | PROVIDERS: PCP Specialist/Technologist Athletic Trainer; Referring Provider Specialist/Technologist Athletic Trainer; Visit Provider Urology | DX: C67.9 Malignant neoplasm of bladder, unspecified (principal) | CPT/HCPCS: 81002; 52000 ==

== ENCOUNTER 2025-06-22 11:27 | Observation (INO) | payer MEDICARE, MEDICAID, SELFPAY ==
[2025-06-22] VITALS (42 sets, daily range): BP systolic 161–197; BP diastolic 48–84; PULSE 59–67; RESP 13–21; TEMP 36.2–36.6; O2SAT 93–100
--- NOTE | 2025-06-22 12:15 | DI.RAD_ITS ---
Exam(s) XR CHEST 2V PA LATERAL EXAM: XR CHEST 2V PA LATERAL CLINICAL HISTORY: weakness TECHNIQUE: 2D digital imaging was performed. Two views. AP and lateral views performed in wheelchair. COMPARISON: No exams were available for comparison FINDINGS: Exam is limited by poor pulmonary inflation. Overlying monitoring leads. HEART: Enlarged. Loop recorder device noted. Aorta: Not dilated. PULMONARY VASCULATURE: Normal. MEDIASTINUM: Unremarkable. LUNGS: Clear. PLEURAL SPACE: No pleural effusion or pneumothorax. BONE:Unremarkable for age. SOFT TISSUES: Unremarkable. IMPRESSION: No acute abnormality. DATA REPOSITORY: RADIATION DOSE DELIVERED:
--- NOTE | 2025-06-22 12:15 | RT.EKG_ITS ---
APPROVED REPORT Exam: Resting ECG Reason for Exam: weakness Patient Location: E HR:60 bpm ECG Measurements Heart Rate 60 AXIS NH 195 P 0 QRSd 138 QRS 118 QT 494 T 57 QTc 495 Conclusion Ventricular-paced rhythm EKG demonstrates a ventricular paced rhythm with good capture, EKG from 03/14/2025 shows no significant changes aside for slight polarity change in the lateral leads. No other abnormalities otherwise.
[2025-06-22 13:02] LABS: Abs Immature Grans 0.02 10^3/uL (0.0-0.06); HCT 32.1 % (36.0-46.0); HGB 10.2 g/dL (11.2-15.7); Immature Grans % 0.3 %; MCH 30.2 pg (27.0-33.0); MCHC 31.8 % (32.0-36.0); MCV 95 fL (80-95); MPV 10.1 fL (8.0-11.0); Platelet Count 154 10^3/uL (130-400); RBC 3.38 10^6/uL (3.93-5.22); RDW 12.5 % (11.7-14.6); RDW-SD 43.5 fL; WBC 6.39 10^3/uL (4.4-10.8)
[2025-06-22] MEDS: Prochlorperazine 10 MG/2 ML VIAL 5 MG IVP (13:07)
[2025-06-22] MEDS: Normal Saline 500 ML IV (13:08)
[2025-06-22 13:25] LABS: Lipase 192 U/L (<78)
[2025-06-22 13:43] LABS: ALT 33 U/L (14-59); AST 18 U/L (15-37); Albumin 3.7 g/dL (3.4-5.0); Alkaline Phosphatase 89 U/L (46-116); Anion Gap 10.1 mmol/L (3-11); Bilirubin, Total 0.9 mg/dL (0.2-1.0); CO2 28.9 mmol/L (21.0-32.0); Calcium 10.8 mg/dL (8.5-10.1); Chloride 102 mmol/L (98-107); Estimated GFR 8.35 (mL/min/1.73m2); Glucose 192 mg/dL (74-106); Magnesium 2.0 mg/dL (1.8-2.4); Potassium 3.9 mmol/L (3.5-5.1); Sodium 141 mmol/L (136-145); TSH (W/Ref FT4) 0.21 uIU/mL (0.36-3.74); Total Protein 7.4 g/dL (6.4-8.2)
--- NOTE | 2025-06-22 13:44 | DI.CT_ITS ---
Exam(s) CT ABDOMEN PELVIS WO EXAM: CT ABDOMEN PELVIS WO CLINICAL HISTORY: abd pain, vomiting. TECHNIQUE: Imaging Protocol: Axial computed tomography images with coronal and sagittal reformatted images were created and reviewed. Oral: no COMPARISON: CT CT CHEST/ABD/PEL WO from 03/13/2025 FINDINGS: Lung Bases: No acute findings. The heart is enlarged. Loop recorder device is noted. There is severe coronary artery calcifications. Liver: Normal density. No suspicious mass. Gallbladder and biliary tract: Cholecystectomy no biliary dilation. Pancreas: Normal density. No abnormal calcifications or inflammatory process. Spleen: Normal. Kidneys: Normal left kidney is again noted to be mildly atrophic.. No radiodense stones. No obstructive uropathy. No suspicious masses seen. Adrenal glands: Stable left adrenal nodule. Lymph nodes: Within normal limits. Vasculature: Abdominal aorta non-dilated. Severe atherosclerotic changes of the aorta and branch vessels. Soft tissues: Unremarkable. Bladder: No wall thickening. No mass or calculi. Bowel: No obstruction or bowel wall thickening. Normal quantity of stool. Peritoneal cavity: No ascites. No focal collection. No mesenteric inflammatory response. Reproductive organs: Unremarkable. Bones: Unremarkable for age. IMPRESSION: No acute abnormality in the abdomen or pelvis. RADIATION DOSE DELIVERED: 355.89mGy.cm Total DLP DATA REPOSITORY: All CT scans at this facility are submitted to the National Radiology Data Registry (NRDR) Dose Index Registry (DIR) with the [employer] ([employer]). RADIATION OPTIMIZATION: All CT scans at this facility use at least one of these dose optimization techniques: automated exposure control; mA and/or kV adjustment per patient size (includes targeted exams where dose is matched to clinical indication); or iterative reconstruction.
[2025-06-22 13:46] LABS: BUN 98 mg/dL (7-18)
--- NOTE | 2025-06-22 14:28 | W.ED.GENAD ---
Discharge Plan Disposition Patient Disposition: Admit to [facility] Condition: Stable Discharge Details Clinical Impression: Acute kidney injury superimposed on stage 4 chronic kidney disease, Elevated lipase, Nausea vomiting and diarrhea Admit Date/Time: 06/22/25 16:14 Admit Provider: Krystian Ricardo Attending Provider: Krystian Ricardo Primary Care Provider: Jason Snow ED Provider: Caitlin Valdez Discharge Data Discharge Date/Time-TO BE ENTERED AT DEPARTURE: 06/22/25 17:21 HPI General Date/Time Provider Initiated Documentation: 06/22/25 12:10. HPI Narrative: This 84-year-old female with history of chronic kidney disease hypertension hypothyroidism CHF presents with nausea and vomiting weakness for the past 5 days. She denies known sick contacts. She been unable to tolerate any of her medications and had labs rechecked on the and was told to come here as her GFR was 8. She denies any abdominal pain. She has had numerous episodes of nausea and vomiting. Today she was able to hold down a little bit of fluid but has only urinated once per patient. She did take her thyroid medication today but was unable to take any additional medications. Denies any recent antibiotic use or history of C. difficile colitis. Denies any blood in stool or vomitus. Related Data Home Medications ?Medication ?Instructions ?Recorded ?Confirmed atorvastatin 40 mg tablet 40 mg PO DAILY 06/14/21 06/22/25 carvedilol 12.5 mg tablet 18.75 mg PO BID 06/14/21 06/22/25 insulin degludec 100 unit/mL (3 10 unit subcut DAILY 06/14/21 06/22/25 mL) subcutaneous pen (Tresiba FlexTouch U-100 insulin) acetaminophen 325 mg tablet 2 tab PO BID PRN 09/04/22 06/22/25 [id number]-hyxajjwxo-dwe C-Mn 500 2 cap PO DAILY 07/10/23 06/22/25 mg-400 mg capsule (Glucosamine Chondroitin Maximum Strength) sodium bicarbonate 325 mg tablet See Rx Instructions PO DAILY 07/10/23 06/22/25 lisinopril 40 mg tablet 40 mg PO DAILY 02/25/24 06/22/25 magnesium chloride 64 mg 64 mg PO DAILY 02/25/24 06/22/25 tablet,extended release vitamins A,C,J-ugpg-fpuvtk 4,296 1 cap PO BID 02/25/24 06/22/25 mcg-226 mg-90 mg capsule (PreserVision AREDS) blood sugar diagnostic (OneTouch 09/22/24 06/22/25 Verio test strips) lancets 33 gauge (OneTouch Delica 09/22/24 06/22/25 Plus Lancet) liothyronine 5 mcg tablet 5 mcg PO DAILY 09/22/24 06/22/25 sevelamer carbonate 800 mg tablet 800 mg PO TID 09/22/24 06/22/25 (Renvela) furosemide 40 mg tablet 40 mg PO DAILY #7 tabs 11/22/24 06/22/25 apixaban 2.5 mg tablet (Eliquis) 2.5 mg PO BID #180 tabs 03/15/25 06/22/25 paroxetine HCl 30 mg tablet 30 mg PO DAILY 03/15/25 06/22/25 spironolactone 25 mg tablet 25 mg PO DAILY 04/17/25 06/22/25 calcitriol 0.25 mcg capsule 0.5 mcg PO DAILY 06/17/25 06/22/25 furosemide 20 mg tablet (Lasix) 20 mg PO DAILY 06/17/25 06/22/25 levothyroxine 150 mcg capsule 150 mcg PO DAILY 06/17/25 06/22/25 tramadol 50 mg tablet 50 mg PO Q8H PRN 06/17/25 06/22/25 cholecalciferol (vitamin D3) 25 25 mcg PO DAILY 06/22/25 06/22/25 mcg (1,000 unit) capsule (Vitamin D3) Previous Rx's ?Medication ?Instructions ?Recorded furosemide 40 mg tablet 40 mg PO DAILY #7 tabs 11/22/24 apixaban 2.5 mg tablet (Eliquis) 2.5 mg PO BID #180 tabs 03/15/25 Allergies Allergy/AdvReac Type Severity Reaction Status Date / Time Penicillins Allergy Severe Skin Rash Verified 06/22/25 11:36 Macrolide Antibiotics Allergy Intermediate Hives Verified 06/22/25 11:36 naproxen Allergy Intermediate Skin Rash Verified 06/22/25 11:36 niacin Allergy Intermediate Hives Verified 06/22/25 11:36 omeprazole (From Prilosec) Allergy Intermediate Nausea Verified 06/22/25 11:36 codeine Allergy Nausea Verified 06/22/25 11:36 erythromycin base Allergy Hives Verified 06/22/25 11:36 Sulfa (Sulfonamide Allergy urtiaria Verified 06/22/25 11:36 Antibiotics) amitriptyline AdvReac Intermediate Other (See Verified 06/22/25 11:36 Comment) NSAIDS (Non-Steroidal AdvReac Intermediate Other (See Verified 06/22/25 11:36 Anti-Inflamma Comment) celecoxib AdvReac Nausea Verified 06/22/25 11:36 gabapentin AdvReac Other (See Verified 06/22/25 11:36 Comment) methotrexate AdvReac Nausea Verified 06/22/25 11:36 naltrexone AdvReac Skin Rash Verified 06/22/25 11:36 General Stated Complaint: Nausea/Vomit/Diar PAULINE: 3 Exam Narrative Exam Narrative: Alert and oriented chronically ill-appearing 84-year-old female in no acute distress, pale, no abdominal tenderness answering questions appropriately 1+ edema to bilateral lower extremities no tenderness to calves Course Vital Signs Vital signs: Vital Signs Temperature 36.6 C 06/22/25 11:32 Pulse 62 06/22/25 11:32 Respiratory Rate 16 06/22/25 11:32 Blood Pressure 178/70 H 06/22/25 11:32 Pulse Oximetry 98 06/22/25 11:32 Temperature 36.6 C 06/22/25 11:32 Temperature Source Oral 06/22/25 11:32 Pulse 62 06/22/25 11:32 Respiratory Rate 16 06/22/25 11:32 Blood Pressure 178/70 H 06/22/25 11:32 Pulse Oximetry 98 06/22/25 11:32 Oxygen Delivery Method Room Air 06/22/25 11:32 Oxygen Flow Rate 0 06/22/25 11:32 Lab/Test Results Lab/Test Results: Laboratory Tests Range/Units 06/22/25 12:55 WBC (4.4-10.8) 10^3/uL 6.39 RBC (3.93-5.22) 10^6/uL 3.38 L Hgb (11.2-15.7) g/dL 10.2 L Hct (36.0-46.0) % 32.1 L MCV (80-95) fL 95 MCH (27.0-33.0) pg 30.2 MCHC (32.0-36.0) % 31.8 L RDW (11.7-14.6) % 12.5 Plt Count (130-400) 10^3/uL 154 MPV (8.0-11.0) fL 10.1 Immature Gran % % 0.3 Neutrophils % % 78.2 Lymphocytes % % 11.4 Monocytes % % 9.5 Eosinophils % % 0.3 Basophils % % 0.3 Nucleated RBC % (0.0-0.3) % 0.0 Absolute Neutrophils (1.2-6.7) 10^3/uL 4.99 Absolute Lymphocytes (1.2-3.4) 10^3/uL 0.73 L Absolute Monocytes (0.1-0.8) 10^3/uL 0.61 Absolute Eosinophils (0.0-0.7) 10^3/uL 0.02 Absolute Basophils (0.0-0.2) 10^3/uL 0.02 Sodium (136-145) mmol/L 141 Potassium (3.5-5.1) mmol/L 3.9 Chloride (98-107) mmol/L 102 Carbon Dioxide (21.0-32.0) mmol/L 28.9 Anion Gap (3-11) mmol/L 10.1 BUN (7-18) mg/dL 98 H* Creatinine (0.55-1.02) mg/dL 4.9 H* Est GFR (CKD-EPI 2020) (mL/min/1.73m2) 8.35 Glucose (74-106) mg/dL 192 H Calcium (8.5-10.1) mg/dL 10.8 H Magnesium (1.8-2.4) mg/dL 2.0 Total Bilirubin (0.2-1.0) mg/dL 0.9 AST (15-37) U/L 18 ALT (14-59) U/L 33 Alkaline Phosphatase (46-116) U/L 89 Total Protein (6.4-8.2) g/dL 7.4 Albumin (3.4-5.0) g/dL 3.7 Lipase (<78) U/L 192 H TSH (0.36-3.74) uIU/mL 0.21 L Medical Decision Making Results: Creatinine 4.9 increased from 3.8 which appears to be her baseline, her creatinine was 5.62 days ago which is why she was called to come to the emergency department. She is been having trouble tolerating p.o. and any of her medications at home. Her BUN has also increased from the 60s to 98. TSH is 0.21 free T4 is pending CT abdomen and pelvis and chest x-ray per radiology patient my review does not show evidence of acute . Mild elevation in lipase abdomen nontender CT without acute pancreatic abnormality Assessment and plan: 84-year-old female presenting nausea, weakness, diarrhea and vomiting for the past 4 days. Denies known sick contacts or known spoiled food exposure. PCP called patient out of concern she had blood work done and her creatinine and BUN were elevated. Patient states she is having trouble tolerating much at home. She denies any recent change in medications. She denies any recent antibiotics. She has received 500 cc fluid in the emergency department will continue infusion slowly as she does have a history of CHF although last echo in 2021 shows an ejection fraction of 60%. She is on 2 diuretics I will use caution. She has not supplied a urine specimen yet will perform bladder scan to make sure she is producing urine she states she urinated last this morning. She has any falls or injuries but feels markedly weak. Denies any blood in vomitus or stool. At this time secondary to acute exacerbation of chronic renal failure and inability to take outpatient medications with persistent nausea and vomiting I think patient requires observation admission. Case was discussed with Dr. Barboza who will admit patient to his service [facility] All Active Problems (Updated 06/23/25 @ 08:22 by FORREST Tate) Nausea vomiting and diarrhea (Acute) Elevated lipase (Acute) Acute kidney injury superimposed on stage 4 chronic kidney disease (Acute) Sacroiliac joint dysfunction of right side (Acute) Bladder cancer (Acute) Acute pyelonephritis (Acute) Medical History Rib cage dysfunction Stucco keratosis Obstructive sleep apnea Depression Graves disease GERD (gastroesophageal reflux disease) Fibromyalgia Kidney disease, chronic, stage IV (severe, 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 Acquired trigger finger Renal failure syndrome Rheumatoid arthritis Lumbar radiculopathy Postoperative hypothyroidism Obesity Neck pain Lower urinary tract symptoms (LUTS) Inflammatory arthritis Hyperlipidemia, mixed Hypertensive disorder Heart failure Diabetes mellitus Diabetic retinopathy associated with controlled type 2 diabetes mellitus Chronic cystitis Chronic pain Cataract Atrial fibrillation History of anemia Surgical History H/O breast biopsy Hx of tonsillectomy H/O tubal ligation H/O adenoidectomy History of cholecystectomy Hx of appendectomy H/O right cataract extraction Family History Father Cancer Heart disease Mother Graves disease Rheumatoid arthritis Social History Smoking/Tobacco Use Status: Former Tobacco Use Quit Date: 09/22/95 Smoking risk assessment performed?: Yes Alcohol Intake: former Drug use: Never Substance use type: does not use Housing: house Do you feel safe at home: Yes Do you feel safe in your relationship?: Yes Additional Social history: lives alone
[2025-06-22 16:00] LABS: COVID-19 PCR Negative (Negative); RSV PCR Negative (Negative)
--- NOTE | 2025-06-22 16:05 | W.PM.HP.N ---
Date of service: 06/22/25 Time of Service: 16:05 Assessment and Plan Assessment and plan (1) Acute kidney injury superimposed on stage 4 chronic kidney disease: Status: Acute Assessment and plan: No acute findings as per CT imaging Cr 4.9 from baseline 3.3-3.4 Most likely pre-renal int he setting of point 2 IVF : LR at 125 cc/hr - LVEF 60-65% in 2021 UA pending labs in AM (2) Nausea vomiting and diarrhea: Status: Acute Assessment and plan: PRN anitemetics C-diff and stool bacterial pathogen PCR (3) Obstructive sleep apnea: Assessment and plan: Will inquire about home NIV to be brought in if possibel and use as per home setting (4) Depression: Assessment and plan: ongoing outpatient therapy (5) Graves disease: Assessment and plan: ongoing outpatient therapy (6) GERD (gastroesophageal reflux disease): Assessment and plan: IV protonix (7) Cardiomyopathy: Assessment and plan: ongoing outpatient therapy (8) Pacemaker: Assessment and plan: on telemetry - functioning adequately - V-paced on EKG HR 60 (9) Anemia: Assessment and plan: Stable will continue to monitor (10) Diabetes mellitus: Assessment and plan: Gluc AC and HS with SSI AC A1C (11) Atrial fibrillation: Assessment and plan: ongoing outpatient therapy- Eliquis and Coreg No need for chemical DVT prophylaxis (12) Elevated lipase: Status: Acute Assessment and plan: 192 < 3 fold increased, imaging negative and physical exam neagtive Will continue to monitor Hx of cholescystectomy Discussed with Dr. Ricardo History of Present Illness History of Present Illness Chief Complaint: Weakness nausea vomiting diarrhea Narrative: Iliana Kidd is a 84-year-old female patient with a past medical history of in situ pacemaker, atrial fibrillation fully anticoagulated on Eliquis, HFpEF, CKD stage IV, diabetes mellitus type 2, atherosclerotic cardiovascular disease, Graves' disease, obstructive sleep apnea presented to the ED for evaluation of nausea vomiting diarrhea over the past 4 days and outpatient creatinine level at 5.6 from baseline around 3.3- 3.4. Hemodynamically stable on admission and afebrile with slightly elevated SBP 160s to 170 without signs of acute end-organ damage. The patient reported lightheadedness, chills without objective fevers, decreased enteral intake , nausea vomiting without hematemesis or hematochezia or melena; has chronic diarrhea reported at baseline but most likely exacerbated, no hematuria. GI flulike symptoms reported mild children in the family with ongoing contact with patient. The patient denied chest pain, lower extremity swelling, of MT, history of GI bleed. Full CODE STATUS confirmed. DDx: Viral gastroenteritis versus bacterial, C. difficile colitis, cholecystitis, pancreatitis Workup in the ED showed a creatinine of 4.9 & BUN at 98, stable anemia with H&H 10 &n 32, lipase 192. Abdomen and pelvic CT negative for acute findings. IVF bolus initiated in the ED resulting in micturition; UA pending. The patient was admitted to the medical surgical floor with telemetry for intractable nausea, vomiting, JONES on CKD. Review of Systems All systems reviewed & are unremarkable except as noted in HPI and below PFSH All Active Problems (Updated 06/22/25 @ 16:52 by Maddison Mcdonald APRN) Nausea vomiting and diarrhea (Acute) Elevated lipase (Acute) Acute kidney injury superimposed on stage 4 chronic kidney disease (Acute) Sacroiliac joint dysfunction of right side (Acute) Bladder cancer (Acute) Acute pyelonephritis (Acute) Medical History Rib cage dysfunction Stucco keratosis Obstructive sleep apnea Depression Graves disease GERD (gastroesophageal reflux disease) Fibromyalgia Kidney disease, chronic, stage IV (severe, 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 Acquired trigger finger Renal failure syndrome Rheumatoid arthritis Lumbar radiculopathy Postoperative hypothyroidism Obesity Neck pain Lower urinary tract symptoms (LUTS) Inflammatory arthritis Hyperlipidemia, mixed Hypertensive disorder Heart failure Diabetes mellitus Diabetic retinopathy associated with controlled type 2 diabetes mellitus Chronic cystitis Chronic pain Cataract Atrial fibrillation History of anemia Surgical History H/O breast biopsy Hx of tonsillectomy H/O tubal ligation H/O adenoidectomy History of cholecystectomy Hx of appendectomy H/O right cataract extraction Family History Father Cancer Heart disease Mother Graves disease Rheumatoid arthritis Social History Smoking/Tobacco Use Status: Former Tobacco Use Quit Date: 09/22/95 Smoking risk assessment performed?: Yes Alcohol Intake: former Drug use: Never Substance use type: does not use Housing: other Do you feel safe at home: Yes Do you feel safe in your relationship?: Yes Additional Social history: lives alone Meds Allergies and Home Medications Allergies Allergy/AdvReac Type Severity Reaction Status Date / Time Penicillins Allergy Severe Skin Rash Verified 06/22/25 11:36 Macrolide Antibiotics Allergy Intermediate Hives Verified 06/22/25 11:36 naproxen Allergy Intermediate Skin Rash Verified 06/22/25 11:36 niacin Allergy Intermediate Hives Verified 06/22/25 11:36 omeprazole (From Prilosec) Allergy Intermediate Nausea Verified 06/22/25 11:36 codeine Allergy Nausea Verified 06/22/25 11:36 erythromycin base Allergy Hives Verified 06/22/25 11:36 Sulfa (Sulfonamide Allergy urtiaria Verified 06/22/25 11:36 Antibiotics) amitriptyline AdvReac Intermediate Other (See Verified 06/22/25 11:36 Comment) NSAIDS (Non-Steroidal AdvReac Intermediate Other (See Verified 06/22/25 11:36 Anti-Inflamma Comment) celecoxib AdvReac Nausea Verified 06/22/25 11:36 gabapentin AdvReac Other (See Verified 06/22/25 11:36 Comment) methotrexate AdvReac Nausea Verified 06/22/25 11:36 naltrexone AdvReac Skin Rash Verified 06/22/25 11:36 Home Medications ?Medication ?Instructions ?Recorded ?Confirmed ?Type atorvastatin 40 mg tablet 40 mg PO DAILY 06/14/21 06/22/25 History carvedilol 12.5 mg tablet 18.75 mg PO BID 06/14/21 06/22/25 History insulin degludec 100 unit/mL (3 10 unit subcut DAILY 06/14/21 06/22/25 History mL) subcutaneous pen (Tresiba FlexTouch U-100 insulin) acetaminophen 325 mg tablet 2 tab PO BID PRN 09/04/22 06/22/25 History [id number]-nmabdvtcq-mhn C-Mn 500 2 cap PO DAILY 07/10/23 06/22/25 History mg-400 mg capsule (Glucosamine Chondroitin Maximum Strength) sodium bicarbonate 325 mg tablet See Rx Instructions PO DAILY 07/10/23 06/22/25 History lisinopril 40 mg tablet 40 mg PO DAILY 02/25/24 06/22/25 History magnesium chloride 64 mg 64 mg PO DAILY 02/25/24 06/22/25 History tablet,extended release vitamins A,C,H-eyos-fqwmcw 4,296 1 cap PO BID 02/25/24 06/22/25 History mcg-226 mg-90 mg capsule (PreserVision AREDS) blood sugar diagnostic (OneTouch 09/22/24 06/22/25 History Verio test strips) lancets 33 gauge (OneTouch Delica 09/22/24 06/22/25 History Plus Lancet) liothyronine 5 mcg tablet 5 mcg PO DAILY 09/22/24 06/22/25 History sevelamer carbonate 800 mg tablet 800 mg PO TID 09/22/24 06/22/25 History (Renvela) furosemide 40 mg tablet 40 mg PO DAILY #7 tabs 11/22/24 06/22/25 Rx apixaban 2.5 mg tablet (Eliquis) 2.5 mg PO BID #180 tabs 03/15/25 06/22/25 Rx paroxetine HCl 30 mg tablet 30 mg PO DAILY 03/15/25 06/22/25 History spironolactone 25 mg tablet 25 mg PO DAILY 04/17/25 06/22/25 History calcitriol 0.25 mcg capsule 0.5 mcg PO DAILY 06/17/25 06/22/25 History furosemide 20 mg tablet (Lasix) 20 mg PO DAILY 06/17/25 06/22/25 History levothyroxine 150 mcg capsule 150 mcg PO DAILY 06/17/25 06/22/25 History tramadol 50 mg tablet 50 mg PO Q8H PRN 06/17/25 06/22/25 History cholecalciferol (vitamin D3) 25 25 mcg PO DAILY 06/22/25 06/22/25 History mcg (1,000 unit) capsule (Vitamin D3) Exam Narrative Exam Narrative: illl appearing frail 84 yo female patient, alert and oriented , no acute distress, pale, atruamatic and normocephalic, non-icteric sclera, no JVD, Clear lungs, paced rhythm on campus monitor, S1, S2, regular PPPX4, , no murmur to 2nd intercostals spaces but + turbulence right infra- clavicular space, abdomen is round , non-distended, with positive epigastric tenderness - bilateral lower extremities w/o edema Results Labs 06/22/25 12:55 06/22/25 12:55 Labs: Laboratory Results - last 24 hr 06/22/25 06/22/25 12:55 15:19 WBC 6.39 RBC 3.38 L Hgb 10.2 L Hct 32.1 L MCV 95 MCH 30.2 MCHC 31.8 L RDW 12.5 Plt Count 154 MPV 10.1 Immature Gran % 0.3 Neutrophils % 78.2 Lymphocytes % 11.4 Monocytes % 9.5 Eosinophils % 0.3 Basophils % 0.3 Nucleated RBC % 0.0 Absolute Neutrophils 4.99 Absolute Lymphocytes 0.73 L Absolute Monocytes 0.61 Absolute Eosinophils 0.02 Absolute Basophils 0.02 Sodium 141 Potassium 3.9 Chloride 102 Carbon Dioxide 28.9 Anion Gap 10.1 BUN 98 H* Creatinine 4.9 H* Est GFR (CKD-EPI 2020) 8.35 Glucose 192 H Calcium 10.8 H Magnesium 2.0 Total Bilirubin 0.9 AST 18 ALT 33 Alkaline Phosphatase 89 Total Protein 7.4 Albumin 3.7 Lipase 192 H TSH 0.21 L Free T4 1.25 COVID-19 Source Nasopharynx SARS-CoV-2 (PCR) Negative Influenza Type A (PCR) Negative Influenza Type B (PCR) Negative RSV (PCR) Negative Last Vital Signs Temp 36.6 C 06/22/25 11:32 Pulse 62 06/22/25 11:32 Resp 16 06/22/25 11:32 BP 178/70 H 06/22/25 11:32 Pulse Ox 98 06/22/25 11:32 Time Spent Time spent with Patient: >75 minutes Time was spent: preparing to see the patient(eg.review tests), obtaining and/or reviewing separately otained hiistory, ordering medications,tests, procedures, referring, communicating with other health ocular care technologist, indepentently interpreting results, counseling the patient, care coordination and other
[2025-06-22] MEDS: Normal Saline 1,000 ML 125 ML IV (16:28)
--- NOTE | 2025-06-22 17:15 | W.PC.ACHO ---
Registration Status: [facility] ER Primary Language: Preferred Language: ED Information & Data Chief Complaint Nausea/Vomit/Diar 06/22/25 14:30 Triage Note Been feeling unwell 4-5 days 06/22/25 11:32 with emesis and fatigue - worried about her CKD is worse Medical / Surgical History (Last Reviewed 03/13/25 @ 21:01 by Cy Arango) Noncompliance w/medication treatment due to intermit use of medication Elevated troponin level not due to acute coronary syndrome Rib cage dysfunction Stucco keratosis Obstructive sleep apnea Depression Graves disease GERD (gastroesophageal reflux disease) Fibromyalgia Kidney disease, chronic, stage IV (severe, 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) Cardiomyopathy Benign neoplasm of adrenal gland Pacemaker Atrophic vaginitis Arteriosclerotic cardiovascular disease Anemia Bladder mass Hx of myocardial infarction Slipping rib syndrome Acquired trigger finger Renal failure syndrome Rheumatoid arthritis Lumbar radiculopathy Postoperative hypothyroidism Obesity Neck pain Lower urinary tract symptoms (LUTS) Inflammatory arthritis Hyperlipidemia, mixed Hypertensive disorder Heart failure Diabetes mellitus Diabetic retinopathy associated with controlled type 2 diabetes mellitus Chronic cystitis Chronic pain Cataract Atrial fibrillation History of anemia (Last Reviewed 03/13/25 @ 21:01 by Cy Arango) H/O breast biopsy Hx of tonsillectomy H/O tubal ligation H/O adenoidectomy History of cholecystectomy Hx of appendectomy H/O right cataract extraction Most Recent Vital Signs Temperature 36.6 C 06/22/25 11:32 Temperature Source Oral 06/22/25 11:32 Pulse 62 06/22/25 11:32 Respiratory Rate 16 06/22/25 11:32 Blood Pressure 178/70 H 06/22/25 11:32 Pulse Oximetry 98 06/22/25 11:32 Oxygen Delivery Method Room Air 06/22/25 11:32 Oxygen Flow Rate 0 06/22/25 11:32 Allergies Penicillins Allergy (Severe, Verified 06/22/25 11:36) Skin Rash Macrolide Antibiotics Allergy (Intermediate, Verified 06/22/25 11:36) Hives naproxen Allergy (Intermediate, Verified 06/22/25 11:36) Skin Rash niacin Allergy (Intermediate, Verified 06/22/25 11:36) Hives omeprazole (From Prilosec) Allergy (Intermediate, Verified 06/22/25 11:36) Nausea codeine Allergy (Verified 06/22/25 11:36) Nausea lip swelling erythromycin base Allergy (Verified 06/22/25 11:36) Hives Sulfa (Sulfonamide Antibiotics) Allergy (Verified 06/22/25 11:36) urtiaria amitriptyline Adverse Reaction (Intermediate, Verified 06/22/25 11:36) Other (See Comment) mind wasn't right NSAIDS (Non-Steroidal Anti-Inflamma Adverse Reaction (Intermediate, Verified 06/22/25 11:36) Other (See Comment) Nose bleeds,nausea celecoxib Adverse Reaction (Verified 06/22/25 11:36) Nausea gabapentin Adverse Reaction (Verified 06/22/25 11:36) Other (See Comment) pt. reports having a seizure methotrexate Adverse Reaction (Verified 06/22/25 11:36) Nausea elevated LFT's naltrexone Adverse Reaction (Verified 06/22/25 11:36) Skin Rash Active Medications Generic Name Dose Route Start Last Admin Trade Name Freq PRN Reason Stop Dose Admin Sodium Chloride 1,000 mls @ 125 mls/hr 06/22/25 15:45 06/22/25 16:28 Saline 1000ml Bag IV 125 mls/hr INFUSION OMEGA Administration IV IV Catheter Type [Left Saline Lock Antecubital] IV Catheter Gauge [Left 20 Antecubital] Diagnostics 06/22/25 06/22/25 Range/Units 15:19 12:55 WBC 6.39 (4.4-10.8) 10^3/uL RBC 3.38 L (3.93-5.22) 10^6/uL Hgb 10.2 L (11.2-15.7) g/dL Hct 32.1 L (36.0-46.0) % MCV 95 (80-95) fL MCH 30.2 (27.0-33.0) pg MCHC 31.8 L (32.0-36.0) % RDW 12.5 (11.7-14.6) % Plt Count 154 (130-400) 10^3/uL MPV 10.1 (8.0-11.0) fL Immature Gran % 0.3 % Neutrophils % 78.2 % Lymphocytes % 11.4 % Monocytes % 9.5 % Eosinophils % 0.3 % Basophils % 0.3 % Nucleated RBC % 0.0 (0.0-0.3) % Absolute Neutrophils 4.99 (1.2-6.7) 10^3/uL Absolute Lymphocytes 0.73 L (1.2-3.4) 10^3/uL Absolute Monocytes 0.61 (0.1-0.8) 10^3/uL Absolute Eosinophils 0.02 (0.0-0.7) 10^3/uL Absolute Basophils 0.02 (0.0-0.2) 10^3/uL Sodium 141 (136-145) mmol/L Potassium 3.9 (3.5-5.1) mmol/L Chloride 102 (98-107) mmol/L Carbon Dioxide 28.9 (21.0-32.0) mmol/L Anion Gap 10.1 (3-11) mmol/L BUN 98 H* (7-18) mg/dL Creatinine 4.9 H* (0.55-1.02) mg/dL Est GFR (CKD-EPI 2020) 8.35 (mL/min/1.73m2) Glucose 192 H (74-106) mg/dL Calcium 10.8 H (8.5-10.1) mg/dL Magnesium 2.0 (1.8-2.4) mg/dL Total Bilirubin 0.9 (0.2-1.0) mg/dL AST 18 (15-37) U/L ALT 33 (14-59) U/L Alkaline Phosphatase 89 (46-116) U/L Total Protein 7.4 (6.4-8.2) g/dL Albumin 3.7 (3.4-5.0) g/dL Lipase 192 H (<78) U/L TSH 0.21 L (0.36-3.74) uIU/mL Free T4 1.25 (0.76-1.46) ng/dL COVID-19 Source Nasopharynx SARS-CoV-2 (PCR) Negative (Negative) Influenza Type A (PCR) Negative (Negative) Influenza Type B (PCR) Negative (Negative) RSV (PCR) Negative (Negative) Intake and Output - 24 Hour Total 06/22/25 11:27 thru 06/22/25 13:15 Intake Total 500 Balance 500 Weight 58.967 kg Intake: IV 500 Other: Stool Size Moderate Stool Characteristics Soft Formed Emesis Description Bile Problems (Last Reviewed 03/13/25 @ 21:01 by Cy Arango) Nausea vomiting and diarrhea (Acute) Elevated lipase (Acute) Acute kidney injury superimposed on stage 4 chronic kidney disease (Acute) v v v v v v v v v Sending and/or Receiving Nurses: Please use comment section below to note any information pertinent to the patient hand-off not included above. Information / Comments: Paged at [phone], report called at [phone]. N/V/D and weakness last 5 days, decreased oral intake and ability to keep medication down. 18 G L AC running 125 mL/hr NS. Uses cane w/ ambulation and standby assist. Report received from: Katherine Luciano ED RN
[2025-06-22] MEDS: Pantoprazole 40 MG VIAL IVP (18:54)
[2025-06-22 19:24] LABS: Glucose Negative (Negative)
[2025-06-22 19:34] LABS: C & S Indicated? No; WBC 0-2 HPF (0-5)
[2025-06-22] MEDS: Carvedilol 12.5 MG TAB 18.75 MG PO (20:09)
[2025-06-22] MEDS: Apixaban 2.5 MG TAB PO (20:09)
[2025-06-22] MEDS: Sodium Bicarbonate 650 MG TAB 325 MG PO (20:10)
[2025-06-23] MEDS: Normal Saline 1,000 ML 125 ML IV ×2 (00:41→08:12)
[2025-06-23 03:08] VITALS: BP 154/54; PULSE 63; RESP 15; TEMP 36.7; O2SAT 97
[2025-06-23] MEDS: Liothyronine 5 MCG TAB PO (05:50)
[2025-06-23] MEDS: Levothyroxine 150 MCG TAB PO (05:50)
[2025-06-23 06:26] LABS: Abs Immature Grans 0.03 10^3/uL (0.0-0.06); HCT 30.7 % (36.0-46.0); HGB 9.8 g/dL (11.2-15.7); Immature Grans % 0.5 %; MCH 30.2 pg (27.0-33.0); MCHC 31.9 % (32.0-36.0); MCV 95 fL (80-95); MPV 10.4 fL (8.0-11.0); Platelet Count 125 10^3/uL (130-400); RBC 3.25 10^6/uL (3.93-5.22); RDW 12.3 % (11.7-14.6); RDW-SD 43.1 fL; WBC 5.91 10^3/uL (4.4-10.8)
[2025-06-23 07:11] LABS: Anion Gap 11.4 mmol/L (3-11); CO2 22.6 mmol/L (21.0-32.0); Calcium 9.6 mg/dL (8.5-10.1); Chloride 107 mmol/L (98-107); Estimated GFR 9.77 (mL/min/1.73m2); Glucose 113 mg/dL (74-106); Potassium 3.8 mmol/L (3.5-5.1); Sodium 141 mmol/L (136-145)
[2025-06-23 07:16] LABS: Hemoglobin A1C 6.8 % (<5.7)
[2025-06-23 07:39] LABS: BUN 86 mg/dL (7-18)
--- NOTE | 2025-06-23 08:00 | DI.US_ITS ---
APPROVED REPORT EXAM: Comprehensive 2D, Doppler, and color-flow Echocardiogram Patient Location: In-Patient Room/Bed: [address] Broker Assistant: Emmanuelle Cristobal RDCS (AE) Indications: HFpEF Other Information Study Quality: Adequate. Technically limited study due to body habitus exam done bedside supine. Conclusion Normal left ventricular wall thickness and chamber size. Ejection fraction is 55 to 60%. Wall motion is normal Normal right ventricular size and function Both atria are enlarged Trileaflet aortic valve with mild regurgitation Mitral annular calcification. Moderate mitral regurgitation Moderate tricuspid regurgitation. Estimated right ventricular systolic pressure is 65 mmHg Wall motion Left Ventricle The left ventricle is normal size. The left ventricular systolic function is normal. The left ventricular ejection fraction is within the normal range. There is normal left ventricular wall thickness. There is normal LV segmental wall motion. There is no ventricular septal defect visualized. LVEF is 57%. Right Ventricle Right ventricle is grossly normal in size. Right ventricular systolic function is grossly normal. Atria Left atrium is severely dilated. Right atrium is moderately dilated. The interatrial septum is intact with no evidence for an atrial septal defect. Aortic Valve The aortic valve is normal in structure. Aortic valve is trileaflet. There is no aortic valvular stenosis. Mild aortic regurgitation. Mitral Valve Miitral annular calcification. No evidence of mitral valve stenosis. Moderate mitral regurgitation. Tricuspid Valve The tricuspid valve is normal in structure. There is no tricuspid valve stenosis. Moderate tricuspid regurgitation. The RVSP is 65.4 mmHg. Pulmonic Valve The pulmonary valve is normal in structure. There is no pulmonic valvular stenosis. There is no pulmonic valvular regurgitation. Great Vessels The aortic root is normal in size. The ascending aorta is normal in size. Aortic arch is not well visualized. The IVC collapses <50% with inspiration. Pericardium There is no pericardial effusion. 2D Dimensions IVSD d PLAX 1.04 cm F: 0.6-1.0 Ao Root d 2.53 cm F: 2.7 - 3.3 LVPW d PLAX 1.03 cm F: 0.6 - 1.0 Ao Asc Diam d 3.11 cm F: 2.3 - 3.1 LVID d PLAX 4.20 cm F: 3.8 - 5.2 LVDs 3.00 cm F: 2.2 - 3.5 LV EF Teichholz 54.8 % FS 28.14 % LV EDV (Teich) 77.4 mL LV ESV (Teich) 35.0 mL Auto EF LV EDV A4C 85.2 mL LV EDV A2C 95.4 mL LV EDV BP 89.6 mL LV ESV A4C 35.5 mL LV ESV A2C 40.5 mL LV ESV BP 37.6 mL LVEF(%) A4C 58.3 % LVEF(%) A2C 57.6 % LVEF(%) BP 58.1 % LV SV A4C 49.7 ml LV SV A2C 54.9 ml LV SV BP 52.0 ml LV CO A4C 3.0 L/min LV CO A2C 3.3 L/min LV CO BP 3.1 L/min HR A4C 60.18 BPM HR A2C 60.20 BPM LV EDV Index (BP) LA Volume LA Length A4C 6.4 cm LA Length A2C 6.2 cm LA Area A4C s 28.03 cm2 LA Area A2C s 22.36 cm2 LA Vol A4C A-L 104.51 mL LA Vol A2C A-L 68.46 mL LA Vol Biplane A- L 85.8 mL LA Vol/BSA A4C A-L LA Vol/BSA A2C A-L LA Vol/BSA BP A-L 56.5 mL/m2 LA Vol A4C MOD 96.9 mL LA Vol A2C MOD 65.0 mL LA Vol BP MOD 80.3 mL RA Volume RA Area A4C 16.6 cm2 RA ESV A4C (A-L) 48.0mL RA Vol/BSA A4C A-L RA Length A4C 4.9 cm RA ESV A4C (MOD) 48.0mL LV Diastology MV E' medial 0.062 (>0.07 m/s) MV E Vmax 1.29 (0.4-1.3 m/s) MV E/E' MED 20.94 (<14) MV A Vmax 0.45 (0.4-1.3 m/s) MV E' lateral 0.068 (>0.1 m/s) E/A Ratio 2.9 MV E/E' LAT 18.96 (<14) MV E' Average 0.065 m/s MV E/E'(average) 19.90 Aortic Valve AoV Vmax 1.33 m/s LVOT Vmax 1.18 m/s AoV Peak Grad 37.8 mmHg LVOT Peak Grad 5.6 mmHg AoV Area (Vmax) 2.17 cm2 LVOT VTI 0.267 m AoV VTI 0.319 m LVOT Mean Grad 3.4 mmHg AoV Mean Jose. 0.87 m/s LVOT SV 65.37 mL AoV Mean Grad 3.5 mmHg LVOT Diam s 1.75 cm AoV Area (VTI) 2.05 cm2 AV Regurg Peak Gr. 7.07 mmHg Velocity Ratio 0.89 AR Decel [place] 2.6m/sec2 AR DT 1574 msec AR PHT 456 msec AR Vmax 4.14 m/s Mitral Valve MV DT 209 (160-240 msec) MV Vmax TIPS 1.19 m/s MV Mean Grad 1.5 (<2mmHg) MV VTI 0.315 m Pulmonary Valve PV Vmax 0.82 (0.5-1.5 m/s) RVOT Vmax 0.57 m/s PV Peak Grad 2.7 mmHg RVOT Peak Gr. 1.3 mmHg PV Mean Jose 0.47 m/s RVOT VTI 0.107 m PV Mean Grad 1.1 mmHg RVOT Mean Gr. 0.5 mmHg Tricuspid Valve RA Pressure 8.00 mmHg TR Vmax 3.79 m/s TV S' 0.10 m/s TR Peak Grad 57.4 mmHg RVSP (TR) 95.4 mmHg
[2025-06-23 08:01] VITALS: BP 148/101; PULSE 61; RESP 20; TEMP 36.3; O2SAT 98
[2025-06-23] MEDS: PARoxetine 20 MG TAB 30 MG PO (08:08)
[2025-06-23] MEDS: Sodium Bicarbonate 650 MG TAB PO (08:08)
[2025-06-23] MEDS: Atorvastatin 40 MG TAB PO (08:10)
[2025-06-23] MEDS: Carvedilol 12.5 MG TAB 18.75 MG PO ×2 (08:10→19:46)
[2025-06-23] MEDS: Pantoprazole 40 MG VIAL IVP (08:11)
[2025-06-23] MEDS: Apixaban 2.5 MG TAB PO ×2 (08:11→19:47)
[2025-06-23 08:35] LABS: EPI 027-NAP1-B1 PRESUMPTIVE NEGATIVE
[2025-06-23] MEDS: Preservision CAPSULE 1 CAP PO ×2 (08:52→19:47)
--- NOTE | 2025-06-23 09:13 | INITIAL_ITS ---
Date of service: 06/23/25 Time of Service: 15:39 Care Management Initial Assmt Initial Assessment Reason for Hospitalization: JONES on CDK, nausea, vomiting, diarrhea Functional Status/Living Situation Patient Presentation: Iliana was sitting in her chair. She was pleasant and easily engaged in conversation. She presented to the ED yesterday afternoon with nausea and vomiting weakness for the past 6 days; see ED documentation. Per report, she will have an echo and her diet will be advanced today as tolerated. Iliana resides in a mobile home in [place] with her cat. She shared that her approximately three years ago. She has a large family, including seven children and an estimated 30 grandchildren and great-grandchildren. Iliana receives Meals on Wheels and is connected with the [employer] for additional support. She believes she is enrolled in the Choices for Care program and reports receiving a monthly home visit from a service provider. Through this program, she obtained a pedal it help desk manager, which she uses at home. Iliana reports being independent with her activities of daily living. Iliana reports she voluntarily stopped driving about three years ago due to vision challenges related to an eye condition affecting her right eye. She believes she has Advance Directives in place; however, she does not currently have access to the documentation and is not listed in the [place] Advance Directive Registry. Iliana is hopeful to go home today; Provider aware. CM will continue to follow. 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) Instrumental Activities of Daily Living (ADLs): Independent Activities/Hobbies/SocialSupport: Enjoys gardening and cooking meals for others Medications Medication Management: Issues/Barriers with Instructions/Directions (compliance ) Physical Functioning/Mobility Assistive Device: cane and walker Advance Directives Advance Directives: Do you have an Advance Directive: N , 11:06 AD On File at [facility]: N 06/14/21, 11:06 Date Asked 06/22/25 06/22/25, 11:30 AD Date Reviewed COLST On File at [facility] COLST Date Scanned Code Status Resuscitation Status Full Code Portal Pt does not currently have a portal and education provided: Yes Insurance Coverage/Financial Issues Insurance: Medicare Part A & B - [id number] Medicaid [facility] - [id number] Care Team Visit Care Team Role Provider Type Maddison Mcdonald APRN MD [facility] STAFF PHYSICIAN Jason Snow DO Primary Care Provider NON-[facility] STAFF PHYSICIAN FORREST Tate Emergency Provider PHYSICIANS ASSISTANT Krystian Ricardo Admit Provider [facility] STAFF PHYSICIAN Attending Provider Discharge Potential Discharge Needs: PCP F/U Appt Anticipated Barriers to Discharge: Medical Status Patient/Family Education Needs: Review discharge instructions, discuss Ask Me Three Transportation: Private vehicle Plan: Anticipate Iliana will return home with new home health PT/OT/RN/TIME CYCLE OPERATOR, when medically cleared. She will follow up with her community providers, zipper setter lockstitch at [facility], and discharge plan of care. She will be transported home via private vehicle by family. CM will follow and continue to assess for discharge needs. Social Determinants of Health Screening Social Determinants of health last assessed in clinic: 06/23/25 Will the Patient Participate in the Screening?: Yes Do you worry about having a steady place to live?: no Problems where you live: no known problems In the past 12 months, have you had to go without electric, gas, oil or water in your home?: no 1. Within the past 12 months, we worried whether our food would run out before we got money to buy more.: Never true 2. Within the past 12 months, the food we bought just didn't last and we didn't have money to get more.: Never true Has lack of transportation kept you from medical appointments or from doing things needed for daily living?: no Has anyone in your life made you feel unsafe or unsupported?: no How hard is it for you to pay for the very basics like food, housing, medical care, and heating? Would you say it is:: Not hard at all Do you want help finding or keeping work or a job?: I do not need or want help If for any reason you need help with day-to-day activities such as bathing, preparing meals, shopping, managing finances, etc., do you get the help you need?: I get all the help I need How often do you feel lonely or isolated from those around you?: Never Do you speak a language other than Italian at home?: No Does the patient want assistance with any of the above?: No PFSH All Active Problems (Updated 06/23/25 @ 08:22 by FORREST Tate) Nausea vomiting and diarrhea (Acute) Elevated lipase (Acute) Acute kidney injury superimposed on stage 4 chronic kidney disease (Acute) Sacroiliac joint dysfunction of right side (Acute) Bladder cancer (Acute) Acute pyelonephritis (Acute) Medical History Rib cage dysfunction Stucco keratosis Obstructive sleep apnea Depression Graves disease GERD (gastroesophageal reflux disease) Fibromyalgia Kidney disease, chronic, stage IV (severe, 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 Acquired trigger finger Renal failure syndrome Rheumatoid arthritis Lumbar radiculopathy Postoperative hypothyroidism Obesity Neck pain Lower urinary tract symptoms (LUTS) Inflammatory arthritis Hyperlipidemia, mixed Hypertensive disorder Heart failure Diabetes mellitus Diabetic retinopathy associated with controlled type 2 diabetes mellitus Chronic cystitis Chronic pain Cataract Atrial fibrillation History of anemia Surgical History H/O breast biopsy Hx of tonsillectomy H/O tubal ligation H/O adenoidectomy History of cholecystectomy Hx of appendectomy H/O right cataract extraction Family History Father Cancer Heart disease Mother Graves disease Rheumatoid arthritis Social History Smoking/Tobacco Use Status: Former Tobacco Use Quit Date: 09/22/95 Smoking risk assessment performed?: Yes Alcohol Intake: former Drug use: Never Substance use type: does not use Housing: house Do you feel safe at home: Yes Do you feel safe in your relationship?: Yes Additional Social history: lives alone Readmission Within the Past 30 Days Yes or No: No
[2025-06-23 11:06] VITALS: BP 157/58; PULSE 61; RESP 16; TEMP 36.1; O2SAT 98
[2025-06-23] MEDS: Lactated Ringers 1,000 ML 100 ML IV ×2 (11:51→22:00)
[2025-06-23] MEDS: Sodium Bicarbonate 650 MG TAB 325 MG PO ×2 (11:57→19:47)
[2025-06-23 15:05] VITALS: BP 125/96; PULSE 67; RESP 16; TEMP 36.4; O2SAT 98
--- NOTE | 2025-06-23 17:20 | PGE_ITS ---
Date of Service Date of service: 06/23/25 Time of Service: 17:20 Assessment and Plan Assessment and plan (1) Acute kidney injury superimposed on stage 4 chronic kidney disease: Status: Acute Assessment and plan: No acute findings as per CT imaging Cr 4.9 from baseline 3.3-3.4 Most likely pre-renal int he setting of point 2 IVF : NS at 125 cc/hr from the ED - LVEF 60-65% in 2021 Now on LR at 100 cc/hr UA negative labs in AM (2) Nausea vomiting and diarrhea: Status: Acute Assessment and plan: Ongoing PRN anitemetics C-diff negative and stool bacterial pathogen PCR pending (3) Obstructive sleep apnea: Assessment and plan: Uncertain about home NIV - will ask to bring the machine in if using at home to be brought in if possible and use as per home setting (4) Depression: Assessment and plan: ongoing outpatient therapy (5) Graves disease: Assessment and plan: ongoing outpatient therapy (6) GERD (gastroesophageal reflux disease): Assessment and plan: continue IV protonix (7) Cardiomyopathy: Assessment and plan: ongoing outpatient therapy (8) Pacemaker: Assessment and plan: on telemetry - functioning adequately - V-paced on EKG HR 60 will discontinue (9) Anemia: Assessment and plan: Remains stable will continue to monitor (10) Diabetes mellitus: Assessment and plan: Ongoing Gluc AC and HS with SSI AC A1C 6.8 (11) Atrial fibrillation: Assessment and plan: Continue outpatient therapy- Eliquis and Coreg No need for chemical DVT prophylaxis (12) Elevated lipase: Status: Acute Assessment and plan: 192 < 3 fold increase, imaging negative and physical exam negative fro acute pancreatitis Will continue to monitor for clinical symptoms Hx of cholescystectomy Discussed with Dr. Ricardo Subjective Subjective Patient reports: feels better, tolerating liquids well, tolerating a regular diet and voiding w/o difficulty; denies no bowel movement, diarrhea, nausea, vomiting, shortness of breath or fever Exam Narrative Exam Narrative: Frail 84 yo female patient, alert and oriented X4 , no acute distress, non- icteric sclera, no JVD, Clear lungs, paced rhythm on linseed oil press tender, S1, S2, regular PPPX4, , no murmur, abdomen is round , non-distended, non tender - bilateral lower extremities w/o edema Objective Last Vital Signs Temp 36.4 C L 06/23/25 15:05 Pulse 67 06/23/25 15:05 Resp 16 06/23/25 15:05 BP 125/96 H 06/23/25 15:05 Pulse Ox 98 06/23/25 15:05 Laboratory Results - last 24 hr 06/22/25 06/23/25 06/23/25 19:14 05:52 07:35 WBC 5.91 RBC 3.25 L Hgb 9.8 L Hct 30.7 L MCV 95 MCH 30.2 MCHC 31.9 L RDW 12.3 Plt Count 125 L MPV 10.4 Immature Gran % 0.5 Neutrophils % 72.4 Lymphocytes % 16.8 Monocytes % 9.1 Eosinophils % 0.7 Basophils % 0.5 Nucleated RBC % 0.0 Absolute Neutrophils 4.28 Absolute Lymphocytes 0.99 L Absolute Monocytes 0.54 Absolute Eosinophils 0.04 Absolute Basophils 0.03 Sodium 141 Potassium 3.8 Chloride 107 Carbon Dioxide 22.6 Anion Gap 11.4 H BUN 86 H* Creatinine 4.3 H* Est GFR (CKD-EPI 2020) 9.77 Glucose 113 H Hemoglobin A1c 6.8 H Calcium 9.6 Phosphorus 4.2 Urine Color Yellow Urine Clarity Clear Urine pH 6.5 Ur Specific [place] 1.010 Urine Protein 100 H Urine Ketones Negative Urine Blood Trace-lysed H Urine Nitrite Negative Urine Bilirubin Negative Urine Urobilinogen 0.2 Ur Leukocyte Esterase Negative Urine RBC 3-5 H Urine WBC 0-2 Ur Epithelial Cells Rare Urine Crystals Negative Urine Bacteria Moderate Urine Casts Negative Urine Mucus Negative Ur Culture Indicated? No Urine Glucose Negative Stl C.difficile Tox PCR Negative Time Spent with Patient Time Spent with Patient: >50 minutes Time was spent: preparing to see the patient(eg.review tests), obtaining and/or reviewing separately otained hiistory, ordering medications,tests, procedures, referring, communicating with other health hemodialysis patient care specialist, indepentently interpreting results, counseling the patient, care coordination and other
--- NOTE | 2025-06-23 17:24 | PHA.REVIEW2 ---
Pharmacy Admission Review Admission Clinical Review Admission Pharmacy Review: Nausea vomiting and diarrhea (Acute) Elevated lipase (Acute) Acute kidney injury superimposed on stage 4 chronic kidney disease (Acute) Penicillins Allergy (Severe, Verified 06/22/25 11:36) Skin Rash Macrolide Antibiotics Allergy (Intermediate, Verified 06/22/25 11:36) Hives naproxen Allergy (Intermediate, Verified 06/22/25 11:36) Skin Rash niacin Allergy (Intermediate, Verified 06/22/25 11:36) Hives omeprazole (From Prilosec) Allergy (Intermediate, Verified 06/22/25 11:36) Nausea codeine Allergy (Verified 06/22/25 11:36) Nausea erythromycin base Allergy (Verified 06/22/25 11:36) Hives Sulfa (Sulfonamide Antibiotics) Allergy (Verified 06/22/25 11:36) urtiaria amitriptyline Adverse Reaction (Intermediate, Verified 06/22/25 11:36) Other (See Comment) NSAIDS (Non-Steroidal Anti-Inflamma Adverse Reaction (Intermediate, Verified 06/22/25 11:36) Other (See Comment) celecoxib Adverse Reaction (Verified 06/22/25 11:36) Nausea gabapentin Adverse Reaction (Verified 06/22/25 11:36) Other (See Comment) methotrexate Adverse Reaction (Verified 06/22/25 11:36) Nausea naltrexone Adverse Reaction (Verified 06/22/25 11:36) Skin Rash Resuscitation Status Full Code Height 5 ft Weight 57.3 kg Pharmacy Admission Review Renal Dosing Renal Dosing: BUN 86 mg/dL (7-18) H* 06/23/25 05:52 Creatinine 4.3 mg/dL (0.55-1.02) H* 06/23/25 05:52 Medications needing adjustments: Reviewed (CrCl 7.99 mL/min, BUN decreased from 98 and SCr decreased from 4.9) List of meds needing interventions: Current medications are okay Anticoagulation Anticoagulation: Hgb 9.8 g/dL (11.2-15.7) L 06/23/25 05:52 Hct 30.7 % (36.0-46.0) L 06/23/25 05:52 Plt Count 125 10^3/uL (130-400) L 06/23/25 05:52 Creatinine 4.3 mg/dL (0.55-1.02) H* 06/23/25 05:52 DVT Prophylaxis: Reviewed (Hgb decreased from 10.2) Medications: Apixaban (2.5mg BID) Relevant Labs Relevant Labs: Sodium 141 mmol/L (136-145) 06/23/25 05:52 Potassium 3.8 mmol/L (3.5-5.1) 06/23/25 05:52 Chloride 107 mmol/L (98-107) 06/23/25 05:52 Phosphorus 4.2 mg/dL (2.6-4.7) 06/23/25 05:52 Magnesium 2.0 mg/dL (1.8-2.4) 06/22/25 12:55 Electrolytes, C-Reactive P, ESR: Reviewed DM Control DM Control: Glucose 113 mg/dL (74-106) H 06/23/25 05:52 Hemoglobin A1c 6.8 % (<5.7) H 06/23/25 05:52 Finger Stick Blood Glucose 116 1645 Finger Stick Blood Glucose 116 1645 Finger Stick Blood Glucose 121 1152 Finger Stick Blood Glucose 121 1152 DM Control: Reviewed Insulin Dosing, Diabetic Medication: Has order for SS insulin Cardiac Review Cardiac Review: Blood Pressure 125/96 1505 Blood Pressure 157/58 1106 Blood Pressure 148/101 0801 BP, HR, EF%: Reviewed (HR WNL) List meds needing interventions: Has order for carvedilol 18.75mg BID QTc Review QTc: Reviewed (495 from 06/22/25) List meds needing interventions: Current medications are okay IV to PO Switch IV Medications: Reviewed (pantoprazole and prochlorperazine) Home Meds Home Med List reviewed: Intervened Relevent Home Meds Not ordered & why?: Calcitriol, vitamin D3, furosemide (JONES), lisinopril (JONES) and magnesium Changed sevelamer to patients own order (non-formulary). Sent message to nurse to see if this could be brought in from home for the patient. Per nurse patient does not have anyone to bring in the medication. Current Meds Current Medication Order Review: Intervened Comments: Added IV access order
[2025-06-23 19:13] VITALS: BP 173/51; PULSE 60; RESP 15; TEMP 37.1; O2SAT 100
[2025-06-23 20:44] LABS: Campylobacter PCR Negative (Negative); Shiga Toxin PCR Negative (Negative); Shigella/Enteroinvasive Ecoli Negative (Negative)
[2025-06-24 02:43] VITALS: BP 150/56; PULSE 78; RESP 16; TEMP 36.6; O2SAT 98
[2025-06-24] MEDS: Levothyroxine 150 MCG TAB PO (06:01)
[2025-06-24] MEDS: Liothyronine 5 MCG TAB PO (06:01)
[2025-06-24 07:05] LABS: Abs Immature Grans 0.02 10^3/uL (0.0-0.06); HCT 32.3 % (36.0-46.0); HGB 10.2 g/dL (11.2-15.7); Immature Grans % 0.3 %; MCH 30.1 pg (27.0-33.0); MCHC 31.6 % (32.0-36.0); MCV 95 fL (80-95); MPV 10.5 fL (8.0-11.0); Platelet Count 116 10^3/uL (130-400); RBC 3.39 10^6/uL (3.93-5.22); RDW 12.4 % (11.7-14.6); RDW-SD 43.1 fL; WBC 6.31 10^3/uL (4.4-10.8)
[2025-06-24 07:23] VITALS: BP 170/62; PULSE 60; RESP 16; TEMP 36.6; O2SAT 99
[2025-06-24 07:23] LABS: Anion Gap 12.1 mmol/L (3-11); BUN 79 mg/dL (7-18); CO2 22.9 mmol/L (21.0-32.0); Calcium 9.4 mg/dL (8.5-10.1); Chloride 105 mmol/L (98-107); Estimated GFR 10.05 (mL/min/1.73m2); Glucose 123 mg/dL (74-106); Potassium 3.9 mmol/L (3.5-5.1); Sodium 140 mmol/L (136-145)
--- NOTE | 2025-06-24 08:45 | PDOC.CMPRO ---
Date of service: 06/24/25 Time of Service: 08:48 Care Management Progress Note Progress Note Text Progress Note Text: Iliana was sitting up in her chair when CM met with her. Per report, Iliana's creatinine levels are elevated; Anticipate d/c once levels improve. Discharge Potential Discharge Needs: PCP F/U Appt Anticipated Barriers to Discharge: Medical Status Patient/Family Education Needs: Review discharge instructions, discuss Ask Me Three Transportation: Private vehicle Plan: Anticipate Iliana will return home with new home health PT/OT/RN/REGIONAL SALES LEADER, when medically cleared. She will follow up with her community providers, farmer cash grain at [facility] [place], and discharge plan of care. She will be transported home via private vehicle by family. CM will follow and continue to assess for discharge needs. Social Determinants of Health Screening Social Determinants of health last assessed in clinic: 06/23/25 Will the Patient Participate in the Screening?: Yes Do you worry about having a steady place to live?: no Problems where you live: no known problems In the past 12 months, have you had to go without electric, gas, oil or water in your home?: no Has lack of transportation kept you from medical appointments or from doing things needed for daily living?: no Has anyone in your life made you feel unsafe or unsupported?: no How hard is it for you to pay for the very basics like food, housing, medical care, and heating? Would you say it is:: Not hard at all Do you want help finding or keeping work or a job?: I do not need or want help If for any reason you need help with day-to-day activities such as bathing, preparing meals, shopping, managing finances, etc., do you get the help you need?: I get all the help I need How often do you feel lonely or isolated from those around you?: Never Do you speak a language other than Amharic at home?: No Does the patient want assistance with any of the above?: No
[2025-06-24] MEDS: Lactated Ringers 1,000 ML 100 ML IV (09:02)
[2025-06-24] MEDS: Carvedilol 12.5 MG TAB 18.75 MG PO (09:38)
[2025-06-24] MEDS: PARoxetine 20 MG TAB 30 MG PO (09:40)
[2025-06-24] MEDS: Calcitriol 0.25 MCG CAP 0.5 MCG PO (09:41)
[2025-06-24] MEDS: Atorvastatin 40 MG TAB PO (09:41)
[2025-06-24] MEDS: Sodium Bicarbonate 650 MG TAB PO (09:41)
[2025-06-24] MEDS: Preservision CAPSULE 1 CAP PO (09:41)
[2025-06-24] MEDS: Cholecalciferol (Vitamin D3) 1,000 UNIT TAB 1000 UNITS PO (09:43)
[2025-06-24] MEDS: Apixaban 2.5 MG TAB PO (09:43)
--- NOTE | 2025-06-24 09:43 | W.PM.DS.N ---
Date of service: 06/24/25 Time of Service: 09:44 DS: Diagnosis Discharge Diagnosis (1) Acute kidney injury superimposed on stage 4 chronic kidney disease: Status: Acute (2) Nausea vomiting and diarrhea: Status: Acute (3) Obstructive sleep apnea: (4) Depression: (5) Graves disease: (6) GERD (gastroesophageal reflux disease): (7) Cardiomyopathy: (8) Pacemaker: (9) Anemia: (10) Diabetes mellitus: (11) Atrial fibrillation: (12) Elevated lipase: Status: Acute Discharge Plan Disposition Patient Disposition: Home W/Home Health Services Condition: Improving Discharge Details Reason For Visit: JONES on CKD, Nausea, Vomiting, Diarrhea Admit Date/Time: 06/22/25 16:14 Admit Provider: Krystian Ricardo Attending Provider: Krystian Ricardo [facility] Course: Iliana Kidd is a 84-year-old female patient with a past medical history of in situ pacemaker, atrial fibrillation fully anticoagulated on Eliquis, HFpEF, CKD stage IV, diabetes mellitus type 2, atherosclerotic cardiovascular disease, bladder CA, Graves' disease, obstructive sleep apnea presented to the ED on 06/22/25 for evaluation of nausea vomiting diarrhea over the past 4 days. lightheadedness, chills, and outpatient creatinine level at 5.6 from baseline around 3.3- 3.4. Workup in the ED showed a creatinine of 4.9 & BUN at 98, stable anemia with H&H 10 &n 32, lipase 192. Abdomen and pelvic CT negative for acute findings. In the ED the patient received and IVF bolus resulting in micturition and negative UA . The patient was admitted to the medical surgical floor with telemetry for intractable nausea, diarrhea, vomiting, JONES on CKD and most likely gastroenteritis with children with close contact with patient exhibiting similar symptoms. C-diff and stool PCR were negative. The patient continue to received IVF hydration with clinical improvement and BUN and creatinine trending down. Enteral intake was well tolerated, and oral hydration encouraged. Resumed home dose of lisinopril and aldactone. Furosemide home dose reduced and resumption to be resumed as per PCP after re-evaluation of renal function. The patient is hemodynamically stable and with be discharged home with home health, nursing, PT, OT, and MATERIAL CONTROL MANAGER and follow-up with PCP within 7 days of discharge. Echocardiogram conclusion: Normal left ventricular wall thickness and chamber size. Ejection fraction is 55 to 60%. Wall motion is normal Normal right ventricular size and function Both atria are enlarged Trileaflet aortic valve with mild regurgitation Mitral annular calcification. Moderate mitral regurgitation Moderate tricuspid regurgitation. Estimated right ventricular systolic pressure is 65 mmHg The IVC collapses <50% with inspiration Discussed with Dr. Ricardo Recommendations for Follow Up Recommended tests to be ordered by follow up provider: Renal function testing /BMP, furosemide dosing Home Meds and New Rx's Prescriptions: New loperamide 2 mg Capsule 2 mg PO Q4H PRN PRNQty: 14 0RF Continued [id number] C-Mn [Glucosamine Chondroitin MaxStr] 500-400 mg capsule 2 cap PO DAILY sodium bicarbonate 325 mg tablet See Rx Instructions PO DAILY Rx Instructions: 2 tablets PO AM 1 tablet PO Noon & HS furosemide [Lasix] 20 mg tablet 20 mg PO DAILY Rx Instructions: take with 40 mg daily for total of 60 mg. acetaminophen 325 mg tablet 2 tab PO BID PRN paroxetine HCl 30 mg tablet 30 mg PO DAILY Eliquis 2.5 mg Tablet 2.5 mg PO BID Qty: 180 2RF Rx Instructions: dose reduction for age/GFR spironolactone 25 mg tablet 25 mg PO DAILY atorvastatin 40 mg tablet 40 mg PO DAILY Patient Comments: TAKE ONE TABLET BY MOUTH EVERY EVENING carvedilol 12.5 mg tablet 18.75 mg PO BID Patient Comments: TAKE ONE TABLET BY MOUTH TWICE A DAY WITH FOOD FOR 90 DAYS insulin degludec [Tresiba FlexTouch U-100] 100 unit/mL (3 mL) insulin pen 10 unit SUBCUT DAILY Patient Comments: INJECT 2 UNITS SUBCUTANEOUSLY ONCE DAILY REPLACE PEN AFTER OPEN FOR 56 DAYS magnesium chloride 64 mg tablet extended release 64 mg PO DAILY lisinopril 40 mg tablet 40 mg PO DAILY PreserVision AREDS 4,296 mcg-226 mg-90 mg capsule 1 cap PO BID Patient Comments: 1 capsule by mouth twice a day liothyronine 5 mcg tablet 5 mcg PO DAILY sevelamer carbonate [Renvela] 800 mg tablet 800 mg PO TID Rx Instructions: must administer with a meal/food (DME) Saltlick Labsuch Verio test strips Strip MISCELLANEOUS Patient Comments: USE TO TEST BLOOD SUGAR ONE TO TWO TIMES EVERY DAY NEEDED (DME) lancets [Harbour AntibodiesTouch Delica Plus Lancet] 33 gauge misc MISCELLANEOUS Patient Comments: USE TO CHECK BLOOD SUGAR ONE TO TWO TIMES DAILY calcitriol 0.25 mcg capsule 0.5 mcg PO DAILY cholecalciferol (vitamin D3) [Vitamin D3] 25 mcg (1,000 unit) capsule 25 mcg PO DAILY levothyroxine 150 mcg tablet 150 mcg PO DAILY Held furosemide 40 mg tablet 40 mg PO DAILY Qty: 7 0RF Hold Instructions: Resume on 07/01/25. Discuss resumption of full dose with PCP after renal function testing outpatient Discharge Instructions Referrals: Jason Snow DO [Primary Care Provider, Medicine] Referral Note: Follow-up within 7 days of discharge, please Activity:: Activity as Tolerated Equipment/Supplies:: Walker Diet:: heart healthy Discharge Orders Other Ambulatory Orders: Basic Metabolic Panel (Routine) Timeframe: 20250701 Facility: [facility] - Location: Laboratory Outpatient - [facility] Ordered By: Maddison Mcdonald DS: Summary Time Spent with Patient providing and/or coordinating discharge services: Greater than 30 minutes Status at Discharge Functional status at discharge: uses cane/walker Overall status at discharge: patient is progressing back to baseline Mental Status: mental status grossly normal Speech and Movement: speech and movement normal Mood: congruent mood Affect: normal affect Exam Narrative Exam Narrative: Frail 84 yo female patient, alert and oriented X4 , no focal neurological deficit, no acute distress, non-icteric sclera, no JVD, clear lungs, paced rhythm on geoint analyst, S1, S2, abdomen is round , non-distended, non tender - bilateral lower extremities w/o edema Psych Mental Status: mental status grossly normal Speech and Movement: speech and movement normal Mood: congruent mood Affect: normal affect DS: Data Vitals/I&O Vitals and I&O: Vital Signs Temperature 36.6 C 06/24/25 07:23 Temperature Source Temporal Artery Scan 06/24/25 07:23 Pulse 60 06/24/25 07:23 Pulse Rhythm Regular 06/22/25 17:30 Pulse 60 06/22/25 17:10 Respiratory Rate 16 06/24/25 07:23 Respiratory Effort Normal, Non-Labored 06/22/25 17:30 Respiratory Depth Normal 06/22/25 17:30 Respiratory Pattern Normal 06/22/25 17:30 Blood Pressure 170/62 H 06/24/25 07:23 Blood Pressure Mean 98 06/24/25 07:23 Blood Pressure Position Sitting 06/22/25 11:36 Pulse Oximetry 99 06/24/25 07:23 Oxygen Delivery Method Room Air 06/24/25 07:23 Oxygen Flow Rate 0 06/24/25 07:23 Pain Level 0 06/23/25 19:13 Comment PT requested to sleep will get vitals at 0300. 06/24/25 00:15 Intake & Output 06/23/25 06/23/25 06/24/25 11:59 23:59 11:59 Intake Total 4659.583 / 6599.166 1939.583 / 6599.166 3240 / 3240 Output Total 200 / 200 Balance 4459.583 / 6399.166 1939.583 / 6399.166 3240 / 3240 Weight 57.3 kg 59 kg Intake: IV 3939.583 / 5879.166 1939.583 / 5879.166 3000 / 3000 Oral 720 / 720 240 / 240 Output: Urine 200 / 200 Other: Urine Color Yellow Yellow Yellow Urine Appearance Clear Clear Clear Urine Odor Normal Normal Comment pt uses the toilet to void. pt states she has no urinary symptoms unable to assess, contaminated with feces. Stool Size Small Moderate Stool Characteristics Soft Liquid Data Completed and Pending Labs on day of discharge: Labs from last 24 hours 06/24/25 06/23/25 06:28 07:35 WBC 6.31 RBC 3.39 L Hgb 10.2 L Hct 32.3 L MCV 95 MCH 30.1 MCHC 31.6 L RDW 12.4 Plt Count 116 L MPV 10.5 Immature Gran % 0.3 Neutrophils % 75.6 Lymphocytes % 13.2 Monocytes % 9.4 Eosinophils % 1.0 Basophils % 0.5 Nucleated RBC % 0.0 Absolute Neutrophils 4.78 Absolute Lymphocytes 0.83 L Absolute Monocytes 0.59 Absolute Eosinophils 0.06 Absolute Basophils 0.03 Sodium 140 Potassium 3.9 Chloride 105 Carbon Dioxide 22.9 Anion Gap 12.1 H BUN 79 H Creatinine 4.2 H* Est GFR (CKD-EPI 2020) 10.05 Glucose 123 H Calcium 9.4 Stool Campylobacter PCR Negative Stool Salmonella PCR Negative Stool Shigella PCR Negative Shiga Toxin (PCR) Negative PFSH All Active Problems (Updated 06/23/25 @ 08:22 by FORREST Tate) Nausea vomiting and diarrhea (Acute) Elevated lipase (Acute) Acute kidney injury superimposed on stage 4 chronic kidney disease (Acute) Sacroiliac joint dysfunction of right side (Acute) Bladder cancer (Acute) Acute pyelonephritis (Acute) Medical History Rib cage dysfunction Stucco keratosis Obstructive sleep apnea Depression Graves disease GERD (gastroesophageal reflux disease) Fibromyalgia Kidney disease, chronic, stage IV (severe, 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 Acquired trigger finger Renal failure syndrome Rheumatoid arthritis Lumbar radiculopathy Postoperative hypothyroidism Obesity Neck pain Lower urinary tract symptoms (LUTS) Inflammatory arthritis Hyperlipidemia, mixed Hypertensive disorder Heart failure Diabetes mellitus Diabetic retinopathy associated with controlled type 2 diabetes mellitus Chronic cystitis Chronic pain Cataract Atrial fibrillation History of anemia Surgical History H/O breast biopsy Hx of tonsillectomy H/O tubal ligation H/O adenoidectomy History of cholecystectomy Hx of appendectomy H/O right cataract extraction Family History Father Cancer Heart disease Mother Graves disease Rheumatoid arthritis Social History Smoking/Tobacco Use Status: Former Tobacco Use Quit Date: 09/22/95 Smoking risk assessment performed?: Yes Alcohol Intake: former Drug use: Never Substance use type: does not use Housing: house Do you feel safe at home: Yes Do you feel safe in your relationship?: Yes Additional Social history: lives alone Time Spent with Patient Time Spent with Patient: >85 minutes Time was spent: preparing to see the patient(eg.review tests), obtaining and/or reviewing separately otained hiistory, ordering medications,tests, procedures, referring, communicating with other health children's zoo caretaker, indepentently interpreting results, counseling the patient, care coordination and other
[2025-06-24] MEDS: Pantoprazole 40 MG VIAL IVP (09:44)
[2025-06-24] MEDS: Normal Saline Flush 10 ML SYR IVP (09:45)
[2025-06-24 09:52] LABS: Lab Add On Test DONE
--- NOTE | 2025-06-24 09:54 | PDOC.CMDIS ---
Date of service: 06/24/25 Time of Service: 13:30 LACE Index Scoring Tool Questions: Length of Stay (in days): 2 Was the patient admitted via the E.D.?: Yes Comorbidities: Any Tumor E.D. Visits: 5 Answers: Total Score: 11 Risk of Readmission: High Risk Care Management Discharge Plan Reason for Hospitalization: JONES on CKD. nausea, vomiting, diarrhea Discharge Plan: Iliana will return home with new home health PT/OT/RN/DEPENDENCY PROGRAM DIRECTOR today. She will follow up with her community providers, communications technician at [facility] [place], and discharge plan of care. She will be transported home via private vehicle by family. Patient/Family Education Needs: Review of discharge instruction, activity, limitations, and plan of care. Discuss ask me three
[2025-06-24 10:02] LABS: Magnesium 1.6 mg/dL (1.8-2.4)
[2025-06-24] MEDS: Furosemide 20 MG TAB PO (10:48)
[2025-06-24 11:23] VITALS: BP 154/63; PULSE 61; RESP 17; TEMP 36.8; O2SAT 100
[2025-06-24] MEDS: Sodium Bicarbonate 650 MG TAB 325 MG PO (12:00)
--- NOTE | 2025-06-24 13:18 | PDOC.HHF2F ---
Date of service: 06/24/25 Time of Service: 13:18 Home Health Referral Home Health Orders Clinical synopsis of why skilled professionals are needed: Iliana Kidd is a 84-year-old female patient with a past medical history of in situ pacemaker, atrial fibrillation fully anticoagulated on Eliquis, HFpEF, CKD stage IV, diabetes mellitus type 2, atherosclerotic cardiovascular disease, bladder CA, Graves' disease, obstructive sleep apnea presented to the ED on 06/22/25 for evaluation of nausea vomiting diarrhea over the past 4 days. lightheadedness, chills, and outpatient creatinine level at 5.6 from baseline around 3.3- 3.4. Workup in the ED showed a creatinine of 4.9 & BUN at 98, stable anemia with H&H 10 &n 32, lipase 192. Abdomen and pelvic CT negative for acute findings. In the ED the patient received and IVF bolus resulting in micturition and negative UA . The patient was admitted to the medical surgical floor with telemetry for intractable nausea, diarrhea, vomiting, JONES on CKD and most likely gastroenteritis with children with close contact with patient exhibiting similar symptoms. C-diff and stool PCR were negative. The patient continue to received IVF hydration with clinical improvement and BUN and creatinine trending down. Enteral intake was well tolerated, and oral hydration encouraged. Resumed home dose of lisinopril and aldactone. Furosemide home dose reduced and resumption to be resumed as per PCP after re-evaluation of renal function. The patient is hemodynamically stable and with be discharged home with home health, nursing, PT, OT, and WIREWORKER and follow-up with PCP within 7 days of discharge. Echocardiogram conclusion: Normal left ventricular wall thickness and chamber size. Ejection fraction is 55 to 60%. Wall motion is normal Normal right ventricular size and function Both atria are enlarged Trileaflet aortic valve with mild regurgitation Mitral annular calcification. Moderate mitral regurgitation Moderate tricuspid regurgitation. Estimated right ventricular systolic pressure is 65 mmHg The IVC collapses <50% with inspiration Discussed with Dr. Ricardo Registered Nurse: Check all that apply Instruct on new or changed medication(s)/assess compliance: Ordered Assess for exacerbation of medical condition, instruct patient/caregivers on signs and symptoms to report for early detection: Ordered Physical Therapist: Check all that apply Increase strength & endurance for safe mobility at home: Ordered To design/establish home maintenance program: Ordered Home safety evaluation and teaching/gait training including stair management (if applicable): Ordered Occupational Therapist: Evaluate and treat for patient unable to perform ADL/IADL/self-care: Ordered Upper extremity strengthening, range and motion: Ordered Teacher Resource: Assist with community resources: Ordered Assist with longterm care planning: Ordered Encounter Date and Reason: I certify that a FTF encounter for this patient was performed on June 24, 2025 and that such encounter was related to the primary reason the patient requires home health services. The encounter was conducted in the following manner: By me as the certifying physician, LOAN OPERATIONS SPECIALIST, PA or By an inpatient physician, LOAN OPERATIONS SPECIALIST or PA during an inpatient stay who communicated findings to me, Certification And Authentication I certify that I composed the above information based on my clinical judgment relating to this patient's medical condition and, if applicable, clinical findings communicated to me by the NPP or inpatient physician who performed the FTF encounter. Name of Provider that will be monitoring home health services: Jason Snow
[2025-06-24] MEDS: Magnesium Oxide 400 MG TAB 800 MG PO (13:21)
== END 2025-06-24 14:50 | disposition home health service (06) ==
LOC: ER 11:39 → MS 17:27
PROVIDERS: Admitting Provider Family Medicine; Emergency Provider Physician Assistant; PCP Specialist/Technologist Athletic Trainer; Responsible Provider Nurse Practitioner Acute Care; Visit Provider Family Medicine
DX: N17.9 Acute kidney failure, unspecified (principal); N18.4 Chronic kidney disease, stage 4 (severe); R11.2 Nausea with vomiting, unspecified; R19.7 Diarrhea, unspecified; G47.33 Obstructive sleep apnea (adult) (pediatric); F32.A Depression, unspecified; I42.9 Cardiomyopathy, unspecified; K21.9 Gastro-esophageal reflux disease without esophagitis; I50.30 Unspecified diastolic (congestive) heart failure; Z95.0 Presence of cardiac pacemaker; D64.9 Anemia, unspecified; E11.22 Type 2 diabetes mellitus with diabetic chronic kidney disease; Z79.4 Long term (current) use of insulin; I48.0 Paroxysmal atrial fibrillation; R74.8 Abnormal levels of other serum enzymes; I13.0 Hypertensive heart and chronic kidney disease with heart failure and stage 1 through stage 4 chronic kidney disease, or unspecified chronic kidney disease; C67.9 Malignant neoplasm of bladder, unspecified; M79.7 Fibromyalgia; I25.10 Atherosclerotic heart disease of native coronary artery without angina pectoris; I25.2 Old myocardial infarction; M54.16 Radiculopathy, lumbar region; E78.2 Mixed hyperlipidemia; E11.319 Type 2 diabetes mellitus with unspecified diabetic retinopathy without macular edema; N30.20 Other chronic cystitis without hematuria; E05.00 Thyrotoxicosis with diffuse goiter without thyrotoxic crisis or storm; I08.3 Combined rheumatic disorders of mitral, aortic and tricuspid valves
CPT/HCPCS: 00123; 36415; 80048; 80053; 83690; 87505; 87637; 93005; 93306; 96361; 96374; 99285; 71046; 74176; 81003; 81015; 83036; 83735; 84100; 84439; 84443; 85025; 93010; 99223; 99233; 99239; G0378; J0780; J1815; J2470

== ENCOUNTER 2025-07-13 01:58 | Outpatient (RCR) | payer MEDICARE, MEDICAID, SELFPAY ==
[2025-07-13 11:25] LABS: HCT 28.0 % (36.0-46.0); HGB 8.6 g/dL (11.2-15.7)
[2025-07-13] MEDS: Darbepoetin 40 MCG SYR SC (11:51)
== END 2025-07-22 23:59 | disposition home or self-care (01) ==
LOC: INF 01:58
PROVIDERS: Registered Nurse Nephrology; PCP Specialist/Technologist Athletic Trainer; Visit Provider Nurse Practitioner Family
DX: N18.5 Chronic kidney disease, stage 5 (principal); D63.1 Anemia in chronic kidney disease
CPT/HCPCS: 36415; 96372; 85014; 85018; J0881

== ENCOUNTER 2025-08-10 03:20 | Outpatient (RCR) | payer MEDICARE, MEDICAID, SELFPAY ==
[2025-08-10 12:13] LABS: HCT 32.2 % (36.0-46.0); HGB 9.7 g/dL (11.2-15.7)
[2025-08-10 12:37] LABS: Ferritin 418 ng/mL (7-271)
[2025-08-10 13:14] LABS: Anion Gap 13.2 mmol/L (3-11); BUN 60 mg/dL (9-23); CO2 28.8 mmol/L (20.0-31.0); Calcium 7.7 mg/dL (8.3-10.6); Chloride 100 mmol/L (98-107); Glucose 161 mg/dL (74-106); Potassium 3.9 mmol/L (3.5-5.1); Sodium 142 mmol/L (136-145)
[2025-08-10 13:46] LABS: Iron 91 ug/dL (50-170); Total Iron Binding Capacity 262 ug/dL (250-425); Transferrin Sat 35 % (15-50)
== END 2025-08-21 23:59 | disposition home or self-care (01) ==
LOC: INF 03:20
PROVIDERS: Nurse Practitioner Acute Care; Registered Nurse Nephrology; PCP Specialist/Technologist Athletic Trainer; Visit Provider Nurse Practitioner Family
DX: N18.4 Chronic kidney disease, stage 4 (severe) (principal); D63.1 Anemia in chronic kidney disease
CPT/HCPCS: 36415; 80048; 96372; 82728; 83540; 83550; 85014; 85018; J0881

== ENCOUNTER 2025-08-16 21:04 | Inpatient (IN) | payer MEDICARE, MEDICAID, SELFPAY ==
[2025-08-16 21:06] VITALS: BP 178/77; PULSE 79; RESP 22; TEMP 37.3; O2SAT 94
--- NOTE | 2025-08-16 21:15 | RT.EKG_ITS ---
APPROVED REPORT Exam: Resting ECG Reason for Exam: hemoptysis; swelling Patient Location: E HR:60 bpm ECG Measurements Heart Rate 60 AXIS NM 326 P 0 QRSd 129 QRS 118 QT 533 T 119 QTc 534 Conclusion Ventricular-paced rhythm
--- NOTE | 2025-08-16 21:15 | DI.CT_ITS ---
Exam(s) CT CHEST/ABD/PEL WO EXAM: CT CHEST/ABD/PEL WO CLINICAL HISTORY: swelling; hemoptysis TECHNIQUE: Imaging Protocol: Axial computed tomography images with coronal and sagittal reformatted images were created and reviewed. Computer aided detection (CAD) was utilized. COMPARISON: CT CT CHEST/ABD/PEL WO from 03/13/[address] ABDOMEN PELVIS WO from 06/22/2025 FINDINGS: The examination is limited due to patient motion artifact. CHEST: Tracheobronchial tree: Patent where visualized. No bronchiectasis. Pulmonary parenchyma: There are calcified granuloma present. There is dependent atelectasis. There are several tiny stable nonspecific pulmonary nodules. There are no new pulmonary nodules. The largest measures 4 mm. There are no focal consolidating infiltrates present. Mediastinum and Corry: No dominant adenopathy or fluid collection. The esophagus is unremarkable. There is a moderate hiatal hernia. Pleura: There is no pneumothorax. There are small bilateral pleural effusions. Heart: There is cardiomegaly. Mitral calcification is noted. Three vessel coronary artery calcification is present. No pericardial effusion. Aorta: Thoracic aorta non-dilated. Atherosclerotic calcification is present. Lymph nodes: Within normal limits. Bones:Within normal limits for the patient's age. Soft tissues: There is diffuse edema seen in the soft tissues suspicious for anasarca. ABDOMEN: The lack of IV contrast limits evaluation of the abdominal organs. Liver: Normal density. No measurable mass. The liver is enlarged. Gallbladder and Biliary Tract: Status post cholecystectomy. Pancreas: Normal density, no abnormal calcifications or inflammatory process. Spleen: Normal. Adrenals: There is a stable left adrenal nodule. The right adrenal gland is unremarkable. Kidneys: There is again seen mild left renal cortical atrophy. No radiodense stones or obstructive uropathy. No masses seen. Abdominal Aorta: Abdominal portion non-dilated. There is extensive atherosclerotic calcification of the abdominal aorta, celiac artery, superior mesenteric artery and inferior mesenteric artery, renal arteries and iliac vessels. There is significant stenosis resulting at the left renal artery. Bowel: There is diverticulosis of the colon without evidence of acute diverticulitis. There is no bowel wall thickening or obstruction. There is no evidence of appendicitis. Peritoneal Cavity: There is a large amount of abdominal pelvic ascites. No free air. Lymph Nodes: Within normal limits. Bones: Within normal limits for the patient's age. There is grade 1 anterolisthesis of L4 on L5. There is no spondylolysis Soft Tissues: There is diffuse subcutaneous edema suspicious for anasarca. PELVIS: Bladder: Symmetric distention, no gross wall thickening. Reproductive Organs: Unremarkable as visualized. Lymph Nodes: Within normal limits. Bones: Within normal limits for the patient's age. IMPRESSION: 1. Diffuse subcutaneous edema suspicious for anasarca. 2. Small bilateral pleural effusions and basilar atelectasis. 3. Large amount of abdominal ascites. 4. The preliminary [facility] report was reviewed. RADIATION DOSE DELIVERED: 472.3mGy.cm Total DLP 472.3mGy.cm Total DLP DATA REPOSITORY: All CT scans at this facility are submitted to the National Radiology Data Registry (NRDR) Dose Index Registry (DIR) with the [employer] (A[employer]). RADIATION OPTIMIZATION: All CT scans at this facility use at least one of these dose optimization techniques: automated exposure control; mA and/or kV adjustment per patient size (includes targeted exams where dose is matched to clinical indication); or iterative reconstruction.
[2025-08-16 21:19] VITALS: BP 178/77; PULSE 79; RESP 22; TEMP 37.3; O2SAT 94
--- NOTE | 2025-08-16 21:44 | W.ED.GENAD ---
Discharge Plan Discharge Details Chief Complaint: [facility] Primary Care Provider: Jason Snow ED Provider: Grey Durham Home Meds and New Rx's Prescriptions: No Action [id number] C-Mn [Glucosamine Chondroitin MaxStr] 500-400 mg capsule 2 cap PO DAILY sodium bicarbonate 325 mg tablet See Rx Instructions PO DAILY Rx Instructions: 2 tablets PO AM 1 tablet PO Noon & HS furosemide [Lasix] 20 mg tablet 20 mg PO DAILY Rx Instructions: take with 40 mg daily for total of 60 mg. acetaminophen 325 mg tablet 2 tab PO BID PRN paroxetine HCl 30 mg tablet 30 mg PO DAILY Eliquis 2.5 mg Tablet 2.5 mg PO BID Qty: 180 2RF Rx Instructions: dose reduction for age/GFR spironolactone 25 mg tablet 25 mg PO DAILY atorvastatin 40 mg tablet 40 mg PO DAILY Patient Comments: TAKE ONE TABLET BY MOUTH EVERY EVENING carvedilol 12.5 mg tablet 18.75 mg PO BID Patient Comments: TAKE ONE TABLET BY MOUTH TWICE A DAY WITH FOOD FOR 90 DAYS insulin degludec [Tresiba FlexTouch U-100] 100 unit/mL (3 mL) insulin pen 10 unit SUBCUT DAILY Patient Comments: INJECT 2 UNITS SUBCUTANEOUSLY ONCE DAILY REPLACE PEN AFTER OPEN FOR 56 DAYS magnesium chloride 64 mg tablet extended release 64 mg PO DAILY lisinopril 40 mg tablet 40 mg PO DAILY PreserVision AREDS 4,296 mcg-226 mg-90 mg capsule 1 cap PO BID Patient Comments: 1 capsule by mouth twice a day liothyronine 5 mcg tablet 5 mcg PO DAILY sevelamer carbonate [Renvela] 800 mg tablet 800 mg PO TID Rx Instructions: must administer with a meal/food (DME) OneTouch Verio test strips Strip MISCELLANEOUS Patient Comments: USE TO TEST BLOOD SUGAR ONE TO TWO TIMES EVERY DAY NEEDED (DME) lancets [OneTouch Delica Plus Lancet] 33 gauge misc MISCELLANEOUS Patient Comments: USE TO CHECK BLOOD SUGAR ONE TO TWO TIMES DAILY calcitriol 0.25 mcg capsule 0.5 mcg PO DAILY furosemide 40 mg tablet 40 mg PO DAILY Qty: 7 0RF cholecalciferol (vitamin D3) [Vitamin D3] 25 mcg (1,000 unit) capsule 25 mcg PO DAILY levothyroxine 150 mcg tablet 150 mcg PO DAILY loperamide 2 mg Capsule 2 mg PO Q4H PRN PRNQty: 14 0RF HPI General Date/Time Provider Initiated Documentation: 08/16/25 21:07. HPI Narrative: 84-year-old female presents to the ED by POV/ambulating with her son with a chief complaint of not feeling well for the past few days, she has known end-stage renal disease with dialysis initiation planned soon but no official date. She has been having increased swelling diffusely, feeling dizzy with some right sided chest pain, has had a cough but does not necessarily feel like this is a respiratory infection and has been reporting coughing up some blood tinged mucus. Patient describes her condition as moderate to severe, had an appointment at [facility] yesterday that she could not attend as she was feeling too sick. She has been taking her Eliquis and Lasix and all other medications as prescribed. Patient states she has NOT urinated today. Related Data Home Medications ?Medication ?Instructions ?Recorded ?Confirmed atorvastatin 40 mg tablet 40 mg PO DAILY 06/14/21 08/16/25 carvedilol 12.5 mg tablet 18.75 mg PO BID 06/14/21 08/16/25 insulin degludec 100 unit/mL (3 10 unit subcut DAILY 06/14/21 08/16/25 mL) subcutaneous pen (Tresiba FlexTouch U-100 insulin) acetaminophen 325 mg tablet 2 tab PO BID PRN 09/04/22 08/16/25 omkgheitawp-buthhnodd-zxk C-Mn 500 2 cap PO DAILY 07/10/23 08/16/25 mg-400 mg capsule (Glucosamine Chondroitin Maximum Strength) sodium bicarbonate 325 mg tablet See Rx Instructions PO DAILY 07/10/23 08/16/25 lisinopril 40 mg tablet 40 mg PO DAILY 02/25/24 08/16/25 magnesium chloride 64 mg 64 mg PO DAILY 02/25/24 08/16/25 tablet,extended release vitamins A,C,B-lxmd-yznmrw 4,296 1 cap PO BID 02/25/24 08/16/25 mcg-226 mg-90 mg capsule (PreserVision AREDS) blood sugar diagnostic (OneTouch 09/22/24 08/16/25 Verio test strips) lancets 33 gauge (OneTouch Delica 09/22/24 08/16/25 Plus Lancet) liothyronine 5 mcg tablet 5 mcg PO DAILY 09/22/24 08/16/25 sevelamer carbonate 800 mg tablet 800 mg PO TID 09/22/24 08/16/25 (Renvela) furosemide 40 mg tablet 40 mg PO DAILY #7 tabs 11/22/24 08/16/25 Held on 06/24/25. Instructions: Resume on 07/01/25. Discuss resumption of full dose with PCP after renal function testing outpatient apixaban 2.5 mg tablet (Eliquis) 2.5 mg PO BID #180 tabs 03/15/25 08/16/25 paroxetine HCl 30 mg tablet 30 mg PO DAILY 03/15/25 08/16/25 spironolactone 25 mg tablet 25 mg PO DAILY 04/17/25 08/16/25 calcitriol 0.25 mcg capsule 0.5 mcg PO DAILY 06/17/25 08/16/25 furosemide 20 mg tablet (Lasix) 20 mg PO DAILY 06/17/25 08/16/25 cholecalciferol (vitamin D3) 25 25 mcg PO DAILY 06/22/25 08/16/25 mcg (1,000 unit) capsule (Vitamin D3) levothyroxine 150 mcg tablet 150 mcg PO DAILY 06/23/25 08/16/25 loperamide 2 mg capsule 2 mg PO Q4H PRN PRN #14 caps 06/24/25 08/16/25 Previous Rx's ?Medication ?Instructions ?Recorded furosemide 40 mg tablet 40 mg PO DAILY #7 tabs 11/22/24 Held on 06/24/25. Instructions: Resume on 07/01/25. Discuss resumption of full dose with PCP after renal function testing outpatient apixaban 2.5 mg tablet (Eliquis) 2.5 mg PO BID #180 tabs 03/15/25 loperamide 2 mg capsule 2 mg PO Q4H PRN PRN #14 caps 06/24/25 Allergies Allergy/AdvReac Type Severity Reaction Status Date / Time Penicillins Allergy Severe Skin Rash Verified 08/16/25 21:15 Macrolide Antibiotics Allergy Intermediate Hives Verified 08/16/25 21:15 naproxen Allergy Intermediate Skin Rash Verified 08/16/25 21:15 niacin Allergy Intermediate Hives Verified 08/16/25 21:15 omeprazole (From Prilosec) Allergy Intermediate Nausea Verified 08/16/25 21:15 codeine Allergy Nausea Verified 08/16/25 21:15 erythromycin base Allergy Hives Verified 08/16/25 21:15 Sulfa (Sulfonamide Allergy urtiaria Verified 08/16/25 21:15 Antibiotics) amitriptyline AdvReac Intermediate Other (See Verified 08/16/25 21:15 Comment) NSAIDS (Non-Steroidal AdvReac Intermediate Other (See Verified 08/16/25 21:15 Anti-Inflamma Comment) celecoxib AdvReac Nausea Verified 08/16/25 21:15 gabapentin AdvReac Other (See Verified 08/16/25 21:15 Comment) methotrexate AdvReac Nausea Verified 08/16/25 21:15 naltrexone AdvReac Skin Rash Verified 08/16/25 21:15 General Stated Complaint: GenMedical PAULINE: 3 Exam Narrative Exam Narrative: GENERAL APPEARANCE: Frail, non-toxic, awake and alert, atraumatic, moderate acute distress. SKIN: Warm, pale, dry, intact, without rashes/lesions/ulcerations. Old bruise to left forearm. HEAD: Normocephalic, atraumatic, normal hair distribution for gender/age. EYES: Normal conjunctiva, no exudates on lids/lashes. ENT: Nares patent, no circumoral cyanosis, no facial swelling NECK: Supple, trachea midline, painless cervical ROM. LUNGS/CHEST: Lungs CTA bilaterally- no rales at bases, labored respirations, normal A/P diameter, symmetrical expansion, no chest wall deformity HEART (CV/PV): Regular rate and rhythm without murmur, no peripheral edema of lower extremities, no JVD. ABDOMEN: Soft, distended, no guarding, diffuse tenderness most focal RUQ- no rebound tenderness, negative Glover's, no CVA tenderness to percussion bilaterally. MSK: Normal ROM, no swelling/deformity to bilateral UEs or LEs, moving all extremities without weakness, no cyanosis, spine midline without tenderness, normal curvature. NEURO: Mental Status AAOx4 - alert to person, place, time, events No facial droop, no forehead involvement. Motor: No focal weakness - strength 5/5 in bilateral UEs and LEs, proximal and distal, symmetric. Sensory: sensation intact to light touch globally. Gait normal: patient ambulated without ataxia into ED room. PSYCH: euthymic, cooperative, pleasant, appropriate speech Course Vital Signs Vital signs: Vital Signs Temperature 37.3 C 08/16/25 21:06 Pulse 79 08/16/25 21:06 Respiratory Rate 22 08/16/25 21:06 Blood Pressure 178/77 H 08/16/25 21:06 Pulse Oximetry 94 08/16/25 21:06 Temperature 37.3 C 08/16/25 21:19 Temperature Source Oral 08/16/25 21:06 Pulse 79 08/16/25 21:19 Respiratory Rate 22 08/16/25 21:19 Blood Pressure 178/77 H 08/16/25 21:19 Blood Pressure Position Sitting 08/16/25 21:19 Pulse Oximetry 94 08/16/25 21:19 Oxygen Delivery Method Room Air 08/16/25 21:19 Oxygen Flow Rate 0 08/16/25 21:06 Pain Level 0 08/16/25 21:06 Medical Decision Making This dictation utilizes [id number] dictation software and may contain unedited grammatical errors. 84-year-old female presents to the ED by POV/ambulating with her son with a chief complaint of not feeling well for the past few days, she has known end-stage renal disease with dialysis initiation planned soon but no official date. She has been having increased swelling diffusely, feeling dizzy with some right sided chest pain, has had a cough but does not necessarily feel like this is a respiratory infection and has been reporting coughing up some blood tinged mucus. Patient describes her condition as moderate to severe, had an appointment at [facility] yesterday that she could not attend as she was feeling too sick. She has been taking her Eliquis and Lasix and all other medications as prescribed. Patient states she has NOT urinated today. Patients' medical history: History of elevated troponins, Graves' disease, GERD, fibromyalgia, stage IV kidney disease with renal failure, pacemaker present, atrial fibrillation, anemia, bladder mass, history of myocardial infarction, rheumatoid arthritis, CHF, diabetes. Family and social history: Lives at home, son nearby, no exercise regimen, no alcohol or tobacco use. Pertinent exam findings / vital signs include diffuse abdominal tenderness without anasarca, no pitting edema in the lower extremities, no clear murmur, rate regular, no rales at bases, old bruise to L forearm. Differential / pathologies of concern include renal failure, myocardial infarction, URI or pneumonia, PE, CHF exacerbation, pleural effusions, hepatorenal syndrome. Diagnostic studies of: - CBC, CMP, lipase, magnesium, troponin, BNP, TSH, urinalysis, EKG, CT chest abdomen pelvis without contrast. - CBC shows no leukocytosis, improved stable chronic anemia, no left shift, low lymphocytes - D-dimer > 7500 - Rest of labs hemolyzed, lab cancelled and re-ordered, pending at sign-out - CT shows ascitse & small pleural effusion - EKG shows ventricular paced rhythm at 60 bpm with no signs of ischemia, some ST depression in lateral leads, no T wave inversions Interventions of: -40mg PO lasix as patient has difficult IV placement, IVF NS @ 50mL/hr. ED Course/Assessment/Plan: 84-year-old female presents with increase of swelling, cough with some hemoptysis, feels right-sided chest pain and just general malaise, denies fever. She likely needs a VQ scan for definitive rule out of pulmonary embolism tomorrow with her hemoptysis, patient has tolerated inpatient admission here at her current creatinine levels in the past and I do not suspect her to need emergent dialysis, though she did not urinate today. Disposition of Renal Failure. Patient verbalized understanding of the plan and return to ED criteria and engaged in shared decision making. Medical Records Medical records reviewed: Yes I reviewed the patient's medical records. Imaging Data Radiologic Study: Attestation: I personally reviewed and interpreted this imaging study as follows: Imaging: CT Scan Radiologist's impression: Exam: CT Chest Without Contrast; Diagnostic Exam date and time: 08/16/2025 10:26 PM Age: 84 years old Clinical indication: Other: Swelling; Hemoptysis; Prior surgery; Surgery date: 6+ months; Surgery type: Appendectomy, cholecystectomy, tubal ligation; H/o bladder CA, end stage renal disease TECHNIQUE: Imaging protocol: Diagnostic computed tomography of the chest without contrast. 3D rendering (Not supervised by radiologist): MIP and/or 3D reconstructed images were created by the technologist. Total images: 1122 COMPARISON: CT CHEST/ABD/PEL WO 03/13/2025 7:10 PM FINDINGS: Lungs: Stable 2 mm right upper lobe nodule image 19 series 3, unchanged. No consolidation. Pleural spaces: Small bilateral pleural effusions. Heart: No significant finding. Coronary arteries: Significant coronary calcification. Lymph nodes: No mediastinal, hilar or axillary adenopathy. Vasculature: No aortic aneurysm or dissection. Bones/joints: No acute bony abnormality. Soft tissues: Body wall edema. IMPRESSION: Small pleural effusions. No pneumonia. PROCEDURE INFORMATION: Exam: CT Abdomen And Pelvis Without Contrast Exam date and time: 08/16/2025 10:26 PM Age: 84 years old Clinical indication: Other: Swelling; Hemoptysis; Prior surgery; Surgery date: 6+ months; Surgery type: Appendectomy, cholecystectomy, tubal ligation; H/o bladder CA, end stage renal disease TECHNIQUE: Imaging protocol: Computed tomography of the abdomen and pelvis without contrast. 3D rendering (Not supervised by radiologist): MIP and/or 3D reconstructed images were created by the technologist. COMPARISON: CT ABDOMEN PELVIS WO 06/22/2025 1:32 PM FINDINGS: Lungs: Lung bases unremarkable. Liver: No nodule. Gallbladder and biliary ducts: No definite gallbladder wall thickening, gallstone or biliary dilatation. Pancreas: No mass or peripancreatic stranding. Spleen: No splenomegaly or splenic nodule. Adrenal glands: No adrenal nodule. Kidneys and ureters: No renal mass. No hydronephrosis. No renal or ureteral calculi. Stomach and bowel: No wall thickening or dilatation. Appendix: Appendectomy. Intraperitoneal space: Moderate volume ascites. Vasculature: No abdominal aortic aneurysm. Lymph nodes: No significant adenopathy. Urinary bladder: No definite bladder wall thickening or stone. Reproductive: No significant finding. Bones/joints: No acute bony abnormality. Soft tissues: Body wall edema. IMPRESSION: Ascites which may be part of anasarca. Dictated and Authenticated by: Junior Cintron MD. Lab Data Lab results reviewed: Yes I reviewed the patient's lab results. Labs: Laboratory Tests Range/Units 08/16/25 21:58 WBC (4.4-10.8) 10^3/uL 6.10 RBC (3.93-5.22) 10^6/uL 3.49 L Hgb (11.2-15.7) g/dL 10.9 L Hct (36.0-46.0) % 35.5 L MCV (80-95) fL 102 H MCH (27.0-33.0) pg 31.2 MCHC (32.0-36.0) % 30.7 L RDW (11.7-14.6) % 16.3 H Plt Count (130-400) 10^3/uL 197 MPV (8.0-11.0) fL 10.0 Immature Gran % % 0.2 Neutrophils % % 79.9 Lymphocytes % % 10.7 Monocytes % % 8.2 Eosinophils % % 0.3 Basophils % % 0.7 Nucleated RBC % (0.0-0.3) % 0.0 Absolute Neutrophils (1.2-6.7) 10^3/uL 4.88 Absolute Lymphocytes (1.2-3.4) 10^3/uL 0.65 L Absolute Monocytes (0.1-0.8) 10^3/uL 0.50 Absolute Eosinophils (0.0-0.7) 10^3/uL 0.02 Absolute Basophils (0.0-0.2) 10^3/uL 0.04 D-Dimer (<500) ng/mlFEU > 7500 H Sodium Cancelled Potassium Cancelled Chloride Cancelled Carbon Dioxide Cancelled Anion Gap Cancelled BUN Cancelled Creatinine Cancelled Est GFR (CKD-EPI 2020) Cancelled Glucose Cancelled Calcium Cancelled Magnesium Cancelled Total Bilirubin Cancelled AST Cancelled ALT Cancelled Alkaline Phosphatase Cancelled Troponin I Cancelled NT-Pro-B Natriuret Pep Cancelled Total Protein Cancelled Albumin Cancelled Lipase Cancelled TSH Cancelled PFSH All Active Problems (Updated 06/25/25 @ 00:00 by KAYLA SAM) Acute kidney injury superimposed on stage 4 chronic kidney disease (Acute) Sacroiliac joint dysfunction of right side (Acute) Bladder cancer (Acute) Acute pyelonephritis (Acute) Medical History Rib cage dysfunction Stucco keratosis Obstructive sleep apnea Depression Graves disease GERD (gastroesophageal reflux disease) Fibromyalgia Kidney disease, chronic, stage IV (severe, 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 Acquired trigger finger Renal failure syndrome Rheumatoid arthritis Lumbar radiculopathy Postoperative hypothyroidism Obesity Neck pain Lower urinary tract symptoms (LUTS) Inflammatory arthritis Hyperlipidemia, mixed Hypertensive disorder Heart failure Diabetes mellitus Diabetic retinopathy associated with controlled type 2 diabetes mellitus Chronic cystitis Chronic pain Cataract Atrial fibrillation History of anemia Surgical History H/O breast biopsy Hx of tonsillectomy H/O tubal ligation H/O adenoidectomy History of cholecystectomy Hx of appendectomy H/O right cataract extraction Family History Father Cancer Heart disease Mother Graves disease Rheumatoid arthritis Social History Smoking/Tobacco Use Status: Former Tobacco Use Quit Date: 09/22/95 Smoking risk assessment performed?: Yes Alcohol Intake: former Drug use: Never Substance use type: does not use Housing: house Do you feel safe at home: Yes Do you feel safe in your relationship?: Yes Additional Social history: lives alone
[2025-08-16 22:13] LABS: Abs Immature Grans 0.01 10^3/uL (0.0-0.06); HCT 35.5 % (36.0-46.0); HGB 10.9 g/dL (11.2-15.7); Immature Grans % 0.2 %; MCH 31.2 pg (27.0-33.0); MCHC 30.7 % (32.0-36.0); MCV 102 fL (80-95); MPV 10.0 fL (8.0-11.0); Platelet Count 197 10^3/uL (130-400); RBC 3.49 10^6/uL (3.93-5.22); RDW 16.3 % (11.7-14.6); RDW-SD 61.2 fL; WBC 6.10 10^3/uL (4.4-10.8)
[2025-08-16 22:41] VITALS: BP 167/84; PULSE 72; RESP 13; O2SAT 97
[2025-08-16 22:49] LABS: D-Dimer > 7500 ng/mlFEU (<500)
--- NOTE | 2025-08-16 22:54 | DI.VRAD_ITS ---
PROCEDURE INFORMATION: Exam: CT Chest Without Contrast; Diagnostic Exam date and time: 08/16/2025 10:26 PM Age: 84 years old Clinical indication: Other: Swelling; Hemoptysis; Prior surgery; Surgery date: 6+ months; Surgery type: Appendectomy, cholecystectomy, tubal ligation; H/o bladder CA, end stage renal disease TECHNIQUE: Imaging protocol: Diagnostic computed tomography of the chest without contrast. 3D rendering (Not supervised by radiologist): MIP and/or 3D reconstructed images were created by the technologist. Total images: 1122 COMPARISON: CT CHEST/ABD/PEL WO 03/13/2025 7:10 PM FINDINGS: Lungs: Stable 2 mm right upper lobe nodule image 19 series 3, unchanged. No consolidation. Pleural spaces: Small bilateral pleural effusions. Heart: No significant finding. Coronary arteries: Significant coronary calcification. Lymph nodes: No mediastinal, hilar or axillary adenopathy. Vasculature: No aortic aneurysm or dissection. Bones/joints: No acute bony abnormality. Soft tissues: Body wall edema. IMPRESSION: Small pleural effusions. No pneumonia. PROCEDURE INFORMATION: Exam: CT Abdomen And Pelvis Without Contrast Exam date and time: 08/16/2025 10:26 PM Age: 84 years old Clinical indication: Other: Swelling; Hemoptysis; Prior surgery; Surgery date: 6+ months; Surgery type: Appendectomy, cholecystectomy, tubal ligation; H/o bladder CA, end stage renal disease TECHNIQUE: Imaging protocol: Computed tomography of the abdomen and pelvis without contrast. 3D rendering (Not supervised by radiologist): MIP and/or 3D reconstructed images were created by the technologist. COMPARISON: CT ABDOMEN PELVIS WO 06/22/2025 1:32 PM FINDINGS: Lungs: Lung bases unremarkable. Liver: No nodule. Gallbladder and biliary ducts: No definite gallbladder wall thickening, gallstone or biliary dilatation. Pancreas: No mass or peripancreatic stranding. Spleen: No splenomegaly or splenic nodule. Adrenal glands: No adrenal nodule. Kidneys and ureters: No renal mass. No hydronephrosis. No renal or ureteral calculi. Stomach and bowel: No wall thickening or dilatation. Appendix: Appendectomy. Intraperitoneal space: Moderate volume ascites. Vasculature: No abdominal aortic aneurysm. Lymph nodes: No significant adenopathy. Urinary bladder: No definite bladder wall thickening or stone. Reproductive: No significant finding. Bones/joints: No acute bony abnormality. Soft tissues: Body wall edema. IMPRESSION: Ascites which may be part of anasarca. Dictated and Authenticated by: Junior Cintron MD. Orderin Herminio Edmonds MD
[2025-08-16 23:00] VITALS: PULSE 60; PULSE 61; RESP 15; O2SAT 97
[2025-08-16 23:04] VITALS: BP 192/75; PULSE 55; PULSE 60; RESP 15; O2SAT 96
--- NOTE | 2025-08-16 23:16 | ED.PROG_ITS ---
Date of service: 08/16/25 Time of Service: 23:15 Medical Decision Making This patient was signed out to me. Please see previous notes for H&P and initial eval. In brief, 84yo F ESRD not yet on dialysis (though plans to start at some point), pacer in place, afib on elqius, presenting for general malaise, right sided chest pain and cough with scant hemotypsis (blood tinged mucus). Has not urinated today. EKG paced, no STEMI. Will get lasix. Labs show CBC with anemia at baseline and markedly elevated dimer; remainder of labs are being redrawn. CT non-con with right sided pleural effusion. Signed out pending remainder of labs; nursing working on IV access at this time. Will need at a minimum admission for VQ scan in the morning, possibly transfer if PR or indication for urgent/emergent dialysis found during remainder of workup. Remainder of labs reviewed as below, CMP with Cr 4.25 consistent with baseline, mildly elevated bili at 1.3, normal potassium. Mg normal, lipase not suggestive of pancreatitis, TSH normal, BNP elevated at ~26,000 (baseline 7-10k over the past year). Troponin 65 (baseline troponinemia due to CKD consistently in low- mid 100's year; will trend but not suggestive of acute PR especially given duration of symptoms). INR elevated at 1.4. On reassessment she is chest pain free. Ambulatory trial with no desaturations. Discussed findings with patient including possible pulmonary embolism and need for VQ scan. She described further the event this morning and to me states that she had a large nosebleed which took some time to spot; during and after this she had some coughing and occasionally coughed up a little blood. She is quite firm that the source of the blood was her nose (initial report/documentation was hemotypsis which is likely why dimer was sent). Pulmonary embolism is certainly possible though given the history she is describing currently seems less likely. She is compliant with her home eliquis. Considered whether to treat empirically pending VQ scan tomorrow; I am hesitant to do so given the possibility that the source was nasal and the risk of further anticoagulating her in that setting. Shared decision making with patient and elected not to treat empirically prior to scan. She has had no UOP yet while in the ED and is not sure if she has voided today at all; she agreed to hamilton for monitoring of UOP. Hamilton placed and 135cc urine obtained; UA pending. Discussed with [facility] hospitalist Dr. Arango who requests we reach out to nephrology for transfer given patient's renal failure, volume overload, symptomatic uremia (malaise), and coagulopathy. 0415 Awaiting 2nd callback from [facility] nephrology (they had called back earlier however regrettably I was attending to another patient who was critically at that time and I was unavailable to speak with them ). Discussed with [facility] nephrology Dr. Melgar; recommended switching from lasix to bumex, no indication for emergent dialysis or transfer for nephrology at this time. Discussed again with Dr. Arango who accepts patient to medicine service. Awaiting admission orders and transfer to the floor. Discharge Plan Disposition Patient Disposition: Admit to [facility] Condition: Serious Discharge Details Clinical Impression: Renal failure, D-dimer, elevated, Cough with hemoptysis, Chest pain, Volume overload Primary Care Provider: Jason Snow ED Provider: Bernice Rodriguez Home Meds and New Rx's Prescriptions: No Action [id number] C-Mn [Glucosamine Chondroitin MaxStr] 500-400 mg capsule 2 cap PO DAILY sodium bicarbonate 325 mg tablet See Rx Instructions PO DAILY Rx Instructions: 2 tablets PO AM 1 tablet PO Noon & HS furosemide [Lasix] 20 mg tablet 20 mg PO DAILY Rx Instructions: take with 40 mg daily for total of 60 mg. acetaminophen 325 mg tablet 2 tab PO BID PRN paroxetine HCl 30 mg tablet 30 mg PO DAILY Eliquis 2.5 mg Tablet 2.5 mg PO BID Qty: 180 2RF Rx Instructions: dose reduction for age/GFR spironolactone 25 mg tablet 25 mg PO DAILY atorvastatin 40 mg tablet 40 mg PO DAILY Patient Comments: TAKE ONE TABLET BY MOUTH EVERY EVENING carvedilol 12.5 mg tablet 18.75 mg PO BID Patient Comments: TAKE ONE TABLET BY MOUTH TWICE A DAY WITH FOOD FOR 90 DAYS insulin degludec [Tresiba FlexTouch U-100] 100 unit/mL (3 mL) insulin pen 10 unit SUBCUT DAILY Patient Comments: INJECT 2 UNITS SUBCUTANEOUSLY ONCE DAILY REPLACE PEN AFTER OPEN FOR 56 DAYS magnesium chloride 64 mg tablet extended release 64 mg PO DAILY lisinopril 40 mg tablet 40 mg PO DAILY PreserVision AREDS 4,296 mcg-226 mg-90 mg capsule 1 cap PO BID Patient Comments: 1 capsule by mouth twice a day liothyronine 5 mcg tablet 5 mcg PO DAILY sevelamer carbonate [Renvela] 800 mg tablet 800 mg PO TID Rx Instructions: must administer with a meal/food (DME) OneTouch Verio test strips Strip MISCELLANEOUS Patient Comments: USE TO TEST BLOOD SUGAR ONE TO TWO TIMES EVERY DAY NEEDED (DME) lancets [OneTouch Delica Plus Lancet] 33 gauge misc MISCELLANEOUS Patient Comments: USE TO CHECK BLOOD SUGAR ONE TO TWO TIMES DAILY calcitriol 0.25 mcg capsule 0.5 mcg PO DAILY furosemide 40 mg tablet 40 mg PO DAILY Qty: 7 0RF cholecalciferol (vitamin D3) [Vitamin D3] 25 mcg (1,000 unit) capsule 25 mcg PO DAILY levothyroxine 150 mcg tablet 150 mcg PO DAILY loperamide 2 mg Capsule 2 mg PO Q4H PRN PRNQty: 14 0RF
[2025-08-16] MEDS: Furosemide 40 MG TAB PO (23:38)
[2025-08-16 23:45] VITALS: PULSE 60; RESP 16; O2SAT 96
[2025-08-17] VITALS (19 sets, daily range): BP systolic 141–192; BP diastolic 56–67; PULSE 60–90; RESP 12–23; TEMP 36.3–37.1; O2SAT 93–98
[2025-08-17 00:40] LABS: Lipase 30 U/L (<53); Magnesium 2.4 mg/dL (1.6-2.6)
[2025-08-17 00:45] LABS: TSH (W/Ref FT4) 2.53 uIU/mL (0.55-4.78)
[2025-08-17] MEDS: Normal Saline 1,000 ML 30 ML IV (00:47)
[2025-08-17 00:56] LABS: ALT 7 U/L (10-49); AST 11 U/L (<34); Albumin 3.9 g/dL (3.2-5.0); Alkaline Phosphatase 74 U/L (46-116); Anion Gap 5.7 mmol/L (3-11); BUN 49 mg/dL (9-23); Bilirubin, Total 1.30 mg/dL (0.2-1.2); CO2 29.3 mmol/L (20.0-31.0); Calcium 7.8 mg/dL (8.3-10.6); Chloride 107 mmol/L (98-107); Glucose 132 mg/dL (74-106); Potassium 3.8 mmol/L (3.5-5.1); Sodium 142 mmol/L (136-145); Total Protein 6.6 g/dL (5.7-8.2); Troponin I 65 ng/L (<35)
[2025-08-17 01:03] LABS: Lab Add On Test DONE
[2025-08-17 01:14] LABS: INR 1.4 (0.9-1.1); PTT Activated 28.4 sec (20.6-30.2); Prothrombin Time 13.8 sec (9.1-11.1)
[2025-08-17 01:36] LABS: Glucose 100 mg/dL (Negative)
[2025-08-17 01:48] LABS: C & S Indicated? No; RBC 0-2 HPF (0-2); WBC 0-2 HPF (0-5)
--- NOTE | 2025-08-17 01:52 | HPE_ITS ---
Date of service: 08/17/25 Time of Service: 01:52 Assessment and Plan Assessment and plan (1) ESRD (end stage renal disease): Start date: 08/17/25 Status: Acute Assessment and plan: This is an 84-year-old lady with end-stage renal disease awaiting initiation of dialysis and appearing to have worsening generalized symptoms of renal failure. Compliance is better according to her chart compared to last time I saw her in February 2025. She is on daily low-dose diuretics but appears to be now fluid overloaded. Her BNP is markedly elevated, imaging does show pleural effusion and ascites. She has some vague right chest pain and D-dimer was markedly elevated which could be from renal failure. CT was done without contrast and she will have a VQ scan to follow through on the ED providers concern for PE despite elevated PT/INR from probable liver disease and adequate dosing with Eliquis. She also has had some slight hemoptysis versus nosebleed and this could indicate failure of anticoagulation and side effects of anticoagulation. The patient will be hospitalized to attempt more aggressive diuresis with Lasix and switching to Bumex if not diuresing well. She does have a history of heart failure with preserved left ventricular ejection fraction by recent echocardiogram. [facility] cardiology and nephrology will be consulted as needed. Patient is a full code. (2) Elevated d-dimer: Start date: 08/17/25 Status: Acute Assessment and plan: This could be secondary to her chronic diseases but because of this, VQ scan will be performed for completion of ED evaluation. There is no hypoxemia or tachycardia. She did have slight hemoptysis and possible pleurisy by history. She is a vague historian. (3) Heart failure: Assessment and plan: Echocardiogram done in June 2025 revealed preserved left ventricular ejection fraction. Minimize fluids especially with renal failure progressive. (4) Hypertensive disorder: Assessment and plan: Exacerbated with acute presentation this may respond to increased diuresis. Continue outpatient medical therapy and follow-up. (5) Atrial fibrillation: Assessment and plan: Paced rhythm on renal dose anticoagulation and chronic elevation of troponins which appears actually to be decreased at this visit. Monitor with telemetry. (6) Elevated troponin level not due to acute coronary syndrome: Assessment and plan: Increased. Lower than her baseline. This most likely is nonischemic and will not be trended at this time. If she has recurrent chest pain, EKG should be done immediately and troponin should be rechecked. (7) Diabetes mellitus: Assessment and plan: On Tresiba chronically with diet. Hold outpatient medical therapy and do glucometers before meals and at bedtime with sensitive Humalog sliding scale coverage. (8) Anemia: Assessment and plan: Chronic and stable and associated with CKD. (9) Obstructive sleep apnea: Assessment and plan: If patient is on pressure treatment at night, this should be continued. (10) GERD (gastroesophageal reflux disease): Assessment and plan: Continue PPI. (11) Postoperative hypothyroidism: Assessment and plan: TSH stable and continue outpatient therapy with T3 and T4 replacement. History of Present Illness History of Present Illness Chief Complaint: Increased weakness and fatigability over the last week. Narrative: This is an 84-year-old female patient who has end-stage renal disease with a mature fistula over her right medial arm just above the elbow and seen nephrology at [facility]. She presented to the ED with complaints of increased fatigability and weakness along with cough without fever and blood-tinged sputum. She also complains of some right chest pain or pressure not necessarily associated with exertion. It also was not associated with position or her cough. She is on Eliquis chronically renally dosed with her end-stage renal disease. She missed an appointment with nephrology at [facility] because of her acute illness. She denies fever or chills. She has no GI complaints. She has had increased swelling diffusely. She also has had decreased urine output. She is on Lasix daily. In the ED she had a CT of the chest and abdomen without contrast because of her renal disease. It revealed small pleural effusion and ascites possibly associate with anasarca. Lab did reveal an elevated PT/INR with elevated total bilirubin with no history of cirrhosis though she did drink alcohol in the past. Does not have an active chest pain in the ED and her troponin was elevated but lower than her baseline which is chronically elevated with her renal disease. Her BNP was almost 4 times her baseline at 27,000 and her D-dimer was markedly elevated. Renal functions were elevated but stable. She had very little urine output in the ED with a Liu catheter placed and did receive some IV Lasix. ED provider did speak to [facility] nephrology who advised increased diuretic dosing and consideration of Bumex if Lasix is not effective. The patient has had 80 pounds weight loss over the last year but has complained of recent increase swelling as mentioned. She is a vague historian. She does live alone with her daughter supervising her medical care. She is a full code. Review of Systems Narrative: 13 point review of systems otherwise unrevealing or stable. Patient is a poor historian. PFSH All Active Problems (Updated 08/17/25 @ 06:56 by KAYLA SAM) Volume overload (Acute) Chest pain (Acute) Cough with hemoptysis (Acute) D-dimer, elevated (Acute) Renal failure (Chronic) Elevated d-dimer (Acute) ESRD (end stage renal disease) (Acute) Acute kidney injury superimposed on stage 4 chronic kidney disease (Acute) Sacroiliac joint dysfunction of right side (Acute) Bladder cancer (Acute) Acute pyelonephritis (Acute) Medical History Rib cage dysfunction Stucco keratosis Obstructive sleep apnea Depression Graves disease GERD (gastroesophageal reflux disease) Fibromyalgia Kidney disease, chronic, stage IV (severe, 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 Acquired trigger finger Renal failure syndrome Rheumatoid arthritis Lumbar radiculopathy Postoperative hypothyroidism Obesity Neck pain Lower urinary tract symptoms (LUTS) Inflammatory arthritis Hyperlipidemia, mixed Hypertensive disorder Heart failure Diabetes mellitus Diabetic retinopathy associated with controlled type 2 diabetes mellitus Chronic cystitis Chronic pain Cataract Atrial fibrillation History of anemia Surgical History H/O breast biopsy Hx of tonsillectomy H/O tubal ligation H/O adenoidectomy History of cholecystectomy Hx of appendectomy H/O right cataract extraction Family History Father Cancer Heart disease Mother Graves disease Rheumatoid arthritis Social History Smoking/Tobacco Use Status: Former Tobacco Use Quit Date: 09/22/95 Smoking risk assessment performed?: Yes Alcohol Intake: former Drug use: Never Substance use type: does not use Housing: house Do you feel safe at home: Yes Do you feel safe in your relationship?: Yes Additional Social history: lives alone Meds Allergies and Home Medications Allergies Allergy/AdvReac Type Severity Reaction Status Date / Time Penicillins Allergy Severe Skin Rash Verified 08/16/25 21:15 Macrolide Antibiotics Allergy Intermediate Hives Verified 08/16/25 21:15 naproxen Allergy Intermediate Skin Rash Verified 08/16/25 21:15 niacin Allergy Intermediate Hives Verified 08/16/25 21:15 omeprazole (From Prilosec) Allergy Intermediate Nausea Verified 08/16/25 21:15 codeine Allergy Nausea Verified 08/16/25 21:15 erythromycin base Allergy Hives Verified 08/16/25 21:15 Sulfa (Sulfonamide Allergy urtiaria Verified 08/16/25 21:15 Antibiotics) amitriptyline AdvReac Intermediate Other (See Verified 08/16/25 21:15 Comment) NSAIDS (Non-Steroidal AdvReac Intermediate Other (See Verified 08/16/25 21:15 Anti-Inflamma Comment) celecoxib AdvReac Nausea Verified 08/16/25 21:15 gabapentin AdvReac Other (See Verified 08/16/25 21:15 Comment) methotrexate AdvReac Nausea Verified 08/16/25 21:15 naltrexone AdvReac Skin Rash Verified 08/16/25 21:15 Home Medications ?Medication ?Instructions ?Recorded ?Confirmed ?Type atorvastatin 40 mg tablet 40 mg PO DAILY 06/14/2107/24 History carvedilol 12.5 mg tablet 18.75 mg PO BID 06/14/21 History insulin degludec 100 unit/mL (3 10 unit subcut DAILY 0 06/14/21 08/16/25 History mL) subcutaneous pen (Tresiba FlexTouch U-100 insulin) acetaminophen 325 mg tablet 2 tab PO BID PRN 09/04/22 08/16/25 History plzruvqqzvq-rrbjdbltz-yrb C-Mn 500 2 cap PO DAILY 06/2208/16/25 History mg-400 mg capsule (Glucosamine Chondroitin Maximum Strength) sodium bicarbonate 325 mg tablet See Rx Instructions P O DAILY 07/10/23 08/16/25 History lisinopril 40 mg tablet 40 mg PO DAILY 02/25/2407/24 History magnesium chloride 64 mg 64 mg PO DAILY 02/25/2407/24 History tablet,extended release vitamins A,C,C-prbt-iqixoj 4,296 1 cap PO BID 02/25/24 08/16/25 History mcg-226 mg-90 mg capsule (PreserVision AREDS) blood sugar diagnostic ([facility] 09/22/24 08/16/25 Hi story Verio test strips) lancets 33 gauge ([facility] Delica 09/22/24 08/16/25 H istory Plus Lancet) liothyronine 5 mcg tablet 5 mcg PO DAILY 09/22/2407/24 History sevelamer carbonate 800 mg tablet 800 mg PO TID 08/16/25 History (Renvela) furosemide 40 mg tablet 40 mg PO DAILY #7 tabs 11/2208/16/25 Rx Held on 06/24/25. Instructions: Resume on 07/01/25. Discuss resumption of full dose with PCP after renal function testing outpatient apixaban 2.5 mg tablet (Eliquis) 2.5 mg PO BID #180 ta bs 03/15/25 08/16/25 Rx paroxetine HCl 30 mg tablet 30 mg PO DAILY 03/15/25 History spironolactone 25 mg tablet 25 mg PO DAILY 04/17/25 History calcitriol 0.25 mcg capsule 0.5 mcg PO DAILY 06/17/25 08/16/25 History furosemide 20 mg tablet (Lasix) 20 mg PO DAILY 08/16/25 History cholecalciferol (vitamin D3) 25 25 mcg PO DAILY 08/16/25 History mcg (1,000 unit) capsule (Vitamin D3) levothyroxine 150 mcg tablet 150 mcg PO DAILY 06/23/25 08/16/25 History loperamide 2 mg capsule 2 mg PO Q4H PRN PRN #14 caps 06/24/25 08/16/25 Rx Exam Narrative Exam Narrative: General: Patient appears appropriate for age, alert and oriented at least to person and place, in no acute distress and very talkative. She is moderately obese especially over the trunk. HEENT: Normocephalic, eyes with pupils equal and reactive to light symmetrically, extraocular movement intact and sclera anicteric. Oropharynx with dry mucosa and denture plates. Neck: Supple without JVD. Back: Stooped posture without CVA tenderness. Lungs: Fair aeration with bronchovesicular breath sounds diffusely, no focalizing rales or rhonchi. No expiratory wheeze. Breast: Exam deferred. Chest: No palpable subcutaneous pacemaker with patient stated that she has an internal pacemaker. Heart: Regular rate and rhythm with no murmurs or gallops appreciated. Abdomen: Obese contour, soft and nontender to palpation with no palpable hepatosplenomegaly and no focal guarding. No rebound. Bowel sounds positive all quadrants. Genitalia/rectal: Exam deferred. Extremities: Without clubbing, cyanosis or grossly pitting edema. Patient does have nonpitting edema both lower extremities. Good capillary refill. Palpable, mature AV fistula over the medial right arm. Skin: Normal color, warm and dry. Neuro: Cranial nerves II through XII gross intact, no focalized motor deficits. No tremor. Psych: Normal affect and mood with patient having no abnormal thought processes. She is a vague historian with remote memory intact but recent memory less intact. Results Imaging Imaging Studies: Exam: CT Chest Without Contrast; Diagnostic Exam date and time: 08/16/2025 10:26 PM Age: 84 years old Clinical indication: Other: Swelling; Hemoptysis; Prior surgery; Surgery date: 6+ months; Surgery type: Appendectomy, cholecystectomy, tubal ligation; H/o bladder CA, end stage renal disease COMPARISON: CT CHEST/ABD/PEL WO 03/13/2025 7:10 PM FINDINGS: Lungs: Stable 2 mm right upper lobe nodule image 19 series 3, unchanged. No consolidation. Pleural spaces: Small bilateral pleural effusions. Heart: No significant finding. Coronary arteries: Significant coronary calcification. Lymph nodes: No mediastinal, hilar or axillary adenopathy. Vasculature: No aortic aneurysm or dissection. Bones/joints: No acute bony abnormality. Soft tissues: Body wall edema. IMPRESSION: Small pleural effusions. No pneumonia. PROCEDURE INFORMATION: Exam: CT Abdomen And Pelvis Without Contrast Exam date and time: 08/16/2025 10:26 PM Age: 84 years old Clinical indication: Other: Swelling; Hemoptysis; Prior surgery; Surgery date: 6+ months; Surgery type: Appendectomy, cholecystectomy, tubal ligation; H/o bladder CA, end stage renal disease COMPARISON: CT ABDOMEN PELVIS WO 06/22/2025 1:32 PM FINDINGS: Lungs: Lung bases unremarkable. Liver: No nodule. Gallbladder and biliary ducts: No definite gallbladder wall thickening, gallstone or biliary dilatation. Pancreas: No mass or peripancreatic stranding. Spleen: No splenomegaly or splenic nodule. Adrenal glands: No adrenal nodule. Kidneys and ureters: No renal mass. No hydronephrosis. No renal or ureteral calculi. Stomach and bowel: No wall thickening or dilatation. Appendix: Appendectomy. Intraperitoneal space: Moderate volume ascites. Vasculature: No abdominal aortic aneurysm. Lymph nodes: No significant adenopathy. Urinary bladder: No definite bladder wall thickening or stone. Reproductive: No significant finding. Bones/joints: No acute bony abnormality. Soft tissues: Body wall edema. IMPRESSION: Ascites which may be part of anasarca. Date of Exam: 06/23/25 EXAM: Comprehensive 2D, Doppler, and color-flow Echocardiogram Indications: HFpEF Other Information Study Quality: Adequate. Technically limited study due to body habitus exam done bedside supine. Conclusion Normal left ventricular wall thickness and chamber size. Ejection fraction is 55 to 60%. Wall motion is normal Normal right ventricular size and function Both atria are enlarged Trileaflet aortic valve with mild regurgitation Mitral annular calcification. Moderate mitral regurgitation Moderate tricuspid regurgitation. Estimated right ventricular systolic pressure is 65 mmHg Labs 08/16/25 21:58 08/17/25 00:17 Labs: Laboratory Results - last 24 hr 08/16/25 08/17/25 08/17/25 21:58 00:17 01:25 WBC 6.10 RBC 3.49 L Hgb 10.9 L Hct 35.5 L MCV 102 H MCH 31.2 MCHC 30.7 L RDW 16.3 H Plt Count 197 MPV 10.0 Immature Gran % 0.2 Neutrophils % 79.9 Lymphocytes % 10.7 Monocytes % 8.2 Eosinophils % 0.3 Basophils % 0.7 Nucleated RBC % 0.0 Absolute Neutrophils 4.88 Absolute Lymphocytes 0.65 L Absolute Monocytes 0.50 Absolute Eosinophils 0.02 Absolute Basophils 0.04 PT 13.8 H INR 1.4 H APTT 28.4 D-Dimer > 7500 H Sodium Cancelled 142 Potassium Cancelled 3.8 Chloride Cancelled 107 Carbon Dioxide Cancelled 29.3 Anion Gap Cancelled 5.7 BUN Cancelled 49 H Creatinine Cancelled 4.25 H* Est GFR (CKD-EPI 2020) Cancelled 9.97 Glucose Cancelled 132 H Calcium Cancelled 7.8 L Magnesium Cancelled 2.4 Total Bilirubin Cancelled 1.30 H AST Cancelled 11 ALT Cancelled 7 L Alkaline Phosphatase Cancelled 74 Troponin I Cancelled 65 H* NT-Pro-B Natriuret Pep Cancelled 14700 H Total Protein Cancelled 6.6 Albumin Cancelled 3.9 Lipase Cancelled 30 TSH Cancelled 2.53 Urine Color Yellow Urine Clarity Sl Cloudy Urine pH 8.5 H Ur Specific [place] 1.015 Urine Protein >=300 H Urine Ketones Negative Urine Blood Trace-lysed H Urine Nitrite Negative Urine Bilirubin Negative Urine Urobilinogen 0.2 Ur Leukocyte Esterase Negative Urine RBC 0-2 Urine WBC 0-2 Ur Epithelial Cells Rare Urine Crystals Negative Urine Bacteria Few Urine Casts Negative Urine Mucus Moderate Ur Culture Indicated? No Urine Glucose 100 H Add-On Test Request DONE Last Vital Signs Temp 37.3 C 08/16/25 21:19 Pulse 87 08/17/25 00:30 Resp 20 08/17/25 00:30 BP 192/75 H 08/16/25 23:04 Pulse Ox 95 08/17/25 00:30 VTE Prohylaxis Risk Level: Moderate/High Risk Contraindications: Medical contrainidcation Prophylaxis: Patient anticoagulated and Mechanical Time Spent Time spent with Patient: >75 minutes Time was spent: preparing to see the patient(eg.review tests), obtaining and/or reviewing separately otained hiistory, ordering medications,tests, procedures, referring, communicating with other health resident care manager rn, indepentently interpreting results and care coordination
[2025-08-17 03:40] LABS: Troponin I 60 ng/L (<35)
--- NOTE | 2025-08-17 06:53 | W.PC.ACHO ---
Registration Status: REG ER Primary Language: Preferred Language: ED Information & Data Chief Complaint GenMedical 08/16/25 21:48 Triage Note Patient is in renal failure 08/16/25 21:06 but has not started dialysis as yet. Yesterday she has been coughing up blood, and having increasing generalized swelling. she had missed an appt at [facility] yesterday because she was feeling too sick to travel for that long. Medical / Surgical History (Last Reviewed 03/13/25 @ 21:01 by Cy Arango) Acquired trigger finger Anemia Arteriosclerotic cardiovascular disease Atrial fibrillation Atrophic vaginitis Benign neoplasm of adrenal gland Bladder mass Cardiomyopathy Cataract Chronic cystitis Chronic pain Depression Diabetes mellitus Diabetic retinopathy associated with controlled type 2 diabetes mellitus Elevated lipase Elevated troponin level not due to acute coronary syndrome Fibromyalgia GERD (gastroesophageal reflux disease) Graves disease Heart failure History of anemia Hx of myocardial infarction Hyperlipidemia, mixed Hypertensive disorder Inflammatory arthritis Kidney disease, chronic, stage IV (severe, 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) Lower urinary tract symptoms (LUTS) Lumbar radiculopathy Neck pain Noncompliance w/medication treatment due to intermit use of medication Obesity Obstructive sleep apnea Pacemaker Postoperative hypothyroidism Renal failure syndrome Rheumatoid arthritis Rib cage dysfunction Slipping rib syndrome Stucco keratosis (Last Reviewed 03/13/25 @ 21:01 by Cy Arango) H/O adenoidectomy H/O breast biopsy H/O right cataract extraction H/O tubal ligation History of cholecystectomy Hx of appendectomy Hx of tonsillectomy Most Recent Vital Signs Temperature 37.3 C 08/16/25 21:19 Temperature Source Oral 08/16/25 21:06 Pulse 61 08/17/25 02:01 Pulse 60 08/16/25 23:45 Respiratory Rate 16 08/17/25 02:01 Respiratory Effort Normal, Non-Labored 08/17/25 06:12 Respiratory Depth Normal 08/17/25 06:12 Respiratory Pattern Normal 08/17/25 06:12 Blood Pressure 192/75 H 08/16/25 23:04 Blood Pressure Mean 117 08/16/25 23:04 Blood Pressure Position Sitting 08/16/25 21:19 Pulse Oximetry 95 08/17/25 00:30 Oxygen Delivery Method Room Air 08/17/25 04:25 Oxygen Flow Rate 0 08/17/25 04:25 Pain Level 0 08/16/25 21:06 Comment Pt ambulated approximately 25 feet while monitoring SpO2. 08/17/25 00:30 Allergies Penicillins Allergy (Severe, Verified 08/16/25 21:15) Skin Rash Macrolide Antibiotics Allergy (Intermediate, Verified 08/16/25 21:15) Hives naproxen Allergy (Intermediate, Verified 08/16/25 21:15) Skin Rash niacin Allergy (Intermediate, Verified 08/16/25 21:15) Hives omeprazole (From Prilosec) Allergy (Intermediate, Verified 08/16/25 21:15) Nausea codeine Allergy (Verified 08/16/25 21:15) Nausea lip swelling erythromycin base Allergy (Verified 08/16/25 21:15) Hives Sulfa (Sulfonamide Antibiotics) Allergy (Verified 08/16/25 21:15) urtiaria amitriptyline Adverse Reaction (Intermediate, Verified 08/16/25 21:15) Other (See Comment) mind wasn't right NSAIDS (Non-Steroidal Anti-Inflamma Adverse Reaction (Intermediate, Verified 08/16/25 21:15) Other (See Comment) Nose bleeds,nausea celecoxib Adverse Reaction (Verified 08/16/25 21:15) Nausea gabapentin Adverse Reaction (Verified 08/16/25 21:15) Other (See Comment) pt. reports having a seizure methotrexate Adverse Reaction (Verified 08/16/25 21:15) Nausea elevated LFT's naltrexone Adverse Reaction (Verified 08/16/25 21:15) Skin Rash Active Medications Generic Name Dose Route Start Last Admin Trade Name Freq PRN Reason Stop Dose Admin Sodium Chloride 1,000 mls @ 30 mls/hr 08/17/25 00:45 08/17/25 00:47 Saline 1000ml Bag IV 30 mls/hr INFUSION OMEGA Administration IV IV Catheter Type [Left Forearm Peripheral IV ] IV Catheter Gauge [Left 20 Forearm] Diagnostics 08/17/25 08/17/25 08/17/25 Range/Units 06:42 03:00 01:25 WBC (4.4-10.8) 10^3/uL RBC (3.93-5.22) 10^6/uL Hgb (11.2-15.7) g/dL Hct (36.0-46.0) % MCV (80-95) fL MCH (27.0-33.0) pg MCHC (32.0-36.0) % RDW (11.7-14.6) % Plt Count (130-400) 10^3/uL MPV (8.0-11.0) fL Immature Gran % % Neutrophils % % Lymphocytes % % Monocytes % % Eosinophils % % Basophils % % Nucleated RBC % (0.0-0.3) % Absolute Neutrophils (1.2-6.7) 10^3/uL Absolute Lymphocytes (1.2-3.4) 10^3/uL Absolute Monocytes (0.1-0.8) 10^3/uL Absolute Eosinophils (0.0-0.7) 10^3/uL Absolute Basophils (0.0-0.2) 10^3/uL PT (9.1-11.1) sec INR (0.9-1.1) APTT (20.6-30.2) sec D-Dimer (<500) ng/mlFEU Sodium Potassium Chloride Carbon Dioxide Anion Gap BUN Creatinine Est GFR (CKD-EPI 2020) Glucose Calcium Magnesium Total Bilirubin AST ALT Alkaline Phosphatase Troponin I 60 H* NT-Pro-B Natriuret Pep Total Protein Albumin Lipase TSH Urine Color Yellow (Yellow) Urine Clarity Sl Cloudy (Clear) Urine pH 8.5 H (5-8) Ur Specific [place] 1.015 (1.005-1.025) Urine Protein >=300 H (Neg-Trace) mg/dL Urine Ketones Negative (Negative) mg/dL Urine Blood Trace-lysed H (Negative) Urine Nitrite Negative (Negative) Urine Bilirubin Negative (Negative) Urine Urobilinogen 0.2 (Up to 0.2) mg/dL Ur Leukocyte Esterase Negative (Negative) Urine RBC 0-2 (0-2) HPF Urine WBC 0-2 (0-5) HPF Ur Epithelial Cells Rare (Negative) HPF Urine Crystals Negative (Negative) HPF Urine Bacteria Few (Negative) HPF Urine Casts Negative (Negative) LPF Urine Mucus Moderate (Negative) Ur Culture Indicated? No Urine Glucose 100 H (Negative) mg/dL COVID-19 Source Pending SARS-CoV-2 (PCR) Pending Influenza Type A (PCR) Pending Influenza Type B (PCR) Pending RSV (PCR) Pending Add-On Test Request 08/17/25 08/16/25 Range/Units 00:17 21:58 WBC 6.10 (4.4-10.8) 10^3/uL RBC 3.49 L (3.93-5.22) 10^6/uL Hgb 10.9 L (11.2-15.7) g/dL Hct 35.5 L (36.0-46.0) % MCV 102 H (80-95) fL MCH 31.2 (27.0-33.0) pg MCHC 30.7 L (32.0-36.0) % RDW 16.3 H (11.7-14.6) % Plt Count 197 (130-400) 10^3/uL MPV 10.0 (8.0-11.0) fL Immature Gran % 0.2 % Neutrophils % 79.9 % Lymphocytes % 10.7 % Monocytes % 8.2 % Eosinophils % 0.3 % Basophils % 0.7 % Nucleated RBC % 0.0 (0.0-0.3) % Absolute Neutrophils 4.88 (1.2-6.7) 10^3/uL Absolute Lymphocytes 0.65 L (1.2-3.4) 10^3/uL Absolute Monocytes 0.50 (0.1-0.8) 10^3/uL Absolute Eosinophils 0.02 (0.0-0.7) 10^3/uL Absolute Basophils 0.04 (0.0-0.2) 10^3/uL PT 13.8 H (9.1-11.1) sec INR 1.4 H (0.9-1.1) APTT 28.4 (20.6-30.2) sec D-Dimer > 7500 H (<500) ng/mlFEU Sodium 142 Cancelled Potassium 3.8 Cancelled Chloride 107 Cancelled Carbon Dioxide 29.3 Cancelled Anion Gap 5.7 Cancelled BUN 49 H Cancelled Creatinine 4.25 H* Cancelled Est GFR (CKD-EPI 2020) 9.97 Cancelled Glucose 132 H Cancelled Calcium 7.8 L Cancelled Magnesium 2.4 Cancelled Total Bilirubin 1.30 H Cancelled AST 11 Cancelled ALT 7 L Cancelled Alkaline Phosphatase 74 Cancelled Troponin I 65 H* Cancelled NT-Pro-B Natriuret Pep 83083 H Cancelled Total Protein 6.6 Cancelled Albumin 3.9 Cancelled Lipase 30 Cancelled TSH 2.53 Cancelled Urine Color (Yellow) Urine Clarity (Clear) Urine pH (5-8) Ur Specific [place] (1.005-1.025) Urine Protein (Neg-Trace) mg/dL Urine Ketones (Negative) mg/dL Urine Blood (Negative) Urine Nitrite (Negative) Urine Bilirubin (Negative) Urine Urobilinogen (Up to 0.2) mg/dL Ur Leukocyte Esterase (Negative) Urine RBC (0-2) HPF Urine WBC (0-5) HPF Ur Epithelial Cells (Negative) HPF Urine Crystals (Negative) HPF Urine Bacteria (Negative) HPF Urine Casts (Negative) LPF Urine Mucus (Negative) Ur Culture Indicated? Urine Glucose (Negative) mg/dL COVID-19 Source SARS-CoV-2 (PCR) Influenza Type A (PCR) Influenza Type B (PCR) RSV (PCR) Add-On Test Request DONE [id number] Documentation Fingerstick Glucose Start: 08/17/25 03:04 Freq: Status: Active Protocol: Activity Type Activity Date Activity User E-sign Co-sign Detail Recorded Client Recorded Date Recorded By Document 08/17/25 03:04 KAYLA DAFREDO(3) [id number] 08/17/25 03:04 KAYLA DAMIGUEL ANGELON(4) Intake and Output - 24 Hour Total 08/16/25 21:04 thru 08/17/25 06:12 Intake Total 60 Output Total 335 Balance -275 Weight 58.967 kg Intake: Oral 60 Output: Urine 335 Other: Urine Color Pale Yellow Urine Appearance Clear Urinary Catheter Urinary Catheter Date of 08/17/25 Insertion [Urethral (Liu)] Time of insertion [Urethral ( 01:20 Liu)] Falls Risk Assessment History of Falls Previous History 08/16/25 21:45 Contributing Factors Unstable,Incontinence, 08/16/25 21:45 Medications Ambulatory Aids Uses ambulatory device 08/16/25 21:45 Tubes/Lines None 08/16/25 21:45 Gait Evaluation No gait disturbance 08/16/25 21:45 Cognition No cognitive impairment 08/16/25 21:45 Fall Total Score 39 08/16/25 21:45 Level of Risk Moderate Risk 08/16/25 21:45 Problems (Last Reviewed 03/13/25 @ 21:01 by Cy Arango) Elevated d-dimer (Acute) ESRD (end stage renal disease) (Acute) Attestation Statement: By documenting the first initial, last name, and credentials of the reporting nurse below, both parties acknowledge that all relevant information regarding the patient handoff has been communicated, and that all questions have been addressed to ensure continuity and safety of care. Additional Patient Information/Comments: Pt arrived to ED with c/o worsening edema and hemoptysis. Pt in end stage renal disease. Fistula placed 2 months ago in anticipation of need for dialysis. Currently experiencing CHF exacerbation that requires diuresis before starting dialysis. Pt missed appt at [facility] yesterday for this reason because she felt too unwell to travel. ED nurse reports severe edema, 40 PO Lasix administered. Liu placed with only 350 mL output across ED visit. Pt reports she does not remember the last time she urinated, but probably 24 hours prior. Troponin and creatinine (critical) both below pt's baseline. BNP elevated. Report Received From: DIANN Starks, ED
[2025-08-17 07:27] LABS: COVID-19 PCR Negative (Negative); RSV PCR Negative (Negative)
[2025-08-17] MEDS: Levothyroxine 150 MCG TAB PO (08:16)
--- NOTE | 2025-08-17 08:49 | PDOC.CMIN ---
Date of service: 08/17/25 Time of Service: 08:49 Care Management Initial Assmt Initial Assessment Reason for Hospitalization: CHF Functional Status/Living Situation Patient Presentation: Iliana was sitting in a recliner when CM met with her. She is polite and easy to engage in conversation. She is being closely monitored for CHF with end stage renal disease. She lives alone with her cat in [place], [place]. She has 5 sons and 2 daughters. Her son Ruiz lives nearby and helps her cook and checks in on her several times a day and her daughter Brit lives in [place] and is also helpful and provides her transportation. Iliana is connected with the [facility], and has MOW. She is open to receive services on discharge, if recommended, but otherwise feels well supported in the community. Town of Residence: [place] Resides with: Alone Significant Other/Family: Local (Son Ruiz, Daughter Brit) Natural Supports: Supporting childlren Employment Status: Retired Instrumental Activities of Daily Living (ADLs): Independent Medications Medication Management: No Issues/Barriers identified Advance Directives Advance Directives: Do you have an Advance Directive: N 06/14/21, 11:06 AD On File at [facility]: N 06/14/21, 11:06 Date Asked 08/17/25 Today, 06:56 AD Date Reviewed COLST On File at [facility] COLST Date Scanned Code Status Resuscitation Status Full Code Insurance Coverage/Financial Issues Insurance: Medicare Part A & B - [id number] Medicaid of [place] - [id number] Care Team Visit Care Team Role Provider Type Jason Snow DO Primary Care Provider NON-[facility] STAFF PHYSICIAN Maricarmen Flores RDN, [facility] Other Providers SPECIAL EQUIPMENT TECHNICIAN Deshawn White RDN Other Providers SPECIAL EQUIPMENT TECHNICIANNORMA Rodriguez MD Emergency Provider [facility] STAFF PHYSICIAN Cy Arango Admit Provider NON-[facility] STAFF PHYSICIAN Attending Provider Discharge Potential Discharge Needs: PCP F/U Appt Anticipated Barriers to Discharge: None Identified Patient/Family Education Needs: Review discharge instructions, discuss Ask Me Three Transportation: Private vehicle Plan: Anticipate, Iliana will discharge home via private vehicle with her daughter Brit, when she is medically ready for discharge. Patient will follow up with her community providers and continue per her discharge plan of care. No new services are anticipated at this time. CM will follow. Social Determinants of Health Screening Will the Patient Participate in the Screening?: Declined to provide PFSH All Active Problems (Updated 08/17/25 @ 06:56 by KAYLA SAM) Volume overload (Acute) Chest pain (Acute) Cough with hemoptysis (Acute) D-dimer, elevated (Acute) Renal failure (Chronic) Elevated d-dimer (Acute) ESRD (end stage renal disease) (Acute) Acute kidney injury superimposed on stage 4 chronic kidney disease (Acute) Sacroiliac joint dysfunction of right side (Acute) Bladder cancer (Acute) Acute pyelonephritis (Acute) Medical History Rib cage dysfunction Stucco keratosis Obstructive sleep apnea Depression Graves disease GERD (gastroesophageal reflux disease) Fibromyalgia Kidney disease, chronic, stage IV (severe, 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 Acquired trigger finger Renal failure syndrome Rheumatoid arthritis Lumbar radiculopathy Postoperative hypothyroidism Obesity Neck pain Lower urinary tract symptoms (LUTS) Inflammatory arthritis Hyperlipidemia, mixed Hypertensive disorder Heart failure Diabetes mellitus Diabetic retinopathy associated with controlled type 2 diabetes mellitus Chronic cystitis Chronic pain Cataract Atrial fibrillation History of anemia Surgical History H/O breast biopsy Hx of tonsillectomy H/O tubal ligation H/O adenoidectomy History of cholecystectomy Hx of appendectomy H/O right cataract extraction Family History Father Cancer Heart disease Mother Graves disease Rheumatoid arthritis Social History Smoking/Tobacco Use Status: Former Tobacco Use Quit Date: 09/22/95 Smoking risk assessment performed?: Yes Alcohol Intake: former Drug use: Never Substance use type: does not use Housing: house Do you feel safe at home: Yes Do you feel safe in your relationship?: Yes Additional Social history: lives alone
--- NOTE | 2025-08-17 09:00 | DI.NM_ITS ---
Exam(s) NM LUNG SCAN VENT PERF GRP EXAM: NM LUNG SCAN VENT PERF GRP CLINICAL HISTORY: Elevated D-dimer with question of hemoptysis. TECHNIQUE: Injected Dose: Ventilation: 30 mCi Tc-99m DTPA via inhalation Perfusion: 4 mCi Tc-99m MAA via IV COMPARISON: CT CT CHEST/ABD/PEL WO from 08/16/2025 FINDINGS: CT chest, abdomen and pelvis: There are no focal consolidating infiltrates. There are small bilateral pleural effusions. Perfusion: Normal. There are no ventilation/perfusion mismatches. Ventilation:Normal IMPRESSION: 1. Low probability VQ examination. . . . Modified PIOPED II criteria Probability Criteria High Two or more segments of V/Q mismatch Low Normal Perfusion, Non segmental perfusion abnormalities, pleural effusion in at least 1/3 of pleural cavity with no other defect Radiograph/perfusion matched defect in mid to upper lung confined to segment, one to three small segmental perfusion defects (<25% of segment) Perfusion defect smaller than corresponding radiographic lesion. Intermediate All other findings DATA REPOSITORY:
[2025-08-17] MEDS: Sodium Bicarbonate 650 MG TAB PO (09:09)
[2025-08-17] MEDS: Calcitriol 0.25 MCG CAP 0.5 MCG PO (09:09)
[2025-08-17] MEDS: Apixaban 2.5 MG TAB PO ×2 (09:09→20:16)
[2025-08-17] MEDS: Liothyronine 5 MCG TAB PO (09:09)
[2025-08-17] MEDS: Cholecalciferol (Vitamin D3) 1,000 UNIT TAB 1000 UNITS PO (09:09)
[2025-08-17] MEDS: PARoxetine 20 MG TAB 30 MG PO (09:09)
[2025-08-17] MEDS: Atorvastatin 40 MG TAB PO (09:09)
[2025-08-17] MEDS: Furosemide 40 MG/4 ML VIAL IVP ×2 (09:10→16:42)
[2025-08-17] MEDS: Lisinopril 20 MG TAB 40 MG PO (09:10)
[2025-08-17] MEDS: Carvedilol 12.5 MG TAB 18.75 MG PO ×2 (09:10→20:15)
[2025-08-17] MEDS: Normal Saline Flush 10 ML SYR IVP ×4 (09:12→20:15)
--- NOTE | 2025-08-17 13:18 | CHAPLAIN ---
Iliana was up in the chair getting washed up when I visited this morning. She was very pleasant and engaged in a conversation. Iliana told me that she's from [place] and has a cat waiting at home for her. She believes her daughter will be in to visit and Iliana is looking forward to being discharged today, but isn't certain if this is the plan.
[2025-08-17] MEDS: Insulin Aspart 300 UNITS/3 ML PEN SC (17:53)
[2025-08-17] MEDS: Acetaminophen 325 MG TAB 650 MG PO (19:31)
[2025-08-17] MEDS: Sodium Bicarbonate 650 MG TAB 325 MG PO (20:17)
[2025-08-17] MEDS: Preservision CAPSULE 1 CAP PO (20:18)
[2025-08-18] VITALS (8 sets, daily range): BP systolic 133–179; BP diastolic 53–80; PULSE 60–91; RESP 16–19; TEMP 36.2–36.7; O2SAT 95–98
[2025-08-18] MEDS: Liothyronine 5 MCG TAB PO (06:43)
[2025-08-18] MEDS: Levothyroxine 150 MCG TAB PO (06:43)
[2025-08-18 06:45] LABS: HCT 32.4 % (36.0-46.0); HGB 10.0 g/dL (11.2-15.7); MCH 30.6 pg (27.0-33.0); MCHC 30.9 % (32.0-36.0); MCV 99 fL (80-95); MPV 9.5 fL (8.0-11.0); Platelet Count 174 10^3/uL (130-400); RBC 3.27 10^6/uL (3.93-5.22); RDW 16.1 % (11.7-14.6); RDW-SD 59.1 fL; WBC 5.54 10^3/uL (4.4-10.8)
[2025-08-18 06:54] LABS: INR 1.4 (0.9-1.1); Prothrombin Time 13.6 sec (9.1-11.1)
[2025-08-18 07:04] LABS: Magnesium 2.2 mg/dL (1.6-2.6)
[2025-08-18 07:32] LABS: ALT 8 U/L (10-49); AST 13 U/L (<34); Albumin 3.7 g/dL (3.2-5.0); Alkaline Phosphatase 70 U/L (46-116); Anion Gap 11.4 mmol/L (3-11); BUN 50 mg/dL (9-23); Bilirubin, Direct 0.5 mg/dL (<=0.3); Bilirubin, Total 1.30 mg/dL (0.2-1.2); CO2 27.6 mmol/L (20.0-31.0); Calcium 8.0 mg/dL (8.3-10.6); Chloride 103 mmol/L (98-107); Glucose 137 mg/dL (74-106); Potassium 3.6 mmol/L (3.5-5.1); Sodium 142 mmol/L (136-145); Total Protein 6.2 g/dL (5.7-8.2)
[2025-08-18] MEDS: Furosemide 40 MG/4 ML VIAL IVP ×2 (08:30→16:17)
[2025-08-18] MEDS: PARoxetine 20 MG TAB 30 MG PO (08:30)
[2025-08-18] MEDS: Carvedilol 12.5 MG TAB 18.75 MG PO ×2 (08:31→20:17)
[2025-08-18] MEDS: Calcitriol 0.25 MCG CAP 0.5 MCG PO (08:32)
[2025-08-18] MEDS: Lisinopril 20 MG TAB 40 MG PO (08:32)
[2025-08-18] MEDS: Cholecalciferol (Vitamin D3) 1,000 UNIT TAB 1000 UNITS PO (08:32)
[2025-08-18] MEDS: Normal Saline Flush 10 ML SYR IVP ×2 (08:32→20:18)
[2025-08-18] MEDS: Apixaban 2.5 MG TAB PO ×2 (08:32→20:17)
[2025-08-18] MEDS: Magnesium Chloride 64 MG TABCR PO (08:32)
[2025-08-18] MEDS: Preservision CAPSULE 1 CAP PO ×2 (08:32→20:17)
[2025-08-18] MEDS: Sodium Bicarbonate 650 MG TAB PO (08:32)
[2025-08-18] MEDS: Atorvastatin 40 MG TAB PO (08:32)
[2025-08-18] MEDS: Insulin Aspart 300 UNITS/3 ML PEN SC ×2 (11:57→17:14)
[2025-08-18] MEDS: Sodium Bicarbonate 650 MG TAB 325 MG PO ×2 (11:58→20:16)
--- NOTE | 2025-08-18 13:08 | NUR.NOTE ---
Nursing Note: Pt daughter called to bring in Renvela 800 mg tablets from home to be dispensed while in patient at [facility]. Daughter Edith, who is present on patient HIPPA form, agrees to send medication in for patient jannet. She reports the patients' PCP Dr Snow would like to speak with MD at [facility]. His number is [phone].
[2025-08-18 16:33] LABS: Uric Acid 6.5 mg/dL (3.1-7.8)
--- NOTE | 2025-08-18 16:39 | PGE_ITS ---
Date of Service Date of service: 08/18/25 Time of Service: 08:00 Assessment and Plan Assessment and plan (1) ESRD (end stage renal disease): Start date: 08/17/25 Status: Acute Assessment and plan: This is an 84-year-old lady with end-stage renal disease awaiting initiation of dialysis and appearing to have worsening generalized symptoms of renal failure. Compliance is better according to her chart compared to last time I saw her in February 2025. She is on daily low-dose diuretics but appears to be now fluid overloaded. Her BNP is markedly elevated, imaging does show pleural effusion and ascites. She has some vague right chest pain and D-dimer was markedly elevated which could be from renal failure. CT was done without contrast and she will have a VQ scan to follow through on the ED providers concern for PE despite elevated PT/INR from probable liver disease and adequate dosing with Eliquis. She also has had some slight hemoptysis versus nosebleed and this could indicate failure of anticoagulation and side effects of anticoagulation. The patient will be hospitalized to attempt more aggressive diuresis with Lasix and switching to Bumex if not diuresing well. She does have a history of heart failure with preserved left ventricular ejection fraction by recent echocardiogram. [facility] cardiology and nephrology will be consulted as needed. Patient is a full code. Aug 18: Echo showing no new deficits; HFpEF previously diagnosed. Urine output low but improved. Renal labs unchanged. Will check phosphorus. To be discussed with [facility] nephrology tomorrow. (2) Elevated d-dimer: Start date: 08/17/25 Status: Resolved Assessment and plan: This could be secondary to her chronic diseases but because of this, VQ scan will be performed for completion of ED evaluation. There is no hypoxemia or tachycardia. She did have slight hemoptysis and possible pleurisy by history. She is a vague historian. Aug 18: V/Q scan negative. Vitals unremarkable. Resolved. (3) Heart failure: Assessment and plan: Echocardiogram done in June 2025 revealed preserved left ventricular ejection fraction. Minimize fluids especially with renal failure progressive. Aug 18: no new deficits on echo. HFpEF. (4) Hypertensive disorder: Assessment and plan: Exacerbated with acute presentation this may respond to increased diuresis. Continue outpatient medical therapy and follow-up. (5) Atrial fibrillation: Assessment and plan: Paced rhythm on renal dose anticoagulation and chronic elevation of troponins which appears actually to be decreased at this visit. Monitor with telemetry. (6) Elevated troponin level not due to acute coronary syndrome: Assessment and plan: Increased. Lower than her baseline. This most likely is nonischemic and will not be trended at this time. If she has recurrent chest pain, EKG should be done immediately and troponin should be rechecked. (7) Diabetes mellitus: Assessment and plan: On Tresiba chronically with diet. Hold outpatient medical therapy and do glucometers before meals and at bedtime with sensitive Humalog sliding scale coverage. (8) Anemia: Assessment and plan: Chronic and stable and associated with CKD. (9) Obstructive sleep apnea: Assessment and plan: If patient is on pressure treatment at night, this should be continued. (10) GERD (gastroesophageal reflux disease): Assessment and plan: Continue PPI. (11) Postoperative hypothyroidism: Assessment and plan: TSH stable and continue outpatient therapy with T3 and T4 replacement. Subjective Subjective Interval history since last seen: Mrs. Kidd is feeling better and her abdomen is less tender. Family at bedside. Exam Narrative Exam Narrative: General: This is a pleasant, elderly woman in no distress HEENT: Normocephalic, atraumatic CV: RRR Resp: CTAB Abd: firm, nontender, improved over prior. +NBS MSK: voluntary motion x4 Neuro: awake, alert, no focal deficits Objective Last Vital Signs Temp 36.4 C L 08/18/25 14:51 Pulse 60 08/18/25 14:51 Resp 16 08/18/25 14:51 BP 137/64 08/18/25 14:51 Pulse Ox 95 08/18/25 14:51 Laboratory Results - last 24 hr 08/18/25 08/18/25 06:32 16:04 WBC 5.54 RBC 3.27 L Hgb 10.0 L Hct 32.4 L MCV 99 H MCH 30.6 MCHC 30.9 L RDW 16.1 H Plt Count 174 MPV 9.5 PT 13.6 H INR 1.4 H Sodium 142 Potassium 3.6 Chloride 103 Carbon Dioxide 27.6 Anion Gap 11.4 H BUN 50 H Creatinine 4.35 H* Est GFR (CKD-EPI 2020) 9.71 Glucose 137 H Uric Acid 6.5 Calcium 8.0 L Phosphorus 3.3 Magnesium 2.2 Total Bilirubin 1.30 H Conjugated Bilirubin 0.5 H AST 13 ALT 8 L Alkaline Phosphatase 70 Total Protein 6.2 Albumin 3.7 VTE Prohylaxis Risk Level: Moderate/High Risk Contraindications: None Prophylaxis: Patient anticoagulated Time Spent with Patient Time Spent with Patient: 25-34 minutes Time was spent: preparing to see the patient(eg.review tests), obtaining and/or reviewing separately otained hiistory, ordering medications,tests, procedures, referring, communicating with other health professional healthcare representative, indepentently interpreting results, counseling the patient and care coordination
[2025-08-18] MEDS: SEVELAMER CARBONATE 800 MG 1 EACH PO (16:50)
[2025-08-18 17:29] LABS: Glucose Negative (Negative)
[2025-08-18 17:36] LABS: C & S Indicated? Yes; RBC >50 HPF (0-2)
[2025-08-18] MEDS: Docusate Sodium 100 MG CAP PO (20:16)
[2025-08-19] VITALS (7 sets, daily range): BP systolic 113–170; BP diastolic 60–133; PULSE 60–80; RESP 16–18; TEMP 36–36.6; O2SAT 94–96
[2025-08-19] MEDS: Levothyroxine 150 MCG TAB PO (05:49)
[2025-08-19] MEDS: Liothyronine 5 MCG TAB PO (05:49)
[2025-08-19 06:53] LABS: Abs Immature Grans 0.02 10^3/uL (0.0-0.06); HCT 32.6 % (36.0-46.0); HGB 10.0 g/dL (11.2-15.7); Immature Grans % 0.3 %; MCH 29.9 pg (27.0-33.0); MCHC 30.7 % (32.0-36.0); MCV 98 fL (80-95); MPV 9.7 fL (8.0-11.0); Platelet Count 186 10^3/uL (130-400); RBC 3.34 10^6/uL (3.93-5.22); RDW 15.9 % (11.7-14.6); RDW-SD 57.1 fL; WBC 5.81 10^3/uL (4.4-10.8)
[2025-08-19 07:16] LABS: Magnesium 2.2 mg/dL (1.6-2.6)
[2025-08-19 07:36] LABS: ALT 7 U/L (10-49); AST 11 U/L (<34); Albumin 3.6 g/dL (3.2-5.0); Alkaline Phosphatase 70 U/L (46-116); Anion Gap 10.6 mmol/L (3-11); BUN 50 mg/dL (9-23); Bilirubin, Total 1.30 mg/dL (0.2-1.2); CO2 28.4 mmol/L (20.0-31.0); Calcium 8.1 mg/dL (8.3-10.6); Chloride 103 mmol/L (98-107); Glucose 122 mg/dL (74-106); Potassium 3.4 mmol/L (3.5-5.1); Sodium 142 mmol/L (136-145); Total Protein 6.2 g/dL (5.7-8.2)
[2025-08-19] MEDS: Normal Saline Flush 10 ML SYR IVP ×3 (07:50→19:53)
[2025-08-19] MEDS: Furosemide 40 MG/4 ML VIAL IVP ×2 (07:50→16:54)
[2025-08-19] MEDS: Preservision CAPSULE 1 CAP PO ×2 (07:51→19:51)
[2025-08-19] MEDS: Docusate Sodium 100 MG CAP PO ×2 (07:51→19:51)
[2025-08-19] MEDS: Lisinopril 20 MG TAB 40 MG PO (07:51)
[2025-08-19] MEDS: Carvedilol 12.5 MG TAB 18.75 MG PO ×2 (07:51→19:51)
[2025-08-19] MEDS: Sodium Bicarbonate 650 MG TAB PO (07:51)
[2025-08-19] MEDS: Calcitriol 0.25 MCG CAP 0.5 MCG PO (07:51)
[2025-08-19] MEDS: PARoxetine 20 MG TAB 30 MG PO (07:51)
[2025-08-19] MEDS: Cholecalciferol (Vitamin D3) 1,000 UNIT TAB 1000 UNITS PO (07:51)
[2025-08-19] MEDS: Atorvastatin 40 MG TAB PO (07:51)
[2025-08-19] MEDS: Magnesium Chloride 64 MG TABCR PO (07:51)
[2025-08-19] MEDS: Apixaban 2.5 MG TAB PO ×2 (07:52→19:52)
[2025-08-19] MEDS: SEVELAMER CARBONATE 800 MG 1 EACH PO ×3 (07:52→16:54)
[2025-08-19] MEDS: Sodium Bicarbonate 650 MG TAB 325 MG PO ×2 (11:58→19:53)
[2025-08-19] MEDS: Insulin Aspart 300 UNITS/3 ML PEN SC ×2 (11:58→16:54)
--- NOTE | 2025-08-19 12:07 | PDOC.CMPRO ---
Date of service: 08/19/25 Time of Service: 12:34 Care Management Progress Note Progress Note Text Progress Note Text: Iliana was sitting up in her chair and visiting with her son, Spenser, when CM met with her. Per report, the provider has contacted [facility] [place] [place]. It was noted that Iliana will need to re-establish care with nephrology due to missing multiple appointments. Spenser shared that he has taken October and November off work to assist with his mother?s caregiving needs. At the request of Iliana?s daughter, Edith, CM contacted her. Edith had questions regarding long-term care planning. CM discussed [facility] on Aging services and the process for initiating Long-Term Medicaid. Edith reported that Iliana already has Long-Term Medicaid, which was verified by [employer]. Spenser and Edith are willing to provide COA CM name once obtained. Edith expressed that Lacies care has become increasingly difficult for her and her siblings to manage at home, and she is hoping that [facility] can place Iliana in long-term care following this admission. CM explained that Iliana does not currently have a qualifying stay. A PT consult was requested. Per RN report, Iliana requires standby assistance and is completing many ADLs independently and at her baseline. Edith also noted that Iliana progressed well with Home Health services previously and was discharged within a month. Iliana is agreeable to working with PT and open to following their recommendations. If PT recommends STR, she is willing to have referrals sent to [facility], or [facility]. She remains agreeable to Home Health services if appropriate. CM will continue to follow and provide support as needed. Discharge Potential Discharge Needs: PT Evaluation and PCP F/U Appt Anticipated Barriers to Discharge: None Identified Patient/Family Education Needs: Review discharge instructions, discuss Ask Me Three Transportation: Private vehicle Plan: Anticipate, Iliana will discharge home via private vehicle with her daughter Edith, when she is medically ready for discharge. Patient will follow up with her community providers and continue per her discharge plan of care. PT consult pending. CM will follow. Social Determinants of Health Screening Social Determinants of health last assessed in clinic: 08/19/25 Will the Patient Participate in the Screening?: Yes Do you worry about having a steady place to live?: no Problems where you live: no known problems In the past 12 months, have you had to go without electric, gas, oil or water in your home?: no 1. Within the past 12 months, we worried whether our food would run out before we got money to buy more.: Don't know/refused 2. Within the past 12 months, the food we bought just didn't last and we didn't have money to get more.: Don't know/refused Has lack of transportation kept you from medical appointments or from doing things needed for daily living?: no Has anyone in your life made you feel unsafe or unsupported?: no How hard is it for you to pay for the very basics like food, housing, medical care, and heating? Would you say it is:: Not hard at all Do you want help finding or keeping work or a job?: I do not need or want help If for any reason you need help with day-to-day activities such as bathing, preparing meals, shopping, managing finances, etc., do you get the help you need?: I don?t need any help How often do you feel lonely or isolated from those around you?: Never Do you speak a language other than Setswana at home?: No Does the patient want assistance with any of the above?: No
--- NOTE | 2025-08-19 16:21 | W.PM.PROGNOT ---
Date of Service Date of service: 08/19/25 Time of Service: 08:00 Assessment and Plan Assessment and plan (1) ESRD (end stage renal disease): Start date: 08/17/25 Status: Acute Assessment and plan: This is an 84-year-old lady with end-stage renal disease awaiting initiation of dialysis and appearing to have worsening generalized symptoms of renal failure. Compliance is better according to her chart compared to last time I saw her in February 2025. She is on daily low-dose diuretics but appears to be now fluid overloaded. Her BNP is markedly elevated, imaging does show pleural effusion and ascites. She has some vague right chest pain and D-dimer was markedly elevated which could be from renal failure. CT was done without contrast and she will have a VQ scan to follow through on the ED providers concern for PE despite elevated PT/INR from probable liver disease and adequate dosing with Eliquis. She also has had some slight hemoptysis versus nosebleed and this could indicate failure of anticoagulation and side effects of anticoagulation. The patient will be hospitalized to attempt more aggressive diuresis with Lasix and switching to Bumex if not diuresing well. She does have a history of heart failure with preserved left ventricular ejection fraction by recent echocardiogram. [facility] and nephrology will be consulted as needed. Patient is a full code. Aug 18: Echo showing no new deficits; HFpEF previously diagnosed. Urine output low but improved. Renal labs unchanged. Will check phosphorus. To be discussed with [facility] nephrology tomorrow. Aug 19: Spoke with [facility] neph[facility] and [facility] Patient last seen in clinic Jul 26. She had been referred to start HD at [facility] Aug 01 and was not able to be there early in the morning, again on August 08. She willl have to restart the process with a clinic visit with nephrology. Continue diuresis. (2) Elevated d-dimer: Start date: 08/17/25 Status: Resolved Assessment and plan: This could be secondary to her chronic diseases but because of this, VQ scan will be performed for completion of ED evaluation. There is no hypoxemia or tachycardia. She did have slight hemoptysis and possible pleurisy by history. She is a vague historian. Aug 18: V/Q scan negative. Vitals unremarkable. Resolved. (3) Heart failure: Assessment and plan: Echocardiogram done in June 2025 revealed preserved left ventricular ejection fraction. Minimize fluids especially with renal failure progressive. Aug 18: no new deficits on echo. HFpEF. (4) Hypertensive disorder: Assessment and plan: Exacerbated with acute presentation this may respond to increased diuresis. Continue outpatient medical therapy and follow-up. (5) Atrial fibrillation: Assessment and plan: Paced rhythm on renal dose anticoagulation and chronic elevation of troponins which appears actually to be decreased at this visit. Monitor with telemetry. (6) Elevated troponin level not due to acute coronary syndrome: Assessment and plan: Increased. Lower than her baseline. This most likely is nonischemic and will not be trended at this time. If she has recurrent chest pain, EKG should be done immediately and troponin should be rechecked. (7) Diabetes mellitus: Assessment and plan: On Tresiba chronically with diet. Hold outpatient medical therapy and do glucometers before meals and at bedtime with sensitive Humalog sliding scale coverage. (8) Anemia: Assessment and plan: Chronic and stable and associated with CKD. (9) Obstructive sleep apnea: Assessment and plan: If patient is on pressure treatment at night, this should be continued. (10) GERD (gastroesophageal reflux disease): Assessment and plan: Continue PPI. (11) Postoperative hypothyroidism: Assessment and plan: TSH stable and continue outpatient therapy with T3 and T4 replacement. Subjective Subjective Interval history since last seen: Mrs. Kidd is comfortable, up in a chair. Abdomen is softer today. Son Spenser at bedside. Spoke with daughter Edith on the phone, will be difficult to discharge home with little support from busy/ill family members caring for children; patient lives alone in a trailier. Exam Narrative Exam Narrative: General: This is a pleasant, elderly woman in no distress HEENT: Normocephalic, atraumatic CV: RRR Resp: CTAB Abd: firm, nontender, improved over prior. +NBS MSK: voluntary motion x4 Neuro: awake, alert, no focal deficits Objective Last Vital Signs Temp 36.3 C L 08/19/25 15:13 Pulse 60 08/19/25 15:13 Resp 16 08/19/25 15:13 BP 155/60 H 08/19/25 15:13 Pulse Ox 96 08/19/25 15:13 Laboratory Results - last 24 hr 08/18/25 08/18/25 08/19/25 16:04 17:15 06:00 WBC 5.81 RBC 3.34 L Hgb 10.0 L Hct 32.6 L MCV 98 H MCH 29.9 MCHC 30.7 L RDW 15.9 H Plt Count 186 MPV 9.7 Immature Gran % 0.3 Neutrophils % 75.0 Lymphocytes % 13.6 Monocytes % 9.3 Eosinophils % 0.9 Basophils % 0.9 Nucleated RBC % 0.0 Absolute Neutrophils 4.36 Absolute Lymphocytes 0.79 L Absolute Monocytes 0.54 Absolute Eosinophils 0.05 Absolute Basophils 0.05 Sodium 142 Potassium 3.4 L Chloride 103 Carbon Dioxide 28.4 Anion Gap 10.6 BUN 50 H Creatinine 4.34 H* Est GFR (CKD-EPI 2020) 9.73 Glucose 122 H Uric Acid 6.5 Calcium 8.1 L Phosphorus 3.5 3.7 Magnesium 2.2 Total Bilirubin 1.30 H AST 11 ALT 7 L Alkaline Phosphatase 70 Total Protein 6.2 Albumin 3.6 Urine Color Yellow Urine Clarity Clear Urine pH 7.5 Ur Specific Beaver 1.015 Urine Protein 100 H Urine Ketones Negative Urine Blood Moderate H Urine Nitrite Negative Urine Bilirubin Negative Urine Urobilinogen 0.2 Ur Leukocyte Esterase Small H Urine RBC >50 H Urine WBC 10-20 H Ur Epithelial Cells Negative Urine Crystals Negative Urine Bacteria Negative Urine Mucus Trace Ur Culture Indicated? Yes Urine Glucose Negative VTE Prohylaxis Risk Level: Moderate/High Risk Contraindications: None Prophylaxis: Pharmacologic Time Spent with Patient Time Spent with Patient: 25-34 minutes Time was spent: preparing to see the patient(eg.review tests), obtaining and/or reviewing separately otained hiistory, ordering medications,tests, procedures, referring, communicating with other health workforce investment act career manager, indepentently interpreting results, counseling the patient and care coordination
[2025-08-20 02:25] VITALS: BP 130/62; PULSE 80; RESP 18; TEMP 36.8; O2SAT 95
[2025-08-20 06:37] LABS: Abs Immature Grans 0.02 10^3/uL (0.0-0.06); HCT 33.0 % (36.0-46.0); HGB 10.2 g/dL (11.2-15.7); Immature Grans % 0.4 %; MCH 30.4 pg (27.0-33.0); MCHC 30.9 % (32.0-36.0); MCV 99 fL (80-95); MPV 9.9 fL (8.0-11.0); Platelet Count 196 10^3/uL (130-400); RBC 3.35 10^6/uL (3.93-5.22); RDW 16.0 % (11.7-14.6); RDW-SD 58.3 fL; WBC 5.30 10^3/uL (4.4-10.8)
[2025-08-20] MEDS: Liothyronine 5 MCG TAB PO (06:37)
[2025-08-20] MEDS: Levothyroxine 150 MCG TAB PO (06:37)
[2025-08-20 07:06] LABS: ALT < 7 U/L (10-49); AST 10 U/L (<34); Albumin 3.6 g/dL (3.2-5.0); Alkaline Phosphatase 69 U/L (46-116); Anion Gap 10.1 mmol/L (3-11); BUN 53 mg/dL (9-23); Bilirubin, Total 1.00 mg/dL (0.2-1.2); CO2 28.9 mmol/L (20.0-31.0); Calcium 8.7 mg/dL (8.3-10.6); Chloride 104 mmol/L (98-107); Glucose 129 mg/dL (74-106); Potassium 4.0 mmol/L (3.5-5.1); Sodium 143 mmol/L (136-145); Total Protein 6.2 g/dL (5.7-8.2)
[2025-08-20 07:25] VITALS: BP 179/66; PULSE 61; RESP 16; TEMP 36.7; O2SAT 96
--- NOTE | 2025-08-20 07:52 | PT.INIE ---
Date of service: 08/20/25 Time of Service: 07:29 PT Notes Visit Reasons: ESRD, CHF, Elevated D-dimer, Elevated Troponine Inpatient Physical Therapy Evaluation I certify the need for these services as being medically necessary and skilled as furnished under this plan of treatment while under my care. Please sign and return within 14 days if you agree with the plan of care listed below.? Thank you for this referral! ? Referring Physician? Date Referring Doctor:? Richie Mckeon PT Orders: PT CONSULT for safety consult for DC Precautions: fall risk Patient Profile/Admitting Diagnosis:? The patient is an 84 yo female adm on 08/17/25 with end-stage renal disease awaiting initiation of dialysis and appearing to have worsening generalized symptoms of renal failure. Arrived to the ED by POV/ambulating with her son on 08/16/25 with a chief complaint of not feeling well for the past few days, she has known end-stage renal disease with dialysis initiation planned soon but no official date. She was having increased swelling diffusely, feeling dizzy with some right sided chest pain, had a cough but did not necessarily feel like this is a respiratory infection and has been reporting coughing up some blood tinged mucus. Patient described her condition as moderate to severe, had an appointment at [facility] yesterday that she could not attend as she was feeling too sick. She has been taking her Eliquis and Lasix and all other medications as prescribed. Patient stated she had NOT urinated on the day of arrival to the ED. Past Medical History: [facility] All Active Problems (Updated 08/17/25 @ 06:56 by KAYLA SAM) Volume overload (Acute) Chest pain (Acute) Cough with hemoptysis (Acute) D-dimer, elevated (Acute) Renal failure (Chronic) Elevated d-dimer (Acute) ESRD (end stage renal disease) (Acute) Acute kidney injury superimposed on stage 4 chronic kidney disease (Acute) Sacroiliac joint dysfunction of right side (Acute) Bladder cancer (Acute) Acute pyelonephritis (Acute) Medical History Rib cage dysfunction Stucco keratosis Obstructive sleep apnea Depression Graves disease GERD (gastroesophageal reflux disease) Fibromyalgia Kidney disease, chronic, stage IV (severe, 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 reports two years ago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Acquired trigger finger Renal failure syndrome Rheumatoid arthritis Lumbar radiculopathy Postoperative hypothyroidism Obesity Neck pain Lower urinary tract symptoms (LUTS) Inflammatory arthritis Hyperlipidemia, mixed Hypertensive disorder Heart failure Diabetes mellitus Diabetic retinopathy associated with controlled type 2 diabetes mellitus Chronic cystitis Chronic pain Cataract Atrial fibrillation History of anemia Surgical History H/O breast biopsy Hx of tonsillectomy H/O tubal ligation H/O adenoidectomy History of cholecystectomy Hx of appendectomy H/O right cataract extraction Former Tobacco Use Quit Date: 09/22/95 Medications: See chart Social History/Home Situation: Lives alone in [place] in a mobile home with her cat. She has 3 steps to enter with a rail. Has a walker she leaves outside for walking, but does not walk outside very much. Has a 2 wheeled rolling walker available as needed. She normally does not use an assistive device inside her home, just when she leaves her home. Normally has a hamilton at home. Normally showers daily with someone in the home present for safety. She has multiple adult children close to her home and reports family checks on her every couple of hours. She reports her daughter is going to add a basket to the front of her walker and feels her walker will fit inside her home. Discussed turning the wheels inside of the frame if needed. Her bed is high and large. She has a step to reach the bed. She reports that her son has discussed removing the box spring to lower the bed for her. Does not eat breakfast. Reports family brings her meals and that she normally eats sporadically and when she feels hungry. She does not drive and reports that her daughter takes her to all of her appointments. She feels things have been going okay at home and is hoping to return home today. Subjective: Reports is tired this morning, though felt that she slept well last night. Objective: sitting in the chair upon arrival. donning her robe in standing supervision only. Mental Status: Patient is alert and oriented. Able to answer questions quickly and seemingly appropriately. H&P reports that during intake, the patient was a poor historian. Pain: Reports some slight left posterior leg pain while walking. Reports she has had some back discomfort since slipping on her wooden floor a few months ago. Vital Signs: taken by nursing 7:25 am: 179/66, 61 bpm, 96% ROM/Strength: Upper extremities: WFL Lower extremities:WFL Sensation: no reports of numbness or tingling. Soft tissue/edema: bilateral LE edema observed Bed Mobility: Supine to/from sit supervision with patient using bed rail. reports she has a bedside table she normally holds onto at home. Reports the hospital bed was lower to the floor than her bed at home, which made it easier to lift her legs into bed. Transfers: Sit to/from stand 2x supervision with minimal effort Gait: Ambulated 120 feet with walker. supervision only. no loss of balance. Amb 50 feet without an assistive device with contact guard, mildly unsteady with decreased step length, bilateral LE ER, lateral sway. Discussed that she was not steady this morning walking without the walker. Balance: steady with walker. not steady with walking without the walker. [facility] 6 clicks Basic Mobility Inpatient Short Form: Raw Score:?23? CMS Score: 11.2% Informed Consent/Education:? Patient instructed in purpose of PT consult and plan of care and is agreeable Assessment:? Patient is an 84 yo female adm on 08/17/25 with end-stage renal disease awaiting initiation of dialysis and appearing to have worsening generalized symptoms of renal failure. ? Patient presents today near her baseline functional mobility, with slightly decreased balance and now requires a walker for safe ambulation. The patient would benefit from skilled inpatient services to improve these impairments to maximize function and safety prior to discharge. Patient is assessed as:? Low 70449?? complexity based on the following: History: age, lives alone Examination: see above Presentation: Stable and uncomplicated? Decision Making:? Low (0 history, 1-2 exam, stable/predictable, easy 20) Physical Therapy Goals: 2 days Able to go up and down 2-3 steps with 1 rail with contact guard assist only. Equipment needs met. Independent with home exercise program Plan of Care/Treatment Plan: 1x/day, 7 days/week x 2 days Plan of care has been reviewed with the GRINDER SET UP OPERATOR THREAD TOOL providing the service under Physical Therapy direction. Initiate Physical Therapy intervention for strengthening, bed mobility, transfers, gait, stairs, balance training, use of assistive device. DISCHARGE RECOMMENDATIONS: confirm patient has a walker for inside her home with a basket that will fit for use with mobility inside her home, ? lower her bed to get in/out of bed without use of a step, HHPT Informed consent Prior to the start and throughout the course of the examination and treatment, patient was made aware of the specifics and purpose of the physical assessment and treatment procedures. Appropriate draping procedures were utilized to protect modesty where applicable. Billing Charges: Treatment Units Time Duration Manual Therapy(58571) Hands-on techniques to modulate pain increase joint range of motion reduce or eliminate soft tissue swelling, inflammation, or restriction facilitate relaxation and improve contractile and non-contractile tissue extensibility ? ? Therapeutic Procedures (87192) Instruction in therapeutic exercises to develop strength and endurance, range of motion and flexibility. HEP instruction and review: Provided skilled instruction in proper exercise performance: Provided skilled manual cues to facilitate proper muscle recruitment and/or movement pattern Neurological Re-Education(65174) To improve balance, coordination, kinesthetic and proprioceptive sensations. ? ? Ultrasound(31454) To promote healing. ? ? Gait Training(12429) ? ? Therapeutic Activity(82016) Instruction in dynamic activities with one on one patient contact by the provider to improve functional performance as follows: 1 ? 14 ? Self Care Training(83178) ? ? E-Stim (Attended)(00635) ? ? Low IE(52976) 1 9 Mod IE(69084) ? ? High IE(46164) ? ? Time Coded Treatment Time ? 14 Total Treatment Time ? 23
[2025-08-20] MEDS: Normal Saline Flush 10 ML SYR IVP ×2 (08:53→21:19)
[2025-08-20] MEDS: Insulin Aspart 300 UNITS/3 ML PEN SC ×2 (08:54→12:58)
[2025-08-20] MEDS: PARoxetine 20 MG TAB 30 MG PO (08:55)
[2025-08-20] MEDS: SEVELAMER CARBONATE 800 MG 1 EACH PO ×3 (08:57→16:46)
[2025-08-20] MEDS: Magnesium Chloride 64 MG TABCR PO (08:59)
[2025-08-20] MEDS: Preservision CAPSULE 1 CAP PO ×2 (09:00→21:18)
[2025-08-20] MEDS: Calcitriol 0.25 MCG CAP 0.5 MCG PO (09:00)
[2025-08-20] MEDS: Carvedilol 12.5 MG TAB 18.75 MG PO ×2 (09:00→21:18)
[2025-08-20] MEDS: Apixaban 2.5 MG TAB PO ×2 (09:02→21:18)
[2025-08-20] MEDS: Cholecalciferol (Vitamin D3) 1,000 UNIT TAB 1000 UNITS PO (09:02)
[2025-08-20] MEDS: Docusate Sodium 100 MG CAP PO ×2 (09:03→21:18)
[2025-08-20] MEDS: Lisinopril 20 MG TAB 40 MG PO (09:03)
[2025-08-20] MEDS: Sodium Bicarbonate 650 MG TAB PO (09:04)
[2025-08-20] MEDS: Atorvastatin 40 MG TAB PO (09:04)
[2025-08-20] MEDS: Furosemide 40 MG/4 ML VIAL IVP ×2 (09:05→16:46)
[2025-08-20 10:49] VITALS: BP 151/81; PULSE 75; RESP 17; TEMP 36.9; O2SAT 95
[2025-08-20] MEDS: Sodium Bicarbonate 650 MG TAB 325 MG PO ×2 (13:12→21:17)
[2025-08-20 15:35] VITALS: BP 127/87; PULSE 67; RESP 16; TEMP 36.7; O2SAT 98
--- NOTE | 2025-08-20 17:02 | W.PM.PROGNOT ---
Date of Service Date of service: 08/20/25 Time of Service: 08:00 Assessment and Plan Assessment and plan (1) ESRD (end stage renal disease): Start date: 08/17/25 Status: Acute Assessment and plan: This is an 84-year-old lady with end-stage renal disease awaiting initiation of dialysis and appearing to have worsening generalized symptoms of renal failure. Compliance is better according to her chart compared to last time I saw her in February 2025. She is on daily low-dose diuretics but appears to be now fluid overloaded. Her BNP is markedly elevated, imaging does show pleural effusion and ascites. She has some vague right chest pain and D-dimer was markedly elevated which could be from renal failure. CT was done without contrast and she will have a VQ scan to follow through on the ED providers concern for PE despite elevated PT/INR from probable liver disease and adequate dosing with Eliquis. She also has had some slight hemoptysis versus nosebleed and this could indicate failure of anticoagulation and side effects of anticoagulation. The patient will be hospitalized to attempt more aggressive diuresis with Lasix and switching to Bumex if not diuresing well. She does have a history of heart failure with preserved left ventricular ejection fraction by recent echocardiogram[place] [facility] [place] be [place] as needed. Patient is a full code. Aug 18: Echo showing no new deficits; HFpEF previously diagnosed. Urine output low but improved. Renal labs unchanged. Will check phosphorus. To be discussed [place] [facility] [place]. Aug 19: [place] [facility] [facility]. Patient last seen in clinic Jul 26. She had been referred to start HD at [facility] Aug 01 and was not able to be there early in the morning, again on August 08. She willl have to restart the process with a clinic visit with nephrology. Continue diuresis. Aug 20: Continue diuresis. Anticipate DC Friday to home with home health and social secretary. (2) Elevated d-dimer: Start date: 08/17/25 Status: Resolved Assessment and plan: This could be secondary to her chronic diseases but because of this, VQ scan will be performed for completion of ED evaluation. There is no hypoxemia or tachycardia. She did have slight hemoptysis and possible pleurisy by history. She is a vague historian. Aug 18: V/Q scan negative. Vitals unremarkable. Resolved. (3) Heart failure: Assessment and plan: Echocardiogram done in June 2025 revealed preserved left ventricular ejection fraction. Minimize fluids especially with renal failure progressive. Aug 18: no new deficits on echo. HFpEF. (4) Hypertensive disorder: Assessment and plan: Exacerbated with acute presentation this may respond to increased diuresis. Continue outpatient medical therapy and follow-up. (5) Atrial fibrillation: Assessment and plan: Paced rhythm on renal dose anticoagulation and chronic elevation of troponins which appears actually to be decreased at this visit. Monitor with telemetry. (6) Elevated troponin level not due to acute coronary syndrome: Assessment and plan: Increased. Lower than her baseline. This most likely is nonischemic and will not be trended at this time. If she has recurrent chest pain, EKG should be done immediately and troponin should be rechecked. (7) Diabetes mellitus: Assessment and plan: On Tresiba chronically with diet. Hold outpatient medical therapy and do glucometers before meals and at bedtime with sensitive Humalog sliding scale coverage. (8) Anemia: Assessment and plan: Chronic and stable and associated with CKD. (9) Obstructive sleep apnea: Assessment and plan: If patient is on pressure treatment at night, this should be continued. (10) GERD (gastroesophageal reflux disease): Assessment and plan: Continue PPI. (11) Postoperative hypothyroidism: Assessment and plan: TSH stable and continue outpatient therapy with T3 and T4 replacement. Subjective Subjective Interval history since last seen: Mrs Kidd is up in her chair with son Ruiz at bedside. She wants her hamilton out. Ruiz is interested in having the family care for her with her dialysis appointments and feels that the organization and coordination is reasonable among the 7 kids. Exam Narrative Exam Narrative: General: This is a pleasant, elderly woman in no distress HEENT: Normocephalic, atraumatic CV: RRR Resp: CTAB Abd: firm, nontender, improved over prior. +NBS MSK: voluntary motion x4 Neuro: awake, alert, no focal deficits Objective Last Vital Signs Temp 36.7 C 08/20/25 15:35 Pulse 67 08/20/25 15:35 Resp 16 08/20/25 15:35 BP 127/87 08/20/25 15:35 Pulse Ox 98 08/20/25 15:35 Laboratory Results - last 24 hr 08/20/25 06:00 WBC 5.30 RBC 3.35 L Hgb 10.2 L Hct 33.0 L MCV 99 H MCH 30.4 MCHC 30.9 L RDW 16.0 H Plt Count 196 MPV 9.9 Immature Gran % 0.4 Neutrophils % 76.3 Lymphocytes % 12.3 Monocytes % 9.6 Eosinophils % 0.6 Basophils % 0.8 Nucleated RBC % 0.0 Absolute Neutrophils 4.05 Absolute Lymphocytes 0.65 L Absolute Monocytes 0.51 Absolute Eosinophils 0.03 Absolute Basophils 0.04 Sodium 143 Potassium 4.0 Chloride 104 Carbon Dioxide 28.9 Anion Gap 10.1 BUN 53 H Creatinine 4.35 H* Est GFR (CKD-EPI 2020) 9.71 Glucose 129 H Calcium 8.7 Phosphorus 4.2 Total Bilirubin 1.00 AST 10 ALT < 7 L Alkaline Phosphatase 69 Total Protein 6.2 Albumin 3.6 VTE Prohylaxis Risk Level: Moderate/High Risk Contraindications: None Prophylaxis: Patient anticoagulated Time Spent with Patient Time Spent with Patient: 25-34 minutes Time was spent: preparing to see the patient(eg.review tests), obtaining and/or reviewing separately otained hiistory, ordering medications,tests, procedures, referring, communicating with other health urgent care physician, indepentently interpreting results, counseling the patient and care coordination
[2025-08-20 21:10] VITALS: BP 166/53; PULSE 66; RESP 14; TEMP 36.4; O2SAT 96
[2025-08-20 23:11] VITALS: BP 170/83; PULSE 65; RESP 18; TEMP 36.4; O2SAT 96
[2025-08-21 02:59] VITALS: BP 150/59; PULSE 61; RESP 18; TEMP 36.2; O2SAT 96
[2025-08-21] MEDS: Levothyroxine 150 MCG TAB PO (05:55)
[2025-08-21] MEDS: Liothyronine 5 MCG TAB PO (05:55)
[2025-08-21 06:14] LABS: Abs Immature Grans 0.03 10^3/uL (0.0-0.06); HCT 31.7 % (36.0-46.0); HGB 9.9 g/dL (11.2-15.7); Immature Grans % 0.4 %; MCH 30.7 pg (27.0-33.0); MCHC 31.2 % (32.0-36.0); MCV 98 fL (80-95); MPV 9.9 fL (8.0-11.0); Platelet Count 187 10^3/uL (130-400); RBC 3.23 10^6/uL (3.93-5.22); RDW 15.9 % (11.7-14.6); RDW-SD 58.0 fL; WBC 6.83 10^3/uL (4.4-10.8)
[2025-08-21 06:44] LABS: Magnesium 2.2 mg/dL (1.6-2.6)
[2025-08-21 06:59] LABS: ALT 7 U/L (10-49); AST 13 U/L (<34); Albumin 3.5 g/dL (3.2-5.0); Alkaline Phosphatase 71 U/L (46-116); Anion Gap 9.6 mmol/L (3-11); BUN 55 mg/dL (9-23); Bilirubin, Total 0.90 mg/dL (0.2-1.2); CO2 28.4 mmol/L (20.0-31.0); Calcium 8.9 mg/dL (8.3-10.6); Chloride 102 mmol/L (98-107); Glucose 148 mg/dL (74-106); Potassium 3.7 mmol/L (3.5-5.1); Sodium 140 mmol/L (136-145); Total Protein 6.1 g/dL (5.7-8.2)
[2025-08-21 07:25] VITALS: BP 180/65; PULSE 64; RESP 18; TEMP 36.2; O2SAT 100
[2025-08-21] MEDS: PARoxetine 20 MG TAB 30 MG PO (08:13)
[2025-08-21] MEDS: Atorvastatin 40 MG TAB PO (08:13)
[2025-08-21] MEDS: Magnesium Chloride 64 MG TABCR PO (08:14)
[2025-08-21] MEDS: Carvedilol 12.5 MG TAB 18.75 MG PO ×2 (08:15→19:57)
[2025-08-21] MEDS: Sodium Bicarbonate 650 MG TAB PO (08:15)
[2025-08-21] MEDS: Lisinopril 20 MG TAB 40 MG PO (08:16)
[2025-08-21] MEDS: Calcitriol 0.25 MCG CAP 0.5 MCG PO (08:17)
[2025-08-21] MEDS: Docusate Sodium 100 MG CAP PO ×2 (08:17→19:58)
[2025-08-21] MEDS: Preservision CAPSULE 1 CAP PO ×2 (08:17→19:59)
[2025-08-21] MEDS: Apixaban 2.5 MG TAB PO ×2 (08:18→19:57)
[2025-08-21] MEDS: Cholecalciferol (Vitamin D3) 1,000 UNIT TAB 1000 UNITS PO (08:18)
[2025-08-21] MEDS: Insulin Aspart 300 UNITS/3 ML PEN SC ×3 (08:19→16:49)
[2025-08-21] MEDS: Furosemide 40 MG/4 ML VIAL IVP ×2 (08:21→16:40)
--- NOTE | 2025-08-21 09:46 | PTTR_ITS ---
PT Notes Visit Reasons: ESRD, CHF, Elevated D-dimer, Elevated Troponine SUBJECTIVE: I think my son is coming today to take me home. OBJECTIVE:? Vitals by nursing 7:25 180/65 64 bpm 100% After amb: 186/71 97 BPM after breathing exercises: 161/56 78 bpm Treatment: sit to/from stand supervision amb 200 feet with cga without LOB but very mildly unsteady. Reports left knee pain and that she frequently bumps this knee on the couch in her home. diaphragmatic breathing with 2,5 ratio, lights dimmed with performance patient reporting she will take a nap at the end of today's session Assessment: Patient is an 84 yo female adm on 08/17/25 with end-stage renal disease awaiting initiation of dialysis and appearing to have worsening generalized symptoms of renal failure. Improved balance with ambulation today, but elevated BP? Plan: Continue daily PT. DISCHARGE RECOMMENDATIONS: confirm patient has a walker for inside her home with a basket that will fit for use with mobility inside her home, ? lower her bed to get in/out of bed without use of a step, HHPT Billing Charges: Treatment Units Time Duration Manual Therapy (58788) Hands-on techniques to modulate pain increase joint range of motion reduce or eliminate soft tissue swelling, inflammation, or restriction facilitate relaxation and improve contractile and non-contractile tissue extensibility Therapeutic Procedures (22452) Instruction in therapeutic exercises to develop strength and endurance, range of motion and flexibility. HEP instruction and review: Provided skilled instruction in proper exercise performance: Provided skilled manual cues to facilitate proper muscle recruitment and/or movement?pattern: Neurological Re-Education (01294) to improve balance, coordination, kinesthetic and proprioceptive sensations. Ultrasound (81953) to promote healing Gait Training (37386) Therapeutic Activity (40605) instruction in dynamic activitie s with one on one patient contact by the provider to improve functional performance as follows: 1 21 Self Care Training (53956) Time Coded Treatment Minutes: 21 Total Treatment Time: 21
[2025-08-21] MEDS: SEVELAMER CARBONATE 800 MG 1 EACH PO ×3 (10:41→16:50)
[2025-08-21] MEDS: Normal Saline Flush 10 ML SYR IVP ×2 (10:41→19:58)
[2025-08-21 11:31] VITALS: BP 161/64; PULSE 65; RESP 18; TEMP 36.6; O2SAT 98
[2025-08-21] MEDS: Sodium Bicarbonate 650 MG TAB 325 MG PO ×2 (12:19→19:59)
[2025-08-21 14:19] VITALS: BP 136/51; PULSE 72; RESP 18; TEMP 36.8; O2SAT 95
--- NOTE | 2025-08-21 17:10 | PGE_ITS ---
Date of Service Date of service: 08/21/25 Time of Service: 08:00 Assessment and Plan Assessment and plan (1) ESRD (end stage renal disease): Start date: 08/17/25 Status: Acute Assessment and plan: Iliana Kidd is an 84 year old woman presenting August 16 with malaise and weakness. She has end stage kidney disease and a mature AVF. Patient last seen in nephrology clinic Jul 26. She had been referred to start HD at [facility] Aug 01 and was not able to be there early in the morning, which occurred again on August 08. She will have to restart the process with a clinic visit with nephrology. Her seven children are mobilizing to support her dialysis start. Patient will need HH PT and RN. Continue diuresis with furosemide. (2) Elevated d-dimer: Start date: 08/17/25 Status: Resolved Assessment and plan: This could be secondary to her chronic diseases but because of this, VQ scan will be performed for completion of ED evaluation. There is no hypoxemia or tachycardia. She did have slight hemoptysis and possible pleurisy by history. She is a vague historian. V/Q scan negative. (3) Heart failure: Assessment and plan: Echocardiogram done in June 2025 revealed preserved left ventricular ejection fraction. Minimize fluids especially with renal failure progressive. No new deficits on echo. HFpEF. (4) Hypertensive disorder: Assessment and plan: Exacerbated with acute presentation this may respond to increased diuresis. Continue outpatient medical therapy and follow-up. (5) Atrial fibrillation: Assessment and plan: Paced rhythm on renal dose anticoagulation and chronic elevation of troponins which appears actually to be decreased at this visit. Monitor with telemetry. (6) Elevated troponin level not due to acute coronary syndrome: Assessment and plan: Increased. Lower than her baseline. This most likely is nonischemic and will not be trended at this time. If she has recurrent chest pain, EKG should be done immediately and troponin should be rechecked. (7) Diabetes mellitus: Assessment and plan: On Tresiba chronically with diet. Hold outpatient medical therapy and do glucometers before meals and at bedtime with sensitive Humalog sliding scale coverage. (8) Anemia: Assessment and plan: Chronic and stable and associated with CKD. (9) Obstructive sleep apnea: Assessment and plan: If patient is on pressure treatment at night, this should be continued. (10) GERD (gastroesophageal reflux disease): Assessment and plan: Continue PPI. (11) Postoperative hypothyroidism: Assessment and plan: TSH stable and continue outpatient therapy with T3 and T4 replacement. Subjective Subjective Interval history since last seen: Ms. Kidd is comfortable, napping in bed, son Ruiz at bedside. Likely discharge home Dec . Exam Narrative Exam Narrative: General: This is a pleasant, elderly woman in no distress HEENT: Normocephalic, atraumatic CV: RRR Resp: CTAB Abd: firm, nontender, improved over prior. +NBS MSK: voluntary motion x4. Right antecubital AVF with strong bruit and loud thrill Neuro: awake, alert, no focal deficits Objective Last Vital Signs Temp 36.8 C 08/21/25 14:19 Pulse 72 08/21/25 14:19 Resp 18 08/21/25 14:19 BP 136/51 L 08/21/25 14:19 Pulse Ox 95 08/21/25 14:19 Laboratory Results - last 24 hr 08/21/25 05:38 WBC 6.83 RBC 3.23 L Hgb 9.9 L Hct 31.7 L MCV 98 H MCH 30.7 MCHC 31.2 L RDW 15.9 H Plt Count 187 MPV 9.9 Immature Gran % 0.4 Neutrophils % 80.4 Lymphocytes % 9.1 Monocytes % 8.9 Eosinophils % 0.6 Basophils % 0.6 Nucleated RBC % 0.0 Absolute Neutrophils 5.49 Absolute Lymphocytes 0.62 L Absolute Monocytes 0.61 Absolute Eosinophils 0.04 Absolute Basophils 0.04 Sodium 140 Potassium 3.7 Chloride 102 Carbon Dioxide 28.4 Anion Gap 9.6 BUN 55 H Creatinine 4.51 H* Est GFR (CKD-EPI 2020) 9.31 Glucose 148 H Calcium 8.9 Phosphorus 3.9 Magnesium 2.2 Total Bilirubin 0.90 AST 13 ALT 7 L Alkaline Phosphatase 71 Total Protein 6.1 Albumin 3.5 VTE Prohylaxis Risk Level: Moderate/High Risk Contraindications: None Prophylaxis: Patient anticoagulated Time Spent with Patient Time Spent with Patient: 25-34 minutes Time was spent: preparing to see the patient(eg.review tests), obtaining and/or reviewing separately otained hiistory, ordering medications,tests, procedures, referring, communicating with other health health care administrator, indepentently interpreting results, counseling the patient and care coordination
[2025-08-21 19:38] VITALS: BP 125/63; PULSE 94; RESP 16; TEMP 37; O2SAT 96
[2025-08-21 23:02] VITALS: BP 149/58; PULSE 74; RESP 12; TEMP 36.3; O2SAT 94
[2025-08-22 03:26] VITALS: BP 154/73; PULSE 65; RESP 18; TEMP 36.6; O2SAT 96
[2025-08-22] MEDS: Levothyroxine 150 MCG TAB PO (06:01)
[2025-08-22] MEDS: Liothyronine 5 MCG TAB PO (06:01)
[2025-08-22 07:20] VITALS: BP 163/60; PULSE 65; RESP 17; TEMP 36.7; O2SAT 95
[2025-08-22] MEDS: Normal Saline Flush 10 ML SYR IVP ×2 (07:54→09:17)
--- NOTE | 2025-08-22 07:59 | PDOC.CMPRO ---
Date of service: 08/22/25 Time of Service: 08:14 Social Determinants of Health Screening Social Determinants of health last assessed in clinic: 08/19/25 Will the Patient Participate in the Screening?: Yes Do you worry about having a steady place to live?: no Problems where you live: no known problems In the past 12 months, have you had to go without electric, gas, oil or water in your home?: no Has lack of transportation kept you from medical appointments or from doing things needed for daily living?: no Has anyone in your life made you feel unsafe or unsupported?: no How hard is it for you to pay for the very basics like food, housing, medical care, and heating? Would you say it is:: Not hard at all Do you want help finding or keeping work or a job?: I do not need or want help If for any reason you need help with day-to-day activities such as bathing, preparing meals, shopping, managing finances, etc., do you get the help you need?: I don?t need any help How often do you feel lonely or isolated from those around you?: Never Do you speak a language other than Cymro at home?: No Does the patient want assistance with any of the above?: No
[2025-08-22 08:41] LABS: Abs Immature Grans 0.01 10^3/uL (0.0-0.06); HCT 33.7 % (36.0-46.0); HGB 10.4 g/dL (11.2-15.7); Immature Grans % 0.2 %; MCH 30.9 pg (27.0-33.0); MCHC 30.9 % (32.0-36.0); MCV 100 fL (80-95); MPV 9.9 fL (8.0-11.0); Platelet Count 201 10^3/uL (130-400); RBC 3.37 10^6/uL (3.93-5.22); RDW 15.9 % (11.7-14.6); RDW-SD 58.4 fL; WBC 6.18 10^3/uL (4.4-10.8)
[2025-08-22 09:09] LABS: Magnesium 2.2 mg/dL (1.6-2.6)
[2025-08-22] MEDS: Insulin Aspart 300 UNITS/3 ML PEN SC ×2 (09:16→12:12)
[2025-08-22 09:17] LABS: ALT 7 U/L (10-49); AST 10 U/L (<34); Albumin 3.9 g/dL (3.2-5.0); Alkaline Phosphatase 72 U/L (46-116); Anion Gap 9.4 mmol/L (3-11); BUN 54 mg/dL (9-23); Bilirubin, Total 1.10 mg/dL (0.2-1.2); CO2 30.6 mmol/L (20.0-31.0); Calcium 9.3 mg/dL (8.3-10.6); Chloride 101 mmol/L (98-107); Glucose 128 mg/dL (74-106); Potassium 3.6 mmol/L (3.5-5.1); Sodium 141 mmol/L (136-145); Total Protein 6.6 g/dL (5.7-8.2)
[2025-08-22] MEDS: Calcitriol 0.25 MCG CAP 0.5 MCG PO (09:18)
[2025-08-22] MEDS: Atorvastatin 40 MG TAB PO (09:18)
[2025-08-22] MEDS: Apixaban 2.5 MG TAB PO (09:18)
[2025-08-22] MEDS: Docusate Sodium 100 MG CAP PO (09:18)
[2025-08-22] MEDS: SEVELAMER CARBONATE 800 MG 1 EACH PO ×2 (09:18→12:13)
[2025-08-22] MEDS: Preservision CAPSULE 1 CAP PO (09:18)
[2025-08-22] MEDS: Cholecalciferol (Vitamin D3) 1,000 UNIT TAB 1000 UNITS PO (09:19)
[2025-08-22] MEDS: PARoxetine 20 MG TAB 30 MG PO (09:19)
[2025-08-22] MEDS: Carvedilol 12.5 MG TAB 18.75 MG PO (09:19)
[2025-08-22] MEDS: Sodium Bicarbonate 650 MG TAB PO (09:19)
[2025-08-22] MEDS: Lisinopril 20 MG TAB 40 MG PO (09:25)
[2025-08-22] MEDS: Furosemide 40 MG TAB PO (09:25)
--- NOTE | 2025-08-22 10:31 | PT.INTREAT ---
PT Notes Visit Reasons: ESRD, CHF, Elevated D-dimer, Elevated Troponine Physical Therapy Inpatient Treatment Note Date: 08/22/2025 Precautions: Fall. Standard. Activity as tolerated. Subjective: Feels very tired but was agreeable to this morning's session. Stated that she does not need to walk too far at home, son Ruiz clarified that she lives in a mobile home that is 80 feet long. Denied headache, chest pain, and lightheadedness throughout session. Objective: General Observation: Sitting on bedside recliner. ztelemetry monitoring in place Mental Status: A and O x 4 Pain: None reported during session Vital Signs: 165/95 mmHg after walking from room to therapy room, HR 93% Bed Mobility/Transfers: Minimal cueing provided for use of B hands as needed for support, movement sequence, AD management, and posture to reduce fall risk and minimize pain report Sit to stand stand by assist with FWW Stand to sit stand by assist with FWW Bed to chair stand by assist with FWW Chair to bed stand by assist with FWW Gait: 200 feet with FWW and stand by assist of PT, wheelchair follow for safety. Ade decreased. Step height and length although decreased, are symmetrical. Denied headache, chest pain, and lightheadedness throughout session. No LOB. Mld SOB resolved with rest. Minimal verbal cues for safety and AD management. Stairs: Negotiated 3 x 4-inch steps and 2 x 6-inch steps while holding onto B rails for support, stand by assist. [id number] pattern. Minimal verbal cues for safety. THERA EX: Guided patient with safe and correct performance of seated exercises as follows: Seated marches x 10 DBE x 5 with chest expansion exercises B shoulder flexion/extension B LAQs x 10 DBE x 5 with chest expansion exercises B shoulder flexion/extension Ankle DF/PF x 10 Balance: Static sitting: Normal Dynamic sitting: Good Static standing: Fair Dynamic standing: Fair Assessment:? Patient demonstrated improved functional mobility performance using FWW and good tolerance to seated lvel exercises. She will beenfit from PT for continued training at home to maximize safety and ensure a smooth transition to home. Plan of Care/Treatment Plan: 1x/day, 7 days/week x 2 days Plan of care has been reviewed with the CONTRACTS ADMINISTRATOR providing the service under Physical Therapy direction. Continue with Physical Therapy at home intervention for strengthening, bed mobility, transfers, gait, stairs, balance training, use of assistive device. DISCHARGE RECOMMENDATIONS: PT TREATMENT TIME/CODE: 98408 X 20 minutes for 1 unit, 53899 x 13 minutes for 1 unit (10:31-11:04).
[2025-08-22 11:20] VITALS: BP 158/78; PULSE 60; RESP 16; TEMP 36.7; O2SAT 95
--- NOTE | 2025-08-22 12:08 | DSE_ITS ---
Date of service: 08/22/25 Time of Service: 12:09 DS: Diagnosis Discharge Diagnosis (1) ESRD (end stage renal disease): Status: Acute (2) Elevated d-dimer: Status: Resolved (3) Heart failure: (4) Hypertensive disorder: (5) Atrial fibrillation: (6) Elevated troponin level not due to acute coronary syndrome: (7) Diabetes mellitus: (8) Anemia: (9) Obstructive sleep apnea: (10) GERD (gastroesophageal reflux disease): (11) Postoperative hypothyroidism: Discharge Plan Disposition Patient Disposition: Home W/Home Health Services Home Health Services: New Referral Condition: Improving Discharge Details Reason For Visit: ESRD, CHF, Elevated D-dimer, Elevated Troponine Admit Date/Time: 08/17/25 06:19 Admit Provider: Cy Arango Attending Provider: Cy Arango [facility] Course: 84-year-old lady with end-stage renal disease awaiting initiation of dialysis, atrial fibrillation, HFpEF, and type 2 DM who was admitted 08/[address] C/A/P was c/w anasarca without other significant findings. She had an elevated d-dimer but a low probability V/Q scan. She had a recent echocardiogram 06/23 with LVEF 55-60% and RVSP 65mmHg. Her troponins were mildly elevated in the 60s associated with her ESRD. She was not hypoxic. She did have some hemoptysis that may have been related to a nose bleed, but this did not persist. She diuresed well with furosemide. Her creatinine remained in the mild 4 range without significant electrolyte disturbances or acidosis. Her anemia was stable with hgb around 10. By the day of discharge, she was clinically stable on oral therapy including furosemide. She should follow up with her PCP in the next 1-2 weeks and nephrology to begin dialysis when appropriate. She was evaluated by physical therapy. Home health nursing and PT was recommended. Recommendations for Follow Up Recommended tests to be ordered by follow up provider: BMP/Mg 1 week Home Meds and New Rx's Prescriptions: Continued hqspncnjzoe-gjggbwqpp-jgu C-Mn [Glucosamine Chondroitin MaxStr] 500-400 mg capsule 2 cap PO DAILY acetaminophen 325 mg tablet 2 tab PO BID PRN paroxetine HCl 30 mg tablet 30 mg PO DAILY Eliquis 2.5 mg Tablet 2.5 mg PO BID Qty: 180 2RF Rx Instructions: dose reduction for age/GFR spironolactone 25 mg tablet 25 mg PO DAILY atorvastatin 40 mg tablet 40 mg PO DAILY Patient Comments: TAKE ONE TABLET BY MOUTH EVERY EVENING carvedilol 12.5 mg tablet 18.75 mg PO BID Patient Comments: TAKE ONE TABLET BY MOUTH TWICE A DAY WITH FOOD FOR 90 DAYS insulin degludec [Tresiba FlexTouch U-100] 100 unit/mL (3 mL) insulin pen 10 unit SUBCUT DAILY Patient Comments: INJECT 2 UNITS SUBCUTANEOUSLY ONCE DAILY REPLACE PEN AFTER OPEN FOR 56 DAYS magnesium chloride 64 mg tablet extended release 64 mg PO DAILY lisinopril 40 mg tablet 40 mg PO DAILY PreserVision AREDS 4,296 mcg-226 mg-90 mg capsule 1 cap PO BID Patient Comments: 1 capsule by mouth twice a day liothyronine 5 mcg tablet 5 mcg PO DAILY sevelamer carbonate [Renvela] 800 mg tablet 800 mg PO TID Rx Instructions: must administer with a meal/food (DME) IsoPlexisTouch Verio test strips Strip MISCELLANEOUS Patient Comments: USE TO TEST BLOOD SUGAR ONE TO TWO TIMES EVERY DAY NEEDED (DME) lancets [OneTouch Delica Plus Lancet] 33 gauge misc MISCELLANEOUS Patient Comments: USE TO CHECK BLOOD SUGAR ONE TO TWO TIMES DAILY calcitriol 0.25 mcg capsule 0.5 mcg PO DAILY cholecalciferol (vitamin D3) [Vitamin D3] 25 mcg (1,000 unit) capsule 25 mcg PO DAILY levothyroxine 150 mcg tablet 150 mcg PO DAILY loperamide 2 mg Capsule 2 mg PO Q4H PRN PRNQty: 14 0RF Changed furosemide 40 mg tablet 40 mg PO BID Qty: 180 0RF sodium bicarbonate 325 mg tablet 650 mg PO TID Qty: 0 0RF Discontinued furosemide [Lasix] 20 mg tablet 20 mg PO DAILY Rx Instructions: take with 40 mg daily for total of 60 mg. Discharge Instructions Additional Instructions: Take the 40mg of furosemide once in the morning and once in the early afternoon to keep the fluid off Stand Alone Forms: Portal Information Activity:: Activity as Tolerated Equipment/Supplies:: No Equipment Needed Diet:: diabetic/renal diet, try to restrict fluids to 4 cups/day Discharge Orders Discharge Orders: Discharge Order (Routine); Ordered 08/22/25 Ordered By: Krystian Ricardo DS: Summary Time Spent with Patient providing and/or coordinating discharge services: Greater than 30 minutes Status at Discharge Functional status at discharge: uses cane/walker Overall status at discharge: patient is progressing back to baseline Mental Status: mental status grossly normal Speech and Movement: speech and movement normal Mood: congruent mood Affect: normal affect Exam Narrative Exam Narrative: General: This is a pleasant, elderly woman in no distress HEENT: Normocephalic, atraumatic CV: RRR Resp: CTAB Abd: firm, nontender. +fluid wave, but not distended. MSK: voluntary motion x4. Right antecubital AVF with strong bruit and loud thrill ext: warm, 1+nelda edema in lower legs Psych Mental Status: mental status grossly normal Speech and Movement: speech and movement normal Mood: congruent mood Affect: normal affect DS: Data Vitals/I&O Vitals and I&O: Vital Signs Temperature 36.7 C 08/22/25 11:20 Temperature Source Temporal Artery Scan 08/22/25 11:20 Pulse 60 08/22/25 11:20 Pulse Rhythm Irregular 08/17/25 09:24 Pulse 63 08/17/25 06:51 Respiratory Rate 16 08/22/25 11:20 Respiratory Effort Normal, Non-Labored 08/17/25 09:24 Respiratory Depth Normal 08/17/25 09:24 Respiratory Pattern Normal 08/17/25 09:24 Blood Pressure 158/78 H 08/22/25 11:20 Blood Pressure Mean 104 08/22/25 11:20 Blood Pressure Position Sitting 08/16/25 21:19 Pulse Oximetry 95 08/22/25 11:20 Oxygen Delivery Method Room Air 08/22/25 11:20 Oxygen Flow Rate 0 08/22/25 11:20 Pain Level 0 08/22/25 11:20 Comment Pt ambulated approximately 25 feet while monitoring SpO2. 08/17/25 00:30 Intake & Output 08/21/25 08/22/25 08/22/25 23:59 11:59 23:59 Intake Total 120 / 480 Output Total 2350 / 3150 400 / 400 Balance -2230 / -2670 -400 / -400 Weight 65.771 kg Intake: IV 20 / 20 Oral 100 / 460 Output: Urine 2350 / 3150 400 / 400 Other: Urine Color Pale Urine Appearance Clear Urine Odor Normal Stool Size Moderate Stool Characteristics Liquid Data Completed and Pending Pending Labs at Discharge: 08/16/25 08/17/25 08/17/25 21:58 00:17 01:25 WBC 6.10 RBC 3.49 L Hgb 10.9 L Hct 35.5 L MCV 102 H MCH 31.2 MCHC 30.7 L RDW 16.3 H Plt Count 197 MPV 10.0 Immature Gran % 0.2 Neutrophils % 79.9 Lymphocytes % 10.7 Monocytes % 8.2 Eosinophils % 0.3 Basophils % 0.7 Nucleated RBC % 0.0 Absolute Neutrophils 4.88 Absolute Lymphocytes 0.65 L Absolute Monocytes 0.50 Absolute Eosinophils 0.02 Absolute Basophils 0.04 PT 13.8 H INR 1.4 H APTT 28.4 D-Dimer > 7500 H Sodium Cancelled 142 Potassium Cancelled 3.8 Chloride Cancelled 107 Carbon Dioxide Cancelled 29.3 Anion Gap Cancelled 5.7 BUN Cancelled 49 H Creatinine Cancelled 4.25 H* Est GFR (CKD-EPI 2020) Cancelled 9.97 Glucose Cancelled 132 H Uric Acid Calcium Cancelled 7.8 L Phosphorus Magnesium Cancelled 2.4 Total Bilirubin Cancelled 1.30 H Conjugated Bilirubin AST Cancelled 11 ALT Cancelled 7 L Alkaline Phosphatase Cancelled 74 Troponin I Cancelled 65 H* NT-Pro-B Natriuret Pep Cancelled 53949 H Total Protein Cancelled 6.6 Albumin Cancelled 3.9 Lipase Cancelled 30 TSH Cancelled 2.53 Urine Color Yellow Urine Clarity Sl Cloudy Urine pH 8.5 H Ur Specific [place] 1.015 Urine Protein >=300 H Urine Ketones Negative Urine Blood Trace-lysed H Urine Nitrite Negative Urine Bilirubin Negative Urine Urobilinogen 0.2 Ur Leukocyte Esterase Negative Urine RBC 0-2 Urine WBC 0-2 Ur Epithelial Cells Rare Urine Crystals Negative Urine Bacteria Few Urine Casts Negative Urine Mucus Moderate Ur Culture Indicated? No Urine Glucose 100 H COVID-19 Source SARS-CoV-2 (PCR) Influenza Type A (PCR) Influenza Type B (PCR) RSV (PCR) Add-On Test Request DONE 08/17/25 08/17/25 08/18/25 03:00 06:42 06:32 WBC 5.54 RBC 3.27 L Hgb 10.0 L Hct 32.4 L MCV 99 H MCH 30.6 MCHC 30.9 L RDW 16.1 H Plt Count 174 MPV 9.5 Immature Gran % Neutrophils % Lymphocytes % Monocytes % Eosinophils % Basophils % Nucleated RBC % Absolute Neutrophils Absolute Lymphocytes Absolute Monocytes Absolute Eosinophils Absolute Basophils PT 13.6 H INR 1.4 H APTT D-Dimer Sodium 142 Potassium 3.6 Chloride 103 Carbon Dioxide 27.6 Anion Gap 11.4 H BUN 50 H Creatinine 4.35 H* Est GFR (CKD-EPI 2020) 9.71 Glucose 137 H Uric Acid Calcium 8.0 L Phosphorus 3.3 Magnesium 2.2 Total Bilirubin 1.30 H Conjugated Bilirubin 0.5 H AST 13 ALT 8 L Alkaline Phosphatase 70 Troponin I 60 H* NT-Pro-B Natriuret Pep Total Protein 6.2 Albumin 3.7 Lipase TSH Urine Color Urine Clarity Urine pH Ur Specific [place] Urine Protein Urine Ketones Urine Blood Urine Nitrite Urine Bilirubin Urine Urobilinogen Ur Leukocyte Esterase Urine RBC Urine WBC Ur Epithelial Cells Urine Crystals Urine Bacteria Urine Casts Urine Mucus Ur Culture Indicated? Urine Glucose COVID-19 Source Nasopharynx SARS-CoV-2 (PCR) Negative Influenza Type A (PCR) Negative Influenza Type B (PCR) Negative RSV (PCR) Negative Add-On Test Request 08/18/25 08/18/25 08/19/25 16:04 17:15 06:00 WBC 5.81 RBC 3.34 L Hgb 10.0 L Hct 32.6 L MCV 98 H MCH 29.9 MCHC 30.7 L RDW 15.9 H Plt Count 186 MPV 9.7 Immature Gran % 0.3 Neutrophils % 75.0 Lymphocytes % 13.6 Monocytes % 9.3 Eosinophils % 0.9 Basophils % 0.9 Nucleated RBC % 0.0 Absolute Neutrophils 4.36 Absolute Lymphocytes 0.79 L Absolute Monocytes 0.54 Absolute Eosinophils 0.05 Absolute Basophils 0.05 PT INR APTT D-Dimer Sodium 142 Potassium 3.4 L Chloride 103 Carbon Dioxide 28.4 Anion Gap 10.6 BUN 50 H Creatinine 4.34 H* Est GFR (CKD-EPI 2020) 9.73 Glucose 122 H Uric Acid 6.5 Calcium 8.1 L Phosphorus 3.5 3.7 Magnesium 2.2 Total Bilirubin 1.30 H Conjugated Bilirubin AST 11 ALT 7 L Alkaline Phosphatase 70 Troponin I NT-Pro-B Natriuret Pep Total Protein 6.2 Albumin 3.6 Lipase TSH Urine Color Yellow Urine Clarity Clear Urine pH 7.5 Ur Specific [place] 1.015 Urine Protein 100 H Urine Ketones Negative Urine Blood Moderate H Urine Nitrite Negative Urine Bilirubin Negative Urine Urobilinogen 0.2 Ur Leukocyte Esterase Small H Urine RBC >50 H Urine WBC 10-20 H Ur Epithelial Cells Negative Urine Crystals Negative Urine Bacteria Negative Urine Casts Urine Mucus Trace Ur Culture Indicated? Yes Urine Glucose Negative COVID-19 Source SARS-CoV-2 (PCR) Influenza Type A (PCR) Influenza Type B (PCR) RSV (PCR) Add-On Test Request 08/20/25 08/21/25 08/22/25 06:00 05:38 08:03 WBC 5.30 6.83 6.18 RBC 3.35 L 3.23 L 3.37 L Hgb 10.2 L 9.9 L 10.4 L Hct 33.0 L 31.7 L 33.7 L MCV 99 H 98 H 100 H MCH 30.4 30.7 30.9 MCHC 30.9 L 31.2 L 30.9 L RDW 16.0 H 15.9 H 15.9 H Plt Count 196 187 201 MPV 9.9 9.9 9.9 Immature Gran % 0.4 0.4 0.2 Neutrophils % 76.3 80.4 78.7 Lymphocytes % 12.3 9.1 11.0 Monocytes % 9.6 8.9 8.9 Eosinophils % 0.6 0.6 0.6 Basophils % 0.8 0.6 0.6 Nucleated RBC % 0.0 0.0 0.0 Absolute Neutrophils 4.05 5.49 4.86 Absolute Lymphocytes 0.65 L 0.62 L 0.68 L Absolute Monocytes 0.51 0.61 0.55 Absolute Eosinophils 0.03 0.04 0.04 Absolute Basophils 0.04 0.04 0.04 PT INR APTT D-Dimer Sodium 143 140 141 Potassium 4.0 3.7 3.6 Chloride 104 102 101 Carbon Dioxide 28.9 28.4 30.6 Anion Gap 10.1 9.6 9.4 BUN 53 H 55 H 54 H Creatinine 4.35 H* 4.51 H* 4.56 H* Est GFR (CKD-EPI 2020) 9.71 9.31 9.19 Glucose 129 H 148 H 128 H Uric Acid Calcium 8.7 8.9 9.3 Phosphorus 4.2 3.9 4.0 Magnesium 2.2 2.2 Total Bilirubin 1.00 0.90 1.10 Conjugated Bilirubin AST 10 13 10 ALT < 7 L 7 L 7 L Alkaline Phosphatase 69 71 72 Troponin I NT-Pro-B Natriuret Pep Total Protein 6.2 6.1 6.6 Albumin 3.6 3.5 3.9 Lipase TSH Urine Color Urine Clarity Urine pH Ur Specific [place] Urine Protein Urine Ketones Urine Blood Urine Nitrite Urine Bilirubin Urine Urobilinogen Ur Leukocyte Esterase Urine RBC Urine WBC Ur Epithelial Cells Urine Crystals Urine Bacteria Urine Casts Urine Mucus Ur Culture Indicated? Urine Glucose COVID-19 Source SARS-CoV-2 (PCR) Influenza Type A (PCR) Influenza Type B (PCR) RSV (PCR) Add-On Test Request PFSH All Active Problems (Updated 08/18/25 @ 18:06 by Richie Mckeon MD) Volume overload (Acute) Chest pain (Acute) Cough with hemoptysis (Acute) D-dimer, elevated (Acute) Renal failure (Chronic) ESRD (end stage renal disease) (Acute) Acute kidney injury superimposed on stage 4 chronic kidney disease (Acute) Sacroiliac joint dysfunction of right side (Acute) Bladder cancer (Acute) Acute pyelonephritis (Acute) Medical History Rib cage dysfunction Stucco keratosis Obstructive sleep apnea Depression Graves disease GERD (gastroesophageal reflux disease) Fibromyalgia Kidney disease, chronic, stage IV (severe, 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 Acquired trigger finger Renal failure syndrome Rheumatoid arthritis Lumbar radiculopathy Postoperative hypothyroidism Obesity Neck pain Lower urinary tract symptoms (LUTS) Inflammatory arthritis Hyperlipidemia, mixed Hypertensive disorder Heart failure Diabetes mellitus Diabetic retinopathy associated with controlled type 2 diabetes mellitus Chronic cystitis Chronic pain Cataract Atrial fibrillation History of anemia Surgical History H/O breast biopsy Hx of tonsillectomy H/O tubal ligation H/O adenoidectomy History of cholecystectomy Hx of appendectomy H/O right cataract extraction Family History Father Cancer Heart disease Mother Graves disease Rheumatoid arthritis Social History Smoking/Tobacco Use Status: Former Tobacco Use Quit Date: 09/22/95 Smoking risk assessment performed?: Yes Alcohol Intake: former Drug use: Never Substance use type: does not use Housing: house Do you feel safe at home: Yes Do you feel safe in your relationship?: Yes Additional Social history: lives alone Time Spent with Patient Time Spent with Patient: <45 minutes Time was spent: preparing to see the patient(eg.review tests), obtaining and/or reviewing separately otained hiistory, ordering medications,tests, procedures, referring, communicating with other health companion caregiver, indepentently interpreting results, counseling the patient and care coordination
[2025-08-22] MEDS: Sodium Bicarbonate 650 MG TAB 325 MG PO (12:12)
--- NOTE | 2025-08-22 12:16 | PDOC.HHF2F_ITS ---
Date of service: 08/22/25 Time of Service: 12:16 Home Health Referral Home Health Orders Clinical synopsis of why skilled professionals are needed: 84-year-old lady with end-stage renal disease awaiting initiation of dialysis, atrial fibrillation, HFpEF, and type 2 DM who was admitted 08/[address] C/A/P was c/w anasarca without other significant findings. She had an elevated d-dimer but a low probability V/Q scan. She had a recent echocardiogram 06/23 with LVEF 55-60% and RVSP 65mmHg. Her troponins were mildly elevated in the 60s associated with her ESRD. She was not hypoxic. She did have some hemoptysis that may have been related to a nose bleed, but this did not persist. She diuresed well with furosemide. Her creatinine remained in the mild 4 range without significant electrolyte disturbances or acidosis. Her anemia was stable with hgb around 10. By the day of discharge, she was clinically stable on oral therapy including furosemide. She should follow up with her PCP in the next 1-2 weeks and nephrology to begin dialysis when appropriate. She was evaluated by physical therapy. Home health nursing and PT was recommended. Medical diagnosis necessitation home health referral: ESRD, anasarca, type 2 DM Registered Nurse: Check all that apply Instruct on new or changed medication(s)/assess compliance: Ordered Assess for exacerbation of medical condition, instruct patient/caregivers on signs and symptoms to report for early detection: Ordered Physical Therapist: Check all that apply Increase strength & endurance for safe mobility at home: Ordered To design/establish home maintenance program: Ordered Home safety evaluation and teaching/gait training including stair management (if applicable): Ordered Occupational Therapist: Evaluate and treat for patient unable to perform ADL/IADL/self-care: Ordered Instructional Systems Design Consultant: Assist with community resources: Ordered Assist with long term care pharmacist care planning: Ordered Home Bound Status Requires the aid of supportive device (check all that apply): Cane and Walker Describe why leaving home would require a considerable and taxing effort: Requires frequent rest periods Encounter Date and Reason: I certify that a FTF encounter for this patient was performed on August 22, 2025 and that such encounter was related to the primary reason the patient requires home health services. The encounter was conducted in the following manner: * By me as the certifying physician, CODING COMPLIANCE AUDITOR, PA or * By an inpatient physician, CODING COMPLIANCE AUDITOR or PA during an inpatient stay who communicated findings to me, Certification And Authentication I certify that I composed the above information based on my clinical judgment relating to this patient's medical condition and, if applicable, clinical findings communicated to me by the NPP or inpatient physician who performed the FTF encounter. Name of Provider that will be monitoring home health services: Jason Snow
--- NOTE | 2025-08-22 12:58 | CMDISCH_ITS ---
Date of service: 08/22/25 Time of Service: 12:59 LACE Index Scoring Tool Questions: Length of Stay (in days): 4 - 6 Was the patient admitted via the E.D.?: Yes E.D. Visits: 5 Answers: Total Score: 11 Risk of Readmission: High Risk Care Management Discharge Plan Reason for Hospitalization: ESRD, CHF, Elevated D-dimer, Elevated Troponine Discharge Plan: Iliana will be discharged home today with john paul Moraes/Robby ALVAREZ PT/OT/RN/CLARIFYING PLANT OPERATOR which she is aware of and agreeable too. It is recommended she follow up with her community providers, nephrology, [facility] CM Christy Ray, and discharge plan of care. She will transport home via private vehicle by family. Patient/Family Education Needs: Review of discharge instructions, activity, limitations, and plan of care. Discuss ask me three Services Needed at Discharge: Home Health Care Services
--- NOTE | 2025-08-22 15:39 | W.NUTRFU ---
Date of service: 08/22/25 Time of Service: 15:39 Nutrition Note NOTE: Was able to meet with Iliana and her son immediately prior to discharge. Had handout to offer on general nutrition considerations with CKD 3-5 with sample menus for both on dialysis or not on dialysis. rev'd sodium, phos and potassium wnl at discharge but is a good idea to limit consumption high in these consistently. encouraged modest protein intake of 50 grams per day and focus on a good amount coming from plant protein sources. Son would like to meet in the outpatient setting after discharge as he tends to a lot of her meals. Shared my contact information and will be available to support until she starts dialysis (at that time can follow up with renal dietitian on staff). Time Spent in Nutritional Counseling and Treatment: 10 min
== END 2025-08-22 15:30 | disposition home health service (06) | DRG 291 ==
LOC: ER 08-17 06:27 → MS 08-17 06:56
PROVIDERS: Family Medicine; Physician Assistant; Admitting Provider Family Medicine; Emergency Provider Student in an Organized Health Care Education/Training Program; PCP Specialist/Technologist Athletic Trainer; Responsible Provider Family Medicine; Visit Provider Family Medicine
DX: N18.6 End stage renal disease (principal); I50.30 Unspecified diastolic (congestive) heart failure; I48.0 Paroxysmal atrial fibrillation; E11.22 Type 2 diabetes mellitus with diabetic chronic kidney disease; Z79.4 Long term (current) use of insulin; D63.1 Anemia in chronic kidney disease; G47.33 Obstructive sleep apnea (adult) (pediatric); E89.0 Postprocedural hypothyroidism; I13.2 Hypertensive heart and chronic kidney disease with heart failure and with stage 5 chronic kidney disease, or end stage renal disease; R04.2 Hemoptysis; R79.1 Abnormal coagulation profile; R74.8 Abnormal levels of other serum enzymes; K21.9 Gastro-esophageal reflux disease without esophagitis; C67.9 Malignant neoplasm of bladder, unspecified; I42.9 Cardiomyopathy, unspecified; M79.7 Fibromyalgia; F32.A Depression, unspecified; Z95.0 Presence of cardiac pacemaker; I25.10 Atherosclerotic heart disease of native coronary artery without angina pectoris; I25.2 Old myocardial infarction; E11.319 Type 2 diabetes mellitus with unspecified diabetic retinopathy without macular edema; M54.16 Radiculopathy, lumbar region; Z87.891 Personal history of nicotine dependence; Z79.01 Long term (current) use of anticoagulants
CPT/HCPCS: 36410; 00123; 36415; 36416; 51701; 51702; 71250; 78582; 80053; 80069; 80076; 82962; 83690; 85027; 87637; 93005; 97110; 97161; 97530; 99285; 74176; 81003; 81015; 83735; 83880; 84100; 84443; 84484; 84550; 85025; 85379; 85610; 85730; 87086; 93010; 99223; 99232; 99239; J1815; J1938

== ENCOUNTER 2025-09-19 10:06 | Emergency (ER) | payer MEDICARE, MEDICAID, SELFPAY ==
[2025-09-19] VITALS (15 sets, daily range): BP systolic 154; BP diastolic 80; PULSE 60–63; RESP 18–22; TEMP 36.6–36.7; O2SAT 90–96
--- NOTE | 2025-09-19 10:00 | RT.EKG_ITS ---
APPROVED REPORT Exam: Resting ECG Reason for Exam: chest pain Patient Location: E HR:63 bpm ECG Measurements Heart Rate 63 AXIS NV 196 P 0 QRSd 126 QRS 177 QT 501 T 93 QTc 513 Conclusion Ventricular-paced rhythm, unchanged from prior No STEMI
--- NOTE | 2025-09-19 10:15 | DI.RAD_ITS ---
Exam(s) XR CHEST 1V IN DI DEPT EXAM: XR CHEST 1V IN DI DEPT CLINICAL HISTORY: SOB/ CP TECHNIQUE: 2D digital imaging was performed. COMPARISON: CR XR CHEST 2V PA LATERAL from 06/22/[address] CHEST/ABD/PEL WO from 08/16/2025 FINDINGS: Right internal jugular central venous catheter. LUNGS: Clear. No pleural abnormality seen. HEART: Enlarged, unchanged. Loop recorder device. AORTA: Normal diameter. BONES: Unremarkable for age. Soft tissues: Unremarkable. IMPRESSION: Enlarged heart. No acute findings. DATA REPOSITORY: RADIATION DOSE DELIVERED:
--- NOTE | 2025-09-19 10:29 | W.ED.GENAD ---
Discharge Plan Disposition Patient Disposition: Home Condition: Stable Discharge Details Clinical Impression: Shortness of breath, Volume overload Primary Care Provider: Jason Snow ED Provider: Ines Jewell Home Meds and New Rx's Prescriptions: Continued dwswlbfkjir-gpuvnqldr-igy C-Mn [Glucosamine Chondroitin MaxStr] 500-400 mg capsule 2 cap PO DAILY acetaminophen 325 mg tablet 2 tab PO BID PRN paroxetine HCl 30 mg tablet 30 mg PO DAILY Eliquis 2.5 mg Tablet 2.5 mg PO BID Qty: 180 2RF Rx Instructions: dose reduction for age/GFR spironolactone 25 mg tablet 25 mg PO DAILY furosemide 40 mg tablet 40 mg PO BID Qty: 180 0RF sodium bicarbonate 325 mg tablet 650 mg PO TID Qty: 0 0RF atorvastatin 40 mg tablet 40 mg PO DAILY Patient Comments: TAKE ONE TABLET BY MOUTH EVERY EVENING carvedilol 12.5 mg tablet 18.75 mg PO BID Patient Comments: TAKE ONE TABLET BY MOUTH TWICE A DAY WITH FOOD FOR 90 DAYS insulin degludec [Tresiba FlexTouch U-100] 100 unit/mL (3 mL) insulin pen 10 unit SUBCUT DAILY Patient Comments: INJECT 2 UNITS SUBCUTANEOUSLY ONCE DAILY REPLACE PEN AFTER OPEN FOR 56 DAYS magnesium chloride 64 mg tablet extended release 64 mg PO DAILY lisinopril 40 mg tablet 40 mg PO DAILY PreserVision AREDS 4,296 mcg-226 mg-90 mg capsule 1 cap PO BID Patient Comments: 1 capsule by mouth twice a day liothyronine 5 mcg tablet 5 mcg PO DAILY sevelamer carbonate [Renvela] 800 mg tablet 800 mg PO TID Rx Instructions: must administer with a meal/food (DME) OneTouch Verio test strips Strip MISCELLANEOUS Patient Comments: USE TO TEST BLOOD SUGAR ONE TO TWO TIMES EVERY DAY NEEDED (DME) lancets [OneTouch Delica Plus Lancet] 33 gauge misc MISCELLANEOUS Patient Comments: USE TO CHECK BLOOD SUGAR ONE TO TWO TIMES DAILY calcitriol 0.25 mcg capsule 0.5 mcg PO DAILY cholecalciferol (vitamin D3) [Vitamin D3] 25 mcg (1,000 unit) capsule 25 mcg PO DAILY levothyroxine 150 mcg tablet 150 mcg PO DAILY loperamide 2 mg Capsule 2 mg PO Q4H PRN PRNQty: 14 0RF Discharge Instructions Instructions: Shortness of Breath, Adult ED Additional Instructions: Please present directly to the dialysis clinic. Your labs are largely improved from your previous results. I did speak with Dr. Duncan with nephrology who recommends that you do not wait until Friday to be dialyzed. No evidence of COVID flu RSV or pneumonia. You do have a little bit of extra fluid back up your proBNP was 22,000 today. Please continue taking your Lasix or furosemide as previously prescribed. Present directly to the dialysis clinic. Follow up with primary care provider in 3-5 days. Return to ED sooner if any worsening or concerns. Stand Alone Forms: Portal Information Referrals: Jason Snow DO [Primary Care Provider, Medicine] - 1 week HPI General Mode of arrival: wheelchair. Date/Time Provider Initiated Documentation: 09/19/25 10:09. Limitations to Documentation: no limitations. Information obtained by: patient, family, RN notes reviewed and old records reviewed. HPI Narrative: 85-year-old female with a past medical history of end-stage renal disease, diabetes, obstructive sleep apnea, GERD, cardiomyopathy, anemia history of SC, atrial fibrillation presents to the ER with a chief complaint of increased shortness of breath and chest pain which began last night. She was scheduled for dialysis this morning which would be her third session she they called the dialysis clinic and was told to present to the hospital. She reports that the chest pain has resolved. She did vomit last night. Has no lower extremity swelling. She is stating that she feels a fluttering in her chest. Related Data Home Medications ?Medication ?Instructions ?Recorded ?Confirmed atorvastatin 40 mg tablet 40 mg PO DAILY 06/14/21 09/19/25 carvedilol 12.5 mg tablet 18.75 mg PO BID 06/14/21 09/19/25 insulin degludec 100 unit/mL (3 10 unit subcut DAILY 06/14/21 09/19/25 mL) subcutaneous pen (Tresiba FlexTouch U-100 insulin) acetaminophen 325 mg tablet 2 tab PO BID PRN 09/04/22 09/19/25 mykpzmqlzhq-erjpjsqal-xut C-Mn 500 2 cap PO DAILY 07/10/23 09/19/25 mg-400 mg capsule (Glucosamine Chondroitin Maximum Strength) lisinopril 40 mg tablet 40 mg PO DAILY 02/25/24 09/19/25 magnesium chloride 64 mg 64 mg PO DAILY 02/25/24 09/19/25 tablet,extended release vitamins A,C,D-kbcl-rkqkcx 4,296 1 cap PO BID 02/25/24 09/19/25 mcg-226 mg-90 mg capsule (PreserVision AREDS) blood sugar diagnostic (OneTouch 09/22/24 09/19/25 Verio test strips) lancets 33 gauge (OneTouch Delica 09/22/24 09/19/25 Plus Lancet) liothyronine 5 mcg tablet 5 mcg PO DAILY 09/22/24 09/19/25 sevelamer carbonate 800 mg tablet 800 mg PO TID 09/22/24 09/19/25 (Renvela) apixaban 2.5 mg tablet (Eliquis) 2.5 mg PO BID #180 tabs 03/15/25 09/19/25 paroxetine HCl 30 mg tablet 30 mg PO DAILY 03/15/25 09/19/25 spironolactone 25 mg tablet 25 mg PO DAILY 04/17/25 09/19/25 calcitriol 0.25 mcg capsule 0.5 mcg PO DAILY 06/17/25 09/19/25 cholecalciferol (vitamin D3) 25 25 mcg PO DAILY 06/22/25 09/19/25 mcg (1,000 unit) capsule (Vitamin D3) levothyroxine 150 mcg tablet 150 mcg PO DAILY 06/23/25 09/19/25 loperamide 2 mg capsule 2 mg PO Q4H PRN PRN #14 caps 06/24/25 09/19/25 furosemide 40 mg tablet 40 mg PO BID #180 tabs 08/22/25 09/19/25 sodium bicarbonate 325 mg tablet 650 mg (2 x 325 mg) PO TID #0 tabs 08/22/25 09/19/25 Previous Rx's ?Medication ?Instructions ?Recorded apixaban 2.5 mg tablet (Eliquis) 2.5 mg PO BID #180 tabs 03/15/25 loperamide 2 mg capsule 2 mg PO Q4H PRN PRN #14 caps 06/24/25 furosemide 40 mg tablet 40 mg PO BID #180 tabs 08/22/25 sodium bicarbonate 325 mg tablet 650 mg (2 x 325 mg) PO TID #0 tabs 08/22/25 Allergies Allergy/AdvReac Type Severity Reaction Status Date / Time Penicillins Allergy Severe Skin Rash Verified 09/19/25 10:12 Macrolide Antibiotics Allergy Intermediate Hives Verified 09/19/25 10:12 naproxen Allergy Intermediate Skin Rash Verified 09/19/25 10:12 niacin Allergy Intermediate Hives Verified 09/19/25 10:12 omeprazole (From Prilosec) Allergy Intermediate Nausea Verified 09/19/25 10:12 codeine Allergy Nausea Verified 09/19/25 10:12 erythromycin base Allergy Hives Verified 09/19/25 10:12 Sulfa (Sulfonamide Allergy urtiaria Verified 09/19/25 10:12 Antibiotics) amitriptyline AdvReac Intermediate Other (See Verified 09/19/25 10:12 Comment) NSAIDS (Non-Steroidal AdvReac Intermediate Other (See Verified 09/19/25 10:12 Anti-Inflamma Comment) celecoxib AdvReac Nausea Verified 09/19/25 10:12 gabapentin AdvReac Other (See Verified 09/19/25 10:12 Comment) methotrexate AdvReac Nausea Verified 09/19/25 10:12 naltrexone AdvReac Skin Rash Verified 09/19/25 10:12 General Stated Complaint: Chest Pain PAULINE: 3 Review of Systems All systems reviewed & are unremarkable except as noted in HPI and below Cardiovascular Cardiovascular: Reports chest pain, Reports palpitations and Reports dyspnea Respiratory Respiratory: Reports as per HPI and Reports dyspnea Gastrointestinal Gastrointestinal: Reports vomiting Endocrine Endocrine: Reports palpitations Exam Narrative Exam Narrative: Constitutional: Alert and oriented x3. Appears stated age. Normal body habitus. Patient appears frail and chronically ill. Head: Normocephalic, no trauma. Eyes: Pupils PERRL, Red reflex noted, EOM's intact. Eyelids symmetrical without lesions, discharge, or swelling. ENT: Bilateral TM's WNL, External ear normal to inspection, no mastoid TTP, swelling, or erythema, Nasal turbinates WNL, no nasal discharge. Normal dentition, Posterior pharynx WNL, no exudate. Chest: RRR, Normal S1, S2, distal pulses intact. Resp: Lungs diminished to auscultation bilaterally, no wheezes, rales, or rhonchi. Abdomen: Soft, non-distended, Normoactive bowel sounds all 4 quads. Musculoskeletal: Unable to assess gait, moves all 4 extremities without difficulty. Skin: No suspicious rashes or lesions. Capillary refill less than 2 sec. does have multiple healing bruises noted on her upper extremities. Neurologic: Cranial nerves II-XII intact. Alert and oriented x 3. Motor: No deficits noted. Sensory: Intact bilaterally all 4 extremities. Hematologic/Lymphatic: No ecchymosis, no lymphadenopathy. Course Vital Signs Vital signs: Vital Signs Temperature 36.7 C 09/19/25 10:07 Pulse 63 09/19/25 10:07 Respiratory Rate 22 09/19/25 10:07 Blood Pressure 154/80 H 09/19/25 10:07 Pulse Oximetry 90 L 09/19/25 10:07 Temperature 36.7 C 09/19/25 10:07 Temperature Source Oral 09/19/25 10:07 Pulse 63 09/19/25 10:07 Respiratory Rate 22 09/19/25 10:07 Blood Pressure 154/80 H 09/19/25 10:07 Pulse Oximetry 90 L 09/19/25 10:07 Oxygen Delivery Method Room Air 09/19/25 10:07 Oxygen Flow Rate 0 09/19/25 10:07 Medical Decision Making 85-year-old female with a past medical history of end-stage renal disease, diabetes, obstructive sleep apnea, GERD, cardiomyopathy, anemia history of SC, atrial fibrillation presents to the ER with a chief complaint of increased shortness of breath and chest pain which began last night. She was scheduled for dialysis this morning which would be her third session she they called the dialysis clinic and was told to present to the hospital. She reports that the chest pain has resolved. She did vomit last night. Has no lower extremity swelling. She is stating that she feels a fluttering in her chest. Workup ordered including CBC CMP magnesium serial troponins, proBNP PT PTT VBG and chest x-ray, COVID flu and RSV. She reports that she is still making urine and she urinated this morning. EKG was reviewed by Dr. Proctor and myself ER attending, old EKG available for review, no ischemic changes or STEMI. Please see official report. No leukocytosis, Hgb 9.3 Hct 30.1 BUN and creatinine have improved from her baseline, BUN is 53 creatinine 3.70 GFR is 11.7, glucose 132, [place] [address] negative COVID flu RSV. Chest x-ray within normal limits. Will consider Lasix after speaking with nephrology. 1143: [place] [facility] [place]. 1146: Patients chest pain has returned repeat EKG performed. Repeat EKG shows no significant changes. 1155: Dr. Duncan with Nephrology who recommends seeing if patient can get into dialysis today, does not recommend Furosemide at this time. Dialysis clinic can get to patient today if she presents before 1pm, will plan on discharging patient. Patient discharged in hemodynamically stable condition in the care of her family. This text was generated using [employer] system, please disregard any oddities of phrase or misspellings. Medical Records Medical records reviewed: Yes I reviewed the patient's medical records. Lab Data Lab results reviewed: Yes I reviewed the patient's lab results. Labs: Laboratory Tests Range/Units 09/19/25 09/19/25 10:18 10:37 WBC (4.4-10.8) 10^3/uL 5.37 RBC (3.93-5.22) 10^6/uL 2.99 L Hgb (11.2-15.7) g/dL 9.3 L Hct (36.0-46.0) % 30.1 L MCV (80-95) fL 101 H MCH (27.0-33.0) pg 31.1 MCHC (32.0-36.0) % 30.9 L RDW (11.7-14.6) % 16.0 H Plt Count (130-400) 10^3/uL 179 MPV (8.0-11.0) fL 9.3 Immature Gran % % 0.4 Neutrophils % % 78.8 Lymphocytes % % 10.2 Monocytes % % 8.8 Eosinophils % % 1.1 Basophils % % 0.7 Nucleated RBC % (0.0-0.3) % 0.0 Absolute Neutrophils (1.2-6.7) 10^3/uL 4.23 Absolute Lymphocytes (1.2-3.4) 10^3/uL 0.55 L Absolute Monocytes (0.1-0.8) 10^3/uL 0.47 Absolute Eosinophils (0.0-0.7) 10^3/uL 0.06 Absolute Basophils (0.0-0.2) 10^3/uL 0.04 PT (9.1-11.1) sec 12.7 H INR (0.9-1.1) 1.3 H APTT (20.6-30.2) sec 29.3 VBG pH (7.31-7.41) 7.38 VBG pCO2 (41-51) mmHg 46 VBG pO2 mmHg 46 VBG HCO3 (23-28) mmol/L 27 VBG Total CO2 (24-29) mmol/L 26 VBG O2 Saturation % 77 VBG Base Excess (-2-3) mmol/L 2 Sodium (136-145) mmol/L 138 Potassium (3.5-5.1) mmol/L 4.5 Chloride (98-107) mmol/L 101 Carbon Dioxide (20.0-31.0) mmol/L 27.0 Anion Gap (3-11) mmol/L 10 BUN (9-23) mg/dL 53 H Creatinine (0.55-1.02) mg/dL 3.70 H* Est GFR (CKD-EPI 2020) (mL/min/1.73m2) 11.70 Glucose (74-106) mg/dL 132 H Calcium (8.3-10.6) mg/dL 8.8 Magnesium (1.6-2.6) mg/dL 2.3 Total Bilirubin (0.2-1.2) mg/dL 1.0 AST (<34) U/L 13 ALT (10-49) U/L 10 Alkaline Phosphatase (46-116) U/L 73 Troponin I (<35) ng/L 60 H* NT-Pro-B Natriuret Pep (<300) pg/mL 94297 H Total Protein (5.7-8.2) g/dL 7.0 Albumin (3.2-5.0) g/dL 4.0 COVID-19 Source Nasopharynx SARS-CoV-2 (PCR) (Negative) Negative Influenza Type A (PCR) (Negative) Negative Influenza Type B (PCR) (Negative) Negative RSV (PCR) (Negative) Negative PFSH All Active Problems (Updated 09/19/25 @ 12:04 by Ines Jewell NP) Shortness of breath (Acute) Volume overload (Acute) Cough with hemoptysis (Acute) D-dimer, elevated (Acute) Renal failure (Chronic) ESRD (end stage renal disease) (Acute) Acute kidney injury superimposed on stage 4 chronic kidney disease (Acute) Sacroiliac joint dysfunction of right side (Acute) Bladder cancer (Acute) Acute pyelonephritis (Acute) Medical History Elevated d-dimer Elevated lipase Noncompliance w/medication treatment due to intermit use of medication Elevated troponin level not due to acute coronary syndrome Rib cage dysfunction Stucco keratosis Obstructive sleep apnea Depression Graves disease GERD (gastroesophageal reflux disease) Fibromyalgia Kidney disease, chronic, stage IV (severe, 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 Acquired trigger finger Renal failure syndrome Rheumatoid arthritis Lumbar radiculopathy Postoperative hypothyroidism Obesity Neck pain Lower urinary tract symptoms (LUTS) Inflammatory arthritis Hyperlipidemia, mixed Hypertensive disorder Heart failure Diabetes mellitus Diabetic retinopathy associated with controlled type 2 diabetes mellitus Chronic cystitis Chronic pain Cataract Atrial fibrillation History of anemia Surgical History H/O breast biopsy Hx of tonsillectomy H/O tubal ligation H/O adenoidectomy History of cholecystectomy Hx of appendectomy H/O right cataract extraction Family History Father Cancer Heart disease Mother Graves disease Rheumatoid arthritis Social History Smoking/Tobacco Use Status: Former Tobacco Use Quit Date: 09/22/95 Smoking risk assessment performed?: Yes Alcohol Intake: former Drug use: Never Substance use type: does not use Housing: house Do you feel safe at home: Yes Do you feel safe in your relationship?: Yes Additional Social history: lives alone
[2025-09-19 10:51] LABS: Abs Immature Grans 0.02 10^3/uL (0.0-0.06); BE (Venous) 2 mmol/L (-2-3); HCO3 (Venous) 27 mmol/L (23-28); HCT 30.1 % (36.0-46.0); HGB 9.3 g/dL (11.2-15.7); Immature Grans % 0.4 %; MCH 31.1 pg (27.0-33.0); MCHC 30.9 % (32.0-36.0); MCV 101 fL (80-95); MPV 9.3 fL (8.0-11.0); O2 Sat (Venous) 77 %; Platelet Count 179 10^3/uL (130-400); RBC 2.99 10^6/uL (3.93-5.22); RDW 16.0 % (11.7-14.6); RDW-SD 59.2 fL; TCO2 (Venous) 26 mmol/L (24-29); WBC 5.37 10^3/uL (4.4-10.8); pCO2 (Venous) 46 mmHg (41-51); pO2 (Venous) 46 mmHg
[2025-09-19 11:08] LABS: COVID-19 PCR Negative (Negative); RSV PCR Negative (Negative)
[2025-09-19 11:12] LABS: INR 1.3 (0.9-1.1); PTT Activated 29.3 sec (20.6-30.2); Prothrombin Time 12.7 sec (9.1-11.1)
[2025-09-19 11:37] LABS: ALT 10 U/L (10-49); AST 13 U/L (<34); Albumin 4.0 g/dL (3.2-5.0); Alkaline Phosphatase 73 U/L (46-116); Anion Gap 10 mmol/L (3-11); BUN 53 mg/dL (9-23); Bilirubin, Total 1.0 mg/dL (0.2-1.2); CO2 27.0 mmol/L (20.0-31.0); Calcium 8.8 mg/dL (8.3-10.6); Chloride 101 mmol/L (98-107); Glucose 132 mg/dL (74-106); Magnesium 2.3 mg/dL (1.6-2.6); Potassium 4.5 mmol/L (3.5-5.1); Sodium 138 mmol/L (136-145); Total Protein 7.0 g/dL (5.7-8.2); Troponin I 60 ng/L (<35)
--- NOTE | 2025-09-19 11:45 | RT.EKG_ITS ---
APPROVED REPORT Exam: Resting ECG Reason for Exam: chest pain Patient Location: E HR:60 bpm ECG Measurements Heart Rate 60 AXIS VA 274 P 0 QRSd 120 QRS 148 QT 543 T 52 QTc 542 Conclusion Ventricular-paced rhythm, rate 60 No STEMI No significant change from prior
[2025-09-19 12:35] LABS: Troponin I 60 ng/L (<35)
== END 2025-09-19 12:25 | disposition home or self-care (01) ==
PROVIDERS: Emergency Provider Registered Nurse Emergency; PCP Specialist/Technologist Athletic Trainer
DX: R06.02 Shortness of breath (principal); R07.9 Chest pain, unspecified; N18.6 End stage renal disease
CPT/HCPCS: 99285 ×2; 36415; 80053; 82805; 87637; 93005; 71045; 83735; 83880; 84484; 85025; 85610; 85730; 93010